=== PATIENT | female | born 1975 | race Caucasian/White ===

== ENCOUNTER 2023-08-18 10:10 | Outpatient (OUT) | payer BC, SELFPAY ==
[2023-08-18 10:38] LABS: Basophils Percent Auto 0.3 % (0.2-2.0); Eosinophils Percent Auto 0.6 % (0.9-7.0); Hematocrit 44.7 % (36.0-48.0); Immature Granulocytes Abs Auto 0.01 10^3/uL (0.00-0.03); Immature Granulocytes Pct Auto 0.1 % (0.0-0.5); Lymphocytes Absolute Auto 1.9 10^3/uL (1.2-3.8); Lymphocytes Percent Auto 26.4 % (20.5-60.0); Mean Corpuscular HGB Conc 33.6 g/dL (29.9-35.2); Mean Corpuscular Hemoglobin 33.1 pg (26.7-34.0); Mean Corpuscular Volume 98.7 fL (81.0-99.0); Mean Platelet Volume 10.7 fL (9.5-13.5); Monocytes Absolute Auto 0.4 10^3/uL (0.3-0.8); Monocytes Percent Auto 5.8 % (1.7-12.0); Neutrophils Absolute Auto 4.8 10^3/uL (1.4-6.5); Neutrophils Percent Auto 66.8 % (43.0-75.0); Platelet Count 216 10^3/uL (150-450); Red Blood Count 4.53 10^6/uL (4.20-5.40); Red Cell Distribution Width 11.6 % (11.0-15.0); White Blood Count 7.2 10^3/uL (4.0-11.0)
[2023-08-18 11:16] LABS: Alanine Aminotransferase 17 U/L (14-59); Albumin Globulin Ratio 0.8; Albumin Level 3.5 g/dL (3.4-5.0); Alkaline Phosphatase 72 U/L (46-116); Anion Gap 9.3; Aspartate Amino Transferase 22 U/L (15-37); BUN Creatinine Ratio 12.9; Bilirubin Total 0.6 mg/dL (0.2-1.0); Calcium 9.1 mg/dL (8.5-10.1); Chloride 101 mmol/L (98-107); Chol HDL Ratio 3.2; Cholesterol 183 mg/dL (<=200); Estimated Average Glucose 100 mg/dL; Estimated GFR (African America >60 (>=60); Estimated GFR (Non-African Ame 51 (>=60); Free T3 2.36 pg/mL (2.18-3.98); Globulin 4.4 g/dL; Glucose 94 mg/dL (74-106); Glycohemoglobin A1C 5.1 % (4.5-6.2); HDL Cholesterol 57 mg/dL (40-60); Potassium 4.3 mmol/L (3.5-5.1); Sodium 136 mmol/L (136-145); Thyroid Stimulating Hormone 1.755 uIU/mL (0.358-3.740); Total Protein 7.9 g/dL (6.4-8.2); Triglycerides 130 mg/dL (<=150)
[2023-08-19 11:09] LABS: Insulin 8.7 uIU/mL (2.6-24.9)
== END 2023-08-18 10:11 | disposition home or self-care (01) ==
LOC: LAB 10:14
PROVIDERS: PCP Nurse Practitioner Family; Visit Provider Nurse Practitioner Family
DX: Z00.00 Encounter for general adult medical examination without abnormal findings (principal)
CPT/HCPCS: 36415; 80053; 80061; 82306; 83036; 83525; 83540; 84436; 84443; 84481; 85025

== ENCOUNTER 2023-08-25 12:42 | Outpatient (OUT) | payer BC, SELFPAY ==
--- OUTSIDE RECORDS SUMMARY | 2023-08-25 12:47 | XMS_ITS | CCD ---
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 Name Role Phone DEN HU Unavailable Unavailable XOCHILT FAGAN Unavailable Unavailable DEN HU Unavailable Unavailable XOCHILT FAGAN Unavailable Unavailable Xochilt Corral Unavailable GLENYS MCGINNIS Admitting Unavailable GLENYS MCGINNIS Attending Unavailable DR SAKSHI MARINELLI Primary Care Unavailable GLENYS MCGINNIS Consulting Unavailable Medications Current Medications Medication Drug Class(es) Dates Sig (Normalized) Sig (Original) Escitalopram (1 source) Serotonin Reuptake Inhibitor Lexapro Active lamoTRIgine (1 source) Mood Stabilizer, Anti-epileptic Agent LaMICtal Active olmesartan (1 source) Angiotensin 2 Receptor Jamshid Benicar Active Omeprazole (1 source) Proton Pump Inhibitor PriLOSEC Active penicillin v potassium 500 mg oral tablet (1 source) Start: 03-23-2022 take 1 tablet by mouth every twelve hours Penicillin V Potassium 500 MG 1 tablet Orally Twice a day for 10 day(s) Mar, Active Pravastatin (1 source) HMG-CoA Reductase Inhibitor Pravastatin Sodium Active Problems Active Problems Problem Classification Problem Date Documented Da te Episodic/Chronic Abdominal pain (1 source) Abdominal pain; Translations: [Flank pain, acute] Episodic Pneumonia (except that caused by tuberculosis or sexually transmitted disease) (1 source) Pneumonia; Translations: [Pneumonia] Episodic Unclassified (1 source) lbpc left numbness x 8 months / lbpc left numbness x 8 months() Onset: 03-04-2017 Past or Other Problems Problem Classification Problem Date Documented Da te Episodic/Chronic Other nervous system disorders (1 source) Anesthesia of skin; Translations: [Anesthesia of skin] Onset: 03-04-2017 Episodic Other upper respiratory infections (2 sources) Acute pharyngitis, unspecified; Translations: [Streptococcal pharyngitis] Onset: 03-23-2022 Resolved: 03-23-2022 Episodic Spondylosis; intervertebral disc disorders; other back problems (1 source) Low back pain; Translations: [Low back pain] Onset: 03-04-2017 Episodic Unclassified (1 source) lbpc left numbness x 8 months; Translations: [lbpc left numbness x 8 months] Onset: 03-04-2017 Results Test Name Value Interpretation Reference Range Facility INSULINon 07-30-2022 Insulin 17.5 uIU/mL Normal 2.6-24.9 [facility] Comment on above: Performed By: #### I NSULIN #### [facility] [address] [place] [address] Dr. Rachel Edgar CBC AUTO DIFFon 07-29-2022 BASO # 0.0 103/ul Normal 0.0-0.1 [facility] Comment on above: Performed By: #### C BC #### [facility] [address] [place] [address] Dr. Rachel Edgar Basophils/100 WBC (Bld) 0.1 % Critically low 0.2-2.0 [facility] Comment on above: Performed By: #### C BC #### [facility] [address] [address] [address] Rachel Edgar EO # 0.1 103/ul Normal 0.0-0.7 [facility] Comment on above: Performed By: #### C BC #### [facility] [address] [address] [address] Rachel Edgar Eosinophils/100 WBC (Bld) 0.7 % Critically low 0.9-7.0 [facility] Comment on above: Performed By: #### C BC #### [facility] [address] [place] [address] Dr. Rachel Edgar Erythrocyte distribution width (RBC) [Ratio] 12.1 % Normal 11.0-15.0 [facility] Comment on above: Performed By: #### C BC #### [facility] [address] [place] [address] Dr. Rachel Edgar Hematocrit (Bld) [Volume fraction] 42.0 % Normal 36.0-48.0 [facility] Comment on above: Performed By: #### C BC #### [facility] [address] [address] [address] Rachel Edgar Hemoglobin (Bld) [Mass/Vol] 14.0 g/dL Normal 12.0-16.0 [facility] Comment on above: Performed By: #### C BC #### [facility] [address] [address] [address] Rachel Edgar IG # 0.03 10e3/ul Normal 0.00-0.03 [facility] Comment on above: Performed By: #### C BC #### [facility] [address] [place] [address] Dr. Rachel Edgar IG % 0.3 % Normal 0.0-0.5 [facility] Comment on above: Performed By: #### C BC #### [facility] [address] [place] [address] Dr. Rachel Edgar LYMPH # 2.1 103/ul Normal 1.2-3.8 [facility] Comment on above: Performed By: #### C BC #### [facility] [address] [place] [address] Dr. Rachel Edgar Lymphocytes/100 WBC (Bld) 23.2 % Normal 20.5-60.0 [facility] Comment on above: Performed By: #### C BC #### [facility] [address] [place] [address] Dr. Rachel Edgar MANUAL DIFF REQ NO Normal [facility] Comment on above: Performed By: #### C BC #### [facility] [address] [place] [address] Dr. Rachel Edgar MCH (RBC) [Entitic mass] 32.9 pg Normal 26.7-34.0 [facility] Comment on above: Performed By: #### C BC #### [facility] [address] [place] [address] Dr. Rachel Edgar MCHC (RBC) [Mass/Vol] 33.3 g/dL Normal 29.9-35.2 [facility] Comment on above: Performed By: #### C BC #### [facility] [address] [address] [address] Rachel Edgar MCV (RBC) [Entitic vol] 98.8 fL Normal 81.0-99.0 [facility] Comment on above: Performed By: #### C BC #### [facility] [address] [address] [address] Rachel Edgar MONO # 0.5 103/ul Normal 0.3-0.8 [facility] Comment on above: Performed By: #### C BC #### [facility] [address] [address] [address] Rachel Edgar Monocytes/100 WBC (Bld) 5.9 % Normal 1.7-12.0 [facility] Comment on above: Performed By: #### C BC #### [facility] [address] [place] [address] Dr. Rachel Edgar NEUT # 6.3 103/ul Normal 1.4-6.5 [facility] Comment on above: Performed By: #### C BC #### [facility] [address] [place] [address] Dr. Rachel Edgar Neutrophils/100 WBC (Bld) 69.8 % Normal 43.0-75.0 [facility] Comment on above: Performed By: #### C BC #### [facility] [address] [place] [address] Dr. Rachel Edgar Platelet mean volume (Bld) [Entitic vol] 10.2 fL Normal 9.5-13.5 [facility] Comment on above: Performed By: #### C BC #### [facility] [address] [place] [address] Dr. Rachel Edgar PLT 335 103/ul Normal 150-450 [facility] Comment on above: Performed By: #### C BC #### [facility] [address] [place] [address] Dr. Rachel Edgar RBC 4.25 106/ul Normal 4.20-5.40 [facility] Comment on above: Performed By: #### C BC #### [facility] [address] [place] [address] Dr. Rachel Edgar WBC 9.0 103/ul Normal 4.0-11.0 [facility] Comment on above: Performed By: #### C BC #### [facility] [address] [place] [address] Dr. Rachel Edgar FREE THYROXINE INDEX T7on FTI 1.88 Normal 1.30-4.50 [facility] Comment on above: Performed By: #### T 7, TSH, CMP, LIPID #### [facility] [address] [place] [address] Dr. Rachel Edgar T3U 33.0 % Normal 30.0-39.0 [facility] Comment on above: Performed By: #### T 7, TSH, CMP, LIPID #### [facility] [address] [place] [address] Dr. Rachel Edgar T4 [Mass/Vol] 5.70 ug/dL Normal 4.80-13.90 [facility] Comment on above: Performed By: #### T 7, TSH, CMP, LIPID #### [facility] [address] [place] [address] Dr. Rachel Edgar GLYCOHEMOGLOBIN A1Con 2021 ADA RECOMMENDATION SEE BELOW Normal [facility] Comment on above: Result Comment: ADA RECOMMENDED LIMIT 4.0 - 6.0 ADA THERAPEUTIC TARGET < 7.0 ACTION SUGGESTED > 7.0 Performed By: #### A 1C #### [facility] [address] [place] [address] Dr. Rachel Edgar HbA1c (Bld) [Mass fraction] 5.4 % Normal 4.5-6.2 [facility] Comment on above: Performed By: #### A 1C #### [facility] [address] [place] [address] Dr. Rachel Edgar IRONon 07-29-2022 Iron [Mass/Vol] 64.0 ug/dL Normal 50.0-170.0 [facility] Comment on above: Performed By: #### I JCARLOS #### [facility] [address] [place] [address] Dr. Rachel Edgar LIPID PROFILEon 07-29-2022 CHOL-HDL RATIO NORM SEE BELOW Normal [facility] Comment on above: Result Comment: 3.3 - 4.4 LOW RISK 4.4 - 7.1 AVERAGE RISK 7.1 - 11.0 MODERATE RISK >11.0 HIGH RISK Performed By: #### T 7, TSH, CMP, LIPID #### [facility] [address] [address] [address] Rachel Edgar Cholesterol [Mass/Vol] 164 mg/dL Normal <=200 [facility] Comment on above: Performed By: #### T 7, TSH, CMP, LIPID #### [facility] [address] [address] [address] Rachel Edgar Cholesterol in HDL [Mass/Vol] 42 mg/dL Normal 40-60 [facility] Comment on above: Performed By: #### T 7, TSH, CMP, LIPID #### [facility] [address] [address] [address] Rachel Edgar Cholesterol in LDL [Mass/Vol] 82.6 mg/dL Normal [facility] Comment on above: Performed By: #### T 7, TSH, CMP, LIPID #### [facility] [address] [address] [address] Rachel Edgar Cholesterol.total/Ch olesterol in HDL [Mass ratio] 3.9 {ratio} Normal [facility] Comment on above: Performed By: #### T 7, TSH, CMP, LIPID #### [facility] [address] [address] [address] Rachel Edgar HDL NORMAL > or = 60 mg/dl - LOW CARDIOVASCULAR RISK <40 mg/dl - HIGH CARDIOVASCULAR RISK Normal [facility] Comment on above: Performed By: #### T 7, TSH, CMP, LIPID #### [facility] [address] [place] [address] Dr. Rachel Edgar LDL CALC NORMAL SEE BELOW Normal [facility] Comment on above: Result Comment: <100 mg/dl OPTIMAL 100 - 129 mg/dl NEAR OR ABOVE OPTIMAL 130 - 159 mg/dl BORDERLINE HIGH 160 - 189 mg/dl HIGH >190 mg/dl VERY HIGH Performed By: #### T 7, TSH, CMP, LIPID #### [facility] [address] [address] [address] Rachel Edgar Triglyceride [Mass/Vol] 197 mg/dL Critically high <=150 [facility] Comment on above: Performed By: #### T 7, TSH, CMP, LIPID #### [facility] [address] [address] [address] Rachel Edgar VLDL CALC 39.4 mg/dL Normal [facility] Comment on above: Performed By: #### T 7, TSH, CMP, LIPID #### [facility] [address] [address] [address] Rachel Edgar PROF 14(COMP METB)on 022 Albumin [Mass/Vol] 3.5 g/dL Normal 3.4-5.0 [facility] Comment on above: Performed By: #### T 7, TSH, CMP, LIPID #### [facility] [address] [address] [address] Rachel Edgar Albumin/Globulin [Mass ratio] 0.9 {ratio} Normal [facility] Comment on above: Performed By: #### T 7, TSH, CMP, LIPID #### [facility] [address] [place] [address] Dr. Rachel Edgar ALP [Catalytic activity/Vol] 83 U/L Normal 46-116 [facility] Comment on above: Performed By: #### T 7, TSH, CMP, LIPID #### [facility] [address] [address] [address] Rachel Edgar ALT [Catalytic activity/Vol] 21 U/L Normal 14-59 [facility] Comment on above: Performed By: #### T 7, TSH, CMP, LIPID #### [facility] [address] [place] [address] Dr. Rachel Edgar Anion gap [Moles/Vol] 10.4 mmol/L Normal [facility] Comment on above: Performed By: #### T 7, TSH, CMP, LIPID #### [facility] [address] [place] [address] Dr. Rachel Edgar AST [Catalytic activity/Vol] 17 U/L Normal 15-37 [facility] Comment on above: Performed By: #### T 7, TSH, CMP, LIPID #### [facility] [address] [address] [address] Rachel Edgar Bilirubin [Mass/Vol] 0.2 mg/dL Normal 0.2-1.0 [facility] Comment on above: Performed By: #### T 7, TSH, CMP, LIPID #### [facility] [address] [address] [address] Rachel Edgar Calcium [Mass/Vol] 9.0 mg/dL Normal 8.5-10.1 [facility] [place] [facility] Comment on above: Performed By: #### T 7, TSH, CMP, LIPID #### [facility] [address] [place] [address] Dr. Rachel Edgar Chloride [Moles/Vol] 103 mmol/L Normal 98-107 [facility] Comment on above: Performed By: #### T 7, TSH, CMP, LIPID #### [facility] [address] [address] [address] Rachel Edgar CO2 [Moles/Vol] 30.8 mmol/L Normal 21.0-32.0 [facility] Comment on above: Performed By: #### T 7, TSH, CMP, LIPID #### [facility] [address] [place] [address] Dr. Rachel Edgar Creatinine [Mass/Vol] 0.96 mg/dL Normal 0.55-1.02 [facility] Comment on above: Performed By: #### T 7, TSH, CMP, LIPID #### [facility] [address] [place] [address] Dr. Rachel Edgar EGFR-AF MONEGASQUE >60 Normal >=60 [facility] Comment on above: Performed By: #### T 7, TSH, CMP, LIPID #### [facility] [address] [place] [address] Dr. Rachel Edgar EGFR-NON AF MONEGASQUE >60 Normal >=60 [facility] Comment on above: Performed By: #### T 7, TSH, CMP, LIPID #### [facility] [address] [address] [address] Rachel Edgar Globulin (S) [Mass/Vol] 4.0 g/dL Normal [facility] Comment on above: Performed By: #### T 7, TSH, CMP, LIPID #### [facility] [address] [address] [address] Rachel Edgar Glucose [Mass/Vol] 108 mg/dL Normal [facility] [place] [facility] Comment on above: Performed By: #### T 7, TSH, CMP, LIPID #### [facility] [address] [address] [address] Rachel Edgar Performed By: #### A 1C #### [facility] [address] [place] [address] Dr. Rachel Edgar Potassium [Moles/Vol] 4.2 mmol/L Normal 3.5-5.1 [facility] Comment on above: Performed By: #### T 7, TSH, CMP, LIPID #### [facility] [address] [place] [address] Dr. Rachel Edgar Protein [Mass/Vol] 7.5 g/dL Normal 6.4-8.2 [facility] [place] [facility] Comment on above: Performed By: #### T 7, TSH, CMP, LIPID #### [facility] [address] [place] [address] Dr. Rachel Edgar Sodium [Moles/Vol] 140 mmol/L Normal 136-145 [facility] [place] [facility] Comment on above: Performed By: #### T 7, TSH, CMP, LIPID #### [facility] [address] [place] [address] Dr. Rachel Edgar Urea nitrogen [Mass/Vol] 15.0 mg/dL Normal 7.0-18.0 [facility] Comment on above: Performed By: #### T 7, TSH, CMP, LIPID #### [facility] [address] [place] [address] Dr. Rachel Edgar Urea nitrogen/Creatinine [Mass ratio] 15.6 mg/mg Normal [facility] Comment on above: Performed By: #### T 7, TSH, CMP, LIPID #### [facility] [address] [place], [place] [address] Dr. Rachel Edgar TSHon 07-29-2022 TSH 1.473 uIU/mL Normal 0.358-3.740 [facility] [place] [facility] Comment on above: Performed By: #### T 7, TSH, CMP, LIPID #### [facility] [address] [place], [place] [address] Dr. Rachel Edgar COVID Quick Testingon 2021 Result Negative [facility] Other Quick Strepon 03-23-2022 S. pyogenes Org specific cx Ql (Throat) Positive [facility] Other Quick Strep [facility] Other XR LUMBAR SPINE LIMITEDon XR LUMBAR SPINE LIMITED REPORT: 2 view lumbar spineINDICATION: Low back pain, unspecified back pain laterality, unspecified chronicity, with sciatica present unspecifiedFINDINGS: Underlying scoliosis. Vertebral body heights are well maintained. No evidence of acute fracture. Grade 1 anterolisthesis of L5 on S1 with moderate disc height loss likely due to bilateral pars defects. Rudimentary disc at S1-S2. Mild diffuse disc height loss. SI joints are mildly degenerated.1. SCOLIOSIS WITH MILD UNDERLYING DEGENERATIVE CHANGES2. PROBABLE BILATERAL L5 PARS DEFECTS WITH GRADE 1 ANTEROLISTHESIS AND MODERATE DISC DEGENERATIONFinal report electronically signed by Kely Blue on 03/04/2017 4:20 PMInterpreted by:BASIL Corraligned by:Kely Blue MD03/04/17Final result Normal [facility] Vital Signs Date Time Vital Sign Value Performing Clinician Facility 03-23-2022 11:20-0400 Body height 154.94 cm Xochilt Corral Other [facility] Other 03-23-2022 11:20-0400 Body mass index (BMI) [Ratio] 42.51 kg/m2 Xochilt Corral Other [facility] Other 08-23-2022 11:20-0400 Body temperature 97.8 [degF] Xochilt Corral Other [facility] Other 03-23-2022 11:20-0400 Body weight 102.06 kg Xochilt Corral Other [facility] Other 03-23-2022 11:20-0400 Respiratory rate 18 /min Xochilt Corral Other [facility] Other 03-23-2022 11:20-0400 SaO2% (BldA) [Mass fraction] 97 % Xochilt Corral Other [facility] Other Encounters Encounter Date Encounter Type Care Provider Facility Start: 07-29-2022 End: 07-30-2022 ambulatory [facility] Facility: Start: 03-23-2022 End: 03-23-2022 ambulatory Xochilt Corral Other [facility] Other Start: 03-23-2022 Office outpatient vi sit 15 minutes Xochilt [facility]reira[facility] Start: 03-04-2017 End: 03-05-2017 Ambulatory [facility] Procedures Date Procedure Procedure Detail Performing Clinician Start: 03-04-2017 Radex spine lumbosac ral 2/3 views DEN HU Payers Date Payer Category Payer Unknown [id number] 1975 Unknown [id number] 1957 [employer] [facility] [id number] Social History Date Type Detail Facility Sex Assigned At [facility] Other Evaluation note 03-23-2022 Note Date & Type Note Facility 03-23-2022 Evaluation note Encounter Date Diagnosis Assessment Notes Mar, Sore throat (ICD-10 - J02.9) Mar, Strep pharyngitis (ICD-10 - J02.0) 46 y.o. female seen today for 2 day onset of sore throat. She denies fever, chills, cough. She reports that her son tested positive x 1 week ago. Due to symptom onset a rapid COVID and rapid Strep was performed in the office today. Rapid strep was positve and COVID was negative. Results were reviewed with patient during this visit. Start Penicillin V Potassium 500mg orally BID for 10days. Advised pt to hydrate well and may incorporate pro-biotics while on antibiotics. Advised that she should start to feel better in the next 3-4 days but to complete the antibiotic treatment. PT acknowledges understanding and agrees to understanding. [facility] Other History general Narrative - Reported 10-31-2011 Note Date & Type Note Facility 10-31-2011 History general N arrative - Reported Type Medical History hypertension Medical History depression Medical History acid reflux Medical History miscarriage 10/2011 Surgical History D&C Hospitalization History childbirth [facility] Other Summary Purpose Family History No Family History Records FoundNo Family History Records Found Advance Directives No Advanced Directives Records FoundNo Advanced Directives Records Found Additional Source Comments INFORMATION SOURCE (unrecogn ized section and content) DATE CREATED AUTHOR 01/25/2018 Iesha marsh DATE CREATED AUTHOR AUTHOR'S ORGANIZ ATION 07/30/2022 The Suni marsh REASON FOR VISIT (unrecogniz ed section and content) VAN, SORE THROAT FOR RECORDS PERTAINING TO PATIENTS WHO ARE OR HAVE BEEN ENROLLED IN A CHEMICAL DEPENDENCY/SUBSTANCEABUSE PROGRAM, SOME INFORMATION MAY BE OMITTED. This clinical summary was aggregated from multiple sources. Caution should be exercised in using it in the provision of clinical care. This summary normalizes information from multiple sources, and as a consequence, information in this document may materially change the coding, format and clinical context of patient data. In addition, data may be omitted in some cases. CLINICAL DECISIONS SHOULD BE BASED ON THE PRIMARY CLINICAL RECORDS. [facility]. provides no warranty or guarantee of the accuracy or completeness of information in this document.
[2023-08-25 13:54] LABS: Alanine Aminotransferase 26 U/L (14-59); Albumin Level 3.9 g/dL (3.4-5.0); Alkaline Phosphatase 78 U/L (46-116); Anion Gap 11.1; Aspartate Amino Transferase 12 U/L (15-37); Bilirubin Total 0.4 mg/dL (0.2-1.0); Calcium 9.1 mg/dL (8.5-10.1); Carbon Dioxide 31.4 mmol/L (21.0-32.0); Chloride 99 mmol/L (98-107); Estimated GFR (African America 59 (>=60); Estimated GFR (Non-African Ame 49 (>=60); Globulin 4.1 g/dL; Glucose 90 mg/dL (74-106); Potassium 3.5 mmol/L (3.5-5.1); Sodium 138 mmol/L (136-145)
== END 2023-08-25 12:43 | disposition home or self-care (01) ==
LOC: LAB 12:44
PROVIDERS: PCP Nurse Practitioner Family; Visit Provider Nurse Practitioner Family
DX: N28.9 Disorder of kidney and ureter, unspecified (principal)
CPT/HCPCS: 36415; 80053

== ENCOUNTER 2024-01-10 14:26 | Outpatient (OUT) | payer BC, SELFPAY ==
[2024-01-10 15:12] LABS: Alanine Aminotransferase 20 U/L (14-59); Albumin Level 3.6 g/dL (3.4-5.0); Alkaline Phosphatase 82 U/L (46-116); Aspartate Amino Transferase 14 U/L (15-37); BUN Creatinine Ratio 7.7; Bilirubin Total 0.6 mg/dL (0.2-1.0); Calcium 8.9 mg/dL (8.5-10.1); Carbon Dioxide 31.3 mmol/L (21.0-32.0); Chloride 104 mmol/L (98-107); Estimated GFR (African America >60 (>=60); Estimated GFR (Non-African Ame 57 (>=60); Globulin 3.6 g/dL; Glucose 95 mg/dL (74-106); Potassium 4.3 mmol/L (3.5-5.1); Sodium 141 mmol/L (136-145); Total Protein 7.2 g/dL (6.4-8.2)
== END 2024-01-10 14:27 | disposition home or self-care (01) ==
LOC: LAB 14:28
PROVIDERS: PCP Nurse Practitioner Family; Visit Provider Nurse Practitioner Family
DX: N18.2 Chronic kidney disease, stage 2 (mild) (principal)
CPT/HCPCS: 36415; 80053

== ENCOUNTER 2024-04-26 13:30 | Outpatient (OUT) | payer BC, MEDICAID, SELFPAY ==
[2024-04-26 14:30] LABS: Alanine Aminotransferase 12 U/L (14-59); Albumin Globulin Ratio 0.9; Albumin Level 3.1 g/dL (3.4-5.0); Alkaline Phosphatase 70 U/L (46-116); Aspartate Amino Transferase 14 U/L (15-37); BUN Creatinine Ratio 15.2; Bilirubin Total 0.3 mg/dL (0.2-1.0); Calcium 8.6 mg/dL (8.5-10.1); Chloride 103 mmol/L (98-107); Estimated GFR (African America >60 (>=60); Estimated GFR (Non-African Ame 56 (>=60); Globulin 3.4 g/dL; Glucose 83 mg/dL (74-106); Potassium 4.1 mmol/L (3.5-5.1); Sodium 139 mmol/L (136-145); Total Protein 6.5 g/dL (6.4-8.2)
[2024-04-26 15:12] LABS: Anion Gap 10.8; Carbon Dioxide 29.3 mmol/L (21.0-32.0)
== END 2024-04-26 13:31 | disposition home or self-care (01) ==
LOC: LAB 13:32
PROVIDERS: PCP Nurse Practitioner Family; Visit Provider Nurse Practitioner Family
DX: N18.2 Chronic kidney disease, stage 2 (mild) (principal)
CPT/HCPCS: 36415; 80053

== ENCOUNTER 2024-08-04 10:52 | Emergency (ER) | payer BC, MEDICAID, SELFPAY ==
[2024-08-04] VITALS (17 sets, daily range): BP systolic 143–182; BP diastolic 81–120; PULSE 65–83; TEMP 36.6; O2SAT 97; BMI 30.4
[2024-08-04] MEDS: LABETALOL HCL 20 MG/4 ML SYRINGE IVP (11:40)
[2024-08-04] MEDS: DIPHENHYDRAMINE HCL 50 MG/ML VIAL 25 MG IV (11:40)
[2024-08-04] MEDS: ONDANSETRON PF 4 MG/2 ML VIAL IV (11:40)
--- NOTE | 2024-08-04 11:49 | ED_ITS ---
HPI HPI - General Adult General Chief complaint: Headache Stated complaint: MIGRAINE Time Seen by Provider: 08/04/24 10:55 Source: patient Mode of arrival: walk-in History of Present Illness HPI narrative: Pt reports development of bifrontal headache about 2 days ago. She occasionally gets headaches but has never been diagnosed with migraines. She has some nausea but no other typical migraine symptoms - no photophobia or phonophobia. No visual aura. No neck pain or back pain. No recent injury to the head or neck. No URI symptoms. No vomiting. no sinus symptoms. No numbness, tingling or weakness. The patient's blood pressure is noted to be elevated in the emergency department at triage. She told me that she used to be on antihypertensive and then lost a lot of weight and her primary care provider discontinued the anti-HTN med. She said that she had been attending regular office visits and the blood pressure continue to be normal. However she said that she gained over 40 pounds since discontinuing the medication and has not had her blood pressure rechecked. She suspects it has been elevated for some time. It is not an explosive headache or the worst of her life. Related Data Home Medications ?Medication ?Instructions ?Recorded ?Confirmed escitalopram oxalate 20 mg tablet mg 08/04/24 norethindrone 1 mg-ethinyl tab 08/04/24 estradiol 20 mcg (21)-iron 75 mg (7) tablet (Yaima Fe 08/20 (28)) omeprazole 20 mg capsule,delayed mg 08/04/24 release trazodone 100 mg tablet mg 08/04/24 Previous Rx's ?Medication ?Instructions ?Recorded lisinopril 10 mg tablet 10 mg PO DAILY #30 tabs 08/04/24 Allergies Allergy/AdvReac Type Severity Reaction Status Date / Time No Known Drug Allergies Allergy Verified 08/04/24 11:02 Opioid HPI Opioid Management Most Recent Opioid Data: Last SEP Pain Assessment 08/04/24 12:27 PFSH PFSH Social History Little interest or pleasure in doing things: not at all Feeling down, depressed, or hopeless: not at all Exam Narrative Exam Narrative: Nurses notes and vital signs reviewed and patient is not hypoxic. afebrile General: Well-appearing and in no apparent distress. Skin: Warm, dry, no pallor noted. No rash. Head: Normocephalic, atraumatic. Neck: Supple, non-tender. No meningismus Eye: Pupils are equal, round and EOMI. No scleral icterus. Ears, Nose, Mouth, and Throat: TM are clear, no posterior oropharynx erythema or nasal mucosal hypertrophy, uvula is mid-line Oral mucosa is moist Cardiovascular: Regular Rate and Rhythm without murmur, gallop or rub. Respiratory: No accessory muscle use or respiratory distress. Lungs are clear to auscultation, no wheezing, rales or rhonchi Musculoskeletal: normal ROM Neurological: A&O x4. No cranial nerve dysfunction observed. No truncal ataxia. Moves all extremities. Sensation intact. Psychiatric: Cooperative and interactive. Normal mood and affect. Constitutional Vital Signs, click to edit/add: Last Vital Signs Temp 98 F 08/04/24 10:57 Pulse 69 08/04/24 13:20 Resp 16 08/04/24 11:50 BP 143/85 H 08/04/24 13:01 Pulse Ox 97 08/04/24 10:57 O2 Del Method Room Air 08/04/24 10:57 Course Vital Signs Vital signs: Vital Signs Temperature 98 F 08/04/24 10:57 Pulse Rate 83 08/04/24 10:57 Respiratory Rate 16 08/04/24 10:57 Blood Pressure 182/100 H 08/04/24 10:57 Pulse Oximetry 97 08/04/24 10:57 Oxygen Delivery Method Room Air 08/04/24 10:57 Temperature 98 F 08/04/24 10:57 Pulse Rate 69 08/04/24 13:20 Respiratory Rate 16 08/04/24 11:50 Blood Pressure 143/85 H 08/04/24 13:01 Pulse Oximetry 97 08/04/24 10:57 Oxygen Delivery Method Room Air 08/04/24 10:57 Medical Decision Making MDM Narrative Medical decision making narrative: Peripheral IV established and patient placed on quality assurance monitor chassis because I ordered her to receive labetalol for blood pressure control. I also ordered her to receive IV Zofran for nausea and added Benadryl in case this is a migraine variant. I suspect that the patient's elevated blood pressure is what is contributing to her headache. It is not an explosive headache or the worst of her life. No meningismus on exam. Manual BP at triage was 182/100 but the machine registered 201/112. After receiving 20mg Labetalol IV, the patient's BP decreased to 175/81. She had decrease in her symptoms of headache and nausea after treatment. @ 1320, her headache had dramatically decreased and her BP was 143/85. She was discharged home. We could not find any recent antiHTN Rxs except for HCTZ. I prescribed Lisinopril 10mg and encouraged the patient to see her PCP for follow up. ED return for any worrisome symptoms. Discharge Plan Discharge Chief Complaint: Headache Clinical Impression: Headache, Hypertension Patient Disposition: Home, Self-Care Time of Disposition Decision: 13:27 Prescriptions / Home Meds: New lisinopril 10 mg tablet 10 mg PO DAILY Qty: 30 0RF No Action norethindrone-e.estradiol-iron [Yaima Gonzalez 08/20 ()] 1 mg-20 mcg (21)/75 mg (7) tablet trazodone 100 mg tablet omeprazole 20 mg capsule,delayed release(DR/EC) escitalopram oxalate 20 mg tablet Print Language: Korean Instructions: Acute Headache (ED), Hypertension (ED) Referrals: GLENYS MCGINNIS [Primary Care Provider] - 1 week
[2024-08-04] MEDS: METHYLPREDNISOLONE SOD SUCC PF 125 MG/2 ML VIAL IVP (12:26)
[2024-08-04] MEDS: KETOROLAC TROMETHAMINE 30 MG/ML VIAL IVP (12:27)
== END 2024-08-04 13:35 | disposition home or self-care (01) ==
PROVIDERS: Emergency Provider Emergency Medicine; PCP Nurse Practitioner Family
DX: R51.9 Headache, unspecified (principal); I10 Essential (primary) hypertension
CPT/HCPCS: 96374; 96375; 99284; J1200; J1885; J1920; J2405; J2919

== ENCOUNTER 2024-08-17 14:29 | Outpatient (OUT) | payer MEDICAID, SELFPAY ==
--- OUTSIDE RECORDS SUMMARY | 2024-08-17 14:41 | XMS_ITS | CCD ---
Author Organization [facility] CliniSymo Care Team Providers Care Photo Specialist Name Role Phone DEN HU Unavailable Unavailable SHAWN FAGAN Unavailable Unavailable DEN HU Unavailable Unavailable SHAWN FAGAN Unavailable Unavailable Shawn Corral Unavailable BRITTANY MCGINNIS Admitting Unavailable BRITTANY MCGINNIS Attending Unavailable DR SAKSHI LEUNG Primary Care Unavailable RAS, BRITTANY Consulting Unavailable MD Sakshi Leung Primary Care Provider [phone] JOSE Stone Attending Provider Brittany Mcginnis MD Unavailable Jackelyn Stone Admitting Unavailable Jackelyn Stone Attending Unavailable Sakshi Leung Primary Care Unavailable VERNON QUINN Attending Unavailable VERNON QUINN Referring Unavailable GISSEL BURRELL Attending Unavailable WOLF ALAN Attending Unavailable WOLF ALAN Referring Unavailable WOLF ALAN Attending Unavailable WOLF ALAN Referring Unavailable WOLF ALAN Attending Unavailable WOLF ALAN Attending Unavailable WOLF ALAN Referring Unavailable Ras DIRK Brittany S Primary Care Provider OLIVIA SCHMIDT Attending Unavailable RAS, BRITTANY S Referring Unavailable RAS, BRITTANY S Primary Care Unavailable BRAYANOLIVIA Attending Unavailable RAS, BRITTANY S Referring Unavailable RAS, BRITTANY S Primary Care Unavailable BRAYANOLIVIA Attending Unavailable RAS, BRITTANY S Referring Unavailable RAS, BRITTANY S Primary Care Unavailable BRAYANOLIVIA Referring Unavailable RAS, BRITTANY S Primary Care Unavailable BRAYANOLIVIA Referring Unavailable RAS, BRITTANY S Primary Care Unavailable BRAYANOLIVIA Referring Unavailable RAS, BRITTANY S Primary Care Unavailable Medications Current Medications Medication Drug Class(es) Dates Sig (Normalized) Sig (Original) Crutches (2 sources) Start: 03-01-2024 Crutches Active 0 .Route 1 March 01, 2024 12:00am As directed escitalopram 20 mg oral tablet (19 sources) Serotonin Reuptake Inhibitor Start: 03-01-2024 take 20 mg by mouth once daily Escitalopram Oxalate Active 20 MG PO Daily March 01, 2024 12:00am take 1.5 tablets by mouth in the morning escitalopram (LEXAPRO) 20 mg tablet Take 1.5 tablets (30 mg total) by mouth in the morning. Active escitalopram (Le xapro) 20 MG tablet Take 30 mg by mouth in the morning. Active Lexapro Active Ethinyl Estradiol / Ferrous fumarate / Norethindrone (2 sources) Estrogen Start: 03-23-2024 take 1 tablet by mouth in the morning, then take 0.05 tablet by mouth once norethindrone-e.estradioL-iron ([facility] ,) 1 mg-20 mcg (21)/75 mg (7) per tablet Indications: Encounter for initial prescription of contraceptive pills Take 1 tablet by mouth in the morning. 84 tablet 3 03/23/2024 Active lamoTRIgine 100 mg oral tablet (19 sources) Mood Stabilizer, Anti-epilep tic Agent Start: 03-01-2024 take 100 mg by mouth once daily Lamotrigine Active 100 MG PO Daily March 01, 2024 12:00am Start: 04-01-2023 take 2 tablets by mo uth in the morning, then take 2 tablets by mouth at bedtime lamoTRIgine (LaMICtal) 100 mg tablet Indications: Seizure disorder (CMS-HCC) Take 2 tablets (200 mg total) by mouth in the morning and 2 tablets (200 mg total) before bedtime. 120 tablet 2 04/01/2023 Active LaMICtal Active methylPREDNISolone (2 sources) Corticosteroid Start: 06-12-2024 methylPREDNISolone (Medrol Dospak) 4 MG tablets Indications: Left foot pain Follow schedule on package instructions 21 tablet 06/12/2024 Active olmesartan (1 source) Angiotensin 2 Receptor Jamshid Benicar Active omeprazole 20 mg delayed release oral capsule (7 sources) Proton Pump Inhibitor Start: 03-17-2024 take 1 capsule by mouth once daily before breakfast omeprazole (PriLOSEC) 20 mg capsule Take 1 capsule (20 mg total) by mouth every morning before breakfast. 03/17/2024 Active Start: 03-01-2024 End: 03-01-2024 take 20 mg by mouth once daily Omeprazole Discontinued 20 MG PO Daily March 01, 2024 12:00am March 01, 2024 5:00pm PriLOSEC Active penicillin v potassium 500 mg oral tablet (1 source) Start: 03-23-2022 take 1 tablet by mouth every twelve hours Penicillin V Potassium 500 MG 1 tablet Orally Twice a day for 10 day(s) Mar, Active Pravastatin (1 source) HMG-CoA Reductase Inhibitor Pravastatin Sodium Active SLYND 4 mg (28) tablet (2 sources) Start: 07-30-2024 take 1 tablet by mouth once daily SLYND 4 mg (28) tablet TAKE 1 TABLET BY MOUTH ONCE DAILY 28 tablet 11 07/30/2024 Active traZODone hydrochloride 50 mg oral tablet (16 sources) Serotonin Reuptake Inhibitor take 3 tablets by mouth once daily traZODone (DESYREL) 50 mg tablet Take 3 tablets (150 mg total) by mouth nightly. Active traZODone (Desyr el) 100 MG tablet 1 (one) time each day at the same time Active Completed/Discontinued Medications Medication Drug Class(es) Dates Sig (Normalized) Sig (Original) drospirenone, contraceptive, 4 mg (28) tablet (1 source) Start: 07-17-2024 End: 07-30-2024 take 1 tablet by mouth in the morning drospirenone, contraceptive, 4 mg (28) tablet Take 4 mg by mouth in the morning. 28 tablet 11 07/17/2024 07/30/2024 Discontinued Problems Active Problems Problem Classification Problem Date Documented Date Episodic/Chronic Abdominal pain (1 source) Abdominal pain; Translations: [Flank pain, acute] Episodic Anxiety disorders (4 sources) Anxiety; Translations: [Anxiety disorder, unspecified] Onset: 07-29-2008 05-18-2023 Chronic Epilepsy; convulsions (4 sources) Seizure disorder; Translations: [Epilepsy, unspecified, not intractable, without status epilepticus] Onset: 05-04-2023 05-04-2023 Chronic Esophageal disorders (2 sources) Gastroesophageal reflux disease; Translations: [Gastro-esophageal reflux disease without esophagitis] 03-01-2024 Chronic Essential hypertension (2 sources) Hypertensive disorder; Translations: [Essential (primary) hypertension] 03-01-2024 Chronic Fracture of lower limb (12 sources) Closed fracture of talus; Translations: [Unspecified fracture of unspecified talus, initial encounter for closed fracture] 03-01-2024 Episodic Menopausal disorders (3 sources) Postmenopausal bleeding; Translations: [Postmenopausal bleeding] Onset: 07-10-2024 07-10-2024 Chronic Miscellaneous mental health disorders (4 sources) Dissociative convulsions; Translations: [Conversion disorder with seizures or convulsions] Onset: 05-18-2023 05-18-2023 Chronic Mood disorders (2 sources) Depressive disorder; Translations: [Depression] 03-01-2024 Chronic Other connective tissue disease (4 sources) Pain in left foot; Translations: [Pain in left foot] 05-22-2024 Episodic Other female genital disorders (2 sources) Abnormal uterine bleeding; Translations: [Other specified abnormal uterine and vaginal bleeding] 06-25-2024 Chronic Other female genital disorders (2 sources) Other specified abnormal uterine and vaginal bleeding; Translations: [Other specified abnormal uterine and vaginal bleeding] Onset: 04-30-2024 Chronic Other injuries and conditions due to external causes (2 sources) Injury of left leg; Translations: [Unspecified injury of left ankle, initial encounter] 03-01-2024 Episodic Other nervous system disorders (4 sources) Mononeuropathy of lower limb; Translations: [Unspecified mononeuropathy of unspecified lower limb] Onset: 06-01-2022 06-01-2022 Chronic Other nutritional; endocrine; and metabolic disorders (4 sources) Obese class II; Translations: [Obesity, Class II, BMI 35-39.9] Onset: 06-01-2022 03-07-2024 Chronic Pneumonia (except that caused by tuberculosis or sexually transmitted disease) (1 source) Pneumonia; Translations: [Pneumonia] Episodic Residual codes; unclassified (1 source) Reduced libido; Translations: [Decreased libido] 07-10-2024 Episodic Residual codes; unclassified (2 sources) Decreased libido; Translations: [Decreased libido] Onset: 07-10-2024 Episodic Spontaneous (2 sources) Miscarriage; Translations: [Complete or unspecified spontaneous without complication] 03-01-2024 Episodic Unclassified (1 source) lbpc left numbness x 8 months / lbpc left numbness x 8 months() Onset: 03-04-2017 Unclassified (1 source) EMB/Endosee Onset: 06-25-2024 Past or Other Problems Problem Classification Problem Date Documented Da te Episodic/Chronic Intracranial injury (4 sources) History of concussion injury of brain; Translations: [Personal history of traumatic brain injury] Onset: 04-01-2023 04-01-2023 Episodic Mood disorders (4 sources) Mood disorders Onset: 03-08-2024 03-08-2024 Other acquired deformities (4 sources) Acquired spondylolisthesis; Translations: [Spondylolisthesis, site unspecified] Onset: 06-01-2022 06-01-2022 Episodic Other injuries and conditions due to external causes (2 sources) Unspecified injury of left ankle, initial encounter; Translations: [Knee, leg, ankle, and foot injury] Onset: 03-01-2024 03-01-2024 Episodic Other injuries and conditions due to external causes (1 source) Unspecified injury of left foot, initial encounter; Translations: [Unspecified injury of left foot, initial encounter] Onset: 03-01-2024 Episodic Other nervous system disorders (1 source) Anesthesia of skin; Translations: [Anesthesia of skin] Onset: 03-04-2017 Episodic Other upper respiratory infections (2 sources) Acute pharyngitis, unspecified; Translations: [Streptococcal pharyngitis] Onset: 03-23-2022 Resolved: 03-23-2022 Episodic Residual codes; unclassified (4 sources) Impulsive character; Translations: [Impulsiveness] Onset: 05-18-2023 05-18-2023 Episodic Spondylosis; intervertebral disc disorders; other back problems (1 source) Low back pain; Translations: [Low back pain] Onset: 03-04-2017 Episodic Unclassified (1 source) lbpc left numbness x 8 months; Translations: [lbpc left numbness x 8 months] Onset: 03-04-2017 Unclassified (4 sources) Onset: 03-07-2024 03-07-2024 Results Test Name Value Interpretation Reference Range Facility E2 [Mass/Vol]on 07-11-2024 ESTRADIOL 290.9 pg/mL Normal [facility] Comment on above: Result Comment: NON- FEMALES Mid follicular: 25-115 pg/mL Ovulatory Peak: 32.1-517 pg/mL Mid Luteal: 36.5-246 pg/mL Post-Menopausal Females: <15.0-25.1 pg/mL (Not on hormone therapy) The Access Sensitive Estradiol assay results are not intended to be used to measure the effectiveness of exogeneous Estradiol supplementation, for example, when the patient is on hormone replacement therapy. The presence of estradiol drug analogues and their metabolites could have an impact on estradiol recovery when using this assay. Performed By: #### 2 839-9, 72927-2, 2243-4 #### [facility] ([id number]) [address] [place] [address], [address] [place] [address] #### [id number] #### [facility] ([id number]) [address] [place] [address] Progesterone [Mass/Vol]on PROGESTERONE 1.0 ng/mL Normal [facility] Comment on above: Result Comment: FEMALES: 1st Tri: 4.7-50.7 ng/ml 2nd Tri: 19.4-45.3 ng/ml MENSTRUATING FEMALES: Follicular: 0.3-1.5 ng/ml Mid Luteal: 5.2-18.6 ng/ml Post Melyssa: <0.1-0.8 ng/ml Performed By: #### 2 839-9, 50424-5, 2243-4 #### [facility] ([id number]) [address] [place] [address], [address] [place] [address] #### [id number] #### [facility] ([id number]) [address] [place] [address] Testosterone free and total panel [Mass/Vol]on 07-11-2024 Testosterone [Mass/Vol] 17 ng/dL Normal 8-60 [facility] Comment on above: Result Comment: NOTE ADDITIONAL INFORMATION Testing performed by Liquid Chromatography-Tandem Mass Spectrometry (LC-MS/MS). This test was developed and its performance characteristics determined by [facility] in a manner consistent with CLIA requirements. This test has not been cleared or approved by the U.S. Food and Drug Administration. Test Performed by: [place] [address] Train Crew Member: Leanne Kaye Ph.D.; CLIA# [id number] Performed By: #### 2 839-9, 00613-7, 2243-4 #### [facility] ([id number]) [address] [place] [address], [address] [place] [address] #### [id number] #### [facility] ([id number]) [address] [place] [address] TESTOSTERONE FREE 0.20 ng/dL Normal <0.13-0.95 [facility] Comment on above: Result Comment: NOTE ADDITIONAL INFORMATION This test was developed and its performance characteristics determined by [facility] in a manner consistent with CLIA requirements. This test has not been cleared or approved by the U.S. Food and Drug Administration. Performed By: #### 2 839-9, 61854-7, 2243-4 #### [facility] ([id number]) [address] [place] [address], [address] [place] [address] #### [id number] #### [facility] ([id number]) [address] [place] [address] Vitamin D+Metabolites [Mass/ Vol]on 07-11-2024 VITAMIN D 25 HYD TOT 65.1 ng/mL Normal 30-100 [facility] Comment on above: Result Comment: Vitamin D status 25 [place] Vitamin D Deficiency <20 ng/mL Insufficiency 20-29 ng/mL Sufficiency 30-100 ng/mL Toxicity >100 ng/mL NOTE: A pediatric reference range has not been established by the bulb planter of this kit. The [place] [employer] recommends a Vitamin D level of = or >20ng/mL in infants and children. Performed By: #### 2 839-9, 59570-2, 2243-4 #### [facility] ([id number]) [address] [place] [address], [facility] [address] [place] [address] #### [id number] #### [facility] ([id number]) [address] [place] [address] POCT , urineon 06-02 Beta HCG ( test) Ql (U) Negative [facility] Interpretation and review of laboratory results Normal [facility] [address] Surgical Pathologyon 024 Surgical Pathology Normal [facility] Comment on above: Result Comment: [facility] [address] [place] [address] Surgical Pathology Consultation Patient Name:SAMARIA GILMORE:1975 (Age: 48)Gender:FTaken:4Reported:4Physician(s):Olivia Schmidt M.D. ([phone])Copy To: Rec. #:[id number]: #[id number] Final Pathologic Diagnosis 1. Endometrium - biopsy: - Fragments of quiescent endometrium (no hyperplasia or neoplasia) 2. Endocervix - ECC: - Benign endocervical lining (no dysplasia or neoplasia) Report Electronically Signed Out [facility]07/03/2024Juan Peterson MD Interpretation [place] [address], License number: [id number]. Clinical History DUB, N93.8. Gross Description 1. Received in formalin labeled DEIRDRE, EMB are pink-dunn feathery soft tissue fragments admixed with hemorrhagic material, 1.5 x 1.5 x 0.1 cm in aggregate. The specimen is filtered and submitted in a single cassette. Fixation Time: Tissue removed from patient: 807 Time specimen placed in formalin: 807 Cold ischemic time: Less than 1 minute Total fixation time: 26.5 hours (1,ns,V29-4155 7-1) 2. Received in formalin labeled DEIRDRE, ECC are dunn feathery soft tissue fragments admixed with mucoid material, 1.5 x 1 x 0.2 cm in aggregate. The specimen is filtered and submitted entirely in a single cassette. (1, ns, S05-2144 7-2, m2) MD. ackerman/06/26/2024NSK Specimen(s) Received 1: EMB 2: ECC Fee Codes(s): 1; 11193 2; 99012 XR Foot - left 3 [facility] Result: 06/12/2024: Multiple views of left foot show no acute bony process including but not limited to fracture and/or dislocation. Overall anatomic alignment appeared to be well preserved. Impression: No acute bony process, left foot. Wolf Alan [employer] [facility] [employer] XR Foot - left 3 ViewsOrdere d By: Gissel Burrell on 06-14-2024 [employer] Work Phone: XR Foot - left 3 [facility] Study observation (narrative) [facility] [employer] XR Foot - left 3 [facility] Result: May 15, 2024 x-rays AP lateral and oblique of the left foot demonstrate anatomic alignment of the tarsometatarsal joints and Lisfranc joint. 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 There is a chronic appearing posterior talus avulsion fracture. Impression: Stable appearing foot. Pedro Pablo Burrell D.O. [facility] (narrative[facility] US PELVIC WITH TRANSVAGINALo n 05-01-2024 US PELVIC WITH TRANSVAGINAL US PELVIC WITH TRANSVAGINAL US PELVIC WITH TRANSVAGINAL HISTORY: Functional uterine bleeding, irregular cycles COMPARISON: None TECHNIQUE: Transabdominal and transvaginal sonographic evaluation of the pelvis. Transabdominal imaging performed to evaluate for extra adnexal pelvic pathology. Transvaginal imaging performed for better delineation of the adnexal and endometrial contents. Color Doppler also used. FINDINGS: Uterus: Uterus measures 7.4 x 5.3 x 3.2 cm The uterus demonstrates appropriate size and echo pattern. Endometrium: Endometrial thickness of 0.4 cm The endometrium is unremarkable. Cervix: Few nabothian cysts noted. Right ovary measures 2.1 x 1.2 x 1.4 cm. Left ovary measures 1.9 x 2.1 x 1.1 cm. Left ovarian follicle noted. The ovaries are unremarkable. Normal color flow bilaterally. No adnexal masses demonstrated. No free fluid within the posterior cul-de-sac, likely physiologic. IMPRESSION: * Unremarkable sonographic evaluation of the pelvis. Approved by Resident Naveen Villagomez MD on 05/01/2024 3:23 PM IElian MD have personally reviewed the image(s) and agree with and/or edited the report Finalized by Elian Camejo MD on 05/01/2024 3:29 PM Normal [facility] XR Foot - left 3 [facility] Result: April 17, 2024 x-rays AP lateral and obliques of the left foot demonstrate normal alignment of the intermetatarsal joints and tarsometatarsal joints. No definitive fracture dislocation. Impression: Stable appearance of left foot. Pedro Pablo Burrell D.O. [facility] Radiology Study observation (narrative) [facility] XR Foot - left 3 ViewsOrdere d By: Gissel Burrell on 04-17-2024 [facility] [employer] Work Phone: MR ANKLE LEFT WO IV CONTRAST on 03-05-2024 MR ANKLE LEFT WO IV CONTRAST EXAM: MR ANKLE LEFT WO IV CONTRAST HISTORY: Talus fracture. Anterior ankle pain. TECHNIQUE: Multisequence multiplanar MRI of the ankle was performed without contrast COMPARISON: None available FINDINGS: Achilles tendon is intact. Low-grade partial stripping of the medial cord plantar fascia at its attachment to the calcaneus with mild adjacent soft tissue edema. The tibialis posterior, flexor hallucis longus, and flexor digitorum longus tendons are intact. No space-occupying lesion within the tarsal tunnel. Peroneus longus and peroneus brevis tendons are intact. Extensor tendons are intact. The anterior and posterior tibiofibular ligaments, anterior and posterior talofibular ligaments, and calcaneofibular ligament are intact. Superficial and deep fibers of the deltoid ligament are intact. Spring ligament is intact. Obliteration of the sinus tarsi fat. Signal abnormality of the Lisfranc ligament. No well defined or measurable cartilage defect of the tibial plafond, talar dome, or subtalar joint. Small nondisplaced fracture involving the lateral neck and head of the talus with mild associated bone marrow edema. Subcutaneous soft tissue edema of the ankle and dorsum of the foot. No evidence of fracture or stress reaction of the visualized bones. IMPRESSION: Nondisplaced fracture of the lateral neck and head of the talus. Signal abnormality of the Lisfranc ligament may represent severe sprain and/or low-grade partial tearing. Partial stripping of the medial cord plantar fascia at its attachment to the calcaneus with mild adjacent soft tissue edema. Obliteration of the sinus tarsi fat suggesting tarsal sinus ligamentous complex injury. ELECTRONICALLY SIGNED BY: Alin Chen, Normal Not Available XR ankle LT min 3V*on 2023 XR ankle LT min 3V* [facility] [address] [place] [address] XRay Report Signed Patient: Samaria Gilmore MR#: [id number] : 1975 Acct:[id number] Age/Sex: 48 / F ADM Date: 03/01/24 Loc: XDUCLY Room: Type: [facility] CLI Attending Dr: Jackelyn Stone APRN Copies to: Jackelyn Stone APRN Ordering Provider: Jackelyn Stone APRN Date of Service: 03/01/24 XR/XR foot LT min 3V*: S99.912A - Unspecified injury of left ankle, initial enco... ([id number]) XR/XR ankle LT min 3V*: S99.912A - Unspecified injury of left ankle, initial enco... XR foot LT min 3V*, XR ankle LT min 3V* 03/01/2024 5:36 PM SIGNS AND SYMPTOMS: Fall from ladder landing on left foot and ankle with pain and swelling along the dorsum of the tarsal and metatarsals PROTOCOL: Frontal, lateral, and oblique radiographs of the left foot and left ankle COMPARISON: None FINDINGS: Left foot: There is no evidence of fracture or dislocation. There is dorsal soft tissue swelling. The joint spaces are preserved. Plantar and Achilles surface calcaneal spurring is noted. Left ankle: No dislocation. There is a lucency traversing the os trigonum along the dorsal talus. This may be a normal variant or secondary to displaced fracture. The ankle mortise is preserved. There is nonspecific diffuse soft tissue swelling. XR/XR foot LT min 3V* IMPRESSION: Left foot: No fracture. Soft tissue swelling is noted along the dorsum of the foot. Left ankle: There is a lucency traversing the os trigonum along the dorsal talus. This may be a normal variant or secondary to displaced fracture. Diffuse soft tissue swelling. Impression dictated by: Nikita Skinner M.D.03/01/2024 5:46 PM Dictation Location: [place] [address] Transcribed By: [facility] 03/01/241745 Dictated By: Nikita Skinner II, MD 03/01/241742 Signed By: 03/01/241745 Normal [facility] INSULINon 07-30-2022 Insulin 17.5 uIU/mL Normal 2.6-24.9 [facility] Comment on above: Performed By: #### I NSULIN #### [facility] [address] [place] [address] Dr. Rachel Edgar CBC AUTO DIFFon 07-29-2022 BASO # 0.0 103/ul Normal 0.0-0.1 [facility] Comment on above: Performed By: #### C BC #### [facility] [address] [place] [address] [address] Rachel Edgar Basophils/100 WBC (Bld) 0.1 % Critically low 0.2-2.0 [facility] Comment on above: Performed By: #### C BC #### [facility] [address] [place] [address] [address] Rachel Edgar EO # 0.1 103/ul Normal 0.0-0.7 [facility] Comment on above: Performed By: #### C BC #### [facility] [address] [place] [address] Dr. Rachel Edgar Eosinophils/100 WBC (Bld) 0.7 % Critically low 0.9-7.0 [facility] Comment on above: Performed By: #### C BC #### [facility] [address] [place] [address] Dr. Rachel Edgar Erythrocyte distribution width (RBC) [Ratio] 12.1 % Normal 11.0-15.0 [facility] Comment on above: Performed By: #### C BC #### [facility] [address] [place] [address] Dr. Rachel Edgar Hematocrit (Bld) [Volume fraction] 42.0 % Normal 36.0-48.0 [facility] Comment on above: Performed By: #### C BC #### [facility] [address] [place] [address] Dr. Rachel Edgar Hemoglobin (Bld) [Mass/Vol] 14.0 g/dL Normal 12.0-16.0 [facility] Comment on above: Performed By: #### C BC #### [facility] [address] [place] [address] Dr. Rachel Edgar IG # 0.03 10e3/ul Normal 0.00-0.03 [facility] Comment on above: Performed By: #### C BC #### [facility] [address] [place] [address] Dr. Rachel Edgar IG % 0.3 % Normal 0.0-0.5 [facility] Comment on above: Performed By: #### C BC #### [facility] [address] [place] [address] Dr. Rachel Edgar LYMPH # 2.1 103/ul Normal 1.2-3.8 [facility] Comment on above: Performed By: #### C BC #### [facility] [address] [place] [address] Dr. Rachel Edgar Lymphocytes/100 WBC (Bld) 23.2 % Normal 20.5-60.0 [facility] Comment on above: Performed By: #### C BC #### [facility] [address] [place] [address] Dr. Rachel Edgar MANUAL DIFF REQ NO Normal [facility] Comment on above: Performed By: #### C BC #### [facility] [address] [place] [address] Dr. Rachel Edgar MCH (RBC) [Entitic mass] 32.9 pg Normal 26.7-34.0 [facility] Comment on above: Performed By: #### C BC #### [facility] [address] [place] [address] Dr. Rachel Edgar MCHC (RBC) [Mass/Vol] 33.3 g/dL Normal 29.9-35.2 [facility] Comment on above: Performed By: #### C BC #### [facility] [address] [place] [address] Dr. Rachel Edgar MCV (RBC) [Entitic vol] 98.8 fL Normal 81.0-99.0 [facility] Comment on above: Performed By: #### C BC #### [facility] [address] [place] [address] Dr. Rachel Edgar MONO # 0.5 103/ul Normal 0.3-0.8 [facility] Comment on above: Performed By: #### C BC #### [facility] [address] [place] [address] Dr. Rachel Edgar Monocytes/100 WBC (Bld) 5.9 % Normal 1.7-12.0 [facility] Comment on above: Performed By: #### C BC #### [facility] [address] [place] [address] Dr. Rachel Edgar NEUT # 6.3 103/ul Normal 1.4-6.5 [facility] Comment on above: Performed By: #### C BC #### [facility] [address] [place] [address] Dr. Rachel Edgar Neutrophils/100 WBC (Bld) 69.8 % Normal 43.0-75.0 [facility] Comment on above: Performed By: #### C BC #### [facility] [address] [place] [address] Dr. Rachel Edgar Platelet mean volume (Bld) [Entitic vol] 10.2 fL Normal 9.5-13.5 [facility] Comment on above: Performed By: #### C BC #### [facility] [address] [place] [address] Dr. Rachel Edgar PLT 335 103/ul Normal 150-450 [facility] Comment on above: Performed By: #### C BC #### [facility] [address] [place] [address] Dr. Rachel Edgar RBC 4.25 106/ul Normal 4.20-5.40 [facility] Comment on above: Performed By: #### C BC #### [facility] [address] [place] [address] Dr. Rachel Edgar WBC 9.0 103/ul Normal 4.0-11.0 [facility] Comment on above: Performed By: #### C BC #### [facility] [address] [place] [address] Dr. Rachel Edgar FREE THYROXINE INDEX T7on FTI 1.88 Normal 1.30-4.50 [facility] Comment on above: Performed By: #### T 7, TSH, CMP, LIPID #### [facility] [address] [place] [address] Dr. Rachel Edgar T3U 33.0 % Normal 30.0-39.0 [facility] Comment on above: Performed By: #### T 7, TSH, CMP, LIPID #### [facility] [address] [place] [address] Dr. Rachel Edgar T4 [Mass/Vol] 5.70 ug/dL Normal 4.80-13.90 [facility] Comment on above: Performed By: #### T 7, TSH, CMP, LIPID #### [facility] [address] [place] [address] Dr. Rachel Edgar GLYCOHEMOGLOBIN A1Con 2021 ADA RECOMMENDATION SEE BELOW Normal [facility] Comment on above: Result Comment: ADA RECOMMENDED LIMIT 4.0 - 6.0 ADA THERAPEUTIC TARGET < 7.0 ACTION SUGGESTED > 7.0 Performed By: #### A 1C #### [facility] [address] [place] [address] Dr. Rachel Edgar HbA1c (Bld) [Mass fraction] 5.4 % Normal 4.5-6.2 [facility] Comment on above: Performed By: #### A 1C #### [facility] [address] [place] [address] Dr. Rachel Edgar IRONon 07-29-2022 Iron [Mass/Vol] 64.0 ug/dL Normal 50.0-170.0 [facility] Comment on above: Performed By: #### I JCARLOS #### [facility] [address] [place] [address] Dr. Rachel Edgar LIPID PROFILEon 07-29-2022 CHOL-HDL RATIO NORM SEE BELOW Normal [facility] Comment on above: Result Comment: 3.3 - 4.4 LOW RISK 4.4 - 7.1 AVERAGE RISK 7.1 - 11.0 MODERATE RISK >11.0 HIGH RISK Performed By: #### T 7, TSH, CMP, LIPID #### [facility] [address] [place] [address] Dr. Rachel Edgar Cholesterol [Mass/Vol] 164 mg/dL Normal <=200 [facility] Comment on above: Performed By: #### T 7, TSH, CMP, LIPID #### [facility] [address] [address] [address] Rachel Edgar Cholesterol in HDL [Mass/Vol] 42 mg/dL Normal 40-60 [facility] Comment on above: Performed By: #### T 7, TSH, CMP, LIPID #### [facility] [address] [address] [address] Rachel Edgar Cholesterol in LDL [Mass/Vol] 82.6 mg/dL Normal [facility] Comment on above: Performed By: #### T 7, TSH, CMP, LIPID #### [facility] [address] [address] [address] Rachel Edgar Cholesterol.total/Ch olesterol in HDL [Mass ratio] 3.9 {ratio} Normal [facility] Comment on above: Performed By: #### T 7, TSH, CMP, LIPID #### [facility] [address] [address] [address] Rachel Edgar HDL NORMAL > or = 60 mg/dl - LOW CARDIOVASCULAR RISK <40 mg/dl - HIGH CARDIOVASCULAR RISK Normal [facility] Comment on above: Performed By: #### T 7, TSH, CMP, LIPID #### [facility] [address] [address] [address] Rachel Edgar LDL CALC NORMAL SEE BELOW Normal [facility] Comment on above: Result Comment: <100 mg/dl OPTIMAL 100 - 129 mg/dl NEAR OR ABOVE OPTIMAL 130 - 159 mg/dl BORDERLINE HIGH 160 - 189 mg/dl HIGH >190 mg/dl VERY HIGH Performed By: #### T 7, TSH, CMP, LIPID #### [facility] [address] [address] [address] Rachel Edgar Triglyceride [Mass/Vol] 197 mg/dL Critically high <=150 [facility] Comment on above: Performed By: #### T 7, TSH, CMP, LIPID #### [facility] [address] [address] [address] Rachel Edgar VLDL CALC 39.4 mg/dL Normal [facility] Comment on above: Performed By: #### T 7, TSH, CMP, LIPID #### [facility] [address] [address] [address] Rachel Edgar PROF 14(COMP METB)on 022 Albumin [Mass/Vol] 3.5 g/dL Normal 3.4-5.0 [facility] Comment on above: Performed By: #### T 7, TSH, CMP, LIPID #### [facility] [address] [address] [address] Rachel Edgar Albumin/Globulin [Mass ratio] 0.9 {ratio} Normal [facility] Comment on above: Performed By: #### T 7, TSH, CMP, LIPID #### [facility] [address] [place] [address] Dr. Rachel Edgar ALP [Catalytic activity/Vol] 83 U/L Normal 46-116 [facility] Comment on above: Performed By: #### T 7, TSH, CMP, LIPID #### [facility] [address] [place] [address] Dr. Rachel Edgar ALT [Catalytic activity/Vol] 21 U/L Normal 14-59 [facility] Comment on above: Performed By: #### T 7, TSH, CMP, LIPID #### [facility] [address] [address] [address] Rachel Edgar Anion gap [Moles/Vol] 10.4 mmol/L Normal [facility] Comment on above: Performed By: #### T 7, TSH, CMP, LIPID #### [facility] [address] [place] [address] Dr. Rachel Edgar AST [Catalytic activity/Vol] 17 U/L Normal 15-37 [facility] Comment on above: Performed By: #### T 7, TSH, CMP, LIPID #### [facility] [address] [address] [address] Rachel Edgar Bilirubin [Mass/Vol] 0.2 mg/dL Normal 0.2-1.0 [facility] Comment on above: Performed By: #### T 7, TSH, CMP, LIPID #### [facility] [address] [address] [address] Rachel Edgar Calcium [Mass/Vol] 9.0 mg/dL Normal 8.5-10.1 [facility] Comment on above: Performed By: #### T 7, TSH, CMP, LIPID #### [facility] [address] [address] [address] Rachel Edgar Chloride [Moles/Vol] 103 mmol/L Normal 98-107 [facility] Comment on above: Performed By: #### T 7, TSH, CMP, LIPID #### [facility] [address] [address] [address] Rachel Edgar CO2 [Moles/Vol] 30.8 mmol/L Normal 21.0-32.0 [facility] Comment on above: Performed By: #### T 7, TSH, CMP, LIPID #### [facility] [address] [place] [address] Dr. Rachel Edgar Creatinine [Mass/Vol] 0.96 mg/dL Normal 0.55-1.02 [facility] Comment on above: Performed By: #### T 7, TSH, CMP, LIPID #### [facility] [address] [place] [address] Dr. Rachel Edgar EGFR-AF GREEK >60 Normal >=60 [facility] Comment on above: Performed By: #### T 7, TSH, CMP, LIPID #### [facility] [address] [place] [address] Dr. Rachel Edgar EGFR-NON AF GREEK >60 Normal >=60 [facility] Comment on above: Performed By: #### T 7, TSH, CMP, LIPID #### [facility] [address] [place] [address] Dr. Rachel Edgar Globulin (S) [Mass/Vol] 4.0 g/dL Normal [facility] Comment on above: Performed By: #### T 7, TSH, CMP, LIPID #### [facility] [address] [place] [address] Dr. Rachel Edgar Glucose [Mass/Vol] 108 mg/dL Normal [facility] Comment on above: Performed By: #### T 7, TSH, CMP, LIPID #### [facility] [address] [place] [address] Dr. Rachel Edgar Performed By: #### A 1C #### [facility] [address] [place] [address] Dr. Rachel Edgar Potassium [Moles/Vol] 4.2 mmol/L Normal 3.5-5.1 [facility] Comment on above: Performed By: #### T 7, TSH, CMP, LIPID #### [facility] [address] [place] [address] Dr. Rachel Edgar Protein [Mass/Vol] 7.5 g/dL Normal 6.4-8.2 [facility] Comment on above: Performed By: #### T 7, TSH, CMP, LIPID #### [facility] [address] [place] [address] Dr. Rachel Edgar Sodium [Moles/Vol] 140 mmol/L Normal 136-145 [facility] Comment on above: Performed By: #### T 7, TSH, CMP, LIPID #### [facility] [address] [place] [address] Dr. Rachel Edgar Urea nitrogen [Mass/Vol] 15.0 mg/dL Normal 7.0-18.0 [facility] Comment on above: Performed By: #### T 7, TSH, CMP, LIPID #### [facility] [address] [place] [address] Dr. Rachel Edgar Urea nitrogen/Creatinine [Mass ratio] 15.6 mg/mg Normal [facility] Comment on above: Performed By: #### T 7, TSH, CMP, LIPID #### [facility] [address] [place] [address] Dr. Rachel Edgar TSHon 07-29-2022 TSH 1.473 uIU/mL Normal 0.358-3.740 [facility] Comment on above: Performed By: #### T 7, TSH, CMP, LIPID #### [facility] [address] [place] [address] Dr. Rachel Edgar COVID Quick Testingon 2021 Result Negative [facility] Quick Strepon 03-23-2022 S. pyogenes Org specific cx Ql (Throat) Positive [facility] Other Quick Strep [facility] Other XR LUMBAR SPINE LIMITEDon XR LUMBAR [...] by:BASIL Corraligned by:Kely Blue MD03/04/17Final result Normal [facility] Vital Signs Date Time Vital Sign Value Performing Clinician Facility 07-10-2024 09:10-0500 Body mass index (BMI) [Ratio] 39.49 kg/m2 Olivia Schmidt MD Work Phone: [facility] 07-10-2024 09:10-0500 Body weight 91.72 kg [facility] 07-10-2024 09:10-0500 Diastolic blood pressure 104 mm[Hg] [facility] Schmidt [facility] 07-10-2024 09:10-0500 Systolic blood pressure 152 mm[Hg] [facility] Schmidt MD [facility] 06-25-2024 10:42-0500 Body height 152.4 cm Olivia Schmidt MD Work Phone: [facility] 06-25-2024 10:42-0500 Body mass index (BMI) [Ratio] 37.69 kg/m2 Olivia Schmidt MD [facility] 06-25-2024 10:42-0500 Body weight 87.54 kg Olivia Schmidt MD Work Phone: [facility] 06-25-2024 10:42-0500 Diastolic blood pressure 80 mm[Hg] Olivia Schmidt MD Work Phone: [facility] 06-25-2024 10:42-0500 Systolic blood pressure 140 mm[Hg] Olivia Schmidt MD Work Phone: [facility] 03-01-2024 16:58-0400 Body height 152.4 cm MD Sakshi Leung Work Phone: [facility] 03-01-2024 16:58-0400 Body mass index (BMI) [Ratio] 33.2 kg/m2 MD Sakshi Leung Work Phone: [facility] 03-01-2024 16:58-0400 Body temperature 98.4 [degF] MD Sakshi Leung Work Phone: [facility] 03-01-2024 16:58-0400 Body weight 77.11 kg MD Sakshi Leung Work Phone: [facility] 03-01-2024 16:58-0400 Diastolic blood pressure 61 mm[Hg] MD Sakshi Leung Work Phone: [facility] 03-01-2024 16:58-0400 Heart rate 66 /min MD Sakshi Leung Work Phone: [facility] 03-01-2024 16:58-0400 Respiratory rate 18 /min MD Sakshi Leung Work Phone: [facility] 03-01-2024 16:58-0400 SaO2% (BldA) [Mass fraction] 97 % MD Sakshi Leung Work Phone: [facility] 03-01-2024 16:58-0400 Systolic blood pressure 117 mm[Hg] MD Sakshi Leung Work Phone: [facility] 03-23-2022 11:20-0400 Body height 154.94 cm Shawn Corral Other [facility] Other 03-23-2022 11:20-0400 Body mass index (BMI) [Ratio] 42.51 kg/m2 Shawn Corral Other [facility] 03-23-2022 11:20-0400 Body temperature 97.8 [degF] Shawn Corral Other [facility] Other 03-23-2022 11:20-0400 Body weight 102.06 kg Shawn Corral Other [facility] 03-23-2022 11:20-0400 Respiratory rate 18 /min Shawn Corral Other [facility] Other 03-23-2022 11:20-0400 SaO2% (BldA) [Mass fraction] 97 % Shawn Corral Other [facility] Other Encounters Encounter Date Encounter Type Care Provider Facility Start: 08-14-2024 End: 08-14-2024 Telephone encounter Debbie Calvert RN [facility] Start: 07-17-2024 End: 07-30-2024 Refill Olivia Schmidt MD Work Phone: [facility] Start: 07-17-2024 End: 07-17-2024 ambulatory [facility] Start: 07-11-2024 End: 07-11-2024 ambulatory [facility] Start: 07-10-2024 End: 07-10-2024 ambulatory [facility] Start: 07-10-2024 End: 07-10-2024 Office outpatient visit 15 minutes Olivia Schmidt MD Work Phone: [facility] Comment on above: PMB (postmenopausal bleeding) (Primary Dx); DUB (dysfunctional uterine bleeding); Decreased libido Start: 06-25-2024 End: 06-25-2024 ambulatory [facility] Start: 06-25-2024 End: 06-25-2024 Patient encounter procedure Olivia Schmidt MD Work Phone: [facility] Comment on above: DUB (dysfunctional u terine bleeding) (Primary Dx) Start: 06-25-2024 End: 06-25-2024 ambulatory [facility] Start: 06-12-2024 End: 06-12-2024 Bamboo flowsheet Wolf Alan NP Work Phone: [facility] Start: 06-12-2024 End: 06-12-2024 Bamboo flowsheet Wolf Alan NP Work Phone: [facility] Start: 06-12-2024 End: 06-12-2024 ambulatory WOLF ALAN Not Available Start: 06-12-2024 End: 06-12-2024 Office outpatient visit 15 minutes Wolf Alan NP Work Phone: [facility] Comment on above: Left foot pain (Prim chantal Dx); Closed nondisplaced fracture of left talus with routine healing, unspecified portion of talus, subsequent encounter Start: 05-22-2024 End: 05-22-2024 Bamboo flowsheet Wolf Alan NP Work Phone: [facility] Start: 05-22-2024 End: 05-22-2024 Bamboo flowsheet Wolf Alan [employer] Work Phone: [facility] Start: 05-22-2024 End: 05-22-2024 Postop follow up visit related to original px Wolf Alan NP Work Phone: [facility] Comment on above: Closed nondisplaced fracture of left talus with routine healing, unspecified portion of talus, subsequent encounter (Primary Dx); Left foot pain Start: 05-22-2024 End: 05-22-2024 ambulatory WOLF ALAN Not Available Start: 05-15-2024 End: 05-15-2024 Bamboo flowsheet Wolf Alan [employer] Work Phone: [facility] Start: 05-15-2024 End: 05-15-2024 Bamboo flowsbrayan Alan [employer] Work Phone: [facility] Start: 05-15-2024 End: 05-15-2024 Postop follow up visit related to original px Wolf Alna [employer] Work Phone: [facility] Comment on above: Closed nondisplaced fracture of left talus with routine healing, unspecified portion of talus, subsequent encounter Start: 05-15-2024 End: 05-15-2024 ambulatory WOLF ALAN Not Available Start: 04-30-2024 End: 04-30-2024 ambulatory [facility] Start: 04-17-2024 End: 04-17-2024 Bamboo flowsbrayan Alan [employer] Work Phone: [facility] Start: 04-17-2024 End: 04-17-2024 Bamboo flowsheet Wolf Alan [employer] Work Phone: [facility] Start: 04-17-2024 End: 04-17-2024 Postop follow up visit related to original px Wolf Alan [employer] Work Phone: [facility] Comment on above: Closed nondisplaced fracture of left talus with routine healing, unspecified portion of talus, subsequent encounter Start: 04-17-2024 End: 04-17-2024 ambulatory WOLF ALAN Not Available Start: 03-06-2024 End: 03-06-2024 ambulatory GISSEL BURRELL Not Available Start: 03-05-2024 End: 03-05-2024 ambulatory V[facility]ON [facility] Not Available Start: 03-05-2024 End: 03-05-2024 ambulatory VERNON [employer] [employer] Not Available Start: 03-01-2024 End: 03-01-2024 ambulatory MD Sakshi Leung Work Phone: [facility] Work Phone: Start: 03-01-2024 End: 03-01-2024 Patient encounter procedure MD Sakshi Leung Work Phone: [facility] Work Phone: Start: 07-29-2022 End: 07-30-2022 ambulatory BRITTANY MCGINNIS Facility: Start: 03-23-2022 End: 03-23-2022 ambulatory Shawn Ellis Other [facility] [employer] Other Start: 03-23-2022 Office outpatient vi sit 15 minutes Shawn Corral [facility] Start: 03-04-2017 End: 03-05-2017 Ambulatory [facility] Procedures Date Procedure Procedure Detail Performing Clinician Start: 07-10-2024 Follow-up visit Follow-up OLIVIA SCHMIDT Start: 06-25-2024 Urine test visual color cmprsn meths Olivia Schmidt MD Work Phone: Start: 06-12-2024 Radex foot complete minimum 3 views Wolf Alan [employer] Work Phone: Start: 05-15-2024 Radex foot complete minimum 3 views Wolf Alan [employer] Work Phone: Start: 04-17-2024 Radex foot complete minimum 3 views Wolf Alan [employer] Work Phone: Start: 03-08-2024 Adult depression scr eening assessment Olivia Schmidt MD Work Phone: Start: 03-01-2024 X-ray of left ankle MD Sakshi Leung Work Phone: Start: 03-01-2024 X-ray of left foot MD Nelly Leung Work Phone: Start: 06-01-2022 Microscopic observat ion [Identifier] in Cervix by Cyto stain Olivia Schmidt MD Work Phone: Start: 03-04-2017 Radex spine lumbosac ral 2/3 views DEN HU Plan of Treatment Date Care Activity Detail Author Start: 07-17-2025 Adult BMI Screening Adult BMI Screen ing [facility] Start: 07-17-2025 Tobacco Screening Tobacco Screening [facility] Start: 06-25-2025 Adult BMI Screening Adult BMI Screen ing [facility] Start: 06-25-2025 Tobacco Screening Tobacco Screening [facility] Start: 06-01-2025 Screening for malign ant neoplasm of cervix Pap Smear [facility] Start: 04-24-2025 Adult BMI Screening Adult BMI Screen ing [facility] Start: 04-24-2025 Tobacco Screening Tobacco Screening [facility] Start: 03-08-2025 Depression Screening Depression Scre ening [facility] Start: 03-07-2025 Adult BMI Follow Up Plan Adult BMI Follow Up Plan [facility] Start: 07-10-2024 End: 07-10-2024 Patient encounter procedure 07/10/2024 9:00 AM EST [facility] [address] 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 [address] [place] [address] [facility] Start: 06-25-2024 End: 06-25-2025 Surgical Pathology Surgical Pathology Pathology and Cytology Routine DUB (dysfunctional uterine bleeding) Expected: 06/25/2024 (Approximate), Expires: 06/25/2025 [facility] Work Phone: Comment on above: Expected: 06/25/2024 (Approximate), Expires: 06/25/2025 Start: 06-12-2024 End: 06-12-2024 Patient encounter procedure 06/12/2024 10:45 AM EST Office Visit [facility] [address] [place] [address] [address] [place] [address] Wolf Alan, [employer]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 [address] [place] [address] Wolf Alan, [employer]AIGHT TR[employer] [address] [place] [address] Arrived [facility] Comment on above: Arrived Start: 05-15-2024 End: 05-15-2024 Patient encounter procedure [facility] Comment on above: Closed nondisplaced fracture of left talus with routine healing, unspecified portion of talus, subsequent encounter Start: 04-17-2024 End: 04-17-2024 Patient encounter procedure 04/17/2024 1:00 PM EDT Office Visit [facility] [address] 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 [address] [place] [address] Closed nondisplaced fracture of left talus with routine healing, unspecified portion of talus, subsequent encounter [facility] Comment on above: Closed nondisplaced fracture of left talus with routine healing, unspecified portion of talus, subsequent encounter Start: 04-01-2024 Influenza vaccination Influenza Vacc ine [facility] Start: 1996 DTaP,Tdap and Td Vaccines (1 - Tdap) DTaP,Tdap and Td Vaccines (1 - Tdap) [facility] End: 07-10-2025 Estradiol Estradiol Lab Routine PMB (postmenopausal bleeding) DUB (dysfunctional uterine bleeding) Decreased libido 1 Occurrences starting 07/10/2024 until 07/10/2025 [facility] Comment on above: 1 Occurrences starti ng 07/10/2024 until 07/10/2025 End: 07-10-2025 Progesterone Progesterone Lab Routine PMB (postmenopausal bleeding) DUB (dysfunctional uterine bleeding) Decreased libido 1 Occurrences starting 07/10/2024 until 07/10/2025 [facility] Comment on above: 1 Occurrences starti ng 07/10/2024 until 07/10/2025 End: 07-10-2025 Testosterone, Total and Free, S Testosterone, Total and Free, S Lab Routine PMB (postmenopausal bleeding) DUB (dysfunctional uterine bleeding) Decreased libido 1 Occurrences starting 07/10/2024 until 07/10/2025 [facility] Comment on above: 1 Occurrences starti ng 07/10/2024 until 07/10/2025 End: 07-10-2025 Vitamin D 25 hydroxy Vitamin D 25 hydroxy Lab Routine PMB (postmenopausal bleeding) DUB (dysfunctional uterine bleeding) Decreased libido 1 Occurrences starting 07/10/2024 until 07/10/2025 [employer] Work Phone: Comment on above: 1 Occurrences starti ng 07/10/2024 until 07/10/2025 Immunizations Immunization Date Immunization Notes Care Provider Fa [facility] 04-28-2019 influenza, injectabl e, quadrivalent, preservative free Olivia Schmidt MD Work Phone: [facility] 04-28-2019 influenza virus vaccine, unspecified formulation Olivia Schmidt MD Work Phone: [facility] 06-04-2018 influenza, injectabl e, quadrivalent, preservative free Olivia Schmidt MD Work Phone: [facility] Payers Date Payer Category Payer Medicaid [id number] 2024 Medicaid [id number] 2024 Self-pay [id number] 2019 Blue Cross Blue Shield BCBS [id number] 2019 [facility] ANTHEM [id number] 2019 Unknown BCBS BCBS [id number] 2019-Present [phone] [id number] [place] [id number] 2014 Unknown [id number] 1977 Unknown [id number] 2..840.1.241654.3.579.2. 593 1977 Unknown [id number] ..840.1.892145.3.579.2. 1258 1977 Unknown [id number] 2.16.840.1.371708.3.579.2. 1258 1977 Unknown [id number] 2.16840.1.780351.3.579.2. 1258 1977 Unknown [id number] 2.840.1.481977.3.579.2. 1258 1977 Unknown [id number] 2.840.1.660182.3.579.2. 1258 1977 Unknown [id number] 2.840.1.574699.3.579.2. 1258 1977 Unknown [id number] 2.840.1.059933.3.579.2. 1258 1977 Unknown [id number] 2.0.1.619933.3.579.2. 1258 1977 Unknown [id number] 2.840.1.838032.3.579.2. 1258 1977 Unknown [id number] .0.1.272091.3.579.2. 1258 1977 Unknown [id number] .0.1.136057.3.579.2. 1285 1977 Unknown [id number] .1.745533.3.579.2. 1285 1977 Unknown [id number] .840.1.694989.3.579.2. 1285 1977 Unknown [id number] .0.1.865401.3.579.2. 1285 1977 Unknown [id number] .0.1.499171.3.579.2. 1285 1977 Unknown [id number] 09.16.830.1.495178.3.579.2. 1285 1959 Blue Cross Blue Shield [id number] Unknown [id number] 2.16.840.1.967911.3.579.2. 531 Social History Date Type Detail Facility Start: 04-17-2024 End: 07-10-2024 Sex Assigned At [facility] yste Start: 03-01-2024 End: 03-07-2024 Tobacco smoking status NHIS Ex-smoker (finding) [facility] Start: 1975 Sex Assigned At Female F [facility] End: 08-01-2015 History of tobacco use Current smoker [facility] End: 08-01-2015 History of tobacco use Cigarette Smoker [facility] Start: 03-05-2024 End: 03-07-2024 Tobacco use and exposure Smokeless tobacco non-user [facility] Start: 04-17-2024 End: 07-17-2024 Alcoholic beverage intake Ex-drinker (finding) [facility] Start: 04-17-2024 End: 07-10-2024 History of Social function [facility] Start: 1975 Sex assigned at Not on file [facility] Adolescent depressio n screening assessment 0 [facility] Start: 03-07-2024 Alcohol Comment rare [facility] Start: 03-06-2015 Sex Female (finding) [facility] Goals Date Patient Goal Desired Activity /State Personal health goal Comment on above: Formatting of this n ote might be different from the original. Evaluation of progress towards goal: Patient stated she plans to return home with self care. Clinical Notes 10-31-2011 to 08-14-2024 Telephone Encounter - Debbie Calvert RN - 08/14/2024 9:14 AM ESTTelephone Encounter - Debbie Calvert RN - 08/14/2024 9:14 AM Hugh Schmidt MD - 07/10/2024 9:00 AM EST Note Date & Type Note Facility 08-14-2024 Miscellaneous Notes Pt called stating that she has not started her new control pill yet, Slynd, but she had a period a month ago and then had another one that has been lasting for 17 days. She confirms period like cramps and only changing her pad every few hours. Advised the patient to do the Ibuprofen challenge, she is to take either 600mg of Ibuprofen every 6 hours or 800mg of Ibuprofen every 8 hours for 3 days and see if that will help with the bleeding. Pt is to call back on Tuesday to update us on how the bleeding is. Pt verbalized understanding. AMBIKA Nolan, RN documented in this encounter [facility] 08-14-2024 Telephone encounter Note Pt called stating that she has not started her new control pill yet, Slynd, but she had a period a month ago and then had another one that has been lasting for 17 days. She confirms period like cramps and only changing her pad every few hours. Advised the patient to do the Ibuprofen challenge, she is to take either 600mg of Ibuprofen every 6 hours or 800mg of Ibuprofen every 8 hours for 3 days and see if that will help with the bleeding. Pt is to call back on Tuesday to update us on how the bleeding is. Pt verbalized understanding. AMBIKA Nolan, RN [facility] 07-10-2024 History of Present illness Narrative Samaria Gilmore is a 48 y.o.female. Patient's last menstrual period was 06/19/2024. She presents today for follow up on results of EMB. Periods are regular. She states she has bleeding a couple times a year but states she has had regular periods over the past 3 months. Pt states she was started on about 5 months ago. Pt is also concerned about low libido as well. Pt notes she is UTD on her annual examination. Labs from 04/26/24 were unremarkable. Results from her EMB on 06/25/24 show: 1. Endometrium - biopsy: - Fragments of quiescent endometrium (no hyperplasia or neoplasia) 2. Endocervix - ECC: - Benign endocervical lining (no dysplasia or neoplasia) Current contraception:oral contraceptives (estrogen/progesterone) OB History 3 Para 2 Term 2 AB 1 Living 2 SAB 1 IAB Ectopic Multiple Live Births 2 MEDICAL HX Past Medical History: Diagnosis Date Depression Epilepsy (CMS-HCC) GERD (gastroesophageal reflux disease) High cholesterol SURGICAL HX Past Surgical History: Procedure Laterality Date DILATION AND CURETTAGE OF UTERUS 2012 FAMILY HX Family History Problem Relation Age of Onset Cancer Mother pancreatic Asthma Mother COPD Mother Asthma Son Breast cancer Neg Hx MEDS Current Outpatient Medications Medication Sig Dispense Refill escitalopram (LEXAPRO) 20 mg tablet Take 1.5 tablets (30 mg total) by mouth in the morning. lamoTRIgine (LaMICtal) 100 mg tablet Take 2 tablets (200 mg total) by mouth in the morning and 2 tablets (200 mg total) before bedtime. 120 tablet 2 norethindrone-e.estradioL-iron (JUNE ,) 1 mg-20 mcg (21)/75 mg (7) per tablet Take 1 tablet by mouth in the morning. 84 tablet 3 omeprazole (PriLOSEC) 20 mg capsule Take 1 capsule (20 mg total) by mouth every morning before breakfast. traZODone (DESYREL) 50 mg tablet Take 3 tablets (150 mg total) by mouth nightly. No current facility-administered medications for this visit. ALLERGIES No Known Allergies Review of Systems Review of Systems Objective Wt 91.7 kg (202 lb 3.2 oz) LMP 06/19/2024 BMI 39.49 kg/m Physical Exam BP (!) 152/104 Wt 91.7 kg (202 lb 3.2 oz) LMP 06/19/2024 BMI 39.49 kg/m Assessment/Plan: Dx: Post menopausal bleeding NEGATIVE EVALUATION REASSURANCE GIVEN Discussed that the pt's FSH and LH show that the pt is in the perimenopausal range. Discussed that the evaluation for her DUB is not concerning at this point. Noted that if the pt is taking oral control she should be having her period the week that she is taking the placebo pills. Discussed that the control that she is on should help with her menopausal symptoms as well. Noted that the pt is still able to get even though she is perimenopausal and encouraged the pt to be consistent with her medication to avoid conception. Discussed contraindications of being on OPC including migraines with aura, HTN, or blood clots and pt denies having any of those symptoms. Discussed sending the pt home with information regarding testosterone replacement and vaginal rejuvenation. Ordered labs to assess the pt's estrogen, estradiol, progesterone, and testosterone levels for the pt. Advised the pt to follow-up in 4-6 weeks to discuss the results of her labs. ]MD Denisse HOOD RN Kelsie Ruble 07/10/2418 Maren Elkins 07/10/24 0937 documented in this encounter [facility] 06-25-2024 History of Present illness Narrative Endometrial Biopsy/ Endosee Procedure Note Indications: DUB Procedure Details The risks (including infection, bleeding, pain, and uterine perforation) and benefits of the procedure were explained to the patient. Verbal and written informed consent was obtained. The cervix prepped with betadine. A allis clamp was applied to the anterior lip of the cervix for stabilization. A pipelle passed without difficulty to sample the endometrium X 3 W SCANT SPECIMEN RETRIEVED The sample was sent for pathologic examination. The patient tolerated the procedure well. ENDOSEE HYSTEROSCOPY IS PERFORMED IN USUAL STANDARD FASHION WITHOUT DIFFICULTY BILATERAL TUBAL OSTIA ARE VISUALIZED AND HYSTEROSCOPY IS ADEQUATE. NO SUSPICIOUS LESIONS ARE VISUALIZED COPIUS ENDOMETRIUM ENDOMETRIUM IS NOTED. PATIENT TOLERATED PROCEDURE WELL SILVER NITRATE IS APPLIED TO THE ANTERIOR LIP OF THE CERVIX FOR HEMOSTASIS ALL INSTRUMENTS AND ROOF OF THE VAGINA Condition: Stable Complications: None Plan: Specimen has taken for further evaluation. There was no suspicious lesions. Patient was told that she might experience some spotting or bleeding after procedure. The patient was advised to call for any fever or for prolonged or severe pain or bleeding. She was advised to use OTC ibuprofen as needed for mild to moderate pain. She was advised to avoid vaginal intercourse for 48 hours or until the bleeding has completely stopped. Follow up: To discuss results of biopsy. OLIVIA SCHMIDT MD I, Badamsuren Erdenebayar (scribe), documented on behalf of Dr. Brayan. Veronica Quiroz 06/25/24 1025 documented in this encounter [facility] [place] 06-12-2024 History of Present illness Narrative Images from the original note were not included. Chief Complaint Patient presents with Left Foot - Follow-up HISTORY OF PRESENT ILLNESS: Samaria Gilmore is an 48 y.o. @ female. LT Foot/ankle: 3 months 2 weeks s/p injury. Pt fell off a ladder several feet high and injured left foot/ankle on 02/28/24. Went to [facility] urgent care on 03/01/24, placed in ocl splint and given crutches. Walking in regular shoes. States she still has constant pain on top of foot. Taking IBU. Constant swelling. [place]: UC/XR/03/01/24 [place], xrays left ankle and foot [facility] 03/01/24, ibu, ice, tyl, ocl splint, crutches, walker, MRI N[facility] 03/05/24, CAM boot, knee scooter, XR NOM[facility] 04/17/24, SLC, XR NOM[facility] 05/15/24, XR NOMS 06/12/24 ALLERGIES: No Known Allergies HOME MEDICATIONS: Current Outpatient Medications Medication Instructions escitalopram (LEXAPRO) 30 mg, Oral, Daily RT lamoTRIgine (LaMICtal) 100 MG tablet Oral, 2 times daily methylPREDNISolone (Medrol Dospak) 4 MG tablets Follow schedule on package instructions traZODone (Desyrel) 100 MG tablet Every 24 hours PHYSICAL EXAM: Left Ankle Exam Swelling: none Other Sensation: normal Pulse: present Comments: Skin intact, NV intact. Mild swelling, trace pain over dorsal aspect of mid foot. Nontender over 1st/2nd MC space Vitals: There is no height or weight on file to calculate BMI. IMAGING: XR foot 3+ views left Imaging Result: 06/12/2024: Multiple views of left foot show no acute bony process including but not limited to fracture and/or dislocation. Overall anatomic alignment appeared to be well preserved. Impression: No acute bony process, left foot. Wolf Alan [employer] ASSESSMENT: ICD-10-CM 1. Left foot pain M79.672 methylPREDNISolone (Medrol Dospak) 4 MG tablets 2. Closed nondisplaced fracture of left talus with routine healing, unspecified portion of talus, subsequent encounter S92.102D XR foot 3+ views left Procedures PLAN: I reviewed exam findings with the patient and discussed treatment options, answered questions. I recommend that patient try MDP to help with pain in midfoot. Follow up in 2 weeks for RCK. If still painful consider MRI vs PT. Questions answered in laymen terms at the bedside. The diagnosis, home exercise plan and any ongoing restrictions/ recommendations reviewed. If unable to be reached in office, I recommend evaluation at nearest Emergency Room if any symptoms worsened or new symptoms develop for requiring urgent evaluation. Wolf Alan [employer] documented in this encounter [facility] 05-22-2024 History of Present illness Narrative Images from the original note were not included. Chief Complaint Patient presents with Left Foot - Follow-up HISTORY OF PRESENT ILLNESS: Samaria Gilmore is an 48 y.o. @ female. LT Foot/ankle: 12 weeks s/p injury. Pt fell off a ladder several feet high and injured left foot/ankle on 02/28/24. Went to [facility] urgent care on 03/01/24, placed in ocl splint and given crutches. Presents WBAT in regular shoes, still favoring foot. Pain anterior foot. Taking IBU prn. Elevating. Admits swelling. Denies N/T. Does not wake at HS. States she was wearing sandals yesterday and was on her feet for a while, had swelling after. [place]: UC/XR/03/01/24 [place], xrays left ankle and foot [facility] 03/01/24, ibu, ice, tyl, ocl splint, crutches, walker, MRI [facility] 03/05/24, CAM boot, knee scooter, XR NOM[facility] 04/17/24, SLC, XR NOM[facility] 05/15/24 ALLERGIES: No Known Allergies HOME MEDICATIONS: Current Outpatient Medications Medication Instructions escitalopram (LEXAPRO) 30 mg, Oral, Daily RT lamoTRIgine (LaMICtal) 100 MG tablet Oral, 2 times daily traZODone (Desyrel) 100 MG tablet Every 24 hours PHYSICAL EXAM: Left Ankle Exam Tenderness The patient is experiencing no tenderness. Swelling: none Other Sensation: normal Pulse: present Comments: Skin intact, NV intact. Mild swelling, trace pain over anterior foot Vitals: There is no height or weight on file to calculate BMI. IMAGING: ASSESSMENT: ICD-10-CM 1. Closed nondisplaced fracture of left talus with routine healing, unspecified portion of talus, subsequent encounter S92.102D 2. Left foot pain M79.672 Procedures PLAN: I reviewed exam findings with the patient and discussed treatment options, answered questions. I recommend that patient wear tennis shoes and continue to increase activity as tolerated. She will call if swelling or pain do not improve. She will follow up in 4 weeks for RCK and xray. Questions answered in laymen terms at the bedside. The diagnosis, home exercise plan and any ongoing restrictions/ recommendations reviewed. If unable to be reached in office, I recommend evaluation at nearest Emergency Room if any symptoms worsened or new symptoms develop for requiring urgent evaluation. Wolf Alan [employer] documented in this encounter [facility] 05-15-2024 History of Present illness Narrative Images from the original note were not included. Chief Complaint Patient presents with Left Foot - Follow-up HISTORY OF PRESENT ILLNESS: Samaria Gilmore is an 48 y.o. @ female. LT Foot/ankle: 11 weeks s/p injury. Pt fell off a ladder several feet high and injured left foot/ankle on 02/28/24. Went to [facility] urgent care on 03/01/24, placed in ocl splint and given crutches. Presents WBAT in SLC Denies much pain, improving. No pain meds. Denies N/T, swelling. [place]: UC/XR/03/01/24 [place], xrays left ankle and foot [facility] 03/01/24, ibu, ice, tyl, ocl splint, crutches, walker, MRI [facility] 03/05/24, CAM boot, knee scooter, XR [facility] 04/17/24, SLC, XR NOM[facility] 05/15/24 ALLERGIES: No Known Allergies HOME MEDICATIONS: Current Outpatient Medications Medication Instructions escitalopram (LEXAPRO) 30 mg, Oral, Daily RT lamoTRIgine (LaMICtal) 100 MG tablet Oral, 2 times daily traZODone (Desyrel) 100 MG tablet Every 24 hours PHYSICAL EXAM: Left Ankle Exam Tenderness The patient is experiencing no tenderness. Swelling: none Other Sensation: normal Pulse: present Comments: No pain over metatarsals/lisfranc sprain. Skin intact, NV intact. Mild swelling Vitals: There is no height or weight on file to calculate BMI. IMAGING: XR foot 3+ views left Imaging Result: May 15, 2024 x-rays AP lateral and oblique of the left foot demonstrate anatomic alignment of the tarsometatarsal joints and Lisfranc joint. 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 There is a chronic appearing posterior talus avulsion fracture. Impression: Stable appearing foot. Pedro Pablo Burrell D.O. ASSESSMENT: ICD-10-CM 1. Closed nondisplaced fracture of left talus with routine healing, unspecified portion of talus, subsequent encounter S92.102D XR foot 3+ views left Procedures PLAN: I reviewed xray findings with the patient and discussed treatment options, answered questions. I recommend that patient come out of cast and start doing activity as tolerated in normal shoes. She will follow up in 4 weeks for RCK and xray. Questions answered in laymen terms at the bedside. The diagnosis, home exercise plan and any ongoing restrictions/ recommendations reviewed. If unable to be reached in office, I recommend evaluation at nearest Emergency Room if any symptoms worsened or new symptoms develop for requiring urgent evaluation. Wolf Alan [employer] documented in this encounter [facility] 04-17-2024 History of Present illness Narrative Images from the original note were not included. Chief Complaint Patient presents with Left Foot - Follow-up HISTORY OF PRESENT ILLNESS: Samaria Gilmore is an 48 y.o. @ female. LT Foot/ankle: here for possible cast 7 weeks s/p injury. Pt fell off a ladder several feet high and injured left foot/ankle on 02/28/24. Went to [facility] urgent care on 03/01/24, placed in ocl splint and given crutches. Presents NWB in CAM boot with knee scooter. Denies much pain, improving. No pain meds. Denies N/T, swelling. [place]: UC/XR/03/01/24 [place], xrays left ankle and foot [facility] 03/01/24, ibu, ice, tyl, ocl splint, crutches, walker, MRI [facility] 03/05/24, CAM boot, knee scooter, XR NOM[facility] 04/17/24 ALLERGIES: No Known Allergies HOME MEDICATIONS: Current Outpatient Medications Medication Instructions escitalopram (LEXAPRO) 30 mg, Oral, Daily RT lamoTRIgine (LaMICtal) 100 MG tablet Oral, 2 times daily traZODone (Desyrel) 100 MG tablet Every 24 hours PHYSICAL EXAM: Left Ankle Exam Tenderness The patient is experiencing no tenderness. Swelling: none Other Sensation: normal Pulse: present Comments: No pain over metatarsals/lisfranc sprain. Skin intact, NV intact. Mild swelling Vitals: There is no height or weight on file to calculate BMI. IMAGING: XR foot 3+ views left Imaging Result: April 17, 2024 x-rays AP lateral and obliques of the left foot demonstrate normal alignment of the intermetatarsal joints and tarsometatarsal joints. No definitive fracture dislocation. Impression: Stable appearance of left foot. Pedro Pablo Burrell D.O. ASSESSMENT: ICD-10-CM 1. Closed nondisplaced fracture of left talus with routine healing, unspecified portion of talus, subsequent encounter S92.102D XR foot 3+ views left Procedures PLAN: I reviewed xray findings with the patient and discussed treatment options, answered questions. I recommend that patient start WBAT but protected in well molded SLC. Patient verbalized understanding. New SLC applied with 3 rolls of cast material. She will follow up in 4 weeks for RCK. I reviewed with the patient cast care and signs and symptoms of complications and what to do if any occur. The patient is advised to seek medical attention or call if any problems or concerns. Questions answered in laymen terms at the bedside. The diagnosis, home exercise plan and any ongoing restrictions/ recommendations reviewed. If unable to be reached in office, I recommend evaluation at nearest Emergency Room if any symptoms worsened or new symptoms develop for requiring urgent evaluation. Wolf Alan [employer] documented in this encounter [facility] 03-23-2022 Evaluation note Encounter Date Diagnosis Assessment [...] PT acknowledges understanding and agrees to understanding. [facility] Other 04-01-2012 History general Narrative - Reported* Type Description Date Medical History hypertension Medical History depression Medical History acid reflux Medical History miscarriage 10/2011 Surgical History D&C Hospitalization History childbirth [facility] Other Evaluation note* Diagnosis Onset Date Resolution Status Fracture, talus closed acute Injury of left ankle and foot [facility] Work Phone: Evaluation note* Diagnosis Onset Date Resolution Status Fracture, talus closed [facility] Work Phone: Evaluation note* Diagnosis Closed nondisplaced fracture of left talus with routine healing, unspecified portion of talus, subsequent encounter documented in this encounter [facility]* Diagnosis Closed nondisplaced fracture of left talus with routine healing, unspecified portion of talus, subsequent encounter- Primary Left foot pain Pain in soft tissues of limb documented in this encounter [facility]* Diagnosis Left foot pain- Primary Pain in soft tissues of limb Closed nondisplaced fracture of left talus with routine healing, unspecified portion of talus, subsequent encounter documented in this encounter [facility] HealthcareEvaluation note* Diagnosis DUB (dysfunctional uterine bleeding)- Primary Other disorder of menstruation and other abnormal bleeding from female genital tract documented in this encounter [facility]* Diagnosis PMB (postmenopausal bleeding)- Primary Postmenopausal bleeding DUB (dysfunctional uterine bleeding) Other disorder of menstruation and other abnormal bleeding from female genital tract Decreased libido [facility] filed[facility] in this [facility] on filedocumented in this encounter [facility] on filedocumented in this encounter [facility] on filedocumented in this encounter [facility] Summary Purpose Family History Relationship Condition Age at Onset Recorded Date/T kaylee father Unknown son Asthma Unknown sister Hypertension Unknown Advance Directives Advance Directive Response Recorded Date/ Time Advance Directives No March 01 4:48pm Date Activated Date Inactivated Comments 05/04/2023 10:04 AM 05/05/2023 1:43 PM Chief Complaint and Reason for Visit Chief Complaint Left ankle pain with injury S99.912A S99.922A Reason for Visit Fracture, talus clos ed Injury of left ankle and foot Chief Complaint Left ankle pain with injury S99.912A S99.922A Reason for Visit Fracture, talus clos ed Additional Source Comments INFORMATION SOURCE (unrecogn ized section and content) DATE CREATED AUTHOR 01/25/2018 [facility] DATE CREATED AUTHOR AUTHOR'S ORGANIZ ATION 07/30/2022 [facility] DATE CREATED AUTHOR AUTHOR'S ORGANIZ ATION 06/10/2024 [facility] DATE CREATED AUTHOR AUTHOR'S ORGANIZ ATION 06/18/2024 [facility] EP[facility] DATE CREATED AUTHOR AUTHOR'S ORGANIZ ATION 07/20/2024 [facility] DATE CREATED AUTHOR AUTHOR'S ORGANIZ ATION 07/21/2024 [facility] REASON FOR VISIT (unrecogniz ed section and content) Reason Comments Follow-up Reason Comments [facility] Reason Comments Med Change Request Care Teams (unrecognized sec tion and content) Team Status: Active Member Role Status Dates Sakshi Leung MD Primary Care Provider Active Team Status: Inactive Member Role Status Dates Sakshi Leung MD Primary Care Provider Active Start: March 01, 2024 End: March 01, 2024 Jackelyn Stone APRN Attending Provider Active Start: March 01, 2024 End: March 01, 2024 Team Status: Active Member Role Status Dates Sakshi Leung MD Primary Care Provider Active Start: March 01, 2024 Jackelyn Stone APRN Attending Provider Active Start: March 01, 2024 Photo Specialist Relationship Specialty Start Date End Date Brittany Mcginnis MD [address] [place] [phone] (Fax) Referring Physician Family Medicine 03/05/24 Photo Specialist Relationship Specialty Start Date End Date Brittany Mcginnis MD [address] [place] [phone] Referring Physician Family Medicine 03/05/24 Photo Specialist Relationship Specialty Start Date End Date Brittany Mcginnis MD [address] [place] [phone] Referring Physician Family Medicine 03/05/24 Photo Specialist Relationship Specialty Start Date End Date Brittany Mcginnis MD [address] [place] [phone] Referring Physician Family Medicine 03/05/24 Photo Specialist Relationship Specialty Start Date End Date Brittany Mcginnis APRN-[facility] [address] [place] [phone] PCP - General Family Medicine 01/11/23 Photo Specialist Relationship Specialty Start Date End Date Brittany Mcginnis MD [address] [place] [phone] Referring Physician Family Medicine 03/05/24 Photo Specialist Relationship Specialty Start Date End Date Brittany Mcginnis APRN-[facility] [address] [place] [phone] PCP - General Family Medicine 01/11/23 Photo Specialist Relationship Specialty Start Date End Date Brittany Mcginnis APRN-CNP [address] [facility] [place] [phone] PCP - General Family Medicine 01/11/23 Photo Specialist Relationship Specialty Start Date End Date Brittany Mcginnis APRN-CNP [address] [facility] [place] [phone] PCP - General Family Medicine 01/11/23 Goals (unrecognized section and content) Goals may be documented in a n alternate section FOR RECORDS PERTAINING TO PATIENTS WHO ARE [...] BE BASED ON THE PRIMARY CLINICAL RECORDS. [facility] [employer] [facility] provides no warranty or guarantee of the accuracy or completeness of information in this document.
[2024-08-17 14:53] LABS: Basophils Percent Auto 0.4 % (0.2-2.0); Eosinophils Percent Auto 0.3 % (0.9-7.0); Hematocrit 41.9 % (36.0-48.0); Immature Granulocytes Abs Auto 0.03 10^3/uL (0.00-0.03); Immature Granulocytes Pct Auto 0.3 % (0.0-0.5); Lymphocytes Absolute Auto 2.4 10^3/uL (1.2-3.8); Lymphocytes Percent Auto 21.5 % (20.5-60.0); Mean Corpuscular HGB Conc 33.4 g/dL (29.9-35.2); Mean Corpuscular Hemoglobin 32.9 pg (26.7-34.0); Mean Corpuscular Volume 98.6 fL (81.0-99.0); Mean Platelet Volume 10.2 fL (9.5-13.5); Monocytes Absolute Auto 0.6 10^3/uL (0.3-0.8); Monocytes Percent Auto 5.2 % (1.7-12.0); Neutrophils Absolute Auto 7.9 10^3/uL (1.4-6.5); Neutrophils Percent Auto 72.3 % (43.0-75.0); Platelet Count 332 10^3/uL (150-450); Red Blood Count 4.25 10^6/uL (4.20-5.40)
[2024-08-17 15:11] LABS: Estimated Average Glucose 97 mg/dL
[2024-08-17 15:54] LABS: Alanine Aminotransferase 16 U/L (14-59); Albumin Globulin Ratio 0.9; Albumin Level 3.4 g/dL (3.4-5.0); Alkaline Phosphatase 79 U/L (46-116); Aspartate Amino Transferase 23 U/L (15-37); BUN Creatinine Ratio 13.3; Bilirubin Total 0.4 mg/dL (0.2-1.0); Calcium 9.1 mg/dL (8.5-10.1); Carbon Dioxide 30.9 mmol/L (21.0-32.0); Chloride 100 mmol/L (98-107); Chol HDL Ratio 4.4; Cholesterol 240 mg/dL (<=200); Estimated GFR (African America 43 (>=60 mL/min/1.73m^2); Estimated GFR (Non-African Ame 35 (>=60 mL/min/1.73m^2); Free T3 2.31 pg/mL (2.18-3.98); Glucose 100 mg/dL (74-106); HDL Cholesterol 54 mg/dL (40-60); Potassium 3.9 mmol/L (3.5-5.1); Sodium 137 mmol/L (136-145); Thyroid Stimulating Hormone 0.528 uIU/mL (0.358-3.740); Total Protein 7.4 g/dL (6.4-8.2); Triglycerides 159 mg/dL (<=150); VLDL CHOLESTEROL 31.8 mg/dL
[2024-08-19 11:13] LABS: Insulin 6.9 uIU/mL (2.6-24.9)
== END 2024-08-17 14:30 | disposition home or self-care (01) ==
LOC: LAB 14:31
PROVIDERS: PCP Nurse Practitioner Family; Visit Provider Nurse Practitioner Family
DX: Z00.00 Encounter for general adult medical examination without abnormal findings (principal)
CPT/HCPCS: 36415; 80053; 80061; 82306; 83036; 83525; 83540; 84436; 84443; 84481; 85025

== ENCOUNTER 2024-09-05 13:54 | Outpatient (OUT) | payer MEDICAID, SELFPAY ==
--- OUTSIDE RECORDS SUMMARY | 2024-09-05 14:17 | XMS_ITS | CCD ---
Author Organization [facility] [employer] Care Team Providers Care Manufacturing Supervisor 2Nd Shift Name Role Phone DEN HU Unavailable Unavailable SHAWN FAGAN Unavailable Unavailable DEN HU Unavailable Unavailable SHAWN FAGAN Unavailable Unavailable Shawn Corral Unavailable BRITTANY MCGINNIS Admitting Unavailable BRITTANY MCGINNIS Attending Unavailable DR SAKSHI LEUNG Primary Care Unavailable RAS, BRITTANY Consulting Unavailable MD Sakshi Leung Primary Care Provider [phone] JOSE Stone Attending Provider Brittany Mcginnis MD [...] take 0.05 tablet by mouth once norethindrone-e.estradioL-iron ([facility] ,) 1 mg-20 mcg (21)/75 mg (7) [...] E2 [Mass/Vol]on 07-11-2024 ESTRADIOL 290.9 pg/mL Normal [facility] Comment on above: Result Comment: NON- FEMALES [...] this assay. Performed By: #### 2 839-9, 18513-6, 2243-4 #### [facility] ([id number]) [address] [place] [address], [address] [place] [address] #### 11495-6 #### [facility] ([id number]) [address] [place] [address] Progesterone [Mass/Vol]on PROGESTERONE 1.0 ng/mL Normal [facility] Comment on above: Result Comment: FEMALES: 1st Tri: 4.7-50.7 ng/ml 2nd Tri: 19.4-45.3 ng/ml MENSTRUATING FEMALES: Follicular: 0.3-1.5 ng/ml Mid Luteal: 5.2-18.6 ng/ml Post Melyssa: <0.1-0.8 ng/ml Performed By: #### 2 839-9, 10065-5, 2243-4 #### [facility] ([id number]) [address] [place] [address], [address] [place] [address] #### 35149-1 #### [facility] ([id number]) [address] [place] [address] Testosterone free and total panel [Mass/Vol]on 07-11-2024 Testosterone [Mass/Vol] 17 ng/dL Normal 8-60 [facility] Comment on above: Result Comment: NOTE ADDITIONAL INFORMATION Testing performed by Liquid Chromatography-Tandem Mass Spectrometry (LC-MS/MS). This test was developed and its performance characteristics determined by [facility] in a manner consistent with CLIA requirements. This test has not been cleared or approved by the U.S. Food and Drug Administration. Test Performed by: [place] [address] [employer] Finisher: Leanne Kaye Ph.D.; CLIA# [id number] Performed By: #### 2 839-9, 15268-6, 2243-4 #### [facility] ([id number]) [address] [place] [address], [address] [place] [address] #### 54546-2 #### [facility] ([id number]) [address] [place] [address] TESTOSTERONE FREE 0.20 ng/dL Normal <0.13-0.95 [facility] Comment on above: Result Comment: NOTE ADDITIONAL INFORMATION This test was developed and its performance characteristics determined by [facility] in a manner consistent with CLIA requirements. This test has not been cleared or approved by the U.S. Food and Drug Administration. Performed By: #### 2 839-9, 32992-9, 2243-4 #### [facility] ([id number]) [address] [place] [address], [address] [place] [address] #### 60194-1 #### [facility] ([id number]) [address] [place] [address] Vitamin D+Metabolites [Mass/ Vol]on 07-11-2024 VITAMIN D 25 HYD TOT 65.1 ng/mL Normal 30-100 [facility] Comment on above: Result Comment: Vitamin D status 25 [place] Vitamin D Deficiency <20 ng/mL Insufficiency 20-29 ng/mL Sufficiency 30-100 ng/mL Toxicity >100 ng/mL NOTE: A pediatric reference range has not been established by the dental chairside assistant of this kit. The [place] [employer] recommends a Vitamin D level of = or >20ng/mL in infants and children. Performed By: #### 2 839-9, 76323-6, 2243-4 #### [facility] ([id number]) [address] [place] [address], [facility] [address] [place] [address] #### 08139-2 #### [facility] ([id number]) [address] [place] [address] POCT , urineon 06-02 Beta HCG ( test) Ql (U) Negative [facility] Interpretation and review of laboratory results Normal [facility] [address] Surgical Pathologyon 024 Surgical Pathology Normal [facility] Comment on above: Result Comment: [facility] [address] [place] [address] Surgical Pathology Consultation Patient Name:SAMARIA GILMORE:1975 (Age: 48)Gender:FTaken:4Reported:4Physician(s):Olivia Schmidt M.D. ([phone])Copy To: Rec. #:[id number]: #[id number] Final Pathologic Diagnosis 1. Endometrium - biopsy: - Fragments of quiescent endometrium (no hyperplasia or neoplasia) 2. Endocervix - ECC: - Benign endocervical lining (no dysplasia or neoplasia) Report Electronically Signed Out [facility]07/03/2024Juan Peterson MD Interpretation [place] [address], License number: [id number]. Clinical History DUB, N93.8. Gross Description 1. [...] 1 minute Total fixation time: 26.5 hours (1,ns,G63-7657 7-1) 2. Received in formalin labeled DEIRDRE, ECC are dunn feathery soft tissue fragments admixed with mucoid material, 1.5 x 1 x 0.2 cm in aggregate. The specimen is filtered and submitted entirely in a single cassette. (1, ns, J92-3649 7-2, m2) MD. ackerman/06/26/2024NSK Specimen(s) Received 1: EMB 2: ECC Fee Codes(s): 1; 99352 2; 50999 XR Foot - left 3 [facility] Result: 06/12/2024: Multiple views of left foot show no acute bony process including but not limited to fracture and/or dislocation. Overall anatomic alignment appeared to be well preserved. Impression: No acute bony process, left foot. 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 There is a chronic appearing posterior talus avulsion fracture. Impression: Stable appearing foot. Pedro Pablo Burrell D.O. [facility] observation (narrative) [facility] US PELVIC WITH TRANSVAGINALo n 05-01-2024 US [...] Camejo MD on 05/01/2024 3:29 PM Normal [facility] XR Foot - left 3 [facility] Result: April 17, 2024 x-rays AP lateral and obliques of the left foot demonstrate normal alignment of the intermetatarsal joints and tarsometatarsal joints. No definitive fracture dislocation. Impression: Stable appearance of left foot. Pedro Pablo Burrell D.O. [facility] Radiology Study observation (narrative) [facility] XR Foot - left 3 ViewsOrdere d By: Gissel Burrell on 04-17-2024 [facility] [employer] Work Phone: MR ANKLE LEFT WO IV [...] 3V*on 2023 XR ankle LT min 3V* [facility] [place] [address] [place] [address] XRay Report Signed Patient: Samaria Gilmore MR#: [id number] : 1975 Acct:[id number] Age/Sex: 48 / F ADM Date: 03/01/24 Loc: XDUCLY Room: Type: [facility] CLI Attending Dr: Jackelyn Stone APRN Copies to: Jackelyn Stone APRN Ordering Provider: Jackelyn Stone APRN Date of Service: 03/01/24 XR/XR foot LT min 3V*: S99.912A - Unspecified injury of left ankle, initial enco... ([id number]) XR/XR ankle LT min 3V*: S99.912A - [...] Nikita Skinner M.D.03/01/2024 5:46 PM Dictation Location: [place] [address] Transcribed By: [facility] 03/01/241745 Dictated By: Nikita Skinner II, MD 03/01/241742 Signed By: 03/01/241745 Normal [facility] INSULINon 07-30-2022 Insulin 17.5 uIU/mL Normal 2.6-24.9 [facility] Comment on above: Performed By: #### I NSULIN #### [facility] [address] [place] [address] Dr. Rachel Edgar CBC AUTO DIFFon 07-29-2022 BASO # 0.0 103/ul Normal 0.0-0.1 [facility] Comment on above: Performed By: #### C BC #### [facility] [address] [address] [address] Rachel Edgar Basophils/100 WBC (Bld) 0.1 % Critically low 0.2-2.0 [facility] Comment on above: Performed By: #### C BC #### [facility] [address] [address] [address] Rachel Edgar EO # 0.1 103/ul Normal 0.0-0.7 [facility] Comment on above: Performed By: #### C BC #### [facility] [address] [place] [address] Dr. Rachel Edgar Eosinophils/100 WBC (Bld) 0.7 % Critically low 0.9-7.0 [facility] Comment on above: Performed By: #### C BC #### [facility] [address] [place] [address] Dr. Rachel Edgar Erythrocyte distribution width (RBC) [Ratio] 12.1 % Normal 11.0-15.0 [facility] Comment on above: Performed By: #### C BC #### [facility] [address] [place] [address] Dr. Rachel Edgar Hematocrit (Bld) [Volume fraction] 42.0 % Normal 36.0-48.0 [facility] Comment on above: Performed By: #### C BC #### [facility] [address] [place] [address] Dr. Rachel Edgar Hemoglobin (Bld) [Mass/Vol] 14.0 g/dL Normal 12.0-16.0 [facility] Comment on above: Performed By: #### C BC #### [facility] [address] [place] [address] Dr. Rachel Edgar IG # 0.03 10e3/ul Normal 0.00-0.03 [facility] Comment on above: Performed By: #### C BC #### [facility] [address] [place] [address] Dr. Rachel Edgar IG % 0.3 % Normal 0.0-0.5 [facility] Comment on above: Performed By: #### C BC #### [facility] [address] [place] [address] Dr. Rachel Edgar LYMPH # 2.1 103/ul Normal 1.2-3.8 [facility] Comment on above: Performed By: #### C BC #### [facility] [address] [place] [address] Dr. Rachel Edgar Lymphocytes/100 WBC (Bld) 23.2 % Normal 20.5-60.0 [facility] Comment on above: Performed By: #### C BC #### [facility] [address] [place] [address] Dr. Rachel Edgar MANUAL DIFF REQ NO Normal [facility] Comment on above: Performed By: #### C BC #### [facility] [address] [place] [address] Dr. Rachel Edgar MCH (RBC) [Entitic mass] 32.9 pg Normal 26.7-34.0 [facility] Comment on above: Performed By: #### C BC #### [facility] [address] [place] [address] Dr. Rachel Edgar MCHC (RBC) [Mass/Vol] 33.3 g/dL Normal 29.9-35.2 [facility] Comment on above: Performed By: #### C BC #### [facility] [address] [place] [address] Dr. Rachel Edgar MCV (RBC) [Entitic vol] 98.8 fL Normal 81.0-99.0 [facility] Comment on above: Performed By: #### C BC #### [facility] [address] [place] [address] Dr. Rachel Edgar MONO # 0.5 103/ul Normal 0.3-0.8 [facility] Comment on above: Performed By: #### C BC #### [facility] [address] [place] [address] Dr. Rachel Edgar Monocytes/100 WBC (Bld) 5.9 % Normal 1.7-12.0 [facility] Comment on above: Performed By: #### C BC #### [facility] [address] [place] [address] Dr. Rachel Edgar NEUT # 6.3 103/ul Normal 1.4-6.5 [facility] Comment on above: Performed By: #### C BC #### [facility] [address] [place] [address] Dr. Rachel Edgar Neutrophils/100 WBC (Bld) 69.8 % Normal 43.0-75.0 [facility] Comment on above: Performed By: #### C BC #### [facility] [address] [place] [address] Dr. Rachel Edgar Platelet mean volume (Bld) [Entitic vol] 10.2 fL Normal 9.5-13.5 [facility] Comment on above: Performed By: #### C BC #### [facility] [address] [place] [address] Dr. Rachel Edgar PLT 335 103/ul Normal 150-450 [facility] Comment on above: Performed By: #### C BC #### [facility] [address] [place] [address] Dr. Rachel Edgar RBC 4.25 106/ul Normal 4.20-5.40 [facility] Comment on above: Performed By: #### C BC #### [facility] [address] [place] [address] Dr. Rachel Edgar WBC 9.0 103/ul Normal 4.0-11.0 [facility] Comment on above: Performed By: #### C BC #### [facility] [address] [place] [address] Dr. Rachel Edgar FREE THYROXINE INDEX T7on FTI 1.88 Normal 1.30-4.50 [facility] Comment on above: Performed By: #### T 7, TSH, CMP, LIPID #### [facility] [address] [place] [address] Dr. Rachel Edgar T3U 33.0 % Normal 30.0-39.0 [facility] Comment on above: Performed By: #### T 7, TSH, CMP, LIPID #### [facility] [address] [place] [address] Dr. Rachel Edgar T4 [Mass/Vol] 5.70 ug/dL Normal 4.80-13.90 [facility] Comment on above: Performed By: #### T 7, TSH, CMP, LIPID #### [facility] [address] [place] [address] Dr. Rachel Edgar GLYCOHEMOGLOBIN A1Con 2021 ADA RECOMMENDATION SEE BELOW Normal [facility] Comment on above: Result Comment: ADA RECOMMENDED LIMIT 4.0 - 6.0 ADA THERAPEUTIC TARGET < 7.0 ACTION SUGGESTED > 7.0 Performed By: #### A 1C #### [facility] [address] [place] [address] Dr. Rachel Edgar HbA1c (Bld) [Mass fraction] 5.4 % Normal 4.5-6.2 [facility] Comment on above: Performed By: #### A 1C #### [facility] [address] [place] [address] Dr. Rachel Edgar IRONon 07-29-2022 Iron [Mass/Vol] 64.0 ug/dL Normal 50.0-170.0 [facility] Comment on above: Performed By: #### I JCARLOS #### [facility] [address] [place] [address] Dr. Rachel Edgar LIPID PROFILEon 07-29-2022 CHOL-HDL RATIO NORM SEE BELOW Normal [facility] Comment on above: Result Comment: 3.3 - 4.4 LOW RISK 4.4 - 7.1 AVERAGE RISK 7.1 - 11.0 MODERATE RISK >11.0 HIGH RISK Performed By: #### T 7, TSH, CMP, LIPID #### [facility] [address] [place] [address] Dr. Rachel Edgar Cholesterol [Mass/Vol] 164 mg/dL Normal <=200 [facility] Comment on above: Performed By: #### T 7, TSH, CMP, LIPID #### [facility] [address] [address] [address] Rachel Edgar Cholesterol in HDL [Mass/Vol] 42 mg/dL Normal 40-60 [facility] Comment on above: Performed By: #### T 7, TSH, CMP, LIPID #### [facility] [address] [place] [address] [address] Rachel Edgar Cholesterol in LDL [Mass/Vol] 82.6 mg/dL Normal [facility] Comment on above: Performed By: #### T 7, TSH, CMP, LIPID #### [facility] [address] [address] [address] Rachel Edgar Cholesterol.total/Ch olesterol in HDL [Mass ratio] 3.9 {ratio} Normal [facility] Comment on above: Performed By: #### T 7, TSH, CMP, LIPID #### [facility] [address] [address] [address] Rachel Edgar HDL NORMAL > or = 60 mg/dl - LOW CARDIOVASCULAR RISK <40 mg/dl - HIGH CARDIOVASCULAR RISK Normal [facility] Comment on above: Performed By: #### T 7, TSH, CMP, LIPID #### [facility] [address] [address] [address] Rachel Edgar LDL CALC NORMAL SEE BELOW Normal [facility] Comment on above: Result Comment: <100 mg/dl OPTIMAL 100 - 129 mg/dl NEAR OR ABOVE OPTIMAL 130 - 159 mg/dl BORDERLINE HIGH 160 - 189 mg/dl HIGH >190 mg/dl VERY HIGH Performed By: #### T 7, TSH, CMP, LIPID #### [facility] [address] [place] [address] [address] Rachel Edgar Triglyceride [Mass/Vol] 197 mg/dL Critically high <=150 [facility] Comment on above: Performed By: #### T 7, TSH, CMP, LIPID #### [facility] [address] [place] [address] [address] Rachel Edgar VLDL CALC 39.4 mg/dL Normal [facility] Comment on above: Performed By: #### T 7, TSH, CMP, LIPID #### [facility] [address] [address] [address] Rachel Edgar PROF 14(COMP METB)on 022 Albumin [Mass/Vol] 3.5 g/dL Normal 3.4-5.0 [facility] Comment on above: Performed By: #### T 7, TSH, CMP, LIPID #### [facility] [address] [address] [address] Rachel Edgar Albumin/Globulin [Mass ratio] 0.9 {ratio} Normal [facility] Comment on above: Performed By: #### T 7, TSH, CMP, LIPID #### [facility] [address] [place] [address] Dr. Rachel Edgar ALP [Catalytic activity/Vol] 83 U/L Normal 46-116 [facility] Comment on above: Performed By: #### T 7, TSH, CMP, LIPID #### [facility] [address] [place] [address] Dr. Rachel Edgar ALT [Catalytic activity/Vol] 21 U/L Normal 14-59 [facility] Comment on above: Performed By: #### T 7, TSH, CMP, LIPID #### [facility] [address] [address] [address] Rachel Edgar Anion gap [Moles/Vol] 10.4 mmol/L Normal [facility] Comment on above: Performed By: #### T 7, TSH, CMP, LIPID #### [facility] [address] [place] [address] Dr. Rachel Edgar AST [Catalytic activity/Vol] 17 U/L Normal 15-37 [facility] Comment on above: Performed By: #### T 7, TSH, CMP, LIPID #### [facility] [address] [address] [address] Rachel Edgar Bilirubin [Mass/Vol] 0.2 mg/dL Normal 0.2-1.0 [facility] Comment on above: Performed By: #### T 7, TSH, CMP, LIPID #### [facility] [address] [address] [address] Rachel Edgar Calcium [Mass/Vol] 9.0 mg/dL Normal 8.5-10.1 [facility] Comment on above: Performed By: #### T 7, TSH, CMP, LIPID #### [facility] [address] [address] [address] Rachel Edgar Chloride [Moles/Vol] 103 mmol/L Normal 98-107 [facility] Comment on above: Performed By: #### T 7, TSH, CMP, LIPID #### [facility] [address] [address] [address] Rachel Edgar CO2 [Moles/Vol] 30.8 mmol/L Normal 21.0-32.0 [facility] Comment on above: Performed By: #### T 7, TSH, CMP, LIPID #### [facility] [address] [place] [address] Dr. Rachel Edgar Creatinine [Mass/Vol] 0.96 mg/dL Normal 0.55-1.02 [facility] Comment on above: Performed By: #### T 7, TSH, CMP, LIPID #### [facility] [address] [place] [address] Dr. Rachel Edgar EGFR-AF DOMINICAN >60 Normal >=60 [facility] Comment on above: Performed By: #### T 7, TSH, CMP, LIPID #### [facility] [address] [place] [address] Dr. Rachel Edgar EGFR-NON AF DOMINICAN >60 Normal >=60 [facility] Comment on above: Performed By: #### T 7, TSH, CMP, LIPID #### [facility] [address] [place] [address] Dr. Rachel Edgar Globulin (S) [Mass/Vol] 4.0 g/dL Normal [facility] Comment on above: Performed By: #### T 7, TSH, CMP, LIPID #### [facility] [address] [place] [address] Dr. Rachel Edgar Glucose [Mass/Vol] 108 mg/dL Normal [facility] Comment on above: Performed By: #### T 7, TSH, CMP, LIPID #### [facility] [address] [place] [address] Dr. Rachel Edgar Performed By: #### A 1C #### [facility] [address] [place] [address] Dr. Rachel Edgar Potassium [Moles/Vol] 4.2 mmol/L Normal 3.5-5.1 [facility] Comment on above: Performed By: #### T 7, TSH, CMP, LIPID #### [facility] [address] [place] [address] Dr. Rachel Edgar Protein [Mass/Vol] 7.5 g/dL Normal 6.4-8.2 [facility] Comment on above: Performed By: #### T 7, TSH, CMP, LIPID #### [facility] [address] [place] [address] Dr. Rachel Edgar Sodium [Moles/Vol] 140 mmol/L Normal 136-145 [facility] Comment on above: Performed By: #### T 7, TSH, CMP, LIPID #### [facility] [address] [place] [address] Dr. Rachel Edgar Urea nitrogen [Mass/Vol] 15.0 mg/dL Normal 7.0-18.0 [facility] Comment on above: Performed By: #### T 7, TSH, CMP, LIPID #### [facility] [address] [place] [address] Dr. Rachel Edgar Urea nitrogen/Creatinine [Mass ratio] 15.6 mg/mg Normal [facility] Comment on above: Performed By: #### T 7, TSH, CMP, LIPID #### [facility] [address] [place] [address] Dr. Rachel Edgar TSHon 07-29-2022 TSH 1.473 uIU/mL Normal 0.358-3.740 [facility] Comment on above: Performed By: #### T 7, TSH, CMP, LIPID #### [facility] [address] [place] [address] Dr. Rachel Edgar COVID Quick Testingon 2021 Result Negative [facility] Other Quick Strepon 03-23-2022 S. pyogenes Org specific cx Ql (Throat) Positive [facility] Other Quick Strep [facility] Other XR LUMBAR SPINE LIMITEDon XR LUMBAR [...] by:BASIL Corraligned by:Kely Blue MD03/04/17Final result Normal [facility] Vital Signs Date Time Vital Sign Value Performing Clinician Facility 07-10-2024 09:10-0500 Body mass index (BMI) [Ratio] 39.49 kg/m2 Olivia Schmidt MD Work Phone: [facility] 07-10-2024 09:10-0500 Body weight 91.72 kg Olivia Schmidt [facility] 07-10-2024 09:10-0500 Diastolic blood pressure 104 mm[Hg] Olivia Schmidt MD [facility] 07-10-2024 09:10-0500 Systolic blood pressure 152 mm[Hg] Olivia Schmidt MD [facility] 06-25-2024 10:42-0500 Body height 152.4 cm Olivia Schmidt MD Work Phone: [facility] 06-25-2024 10:42-0500 Body mass index (BMI) [Ratio] 37.69 kg/m2 Olivia Schmidt MD [facility] 06-25-2024 10:42-0500 Body weight 87.54 kg Olivia Schmidt MD Work Phone: [facility] 06-25-2024 10:42-0500 Diastolic blood pressure 80 mm[Hg] Olivia Schmidt MD Work Phone: [facility] 06-25-2024 10:42-0500 Systolic blood pressure 140 mm[Hg] Olivia Schmidt MD Work Phone: [facility] 03-01-2024 16:58-0400 Body height 152.4 cm MD Sakshi Leung Work Phone: [facility] 03-01-2024 16:58-0400 Body mass index (BMI) [Ratio] 33.2 kg/m2 MD Sakshi Leung Work Phone: [facility] 03-01-2024 16:58-0400 Body temperature 98.4 [degF] MD Sakshi Leung Work Phone: [facility] 03-01-2024 16:58-0400 Body weight 77.11 kg MD Sakshi Leung Work Phone: [facility] 03-01-2024 16:58-0400 Diastolic blood pressure 61 mm[Hg] MD Sakshi Leung Work Phone: [facility] 03-01-2024 16:58-0400 Heart rate 66 /min MD Sakshi Leung Work Phone: [facility] 03-01-2024 16:58-0400 Respiratory rate 18 /min MD Sakshi Leung Work Phone: [facility] 03-01-2024 16:58-0400 SaO2% (BldA) [Mass fraction] 97 % MD Sakshi Leung Work Phone: [facility] 03-01-2024 16:58-0400 Systolic blood pressure 117 mm[Hg] MD Sakshi Leung Work Phone: [facility] 03-23-2022 11:20-0400 Body height 154.94 cm Shawn Corral Other [facility] Other 03-23-2022 11:20-0400 Body mass index (BMI) [Ratio] 42.51 kg/m2 Shawn Corral Other [facility] Other 03-23-2022 11:20-0400 Body temperature 97.8 [degF] Shawn Corral Other [facility] Other 03-23-2022 11:20-0400 Body weight 102.06 kg Shawn Corral Other [facility] Other 03-23-2022 11:20-0400 Respiratory rate 18 /min Shawn Corral Other [facility] Other 03-23-2022 11:20-0400 SaO2% (BldA) [Mass fraction] 97 % Shawn Corral Other [facility] Other Encounters Encounter Date Encounter Type Care Provider Facility Start: 08-14-2024 End: 08-14-2024 Telephone encounter Debbie Calvert RN [facility] Start: 07-17-2024 End: 07-30-2024 Refill Olivia Schmidt MD Work Phone: [facility] Start: 07-17-2024 End: 07-17-2024 ambulatory [facility] Start: 07-11-2024 End: 07-11-2024 ambulatory [facility] Start: 07-10-2024 End: 07-10-2024 ambulatory [facility] Start: 07-10-2024 End: 07-10-2024 Office outpatient visit 15 minutes Olivia Schmidt MD Work Phone: [facility] Comment on above: PMB (postmenopausal bleeding) (Primary Dx); DUB (dysfunctional uterine bleeding); Decreased libido Start: 06-25-2024 End: 06-25-2024 ambulatory [facility] Start: 06-25-2024 End: 06-25-2024 Patient encounter procedure Olivia Schmidt MD Work Phone: [facility] Comment on above: DUB (dysfunctional u terine bleeding) (Primary Dx) Start: 06-25-2024 End: 06-25-2024 ambulatory [facility] Start: 06-12-2024 End: 06-12-2024 Bamboo flowsheet Wolf Alan NP Work Phone: [facility] Start: 06-12-2024 End: 06-12-2024 Bamboo flowsheet Wolf Alan NP Work Phone: [facility] Start: 06-12-2024 End: 06-12-2024 ambulatory WOLF ALAN Not Available Start: 06-12-2024 End: 06-12-2024 Office outpatient visit 15 minutes Wolf Alan NP Work Phone: [facility] Comment on above: Left foot pain (Prim chantal Dx); Closed nondisplaced fracture of left talus with routine healing, unspecified portion of talus, subsequent encounter Start: 05-22-2024 End: 05-22-2024 Bamboo flowsheet Wolf Alan NP Work Phone: [facility] Start: 05-22-2024 End: 05-22-2024 Bamboo flowsheet Wolf Alan POLY AREA SUPERVISOR Work Phone: [facility] Start: 05-22-2024 [...] 05-15-2024 End: 05-15-2024 Bamboo flowsheet Wolf Alan POLY AREA SUPERVISOR Work Phone: [facility] Start: 05-15-2024 End: 05-15-2024 Bamboo flowsbrayan Alan POLY AREA SUPERVISOR Work Phone: [facility] Start: 05-15-2024 End: 05-15-2024 Postop follow up visit related to original px Wolf Alan POLY AREA SUPERVISOR Work Phone: [facility] Comment on above: Closed nondisplaced fracture of left talus with routine healing, unspecified portion of talus, subsequent encounter Start: 05-15-2024 End: 05-15-2024 ambulatory WOLF ALAN Not Available Start: 04-30-2024 End: 04-30-2024 ambulatory [facility] Start: 04-17-2024 End: 04-17-2024 Bamboo flowsbrayan Alan POLY AREA SUPERVISOR Work Phone: [facility] Start: 04-17-2024 End: 04-17-2024 Bamboo flowsheet Wolf Alan POLY AREA SUPERVISOR Work Phone: [facility] Start: 04-17-2024 End: 04-17-2024 Postop follow up visit related to original px Wolf Alan POLY AREA SUPERVISOR Work Phone: [facility] Comment on [...] 03-01-2024 ambulatory MD Sakshi Leung Work Phone: [facility] Work Phone: Start: 03-01-2024 End: 03-01-2024 Patient encounter procedure MD Sakshi Leung Work Phone: [facility] Work Phone: Start: 07-29-2022 End: 07-30-2022 ambulatory BRITTANY MCGINNIS Facility: Start: 03-23-2022 End: 03-23-2022 ambulatory Shawn Ellis Other [facility] [employer] Other Start: 03-23-2022 Office outpatient vi sit 15 minutes Shawn Corral [facility] Start: 03-04-2017 End: 03-05-2017 [facility]ulatory [facility] Procedures Date Procedure Procedure Detail Performing Clinician Start: 07-10-2024 Follow-up visit Follow-up OLIVIA SCHMIDT Start: 06-25-2024 Urine test visual color cmprsn meths Olivia Schmidt MD Work Phone: Start: 06-12-2024 Radex foot complete minimum 3 views Wolf Alan POLY AREA SUPERVISOR Work Phone: Start: 05-15-2024 Radex foot complete minimum 3 views Wolf Alan POLY AREA SUPERVISOR Work Phone: Start: 04-17-2024 Radex foot complete minimum 3 views Wolf Alan POLY AREA SUPERVISOR Work Phone: Start: 03-08-2024 Adult depression scr [...] Adult BMI Screening Adult BMI Screen ing [facility] Start: 07-17-2025 Tobacco Screening Tobacco Screening [facility] Start: 06-25-2025 Adult BMI Screening Adult BMI Screen ing [facility] Start: 06-25-2025 Tobacco Screening Tobacco Screening [facility] Start: 06-01-2025 Screening for malign ant neoplasm of cervix Pap Smear [facility] Start: 04-24-2025 Adult BMI Screening Adult BMI Screen ing [facility] Start: 04-24-2025 Tobacco Screening Tobacco Screening [facility] Start: 03-08-2025 Depression Screening Depression Scre ening [facility] Start: 03-07-2025 Adult BMI Follow Up Plan Adult BMI Follow Up Plan [facility] Start: 07-10-2024 End: 07-10-2024 Patient encounter procedure 07/10/2024 9:00 AM EST [facility] [address] [place] [id number] Olivia Schmidt MD [address] [place] [address] [facility] Start: 06-26-2024 End: 06-26-2024 Patient encounter procedure 06/26/2024 9:15 AM EST Office Visit [facility] [address] [place] [address] Wolf Alan, POLY AREA SUPERVISOR [address] [place] [address] [facility] Start: 06-25-2024 End: 06-25-2025 Surgical Pathology Surgical Pathology Pathology and Cytology Routine DUB (dysfunctional uterine bleeding) Expected: 06/25/2024 (Approximate), Expires: 06/25/2025 [facility] Work Phone: Comment on above: Expected: 06/25/2024 (Approximate), Expires: 06/25/2025 Start: 06-12-2024 End: 06-12-2024 Patient encounter procedure 06/12/2024 10:45 AM EST Office Visit [facility] [address] [place] [address] [address] [place] [address] Wolf Alan, POLY AREA SUPERVISOR [address] [place] [address] [facility] Start: 05-22-2024 End: 05-22-2024 Patient encounter procedure 05/22/2024 11:15 AM EDT Office Visit [facility] [address] [facility] [address] [place] [address] Wolf Alan, POLY AREA SUPERVISOR [address] [place] [address] Arrived [facility] Comment on above: Arrived Start: 05-15-2024 End: 05-15-2024 Patient encounter procedure [facility] Comment on above: Closed nondisplaced fracture of left talus with routine healing, unspecified portion of talus, subsequent encounter Start: 04-17-2024 End: 04-17-2024 Patient encounter procedure 04/17/2024 1:00 PM EDT Office Visit [facility] [address] [facility] [address] [place] [address] Wolf Alan, POLY AREA SUPERVISOR [address] [place] [address] Closed nondisplaced fracture of left talus with routine healing, unspecified portion of talus, subsequent encounter [facility] Comment on above: Closed nondisplaced fracture of left talus with routine healing, unspecified portion of talus, subsequent encounter Start: 04-01-2024 Influenza vaccination Influenza Vacc ine [facility] Start: 1996 DTaP,Tdap and Td Vaccines (1 - Tdap) DTaP,Tdap and Td Vaccines (1 - Tdap) [facility] End: 07-10-2025 Estradiol Estradiol Lab Routine PMB (postmenopausal bleeding) DUB (dysfunctional uterine bleeding) Decreased libido 1 Occurrences starting 07/10/2024 until 07/10/2025 [facility] Comment on above: 1 Occurrences starti ng 07/10/2024 until 07/10/2025 End: 07-10-2025 Progesterone Progesterone Lab Routine PMB (postmenopausal bleeding) DUB (dysfunctional uterine bleeding) Decreased libido 1 Occurrences starting 07/10/2024 until 07/10/2025 [facility] Comment on above: 1 Occurrences starti ng 07/10/2024 until 07/10/2025 End: 07-10-2025 Testosterone, Total and Free, S Testosterone, Total and Free, S Lab Routine PMB (postmenopausal bleeding) DUB (dysfunctional uterine bleeding) Decreased libido 1 Occurrences starting 07/10/2024 until 07/10/2025 [facility] Comment on above: 1 Occurrences starti ng 07/10/2024 until 07/10/2025 End: 07-10-2025 Vitamin D 25 hydroxy Vitamin D 25 hydroxy Lab Routine PMB (postmenopausal bleeding) DUB (dysfunctional uterine bleeding) Decreased libido 1 Occurrences starting 07/10/2024 until 07/10/2025 [facility] Work Phone: Comment on above: 1 Occurrences starti ng 07/10/2024 until 07/10/2025 Immunizations Immunization Date Immunization Notes Care Provider Fa [facility] 04-28-2019 influenza, injectabl e, quadrivalent, preservative free Olivia Schmidt MD Work Phone: [facility] 04-28-2019 influenza virus vaccine, unspecified formulation Olivia Schmidt MD Work Phone: [facility] 06-04-2018 influenza, injectabl e, quadrivalent, preservative free Olivia Schmidt MD Work Phone: [facility] Payers Date Payer Category Payer Medicaid [id number] 2024 Medicaid [id number] 2024 Self-pay [id number] 2019 Blue Cross Blue Shield BCBS [id number] 2019 [facility] - Other ANTHEM [id number] 2019 Unknown BCBS BCBS [id number] 2019-Present [phone] [id number] [place] [id number] 2014 Unknown [id number] 1977 Unknown [id number] 2..840.1.116697.3.579.2. 593 1977 Unknown [id number] ..840.1.564317.3.579.2. 1258 1977 Unknown [id number] 2.16.840.1.457947.3.579.2. 1258 1977 Unknown [id number] 2.16840.1.689386.3.579.2. 1258 1977 Unknown [id number] 2.840.1.721715.3.579.2. 1258 1977 Unknown [id number] 2.840.1.518169.3.579.2. 1258 1977 Unknown [id number] 2.840.1.007938.3.579.2. 1258 1977 Unknown [id number] 2.840.1.409253.3.579.2. 1258 1977 Unknown [id number] 2.0.1.805077.3.579.2. 1258 1977 Unknown [id number] 2.840.1.821829.3.579.2. 1258 1977 Unknown [id number] .0.1.200590.3.579.2. 1258 1977 Unknown [id number] .0.1.695894.3.579.2. 1285 1977 Unknown [id number] .1.970714.3.579.2. 1285 1977 Unknown [id number] .840.1.691946.3.579.2. 1285 1977 Unknown [id number] .0.1.805963.3.579.2. 1285 1977 Unknown [id number] .0.1.365120.3.579.2. 1285 1977 Unknown [id number] 09.16.830.1.136630.3.579.2. 1285 1959 Blue Cross Blue Shield [id number] Unknown [id number] 2.16.840.1.094348.3.579.2. 531 Social History Date Type Detail Facility Start: 04-17-2024 End: 07-10-2024 Sex Assigned At [facility] Start: 03-01-2024 End: 03-07-2024 Tobacco smoking status NHIS Ex-smoker (finding) [facility] Start: 1975 Sex Assigned At Female F [facility] End: 08-01-2015 History of tobacco use Current smoker [facility] End: 08-01-2015 History of tobacco use Cigarette Smoker [facility] Start: 03-05-2024 End: 03-07-2024 Tobacco use and exposure Smokeless tobacco non-user [facility] Start: 04-17-2024 End: 07-17-2024 Alcoholic beverage intake Ex-drinker (finding) [facility] Start: 04-17-2024 End: 07-10-2024 History of Social function [facility] Start: 1975 Sex assigned at Not on file [facility] Adolescent depressio n screening assessment 0 [facility] Start: 03-07-2024 Alcohol Comment rare [facility] Start: 03-06-2015 Sex Female (finding) [facility] Goals Date Patient Goal Desired [...] AMBIKA Nolan, RN documented in this encounter [facility] 08-14-2024 Telephone encounter Note Pt called [...] is. Pt verbalized understanding. AMBIKA Nolan, RN [facility] 07-10-2024 History of Present illness Narrative [...] Elkins 07/10/24 0937 documented in this encounter [facility] 06-25-2024 History of Present illness Narrative [...] Quiroz 06/25/24 1025 documented in this encounter [facility] 06-12-2024 History of Present illness Narrative Images from the original note were not included. Chief Complaint Patient presents with Left Foot - Follow-up HISTORY OF PRESENT ILLNESS: Samaria Gilmore is an 48 y.o. @ female. LT Foot/ankle: 3 months 2 weeks s/p injury. Pt fell off a ladder several feet high and injured left foot/ankle on 02/28/24. Went to [facility] urgent care on 03/01/24, placed in ocl splint and given crutches. Walking in regular shoes. States she still has constant pain on top of foot. Taking IBU. Constant swelling. [place]: UC/XR/03/01/24 [place], xrays left ankle and foot [facility] 03/01/24, ibu, ice, tyl, ocl splint, crutches, [...] acute bony process, left foot. Wolf Alan POLYMER ENGINEER-SLABBING MACHINE OPERATOR ASSESSMENT: ICD-10-CM 1. Left foot pain M79.672 [...] develop for requiring urgent evaluation. Wolf Alan POLYMER ENGINEER-SLABBING MACHINE OPERATOR documented in this encounter [facility] 05-22-2024 History of Present illness Narrative Images from the original note were not included. Chief Complaint Patient presents with Left Foot - Follow-up HISTORY OF PRESENT ILLNESS: Samaria Gilmore is an 48 y.o. @ female. LT Foot/ankle: 12 weeks s/p injury. Pt fell off a ladder several feet high and injured left foot/ankle on 02/28/24. Went to [facility] urgent care on 03/01/24, placed in ocl splint and given crutches. Presents WBAT in regular shoes, still favoring foot. Pain anterior foot. Taking IBU prn. Elevating. Admits swelling. Denies N/T. Does not wake at HS. States she was wearing sandals yesterday and was on her feet for a while, had swelling after. [place]: UC/XR/03/01/24 [place], xrays left ankle and foot [facility] 03/01/24, ibu, ice, tyl, ocl splint, crutches, [...] develop for requiring urgent evaluation. Wolf Alan POLYMER ENGINEER-SLABBING MACHINE OPERATOR documented in this encounter [facility] 05-15-2024 History of Present illness Narrative Images from the original note were not included. Chief Complaint Patient presents with Left Foot - Follow-up HISTORY OF PRESENT ILLNESS: Samaria Gilmore is an 48 y.o. @ female. LT Foot/ankle: 11 weeks s/p injury. Pt fell off a ladder several feet high and injured left foot/ankle on 02/28/24. Went to [facility] urgent care on 03/01/24, placed in ocl splint and given crutches. Presents WBAT in SLC Denies much pain, improving. No pain meds. Denies N/T, swelling. [place]: UC/XR/03/01/24 [place], xrays left ankle and foot [facility] 03/01/24, ibu, ice, tyl, ocl splint, crutches, [...] develop for requiring urgent evaluation. Wolf Alan POLYMER ENGINEER-SLABBING MACHINE OPERATOR documented in this encounter [facility] 04-17-2024 History of Present illness Narrative Images from the original note were not included. Chief Complaint Patient presents with Left Foot - Follow-up HISTORY OF PRESENT ILLNESS: Samaria Gilmore is an 48 y.o. @ female. LT Foot/ankle: here for possible cast 7 weeks s/p injury. Pt fell off a ladder several feet high and injured left foot/ankle on 02/28/24. Went to [facility] urgent care on 03/01/24, placed in ocl splint and given crutches. Presents NWB in CAM boot with knee scooter. Denies much pain, improving. No pain meds. Denies N/T, swelling. [place]: UC/XR/03/01/24 [place], xrays left ankle and foot [facility] 03/01/24, ibu, ice, tyl, ocl splint, crutches, [...] develop for requiring urgent evaluation. Wolf Alan POLYMER ENGINEER-SLABBING MACHINE OPERATOR documented in this encounter [facility] 03-23-2022 Evaluation note Encounter Date Diagnosis Assessment [...] PT acknowledges understanding and agrees to understanding. [facility] Other 04-01-2012 History general Narrative - Reported* Type Description Date Medical History hypertension Medical History depression Medical History acid reflux Medical History miscarriage 10/2011 Surgical History D&C Hospitalization History childbirth [facility] Other Evaluation note* Diagnosis Onset Date Resolution Status Fracture, talus closed acute Injury of left ankle and foot [facility] Work Phone: Evaluation note* Diagnosis Onset Date Resolution Status Fracture, talus closed [facility] Work Phone: Evaluation note* Diagnosis Closed nondisplaced fracture of left talus with routine healing, unspecified portion of talus, subsequent encounter documented in this encounter [facility]* Diagnosis Closed nondisplaced fracture of left talus with routine healing, unspecified portion of talus, subsequent encounter- Primary Left foot pain Pain in soft tissues of limb documented in this encounter [facility]* Diagnosis Left foot pain- Primary Pain in soft tissues of limb Closed nondisplaced fracture of left talus with routine healing, unspecified portion of talus, subsequent encounter documented in this encounter [facility]* Diagnosis DUB (dysfunctional uterine bleeding)- Primary Other disorder of menstruation and other abnormal bleeding from female genital tract documented in this encounter [facility]* Diagnosis PMB (postmenopausal bleeding)- Primary Postmenopausal bleeding DUB (dysfunctional uterine bleeding) Other disorder of menstruation and other abnormal bleeding from female genital tract Decreased libido documented [facility] filedocumented in this encounter [facility] on filedocumented in this encounter [facility]ructionsNot on filedocumented in this encounter [facility] System[facility]ructionsNot on filedocumented in this encounter [facility] Summary Purpose Family History Relationship Condition [...] and content) DATE CREATED AUTHOR 01/25/2018 [facility] DATE CREATED AUTHOR AUTHOR'S ORGANIZ ATION 07/30/2022 [facility] DATE CREATED AUTHOR AUTHOR'S ORGANIZ ATION 06/10/2024 [facility] DATE CREATED AUTHOR AUTHOR'S ORGANIZ ATION 06/18/2024 [facility] EP[facility] DATE CREATED AUTHOR AUTHOR'S ORGANIZ ATION 07/20/2024 [facility] DATE CREATED AUTHOR AUTHOR'S ORGANIZ ATION 07/21/2024 [place] REASON FOR VISIT (unrecogniz ed section and [...] Attending Provider Active Start: March 01, 2024 Manufacturing Supervisor 2Nd Shift Relationship Specialty Start Date End Date Brittany Mcginnis MD [address] [place] [phone] (Fax) Referring Physician Family Medicine 03/05/24 Manufacturing Supervisor 2Nd Shift Relationship Specialty Start Date End Date Brittany Mcginnis MD [address] [place] [address] Referring Physician Family Medicine 03/05/24 Manufacturing Supervisor 2Nd Shift Relationship Specialty Start Date End Date Brittany Mcginnis MD [address] [place] [address] Referring Physician Family Medicine 03/05/24 Manufacturing Supervisor 2Nd Shift Relationship Specialty Start Date End Date Brittany Mcginnis MD [address] [place] [address] Referring Physician Family Medicine 03/05/24 Manufacturing Supervisor 2Nd Shift Relationship Specialty Start Date End Date Brittany Mcginnis APRN-SLABBING MACHINE OPERATOR [address] [place] [phone] PCP - General Family Medicine 01/11/23 Manufacturing Supervisor 2Nd Shift Relationship Specialty Start Date End Date Brittany Mcginnis MD [address] [place] [address] Referring Physician Family Medicine 03/05/24 Manufacturing Supervisor 2Nd Shift Relationship Specialty Start Date End Date Brittany Mcginnis APRN-SLABBING MACHINE OPERATOR [address] [place] [phone] PCP - General Family Medicine 01/11/23 Manufacturing Supervisor 2Nd Shift Relationship Specialty Start Date End Date Brittany Mcginnis APRN-CNP [address] [facility] [place] [address] PCP - General Family Medicine 01/11/23 Manufacturing Supervisor 2Nd Shift Relationship Specialty Start Date End Date Brittany Mcginnis APRN-CNP [address] [facility] [place] [address] PCP - General Family Medicine 01/11/23 Goals [...] BE BASED ON THE PRIMARY CLINICAL RECORDS. [facility]. provides no warranty or guarantee of the accuracy or completeness of information in this document.
[2024-09-05 14:33] LABS: Alanine Aminotransferase 18 U/L (14-59); Albumin Globulin Ratio 1.1; Albumin Level 3.9 g/dL (3.4-5.0); Alkaline Phosphatase 90 U/L (46-116); Anion Gap 17.8; Aspartate Amino Transferase 23 U/L (15-37); BUN Creatinine Ratio 13.3; Bilirubin Total 0.4 mg/dL (0.2-1.0); Calcium 8.9 mg/dL (8.5-10.1); Carbon Dioxide 22.9 mmol/L (21.0-32.0); Chloride 103 mmol/L (98-107); Estimated GFR (African America 54 (>=60 mL/min/1.73m^2); Estimated GFR (Non-African Ame 45 (>=60 mL/min/1.73m^2); Globulin 3.4 g/dL; Glucose 100 mg/dL (74-106); Potassium 3.7 mmol/L (3.5-5.1); Sodium 140 mmol/L (136-145); Total Protein 7.3 g/dL (6.4-8.2)
== END 2024-09-05 13:55 | disposition home or self-care (01) ==
LOC: LAB 13:55
PROVIDERS: PCP Nurse Practitioner Family; Visit Provider Nurse Practitioner Family
DX: I10 Essential (primary) hypertension (principal)
CPT/HCPCS: 36415; 80053

== ENCOUNTER 2024-12-19 12:21 | Emergency (ER) | payer MEDICAID, SELFPAY ==
--- OUTSIDE RECORDS SUMMARY | 2024-10-23 06:18 | XMS_ITS ---
Author Organization [facility] in [place] Address [address] [place] [address] Care Team Providers Care Sleeve Ironer Name Role Phone Brittany Ramirez Primary Care Provider [phone] REASON FOR VISIT refill Medications Medication SIG (Take, Route, Fr equency, Duration) Notes Start Date End Date Status Omeprazole 20 mg TAKE 1 CAPSULE DAILY 30 MINUTES BEFORE MORNING MEAL Active LaMICtal 100 MG 1 tablet Orally Once a day for 90 days Active Encounters Encounter Location Date Provider Diagnosis [facility] [address] [place] [address] 10/23/2024 Brittany Ramirez Plan Of Treatment Medication Medication Name Sig Start Date Stop Date Notes Omeprazole 20 mg TAKE 1 CAPSULE DAILY 30 MINUTES BEFORE MORNING MEAL LaMICtal 100 MG 1 tablet Orally Once a day for 90 days Progress Notes * Samaria GILMORE EDOB:1975 ( 49 yo F)Acc No.[id number]:10/23/2024 Patient: Jc Samaria WALKER :1975 A ge:49 Y S ex:Female Address:[address] [place] [address], [address] * Refills Refill Omeprazole Capsule Delayed Release, 20 mg, 90 Capsule, TAKE 1 CAPSULE DAILY 30 MINUTES BEFORE MORNING MEAL, Refills=3 Refill LaMICtal Tablet, 100 MG, Orally, 90, 1 tablet, Once a day, 90 days, Refills=3 * true * Date: Generated for Crow sarkar/Maggie/Kristal on: 0 12/19/2024 12:27 PM EDT
--- OUTSIDE RECORDS SUMMARY | 2024-11-13 12:52 | XMS_ITS ---
Author Organization [facility] in [place] Address [address] [place] [address] Care Team Providers Care Cloth Drier Name Role Phone James Brittany Primary Care Provider REASON FOR VISIT rf trazadone- see note Medications Medication SIG (Take, Route, Fr equency, Duration) Notes Start Date End Date Status traZODone HCl 100 mg TAKE 1-2 TABLET NATASHA LY AT BEDTIME hs prn for 30 days Activ e Encounters Encounter Location Date Provider Diagnosis [facility] [address] [place] [address] 11/13/2024 Brittany Ramirez Insomnia G47.00 Assessments Encounter Date Diagnosis (ICD Code) Assessment Notes Treatment Notes Treatment Clinical Notes Section Notes 11/13/2024 Insomnia (ICD-10 - G47.00) Plan Of Treatment Medication Medication Name Sig Start Date Stop Date Notes traZODone HCl 100 mg TAKE 1-2 TABLET NATASHA LY AT BEDTIME hs prn for 30 days Progress Notes * Samaria GILMORE EDOB:1975 ( 49 yo F)Acc No.[id number]:11/13/2024 Patient: Jc Samaria WALKER :1975 A ge:49 Y S ex:Female Address:[address] [place] [address], [phone] * Refills Refill traZODone HCl Tablet, 100 [...] * true * Date: Generated for Crow sarkar/Maggie/Philsmitting on: 0 12/19/2024 12:27 PM EDT
--- OUTSIDE RECORDS SUMMARY | 2024-12-11 10:13 | XMS_ITS ---
Author Organization [facility] in [place] Address [address] [place] [address] Care Team Providers Care Director Of Program Management Name Role Phone James Brittany Primary Care Provider REASON FOR VISIT F/U Encounters Encounter Location Date Provider Diagnosis [facility] [address] [place] [address] 12/11/2024 Brittany Ramirez Stage 2 chronic kidney disease N18.2 Assessments Encounter Date Diagnosis (ICD Code) Assessment Notes Treatment Notes Treatment Clinical Notes Section Notes 12/11/2024 Stage 2 chronic kidney disease (ICD-10 - N18.2) Plan Of Treatment Pending Test Test Name Order Date PROF 14(COMP METB) 12/11/2024 Progress Notes * Samaria GILMORE EDOB:1975 ( 49 yo F)Acc No.[id number]:12/11/2024 Patient: Jc Samaria WALKER :1975 A ge:49 Y S ex:Female Address:[address] [place] [address], [address] Subjective: * Chief Complaints: * F /U * Medical History: * Surgical History: * Hospitalization/Major Diagno stic Procedure: * Medications: Objective: * Vitals: * Physical Examination: Assessment: * Assessment: 1. S tage 2 chronic kidney disease - N18.2 (Primary) Plan: * Treatment: * Procedure Codes: * true * Date: Generated for Printi ng/Faxing/eTransmitting on: 0 12/19/2024 10:04 AM EDT
--- OUTSIDE RECORDS SUMMARY | 2024-12-19 10:00 | XMS_ITS | Encounter Summary ---
Author Organization [facility] tem Address [id number] [address] [place] [address] Care Team Providers Care Pin Sticker Name Role Phone Brittany Ramirez APRN-SEWER PIPE SORTER Primary Care Provider Reason for Referral * Consultation (Routine) - Pending Review Specialty Diagnoses / Procedures Referred By Contac t Referred To Contact Psychiatry Diagnoses Psychogenic nonepileptic seizure Depression with anxiety Baron Martel PA-C [address], [facility] [address] [place] [address] Phone: tel: fax: Devendra Us MD [address] [place] [address] Phone: tel: fax: Referral ID Status Reason Start Date Expiration Date Visits Requested Visits Authorized [id number] Pending Review Specialty Services Required 12/19/2024 12/19/2025 1 1 * Medication Prior Authorization - Pending Review Specialty Diagnoses / Procedures Referred By Contac t Referred To Contact Diagnoses Psychogenic nonepileptic seizure Seizure disorder (CMS-HCC) Baron Martel PA-C [address], [facility] [address] [place] [address] Phone: tel: fax: Referral ID Status Reason Start Date Expiration Date V isits Requested Visits Authorized [id number] Pending Review 1 1 Reason for Visit * Reason Comments Follow-up Patient is here toda y for follow up on dx: Memory changes Encounter Details Date Type Department Care Team (Late st Contact Info) Description 12/19/2024 10:00 AM EDT Office Visit [facility] [place] [address] [place] [address] Baron Martel PA-C [address] [facility] [address] [place] [address] Memory changes (Primary Dx); Psychogenic [...] 10:06 AM EDT documented in this encounter Plan of Treatment Upcoming Encounters Date Type Department Care Team (Late st Contact Info) Description 07/02/2025 10:00 AM EST Office Visit [facility] [place] [address] [place] [address] Baron Martel, PAEdgarC [address], [address] [place] [address] Scheduled Referrals Name Type Priority Associated Diagnoses Orde r Schedule Ambulatory referral to Psychiatry (Non-[facility]) Outpatient Referral Routine Psychogenic nonepileptic seizure Depression with anxiety 1 Occurrences starting 12/19/2024 until 12/19/2025 documented as of this encounter Goals Goal Patient Goal Type Associated Problems Recent Progress Patient-Stated? Author Home with self care General Yes Jordyn Rea, [place] Note: Evaluation of progress towards goal: Patient [...] Time PHQ-9 Depression Total Score: 0 03/08/20 24 8:32 AM EDT A Body Mass Index follow-up plan has been documented for the patient 03/07/2024 11:19 AM EDT documented as of this encounter Care Teams Pin Sticker Relationship Specialty Start Date End Date Brittany Ramirez, DAIRY EQUIPMENT MECHANIC-SEWER PIPE SORTER [address] [place] [address] PCP - General Family Medicine 01/11/23 documented as of this encounter
--- OUTSIDE RECORDS SUMMARY | 2024-12-19 12:27 | XMS_ITS | Clinical Summary ---
Author Organization [facility] Address [address] [place] [address] Care Team Providers Care Harness Racing Handicapper Name Role Phone Shawn Guillen DO Primary Care Provider [phone] Allergies No known active allergies Medications venlafaxine (EFFEXOR) 75 MG tablet Take 75 mg by mouth daily Active olmesartan-hydr ochlorothiazide (BENICAR HCT) 20-12.5 MG per tablet Take 1 tablet by mouth daily Active levothyroxine (SYNTHROID) 100 MCG tablet Take 100 mcg by mouth Daily Unknown dose per pt Active omeprazole (PRILOSEC) 20 MG delayed release capsule Take 20 mg by mouth daily Active hydrOXYzine (ATARAX) 25 MG tablet Take 1 tablet by mouth every 4 hours as needed (Take for anxiety and to sleep.) 30 tablet 1 04/10/2016 Active Social History Tobacco Use Types Packs/Day Years Used Date Smoking Tobacco: Former Alcohol Use Standard Drinks/Week Comments Yes 0 (1 standard drink = 0.6 oz pur e alcohol) occasionally Comments Unknown Sex and Gender Information Value Date Recorded Sex Assigned at Not on file Legal Sex Female 5:34 AM EDT Gender Identity Not on file Sexual Orientation Not on file Last Filed Vital Signs Vital Sign Reading Time Taken Comments Blood Pressure 115/80 04/10/2016 5:51 AM EDT Pulse 101 04/10/2016 5:51 AM EDT Temperature 36.6 C (97.9 F) 04/10/2016 5:51 AM EDT Respiratory Rate 16 04/10/2016 5:51 AM EDT Oxygen Saturation 100% 04/10/2016 5:51 AM EDT Inhaled Oxygen Concentration - - Weight 82.6 kg (182 lb) 04/10/2016 5:51 AM EDT Height 154.9 cm (5' 1 ) 04/10/2016 5:51 AM EDT Body Mass Index 34.39 04/10/2016 5:51 AM EDT Plan of Treatment Not on file Insurance [place] Care Teams Harness Racing Handicapper Relationship Specialty Start Date End Date Shawn Guillen DO [address] [place], [place] [id number] PCP - General Family Medicine 03/04/17
--- OUTSIDE RECORDS SUMMARY | 2024-12-19 12:27 | XMS_ITS | Encounter Summary ---
Author Organization [facility] Address [id number] [address] [place] [address] Care Team Providers Care Medical Assistant Cardiology Name Role Phone Brittany Ramirez APRN-AUDIO NARRATOR Primary Care Provider Reason for Visit * Reason Onset Date Comments Disability 06/29/2023 ADHD Medication 06/29/2023 Encounter Details Date Type Department Care Team (Late st Contact Info) Description 06/29/2023 Telephone [facility] Neurology [address] [place] [id number] Rachel Daniels Disability; ADHD Medication Social History Tobacco Use Types Packs/Day Years Used Date Smoking Tobacco: Former Cigarettes Q uit: 2016 Smokeless Tobacco: Never Alcohol Use Standard Drinks/Week Comments Yes 0 (1 standard drink = 0.6 oz pur e alcohol) social PHQ-2 Answer Date Recorded Total Score 0 05/16/2023 Childcare Answer Date Recorded Childcare Unknown 01/10/2019 Employment Answer Date Recorded Employment Unknown 01/10/2019 Hunger Screening Answer Date Recorded Within the past 12 months we worried whether our food would run out before we got money to buy more. Never True 05/16/2023 Within the past 12 months th e food we bought just didn't last and we didn't have money to get more. Never True 05/16/2023 Comments No Sex and Gender Information Value Date Recorded Sex Assigned at Not on file Legal Sex Female 11:47 AM EDT Gender Identity Not on file Sexual Orientation Not on file documented as of this encounter Miscellaneous Notes * Telephone Encounter - Rachel Daniels - 06/29/2023 11:57 AM EST Received call today 06/29/23 11:57 from patient who is requesting a call back. She said she was calling to schedule follow up appt with Baron Martel and I informed her per provider's 05/16/23 office visit note he stated to follow up 1- 2 weeks after her scheduled neuropsychology appt on 12/08/23 -she said this is to test for ADHD. She said that she wants an appt now and due to being scheduled so far out for neuropsychology she wants to know if she can try the ADHD medication now to help with her zoning out and also wanted to discuss Disability. Please call back and advise, callback#: [phone]. * Telephone Encounter - Baron Martel PA-C - 06/29/2023 11:57 AM EST I would rather not start her on ADHD medication at this time. Short-term disability or long-term? - [facility] * Telephone Encounter - Octavia Guillermo RN - 06/29/2023 11:57 AM EST Attempted to reach patient. VM left requesting a call back. documented in this encounter Plan of Treatment Upcoming Encounters Date Type Department Care Team (Late st Contact Info) Description 07/02/2025 10:00 AM EST [facility] [place] [address] Baron Martel PA-C [address] [facility], [facility] [address] [place] [address] documented as of this encounter Goals Goal Patient Goal Type Associated Problems Recent Progress Patient-Stated? Author Home with self care General Yes Jordyn Rea, RN Note: Evaluation of progress towards goal: Patient stated she plans to return home with self care. documented as of this encounter Visit Diagnoses Not on filedocumented in this encounter Additional Health Concerns Assessment Noted Time PHQ-9 Depression Total Score: 0 05/16/20 10:34 AM EDT A Body Mass Index follow-up plan has been documented for the patient 06/01/2022 11:33 AM EDT documented as of this encounter Care Teams Medical Assistant Cardiology Relationship Specialty Start Date End Date Brittany Ramirez, ORTHOPEDIC DENTIST-AUDIO NARRATOR [address] [place] [address] PCP - General Family Medicine 01/11/23 documented as of this encounter
--- OUTSIDE RECORDS SUMMARY | 2024-12-19 12:27 | XMS_ITS | Encounter Summary ---
Author Organization [facility] tem Address [id number] [address] [place] [address] Care Team Providers Care Candlemaking Laborer Name Role Phone Brittany Ramirez APRN-PRIMER CHARGING TOOL SETTER Primary Care Provider Reason for Visit * Reason Onset Date Comments reschd appt 03/21/2023 Encounter Details Date Type Department Care Team (Late st Contact Info) Description 03/21/2023 [facility]phone [facility] [address] [place] [address] Aubrie Salas reschd appt Social History Tobacco Use Types Packs/Day Years Used Date Smoking Tobacco: Former Cigarettes Q uit: 2016 Smokeless Tobacco: Never Alcohol Use Standard Drinks/Week Comments Yes 0 (1 standard drink = 0.6 oz pur e alcohol) social Childcare Answer Date Recorded Childcare Unknown 01/10/2019 Employment Answer Date Recorded Employment Unknown 01/10/2019 Comments No Sex and Gender Information Value Date Recorded Sex Assigned at Not on file Legal Sex Female 11:47 AM EDT Gender Identity Not on file Sexual Orientation Not on file documented as of this encounter Miscellaneous Notes * Telephone Encounter - Aubrie Salas - 03/21/2023 3:58 PM EDT Patient's appointment needs to be rescheduled at this time due to provider out of clinic. Called and unable to leave voicemail, phone just rang and never went to voicemail Date: 03/25 Provider: Dr. Hopkins in [place] Rescheduling Instructions: next available documented in this encounter Plan of Treatment Upcoming Encounters Date Type Department Care Team (Late st Contact Info) Description 07/02/2025 10:00 AM EST [facility] Visit [facility] [place] [address] [place] [phone] Baron Martel PA-C [address] [facility], [facility] [address] [place] [address] documented as of this encounter Visit Diagnoses Not on filedocumented in this encounter Additional Health Concerns Assessment Noted Time A Body Mass Index follow-up plan has been documented for the patient 06/01/2022 11:33 AM EDT documented as of this encounter Care Teams Candlemaking Laborer Relationship Specialty Start Date End Date Brittany Ramirez APRN-TUNG [address] [facility] [place] [phone] PCP - General Family Medicine 01/11/23 documented as of this encounter
--- OUTSIDE RECORDS SUMMARY | 2024-12-19 12:27 | XMS_ITS | Clinical Summary ---
Author Organization [facility] Address [address] [place] [address] Care Team Providers Care Road Supervisor Of Engines Name Role Phone Brittany Ramirez MD Unavailable [phone] Allergies No known active allergies Medications lamoTRIgine (LaMICtal) 100 MG tabletIndicatio ns:Seizure (CMS/HCC) TAKE 2 TABLETS TWICE A DAY 120 tablet 11 4 Active traZODone (Desyrel) 100 MG tablet 1 (one) time each day at the same time Active escitalopram (Lexapro) 20 MG tablet Take 30 mg by mouth in the morning. Active methylPREDNISol one (Medrol Dospak) 4 MG tabletsIndicati ons:Left foot pain Follow schedule on package instructions 21 tablet 4 Active Social History Tobacco Use Types Packs/Day Years Used Date Smoking Tobacco: Former Cigarettes Smokeless Tobacco: Never Tobacco Cessation:Counseling Given: Not Answered Alcohol Use Standard Drinks/Week Comments Not Currently 0 (1 standard drink = 0.6 oz pur e alcohol) Comments Unknown Sex and Gender Information Value Date Recorded Sex Assigned at Not on file Legal Sex Female 7:15 PM EDT Gender Identity Not on file Sexual Orientation Not on file Last Filed Vital Signs Vital Sign Reading Time Taken Comments Blood Pressure 125/75 01/16/2019 12:00 PM EDT Pulse - - Temperature - - Respiratory Rate - - Oxygen Saturation - - Inhaled Oxygen Concentration - - Weight 103 kg (227 lb) 11/17/2021 12:00 PM EDT Height 152.4 cm (5') 11/17/2021 12:00 PM EDT Body Mass Index 44.33 11/17/2021 12:00 PM EDT Plan of Treatment Not on file Insurance [facility] [employer] [place] Care Teams Road Supervisor Of Engines Relationship Specialty Start Date End Date Brittany Ramirez MD [address] [place] [address] Referring Physician Family Medicine 03/05/24
--- OUTSIDE RECORDS SUMMARY | 2024-12-19 12:27 | XMS_ITS | Clinical Summary ---
Author Organization [employer] tem Address [facility] [id number] [address] [place] [address] Care Team Providers Care Centrifugal Separator Name Role Phone Brittany Ramirez APRN-SENIOR TREASURY CONSULTANT Primary Care Provider Allergies No known active allergies Medications escitalopram (LEXAPRO) 20 mg tablet Take 1.5 tablets (30 mg total) by mouth in the morning. Active omeprazole (PriLOSEC) 20 mg capsule Take 1 capsule (20 mg total) by mouth every morning before breakfast. 4 Active SLYND 4 mg (28) tablet TAKE 1 TABLET BY MOUTH ONCE DAILY 28 tablet 11 4 Active traZODone (DESYREL) 50 mg tabletIndications :Other insomnia Take 5 tablets (250 mg total) by mouth nightly. 450 tablet 1 5 Active lamoTRIgine (LaMICtal) 100 mg tabletIndications :Psychogenic nonepileptic seizure,Seizure disorder (CMS-HCC) Take 2 tablets (200 mg total) by mouth in the morning and 2 tablets (200 mg total) before bedtime. 120 tablet 2 5 Active cyanocobalamin (vitamin B-12) 1000 MCG tabletIndications :Vitamin B12 deficiency Take 1 tablet (1,000 mcg total) by mouth in the morning. 90 tablet 1 5 Active traZODone (DESYREL) 50 mg tablet Take 3 tablets (150 mg total) by mouth nightly. 12/20/19 25 Discontinu ed(Reorder ) lamoTRIgine (LaMICtal) 100 mg tabletIndications :Seizure disorder (CMS-HCC) Take 2 tablets (200 mg total) by mouth in the morning and 2 tablets (200 mg total) before bedtime. 120 tablet 2 3 12/20/19 25 Discontinu ed(Reorder ) Active Problems Problem Noted Date Diagnosed Date Psychogenic nonepileptic seizure 05/18/2023 Impulsive 05/18/2023 Seizure disorder 05/04/2023 Hx of concussion 04/01/2023 Mononeuropathy of lower extremity 06/01/2022 Obesity, Class II, BMI 35-39.9 06/01/2022 Spondylolisthesis, acquired 06/01/2022 Anxiety 07/29/2008 Encounters Date Type Department Care Team Description 12/19/2024 10:00 AM EDT Office Visit [facility] [place] [address] [place] [address] Baron Martel, BARI Memory changes (Primary Dx); Psychogenic nonepileptic seizure; Other insomnia; Seizure disorder ([facility]); Depression with anxiety; Vitamin B12 deficiency 12/18/2024 Travel 10/11/2024 7:39 PM EDT - 10/11/2024 11:59 PM EDT Hospital Encounter [facility] [address] [facility] [address] [place] [address] Screening examination for STD (sexually transmitted disease) Discharge Disposition: Home 10/11/2024 8:26 AM EDT - 10/11/2024 7:38 PM EDT Hospital Encounter [facility] - Lab [address] [place] [address] Screening examination for STD (sexually transmitted disease) Discharge Disposition: Home 10/11/2024 8:00 AM EDT [facility] Visit [facility]Gynecolo gy [address] [place] [address] Magalys Anaya, ASBESTOS HAZARD ABATEMENT WORKER-SENIOR TREASURY CONSULTANT Screening examination for STD (sexually transmitted disease) (Primary Dx) 10/10/2024 Travel from Last 3 Months Immunizations Immunization Administration Dates Next Due Influenza, Injectable, quadrivalent (PF) 019,06/04/2018 Family History Medical History Relation Name Comments Asthma Mother COPD Mother Cancer Mother pancreatic Asthma Son Breast cancer Neg Hx Relation Name Status Comments Father Mother Son Alive Social History Tobacco Use Types Packs/Day Years Used Date Smoking Tobacco: Former Cigarettes Q uit: 2016 Smokeless Tobacco: Never Tobacco Cessation:Counseling Given: Not [...] Pulse 72 12/19/2024 10:06 AM EDT Temperature 36.6 C (97.9 F) 05/05/2023 7:42 AM EDT Respiratory Rate 14 05/05/2023 5:10 AM EDT Oxygen Saturation 94% 05/05/2023 7:42 AM EDT Inhaled Oxygen Concentration - - Weight 86.6 kg (191 lb) 12/19/2024 10:06 AM EDT Height 152.4 cm (5') 12/19/2024 10:06 AM EDT Body Mass Index 37.3 12/19/2024 10:06 AM EDT Plan of Treatment Upcoming Encounters Date Type Department Care Team (Late st Contact Info) Description 07/02/2025 10:00 AM EST Office Visit [facility] [place] [address] Baron Martel PA-C [address], [place] [address] [place] [address] Health Maintenance Due Date Last Done Comments DTaP,Tdap and Td Vaccines (1 - Tdap) 1996 Adult BMI Follow Up Plan 03/07/2025 03/07/2024 Depression Screening 03/08/2025 03/08/2024 Influenza Vaccine 04/01/2025 04/28/2019, 06/04/2018 Pap Smear 06/01/2025 06/01/2022, 06/01/2022 Adult BMI Screening 12/19/2025 12/19/2024 Tobacco Screening 12/19/2025 12/19/2024 Goals Goal Patient Goal Type Associated Problems Recent Progress Patient-Stated? Author Home with self care General Yes Jordyn Rea, KAMRON Note: Evaluation of progress towards goal: Patient stated she plans to return home with self care. Medical Devices Not on file Procedures Procedure Name Priority Date/Time Associated Diagnosis Comments SYPHILIS TOTAL(UNKNOWN SYPHILIS STATUS) Routine 10/11/2024 8:26 AM EDT Screening examination for STD (sexually transmitted disease) HEPATITIS PANEL, ACUTE Routine 10/11/2024 8:26 AM EDT Screening examination for STD (sexually transmitted disease) HIV 1&2 AB/AG SCREEN (P24 AG) Routine 10/11/2024 8:26 AM EDT Screening examination for STD (sexually transmitted disease) TRICHOMONAS BY PCR Routine 10/11/2024 8: 17 AM EDT Screening examination for STD (sexually transmitted disease) CHLAMYDIA/GC BY PCR JUNE SWAB Routine 10/11/2024 8:13 AM EDT Screening examination for STD (sexually transmitted disease) HIGH RISK HPV W/INDIA Routine 06/01/2022 7:59 AM EDT from Last 3 Months or Most Recently Relevant to Health Maintenance Results * HIV 1&2 AB/AG Screen (P24 AG) (10/11/2024 8:26 AM EDT) HIV 1&2 AB/AG Non-React teri Non-React teri^Non-R eactive 10/11/2024 4:20 PM EDT [facility] Comment: NEW TEST METHOD NOTE This information has been disclosed to you from confidential records protected from disclosure by state law. You shall make no further disclosure of this information without the specific, written and informed release of the individual to whom it pertains, or as otherwise permitted by state law. A general authorization for the release of medical or other information is not sufficient for the purpose of the release of HIV test results or diagnoses. Serum / Unknown 10/11/2024 8 :26 AM EDT 10/11/2024 8:27 AM EDT Magalys Anaya ASBESTOS HAZARD ABATEMENT WORKER-[facility] BLOOD ORDERABLES Fin al Result Performing Organization Address City/[facility]/ZIP Co de Phone Number [facility] [address] [place] [address], [address] [address] * Syphilis Total(Unknown Syphilis Status) (10/11/2024 8:26 AM EDT) Syphilis Total <0.2 0.0 - 0.8 AI 10/11/2024 4:39 PM EDT [facility] Comment: NON REACTIVE No serologic evidence of infection to Treponema pallidum (syphilis). Repeat testing may be considered in patients with suspected acute or primary syphilis in 2 to 4 weeks. Serum / Unknown 10/11/2024 8 :26 AM EDT 10/11/2024 8:27 AM EDT Magalys Anaya ASBESTOS HAZARD ABATEMENT WORKER-SENIOR TREASURY CONSULTANT LAB BLOOD ORDERABLES Fin al Result [facility] [address] [place] [address], [address] [address] * Hepatitis panel, acute (10/11/2024 8:26 AM EDT) Hepatitis B Surface Ag Non-Reacti ve Non-Reacti ve^Non-Danae ctive 10/11/2024 4:36 PM EDT [facility] Comment:NEW TEST METHOD Hep B Core IgM Ab Non-Reacti ve Non-Reacti ve^Non-[place] ctive 10/11/2024 4:36 PM EDT [facility] Comment:NEW TEST METHOD Hep A IgM Ab Non-Reacti ve Non-Reacti ve^Non-[place] ctive 10/11/2024 4:36 PM EDT [facility] Comment:NEW TEST METHOD Anti HCV w/ PCR reflex Non-Reacti ve Non-Reacti ve^Non-Danae ctive 10/11/2024 4:36 PM EDT [facility] Comment: NEW TEST METHOD NOTE If recent infection suspected, recommend repeat testing (>2 months). Wopcob-yz-otgrtv ratio is <1.00. Blood / Unknown 10/11/2024 8 :26 AM EDT 10/11/2024 8:27 AM EDT us Magalys Anaya ASBESTOS HAZARD ABATEMENT WORKER-SENIOR TREASURY CONSULTANT LAB BLOOD ORDERABLES Fin al Result [facility] [address] [place] [address], [facility] [address] [place] [address] * Trichomonas by PCR (10/11/2024 8:17 AM EDT) Specimen Source CERVIX 7:40 PM EDT [facility] Trichomonas PCR Not Detected Not Detected^No t Detected 10/12/2024 2:53 AM EDT [facility] Comment: Trichomonas vaginalis not detected NOTE Assay methodology is nucleic acid amplification by real-time PCR for detection of Trichomonas vaginalis DNA performed on [employer] GeneXpert Instrument System. MISCELLANEOUS 10/11/2024 8:1 7 AM EDT 10/11/2024 11:55 PM EDT us Magalys Anaya ASBESTOS HAZARD ABATEMENT WORKER-SENIOR TREASURY CONSULTANT MICROBIOLOGY - GENERAL O RDERABLES Final Result [facility] [address] [facility], [address] [place] [address] * Chlamydia/GC by PCR June Swab (10/11/2024 8:13 AM EDT) Specimen source CERVIX 7:40 PM EDT [facility] Chlamydia DNA PCR Negative Negative^N egative 10/12/2024 12:26 PM EDT [facility] Comment: Chlamydia trachomatis not detected by nucleic acid amplification. This does not exclude the possibility of infection because results are dependent on adequate specimen collection. Gonorrhea DNA PCR Negative Negative^N egative 10/12/2024 12:26 PM EDT [facility] Comment: Neisseria gonorrhoeae not detected by nucleic acid amplification. This does not exclude the possibility of infection because results are dependent on adequate specimen collection. GENS 10/11/2024 8:13 AM EDT 10/11/2024 7:40 PM EDT Magalys Anaya ASBESTOS HAZARD ABATEMENT WORKER-SENIOR TREASURY CONSULTANT MICROBIOLOGY - GENERAL O RDERABLES Final Result [facility] [address] [facility] [place] [address] * High risk HPV w/india (06/01/2022 7:59 AM EDT) Hpv specimen type ThinPrep 06/03/2022 7:59 AM EDT [facility] Hpv 16 Negative Negative^N egative 06/04/2022 3:04 PM EDT [facility] Hpv 18 Negative Negative^N egative 06/04/2022 3:04 PM EDT [facility] Other high risk hpv Negative Negative^N egative 06/04/2022 3:04 PM EDT [facility] Comment: HPV types 31,33,35,39,45,52,56,58,59,66 and 68 DNA were undetectable. THINP 06/01/2022 7:59 AM EDT 06/02/2022 7:59 AM EDT Magalys Anaya ASBESTOS HAZARD ABATEMENT WORKER-SENIOR TREASURY CONSULTANT LAB BLOOD ORDERABLES Fin al Result [facility] [address] [place] [address] from Last 3 Months or Most Recently Relevant to Health Maintenance Insurance [facility] MEDICAID Advance Directives * Full Code (Latest Code Status on File) Date Activated Date Inactivated Comments 05/04/2023 10:04 AM 05/05/2023 1:43 PM Care Teams Centrifugal Separator Relationship Specialty Start Date End Date Brittany Ramirez APRN-TUNG [address] [facility] [place] [address] PCP - General Family Medicine 01/11/23
--- OUTSIDE RECORDS SUMMARY | 2024-12-19 12:27 | XMS_ITS | Encounter Summary ---
Author Organization [facility] Address [id number] [address] [place] [address] Care Team Providers Care Checkerer Hand Name Role Phone JamesBrittany Edson REFINING ENGINEER-CATTLE STICKER Primary Care Provider Encounter Details Date Type Department Care Team (Late st Contact Info) Description 09/13/2024 Telephone [facility] [address] [facility] [place] [address] Ruchi Jacobs CMA Social History Tobacco Use Types Packs/Day Years [...] got money to buy more. Never True 07/10/2024 Within the past 12 months th e food we bought just didn't last and we didn't have money to get more. Never True 07/10/2024 Comments No Sex and Gender Information Value Date Recorded Sex Assigned at Not on file Legal Sex Female 11:47 AM EDT Gender Identity Not on file Sexual Orientation Not on file documented as of this encounter Miscellaneous Notes * Telephone Encounter - Ruchi Jacobs CMA - 09/13/2024 9:31 AM EST Pt had an Rx for Flagyl sent in yesterday and was sent to the wrong pharmacy. Can [facility] please res[facility] in [place]? * Telephone Encounter - DIRK Zapien - 09/13/2024 9:31 AM EST RX sent documented in this encounter Plan of Treatment Upcoming Encounters Date Type Department Care Team (Late st Contact Info) Description 07/02/2025 10:00 AM EST Office Visit [facility] [place] [address] [place] [address] Baron Martel, PAEdgarC [address] [facility] [address] [place] [address] documented as of this encounter [...] documented as of this encounter Care Teams Checkerer Hand Relationship Specialty Start Date End Date Brittany Ramirez APRN-CNP [address] [facility], [facility] [place] [address] PCP - General Family Medicine 01/11/23 documented as of this encounter
[2024-12-19 12:28] VITALS: BP 144/96; PULSE 72; TEMP 37.1; O2SAT 98; BMI 35.2
--- OUTSIDE RECORDS SUMMARY | 2024-12-19 12:28 | XMS_ITS | Patient Health Record ---
Author Organization The [facility] in [place] Address [address] [place] [address] Care Team Providers Care Catalogue Illustrator Name Role Phone Brittany Ramirez Primary Care Provider BRITTANY RAMIREZ Unavailable [phone] Harjinder Leung Unavailable [phone] Allergies No Known Allergies Results Component Value Reference Range Notes COVID-19, Flu A+B IH (Not ye t reviewed by provider) Interpretation: Performing Lab: Notes/Report: COVID neg FLU A neg FLU B neg Control present PROF 14(COMP METB) Reviewed date:05/01/2024 04:47:55 PM Interpretation: Performing Lab: Notes/Report: [facility] , Sodium 139 136-145 mmol/L Potassium 4.1 3.5-5.1 mmol/L Chloride 103 98-107 mmol/L Carbon Dioxide 29.3 21.0-32.0 mmol/L Anion Gap 10.8 Glucose 83 74-106 mg/dL Blood Urea Nitrogen 16.0 7.0-18.0 mg/dL Creatinine 1.05 0.55-1.02 mg/dL Estimated GFR ( Luly >60 >=60 Estimated GFR (Non- Annel 56 >=60 BUN Creatinine Ratio 15.2 Calcium 8.6 8.5-10.1 mg/dL Bilirubin Total 0.3 0.2-1.0 mg/dL Aspartate Amino Transferase 14 15-37 U/L Alanine Aminotransferase 12 14-59 U/L Alkaline Phosphatase 70 46-116 U/L Total Protein 6.5 6.4-8.2 g/dL Albumin Level 3.1 3.4-5.0 g/dL Globulin 3.4 Albumin Globulin Ratio 0.9 Performing Lab: see note ML - [facility] LB CBC AUTO DIFF Reviewed date:08/21/2024 04:11:16 PM Interpretation: Performing Lab: Notes/Report: [facility] , White Blood Count 11.0 4.0-11.0 10 3/uL Red Blood Count 4.25 4.20-5.40 10 6/uL Hemoglobin 14.0 12.0-16.0 g/dL Hematocrit 41.9 36.0-48.0 % Mean Corpuscular Volume 98.6 81.0-99.0 fL Mean Corpuscular Hemoglobin 32.9 26.7-34.0 pg Mean Corpuscular HGB Conc 33.4 29.9-35.2 g/dL Red Cell Distribution Width 12.0 11.0-15.0 % Platelet Count 332 150-450 10 3/uL Mean Platelet Volume 10.2 9.5-13.5 fL Neutrophils Percent Auto 72.3 43.0-75.0 % Lymphocytes Percent Auto 21.5 20.5-60.0 % Monocytes Percent Auto 5.2 1.7-12.0 % Eosinophils Percent Auto 0.3 0.9-7.0 % Basophils Percent Auto 0.4 0.2-2.0 % Immature Granulocytes Pct Auto 0.3 0.0-0.5 % Neutrophils Absolute Auto 7.9 1.4-6.5 10 3/uL Lymphocytes Absolute Auto 2.4 1.2-3.8 10 3/uL Monocytes Absolute Auto 0.6 0.3-0.8 10 3/uL Eosinophils Absolute Auto 0.0 0.0-0.7 10 3/uL Basophils Absolute Auto 0.0 0.0-0.1 10 3/uL Immature Granulocytes Abs Auto 0.03 0.00-0.03 10 3/uL Performing Lab: see note ML - [facility] LB INSULIN Reviewed date:08/21/2024 04:11:16 PM Interpretation: Performing Lab: Notes/Report: [facility] , Insulin 6.9 2.6-24.9 uIU/mL Networking Technology Instructor: José Miguel Taylor PhD, Phone: [phone] Performed at: [address] [id number] Performing Lab: see note LC - [facility] LB LIPID PROFILE Reviewed date:08/21/2024 04:11:16 PM Interpretation: Performing Lab: Notes/Report: [facility] , Triglycerides 159 <=150 mg/dL Cholesterol 240 <=200 mg/dL HDL Cholesterol 54 40-60 mg/dL <40 mg/dl - HIGH CARDIOVASCULAR RISK > or =60 mg/dl - LOW CARDIOVASCULAR RISK LDL Cholesterol Calculated 155.0 130-159 mg/dl BORDERLINE HIGH <100 mg/dl OPTIMAL 160-189 mg/dl HIGH >190 mg/dl VERY HIGH 100-129 mg/dl NEAR OR ABOVE OPTIMAL VLDL CHOLESTEROL 31.8 Chol HDL Ratio 4.4 3.3 - 4.4 LOW RISK 7.1 - 11.0 MODERATE RISK >11.0 HIGH RISK 4.4 - 7.1 AVERAGE RISK Performing Lab: see note - [facility] LB PROF 14(COMP METB) Reviewed date:08/21/2024 04:11:16 PM Interpretation: Performing Lab: Notes/Report: [facility] , Sodium 137 136-145 mmol/L Potassium 3.9 3.5-5.1 mmol/L Chloride 100 98-107 mmol/L Carbon Dioxide 30.9 21.0-32.0 mmol/L Anion Gap 10.0 Glucose 100 74-106 mg/dL Blood Urea Nitrogen 21.0 7.0-18.0 mg/dL Creatinine 1.58 0.55-1.02 mg/dL Estimated GFR ( Luly 43 >=60 mL/min/1.73m 2 Estimated GFR (Non- Annel 35 >=60 mL/min/1.73m 2 BUN Creatinine Ratio 13.3 Calcium 9.1 8.5-10.1 mg/dL Bilirubin Total 0.4 0.2-1.0 mg/dL Aspartate Amino Transferase 23 15-37 U/L Alanine Aminotransferase 16 14-59 U/L Alkaline Phosphatase 79 46-116 U/L Total Protein 7.4 6.4-8.2 g/dL Albumin Level 3.4 3.4-5.0 g/dL Globulin 4.0 Albumin Globulin Ratio 0.9 Performing Lab: see note ML - [facility] LB VITAMIN D 25 [place] Reviewed date:08/21/2024 04:11:16 PM Interpretation: Performing Lab: Notes/Report: [facility] , Vitamin D 62.3 30-100 ng/mL Vit D sufficient 20-<30 ng/mL Vit D insufficient >100 ng/mL Potential Toxicity <20 ng/mL Vit D deficient Performing Lab: see note ML - [facility] LB TSH Reviewed date:08/21/2024 04:11:16 PM Interpretation: Performing Lab: Notes/Report: [facility] , Thyroid Stimulating Hormone 0.528 0.358-3.740 u IU/mL Performing Lab: see note ML - [facility] LB T4 Reviewed date:08/21/2024 04:11:16 PM Interpretation: Performing Lab: Notes/Report: [facility] , T4 Thyroxine 9.50 4.80-13.90 ug/dL Performing Lab: see note ML - [facility] IRON Reviewed date:08/21/2024 04:11:16 PM Interpretation: Performing Lab: Notes/Report: [facility] , Iron 115.0 50.0-170.0 ug/dL Performing Lab: see note ML - [facility] GLYCOHEMOGLOBIN A1C Reviewed date:08/21/2024 04:11:16 PM Interpretation: Performing Lab: Notes/Report: [facility] , Glycohemoglobin A1C 5.0 4.5-6.2 % ACTION SUGGESTED ADA THERAPEUTIC TARGET < 7.0 ADA RECOMMENDED LIMIT 4.0 - 6.0 > 7.0 Estimated Average Glucose 97 Performing Lab: see note ML - [facility] FREE T3 Reviewed date:08/21/2024 04:11:16 PM Interpretation: Performing Lab: Notes/Report: [facility] , Free T3 2.31 2.18-3.98 pg/mL Performing Lab: see note ML - [facility] LB PROF 14(COMP METB) Reviewed date:01/12/2024 04:11:53 PM Interpretation: Performing Lab: Notes/Report: [facility] , Sodium 141 136-145 mmol/L Potassium 4.3 3.5-5.1 mmol/L Chloride 104 98-107 mmol/L Carbon Dioxide 31.3 21.0-32.0 mmol/L Anion Gap 10.0 Glucose 95 74-106 mg/dL Blood Urea Nitrogen 8.0 7.0-18.0 mg/dL Creatinine 1.04 0.55-1.02 mg/dL Estimated GFR ( Luly >60 >=60 Estimated GFR (Non- Annel 57 >=60 BUN Creatinine Ratio 7.7 Calcium 8.9 8.5-10.1 mg/dL Bilirubin Total 0.6 0.2-1.0 mg/dL Aspartate Amino Transferase 14 15-37 U/L Alanine Aminotransferase 20 14-59 U/L Alkaline Phosphatase 82 46-116 U/L Total Protein 7.2 6.4-8.2 g/dL Albumin Level 3.6 3.4-5.0 g/dL Globulin 3.6 Albumin Globulin Ratio 1.0 Performing Lab: see note ML - [facility] LB PROF 14(COMP METB) Reviewed date:09/13/2024 12:28:32 PM Interpretation: Performing Lab: Notes/Report: [facility] , Sodium 140 136-145 mmol/L Potassium 3.7 3.5-5.1 mmol/L Chloride 103 98-107 mmol/L Carbon Dioxide 22.9 21.0-32.0 mmol/L Anion Gap 17.8 Glucose 100 74-106 mg/dL Blood Urea Nitrogen 17.0 7.0-18.0 mg/dL Creatinine 1.28 0.55-1.02 mg/dL Estimated GFR ( Luly 54 >=60 mL/min/1.73m 2 Estimated GFR (Non- Annel 45 >=60 mL/min/1.73m 2 BUN Creatinine Ratio 13.3 Calcium 8.9 8.5-10.1 mg/dL Bilirubin Total 0.4 0.2-1.0 mg/dL Aspartate Amino Transferase 23 15-37 U/L Alanine Aminotransferase 18 14-59 U/L Alkaline Phosphatase 90 46-116 U/L Total Protein 7.3 6.4-8.2 g/dL Albumin Level 3.9 3.4-5.0 g/dL Globulin 3.4 Albumin Globulin Ratio 1.1 Performing Lab: see note ML - [facility] LB Reason For Referral No Information Medications Medication SIG (Take, Route, Frequency, Duration) Notes Start Date End Date Status Escitalopram Oxalate 20 mg TAKE ONE AND ONE-HALF TABLETS ONCE DAILY Active Pravastatin Sodium 20 MG 1 tablet Orally Once a day for 30 days 08/24/2024 Active Omeprazole 20 mg TAKE 1 CAPSULE DAILY 30 MINUTES BEFORE MORNING MEAL Active LaMICtal 100 MG 1 tablet Orally Once a day for 90 days Active Benicar 20 MG 1 tablet Orally Once a day for 30 days 08/16/2024 Active traZODone HCl 100 mg TAKE 1-2 TABLET NATASHA LY AT BEDTIME hs prn for 30 days Active Blood Pressure Monitor - daily monitorin g for 30 days 08/24/2024 Active Social History Tobacco Use: Social History Observation Description Date Details (start date - stop date) Former Smoker NA - NA Tobacco Use/Smoking Question Answer Notes Patient is a former smoker How long has it been since you last smoked? 5-10 years Alcohol Screen (Audit-C) Question Answer Notes Did you have a drink contain ing alcohol in the past year? Yes How many drinks did you have on a typical day when you were drinking in the past year? 1 or 2 drinks (0 point) How often did you have a dri nk containing alcohol in the past year? Less than monthly (1 point) Points 1 Interpretation Negative AUDIT-C (Standard) Question Answer Notes Did you have a drink containing alcohol in the p ast year? 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) Active confirmed Problem Snoring (98976115) Snoring (R06.83) Active conf irmed Problem Dysphagia (30369623) Other dysphagia (R13.19) Active confirmed Problem Hyperlipidemia (61395759) Hyperlipidemia (E78.5) Active confirmed Problem Hypertension (61107513) Hypertension (I10) Active confirmed Problem Seizure (92951697) Seizures (R56.9) Active conf irmed Problem Hyperglycemia (30095557) Hyperglycemia (R73.9) Active confirmed Problem Obstructive sleep apnea syndrome (78694486) [place] (obstructive sleep apnea) (G47.33) Active confirmed Problem Insomnia (049216848) Insomnia (G47.00) Active confirmed Problem Weight gain (076272795) Weight gain (R63.5) Active confirmed Problem Constipation (64260130) Constipation (K59.00) Active confirmed Problem Memory impairment (714739198) Memory impairment (R41.3) Active confirmed Problem Spondylolisthesis (920878306) Spondylolisthesis (M43.10) Active confirmed Problem Streptococcal sore throat (disorder) (12226887) Strep pharyngitis (J02.0) Active confirmed Problem Recurrent major depression in full remission (98588050) Depression, major, recurrent, in complete remission (F33.42) Active confirmed Problem Overweight (465486512) Over weight (E66.3) Active confirmed Problem Right flank pain (659778908) Right flank pain (R10.9) Active confirmed Problem Sciatica (88325053) Sciatica, le ft (M54.32) Active confirmed Problem Tonsillar hypertrophy (00150355) Tonsillar hypertrophy (J35.1) Active confirmed Problem Body mass index 40+ - morbidly obese (429668407) BMI 40.0-44.9, adult (Z68.41) Active confirmed Problem Recurrent major depression (05185690) Depression, recurrent (F33.9) Active confirmed Problem Seizure (47729178) Single seizur e (R56.9) Active confirmed Problem Hyperinsulinemia (80071947) Hyperinsulinemia (E16.1) Active confirmed Problem Annual wellness visit (774606774146522) Wellness examination (Z00.00) Active confirmed Problem Cellulitis of finger (28611548) Paronychia, finger (L03.019) Active confirmed Problem Metabolic syndrome X (818258445) Metabolic syndrome X (E88.81) Active confirmed Problem Ex-smoker for more than 1 year (90230864843051) Ex-smoker for more than 1 year (Z87.891) Active confirmed Problem Paresthesia of lower limb (371792746) Paresthesia of lower limb (R20.2) Active confirmed Problem Chronic kidney disease stage 2 (209297376) Stage 2 chronic kidney disease (N18.2) Active confirmed Problem Cough (33289359) Cough (R05.9) Active confirmed Problem Acute low back pain (finding) (257629163) Acute low back pain, unspecified back pain laterality, unspecified whether sciatica present (M54.50) Active confirmed Vital Signs Heart Rate 71 /min 05/14/2024 Temperature 98.6 degrees Fahrenheit 05/14/2024 Blood pressure diastolic 96 mm Hg 09/19/2024 Oximetry 94 % 05/14/2024 Height 60 in 09/19/2024 Blood pressure systolic 132 mm Hg 09/19/2024 Weight 195.6 lbs 09/19/2024 BMI 38.2 kg/m2 09/19/2024 Encounters Encounter Location Date Provider Diagnosis [facility] [address] [place] [address] 08/21/2024 Brittany Ramirez [facility] [address] [place] [address] 09/13/2024 Brittany Ramirez [facility] [address] [place] [address] 10/23/2024 Brittany Ramirez [facility] [address] [place] [address] 11/13/2024 Brittany Ramirez Insomnia G47.00 [facility] [address] [place] [address] 12/11/2024 Brittany Ramirez Stage 2 chronic kidn ey disease N18.2 [facility] [address] [place] [address] 01/12/2024 BRITTANY RAMIREZ [facility] [address] [place] [address] 03/02/2024 Brittany Ramirez [facility] [address] [place] [address] 04/16/2024 Brittany Ramirez Stage 2 chronic kidn ey disease N18.2 [facility] [address] [place] [address] 05/01/2024 Brittany Ramirez [facility] [address] [place] [address] 05/21/2024 Brittany Ramirez [facility] [address] [place] [address] 08/16/2024 Brittany Ramirez Wellness examination Z00.00 [facility] [address] [place] [address] 08/16/2024 Brittany Ramirez Hypertension I10 [facility] [address] [place] [address] 08/24/2024 Brittany Ramirez Hyperlipidemia E78.5 ; Hypertension I10 ; Insomnia G47.00 and Depression, recurrent F33.9 [facility] [address] [place] [address] 09/19/2024 Harjinder Hoy Hypertension I10 ; Hyperlipidemia E78.5 and Seizures R56.9 [facility] [address] [place] [address] 05/14/2024 Brittany James Sinus congestion R09 .81 ; SOB (shortness of breath) R06.02 and Cough R05.9 Assessments Encounter Date Diagnosis (ICD Code) Assessment Notes Treatment Notes Treatment Clinical Notes Section Notes 05/14/2024 Sinus congestion (ICD-10 - R09.81) 05/14/2024 SOB (shortness of breath) (ICD-10 - R06.02) 08/16/2024 Hypertension (ICD-10 - I10) record BP, notify office one week has gained 40-50 lbs 08/24/2024 Hyperlipidemia (ICD-10 - E78.5) 08/24/2024 Hypertension (ICD-10 - I10) monitor daily report 1-2 weeks fu 2m 04/16/2024 Stage 2 chronic kidney disease (ICD-10 - N18.2) 08/16/2024 Wellness examination (ICD-10 - Z00.00) 11/13/2024 Insomnia (ICD-10 - G47.00) 12/11/2024 Stage 2 chronic kidney disease (ICD-10 - N18.2) 09/19/2024 Hypertension (ICD-10 - I10) 09/19/2024 Hyperlipidemia (ICD-10 - E78.5) 09/19/2024 Seizures (ICD-10 - R56.9) 08/24/2024 Insomnia (ICD-10 - G47.00) 05/14/2024 Cough (ICD-10 - R05.9) COVID and flu negative if not improving, worsens notify office rest, push fluids otc meds 08/24/2024 Depression, recurrent (ICD-10 - F33.9) consider counseling Plan Of Treatment Pending Test Test Name Order Date CMP (COMPLETE METABOLIC PANEL) 4 CMP (COMPLETE METABOLIC PANEL) 4 CMP (COMPLETE METABOLIC PANEL) 4 HEMOGLOBIN A1C (GLYCO) 08/16/2024 HEMOGLOBIN A1C (GLYCO) 08/18/2023 IRON, TOTAL 08/16/2024 IRON, TOTAL 08/18/2023 LIPID PANEL (CHOL/TRIG/HDL/LDL) 08/18/19 24 LIPID PANEL (CHOL/TRIG/HDL/LDL) 08/16/19 25 CBC WITH DIFF 08/16/2024 CBC WITH DIFF 08/18/2023 VITAMIN D, 25 LEVEL (TOTAL) 08/18/2023 VITAMIN D, 25 LEVEL (TOTAL) 08/16/2024 Insulin Level 08/18/2023 Insulin Level 08/16/2024 COVID-19, Flu A+B IH 05/14/2024 PROF 14(COMP METB) 12/11/2024 THYROID PANEL (T4/TSH/FREE T3) 4 THYROID PANEL (T4/TSH/FREE T3) 5 CMP (COMP MET HENSON) w/eGFR CKD-EPI 2024 CMP (COMP MET HENSON) w/eGFR CKD-EPI 2024 Insurance Providers Payer Name Payer Address Payer Phone Subscriber Number Group Number Insured Name Patient Relationship to Insured Coverage Start Date Coverage End Date BCBS OUT OF STATE [address] [place] [address] [phone] [id number] Jaden Flores Spouse - patient is the spouse of the insured 0 [employer] [place] [employer] [address] [address] [place] [address] [id number] Samaria Flores Self - patient is the insured Medical (General) History Medical History History ICD Code Over weight E66.3 Cough R05.9 Snoring R06.83 Localization-related (focal) (partial) symptomatic epilepsy and epileptic syndromes with complex partial seizures, not intractable, without status epilepticus G40.209 Paronychia, finger L03.019 BMI 40.0-44.9, adult Z68.41 Memory impairment R41.3 [place] (obstructive sleep apnea) G47.33 Ex-smoker for more than 1 year Z87.891 Hyperlipidemia E78.5 Wellness examination Z00.00 Seizures R56.9 Spondylolisthesis M43.10 Sciatica, left M54.32 Hyperglycemia R73.9 Hyperinsulinemia E16.1 Single seizure R56.9 Other dysphagia R13.19 Tonsillar hypertrophy J35.1 Depression, major, recurrent, in complet e remission F33.42 Paresthesia of lower limb R20.2 Constipation K59.00 Metabolic syndrome X E88.81 Other biomechanical lesions of lumbar re gion M99.83 Acute low back pain, unspeci fied back pain laterality, unspecified whether sciatica present M54.50 Right flank pain R10.9 Strep pharyngitis J02.0 Weight gain R63.5 Insomnia G47.00 Hypertension I10 Depression, recurrent F33.9 fractured, talus closed Surgical History Surgery Date(Month/Year) D & C Hospitalization History Reason Date(Month/Year) Testing for Epilepsy 05/2023
--- OUTSIDE RECORDS SUMMARY | 2024-12-19 12:28 | XMS_ITS | CCD ---
Author Organization [facility] Inform ion Partnership [facility] Care Team Providers Care Finishing Technician Name Role Phone DEN UH Unavailable Unavailable XOCHILT FAGAN Unavailable Unavailable DEN HU Unavailable Unavailable XOCHILT FAGAN Unavailable Unavailable Xochilt Corral Unavailable BRITTANY MCGINNIS Admitting Unavailable RAS, BRITTANY Attending Unavailable DR SAKSHI LEUNG Primary Care Unavailable RAS, BRITTANY Consulting Unavailable MD Sakshi Leung Primary Care Provider JOSE Stone Attending Provider Brittany Mcginnis MD Unavailable Jackelyn Stone Admitting Unavailable Jackelyn Stone Attending Unavailable Sakshi Leung Primary Care Unavailable VERNON QUINN Attending Unavailable VERNON QUINN Referring Unavailable GISSEL BURRELL Attending Unavailable WOLF ALAN Attending Unavailable WOLF ALAN Referring Unavailable WOLF ALAN Attending Unavailable WOLF ALAN Referring Unavailable WOLF ALAN Attending Unavailable WOLF ALAN Attending Unavailable WOLF ALAN Referring Unavailable Ras DIRK, Brittany S Primary Care Provider OLIVIA SCHMIDT Attending Unavailable RAS, BRITTANY S Referring Unavailable RAS, BRITTANY S Primary Care Unavailable OLIVIA SCHMIDT Attending Unavailable RAS, BRITTANY S Referring Unavailable RAS, BRITTANY S Primary Care Unavailable OLIVIA SCHMIDT Attending Unavailable RAS, BRITTANY S Referring Unavailable RAS, BRITTANY S Primary Care Unavailable MAGALYS LEIJA Attending Unavailable RAS, BRITTANY S Referring Unavailable RAS, BRITTANY S Primary Care Unavailable OLIVIA SCHMIDT Referring Unavailable RAS, BRITTANY S Primary Care Unavailable OLIVIA SCHMIDT Referring Unavailable RAS, BRITTANY S Primary Care Unavailable BRAYAN, OLIVIA Referring Unavailable BRITTANY MCGINNIS Primary Care Unavailable MAGALYS LEIJA Referring Unavailable BRITTANY MCGINNIS Primary Care Unavailable MAGALYS LEIJA Referring Unavailable BRITTANY MCGINNIS Primary Care Unavailable Medications Current Medications Medication Drug Class(es) Dates Sig (Normalized) Sig (Original) Crutches (2 sources) Start: 03-01-2024 Crutches Active 0 .Route 1 March 01, 2024 12:00am As directed escitalopram 20 mg oral tablet (20 sources) Serotonin Reuptake Inhibitor Start: 03-01-2024 take [...] Ethinyl Estradiol / Ferrous fumarate / Norethindrone (3 sources) Estrogen Start: 03-23-2024 take 1 tablet by mouth in the morning, then take 0.05 tablet by mouth once norethindrone-e.estradioL-iron (JUNEL FE ,) 1 mg-20 mcg (21)/75 mg (7) per tablet Indications: Encounter for initial prescription of contraceptive pills Take 1 tablet by mouth in the morning. 84 tablet 3 03/23/2024 Active hydroCHLOROthiazide 12.5 mg / olmesartan medoxomil 20 mg oral tablet (4 sources) Thiazide Diuretic, Angiotensin 2 Receptor Jamshid End: 03-08-2024 take 1 tablet by mouth once in the morning olmesartan-hydroCHLOROthiazide (BENICAR HCT) 20-12.5 mg per tablet Take 1 tablet by mouth in the morning. 03/08/2024 Discontinued lamoTRIgine 100 mg oral tablet (20 sources) Mood Stabilizer, Anti-epilepti c Agent Start: 03-01-2024 take 100 mg by [...] on package instructions 21 tablet 06/12/2024 Active metroNIDAZOLE 500 mg oral tablet (3 sources) Nitroimidazole Antimicrobial Start: 09-12-2024 End: 09-20-2024 take 1 tablet by mouth in the morning, then take 1 tablet by mouth at bedtime metroNIDAZOLE (FLAGYL) 500 mg tablet Indications: BV (bacterial vaginosis) Take 1 tablet (500 mg total) by mouth in the morning and 1 tablet (500 mg total) before bedtime. Do all this for 7 days. 14 tablet 09/13/2024 09/20/2024 Active olmesartan (1 source) Angiotensin 2 Receptor Jamshid Benicar Active omeprazole 20 mg delayed release oral capsule (12 sources) Proton Pump Inhibitor Start: 03-17-2024 take 1 capsule by mouth once daily before breakfast omeprazole (PriLOSEC) 20 mg capsule Take 1 capsule (20 mg total) by mouth every morning before breakfast. 03/17/2024 Active Start: 03-01-2024 End: 03-01-2024 take 20 mg by mouth once daily Omeprazole Discontinued 20 MG PO Daily March 01, 2024 12:00am March 01, 2024 5:00pm End: 03-08-2024 take 1 capsule by mouth once daily before breakfast omeprazole (PriLOSEC) 20 mg capsule Take 1 capsule (20 mg total) by mouth every morning before breakfast. 03/08/2024 Discontinued PriLOSEC Active OZEMPIC 1 mg/dose (4 mg/3 mL) pen injector (4 sources) Start: 03-07-2023 End: 03-08-2024 inject 1 mg by subcutaneous injection every week OZEMPIC 1 mg/dose (4 mg/3 mL) pen injector Inject 1 mg under the skin once a week. 03/07/2023 03/08/2024 Discontinued Start: 03-07-2023 inject 1 mg by subcu taneous injection every week OZEMPIC 1 mg/dose (4 mg/3 mL) pen injector Inject 1 mg under the skin once a week. 03/07/2023 Active penicillin v potassium 500 mg oral tablet (1 source) Start: 03-23-2022 take 1 tablet by mouth every twelve hours Penicillin V Potassium 500 MG 1 tablet Orally Twice a day for 10 day(s) Mar, Active pravastatin sodium 40 mg oral tablet (5 sources) HMG-CoA Reductase Inhibitor Start: 02-02-2023 End: 03-08-2024 take 1 tablet by mouth in the morning pravastatin (PRAVACHOL) 40 mg tablet Take 1 tablet (40 mg total) by mouth in the morning. 02/02/2023 03/08/2024 Discontinued Pravastatin Sodi um Active SLYND 4 mg (28) tablet (4 sources) Start: 07-30-2024 take 1 tablet by mouth once daily SLYND 4 mg (28) tablet TAKE 1 TABLET BY MOUTH ONCE DAILY 28 tablet 11 07/30/2024 Active traZODone hydrochloride 50 mg oral tablet (20 sources) Serotonin Reuptake Inhibitor take 3 tablets by mouth once daily traZODone (DESYREL) 50 mg tablet Take 3 tablets (150 mg total) by mouth nightly. Active traZODone (Desyr el) 100 MG tablet 1 (one) time each day at the same time Active take 1 tablet by mouth three tyson es daily traZODone (DESYREL) 50 mg tablet Take 1 tablet (50 mg total) by mouth 3 (three) times a day. Active Problems Active Problems Problem Classification Problem Date Documented Date Episodic/Chronic Abdominal pain (1 source) Abdominal pain; Translations: [Flank pain, acute] Episodic Anxiety disorders (13 sources) Anxiety; Translations: [Anxiety disorder, unspecified] Onset: 07-29-2008 05-18-2023 Chronic Epilepsy; convulsions (13 sources) Seizure disorder; Translations: [Epilepsy, unspecified, not intractable, without status epilepticus] Onset: 05-04-2023 05-04-2023 Chronic Esophageal disorders (2 sources) Gastroesophageal reflux disease; Translations: [Gastro-esophageal reflux disease without esophagitis] 03-01-2024 Chronic Essential hypertension (4 sources) Hypertensive disorder; Translations: [Essential (primary) hypertension] Onset: 07-29-2008 03-01-2024 Chronic Fracture of lower limb (12 sources) Closed fracture of talus; Translations: [Unspecified fracture of unspecified talus, initial encounter for closed fracture] 03-01-2024 Episodic Immunizations and screening for infectious disease (10 sources) Patient encounter status; Translations: [Encounter for screening for infections with a predominantly sexual mode of transmission] Onset: 10-11-2024 03-07-2024 Episodic Inflammatory diseases of female pelvic organs (1 source) Bacterial vaginosis; Translations: [Acute vaginitis] 09-13-2024 Episodic Menopausal disorders (3 sources) Postmenopausal bleeding; Translations: [Postmenopausal bleeding] Onset: 07-10-2024 04-24-2024 Chronic Miscellaneous mental health disorders (14 sources) Dissociative convulsions; Translations: [Conversion disorder with seizures or convulsions] Onset: 05-18-2023 05-18-2023 Chronic Mood disorders (2 sources) Depressive disorder; Translations: [Depression] 03-01-2024 Chronic Other connective tissue disease (4 sources) Pain in left foot; Translations: [Pain in left foot] 05-22-2024 Episodic Other female genital disorders (1 source) Abnormal uterine bleeding; Translations: [Other specified abnormal uterine and vaginal bleeding] 04-24-2024 Chronic Other female genital disorders (2 sources) Other specified abnormal uterine and vaginal bleeding; Translations: [Other specified abnormal uterine and vaginal bleeding] Onset: 04-30-2024 Chronic Other injuries and conditions due to external causes (2 sources) Injury of left leg; Translations: [Unspecified injury of left ankle, initial encounter] 03-01-2024 Episodic Other nervous system disorders (13 sources) Mononeuropathy of lower limb; Translations: [Unspecified mononeuropathy of unspecified lower limb] Onset: 06-01-2022 06-01-2022 Chronic Other nutritional; endocrine; and metabolic disorders (11 sources) Obese class II; Translations: [Obesity, Class II, BMI 35-39.9] Onset: 06-01-2022 03-07-2024 Chronic Other nutritional; endocrine; and metabolic disorders (2 sources) Morbid obesity; Translations: [Morbid (severe) obesity due to excess calories] Onset: 06-01-2022 06-01-2022 Chronic Pneumonia (except that caused by tuberculosis or sexually transmitted disease) (1 source) Pneumonia; Translations: [Pneumonia] Episodic Spontaneous (2 sources) Miscarriage; Translations: [Complete or unspecified spontaneous without complication] 03-01-2024 Episodic Unclassified (1 source) lbpc left numbness x 8 months / lbpc left numbness x 8 months() Onset: 03-04-2017 Unclassified (1 source) Gynecologic Exam Onset: 10-11-2024 Unclassified (1 source) EMB/Endosee Onset: 06-25-2024 Past or Other Problems Problem Classification Problem Date Documented Da te Episodic/Chronic Intracranial injury (13 sources) History of concussion injury of brain; Translations: [Personal history of traumatic brain injury] Onset: 04-01-2023 04-01-2023 Episodic Mood disorders (13 sources) Mood disorders Onset: 03-07-2024 Resolved: 03-08-2024 03-08-2024 Other acquired deformities (13 sources) Acquired spondylolisthesis; Translations: [Spondylolisthesis, site unspecified] [...] 03-23-2022 Resolved: 03-23-2022 Episodic Residual codes; unclassified (13 sources) Impulsive character; Translations: [Impulsiveness] Onset: 05-18-2023 05-18-2023 Episodic Residual codes; unclassified (1 source) Amnesia; Translations: [Other amnesia] 12-28-2023 Episodic Residual codes; unclassified (1 source) Memory impairment; Translations: [Other amnesia] 03-08-2024 Episodic Residual codes; unclassified (1 source) Staring; Translations: [Transient alteration of awareness] 03-08-2024 Episodic Residual codes; unclassified (1 source) Reduced libido; Translations: [Decreased libido] 04-24-2024 Episodic Residual codes; unclassified (2 sources) Decreased libido; Translations: [Decreased libido] Onset: 07-10-2024 Episodic Screening and history of mental health and substance abuse codes (1 source) Standardized adult depression screening tool completed ; Translations: [Encounter for screening for depression] 03-07-2024 Episodic Spondylosis; intervertebral disc disorders; other back problems (1 source) Low back pain; Translations: [Low back pain] Onset: 03-04-2017 Episodic Unclassified (1 source) lbpc left numbness x 8 months; Translations: [lbpc left numbness x 8 months] Onset: 03-04-2017 Unclassified (13 sources) Onset: 06-01-2022 Resolved: 03-07-2024 03-07-2024 Results Test Name Value Interpretation Reference Range Facility ACUTE HEPATITIS PANEL 09-29 ANTI HCV W/PCR REFLX Non-Reactive Normal NRCT Pr [facility] Comment on above: Result Comment: NEW TEST METHOD NOTE If recent infection suspected, recommend repeat testing (>2 months). Hvaemt-sx-uvccqv ratio is <1.00. Performed By: #### 5 6888-1, [facility], 95037-6 #### [facility] ([id number]) [address], [address] [place] [address] HEPATITIS A IGM Non-Reactive Normal NRCT [facility] Comment on above: Result Comment: NEW TEST METHOD Performed By: #### 5 6888-1, [facility], 34852-0 #### [facility] ([id number]) [address], [address] [place] [address] HEPATITIS B CORE IGM Non-Reactive Normal NRCT [facility] Comment on above: Result Comment: NEW TEST METHOD Performed By: #### 5 6888-1, [facility], 59551-7 #### [facility] ([id number]) [address], [address] [place] [address] HEPATITIS B SURF AG Non-Reactive Normal NRCT [facility] Comment on above: Result Comment: NEW TEST METHOD Performed By: #### 5 6888-1, [facility], 09278-7 #### [facility] ([id number]) [address], [address] [place] [address] CHLAMYDIA/GC BY PCRon 2024 CHLAMYDIA/GC BY PCR SPECIMEN SOURCE CERVIX CHLAMYDIA DNA(PCR) Negative (qualifier value) Chlamydia trachomatis not detected by nucleic acid amplification. This does not exclude the possibility of infection because results are dependent on adequate specimen collection. GONORRHOEAE DNA(PCR) Negative (qualifier value) Neisseria gonorrhoeae not detected by nucleic acid amplification. This does not exclude the possibility of infection because results are dependent on adequate specimen collection. Normal [facility] Comment on above: Performed By: #### C GS #### [facility] ([id number]) [address], [address] [place] [address] HIV 1+2 Ab+HIV1 p24 Ag IA Ql on 10-11-2024 HIV 1 and 2 Ab/Ag Screen Non-Reactive Normal [facility] Comment on above: Result Comment: NEW TEST METHOD NOTE This information [...] release of HIV test results or diagnoses. Performed By: #### 5 6888-1, [facility], 68278-0 #### [facility] ([id number]) [address], [address] [place] [address] T. pallidum IgG+IgM IA Ql (S )on 10-11-2024 Syphilis Total <0.2 Normal 0.0-0.8 [facility] Comment on above: Result Comment: NON REACTIVE No serologic evidence of infection to Treponema pallidum (syphilis). Repeat testing may be considered in patients with suspected acute or primary syphilis in 2 to 4 weeks. Performed By: #### 5 6888-1, [facility], 20266-5 #### [facility] ([id number]) [address] [place] [address], [address] [place] [address] TRICHOMONAS PCRon 10-11-2024 TRICHOMONAS PCR SPECIMEN SOURCE CERVIX TRICHOMONAS PCR Not detected (qualifier value) Trichomonas vaginalis not detected NOTE Assay methodology is nucleic acid amplification by real-time PCR for detection of Trichomonas vaginalis DNA performed on [employer] Instrument System. Normal [facility] Comment on above: Performed By: #### T RKPCR #### [facility] ([id number]) [address] [place] [address], [address] [address] E2 [Mass/Vol]on 07-11-2024 ESTRADIOL 290.9 pg/mL [facility] Comment on above: Result Comment: NON- FEMALES [...] this assay. Performed By: #### 2 839-9, 72462-8, 2243-4 #### [facility] ([id number]) [address] [place] [address], [address] [place] [address] #### 15493-1 #### [facility] ([id number]) [address] [place] [address] Progesterone [Mass/Vol]on PROGESTERONE 1.0 ng/mL Normal [facility] Comment on above: Result Comment: FEMALES: 1st Tri: 4.7-50.7 ng/ml 2nd Tri: 19.4-45.3 ng/ml MENSTRUATING FEMALES: Follicular: 0.3-1.5 ng/ml Mid Luteal: 5.2-18.6 ng/ml Post Erath: <0.1-0.8 ng/ml Performed By: #### 2 839-9, 95288-0, 2243-4 #### [facility] ([id number]) [address] [place] [address] #### 05742-5 #### [facility] ([id number]) [address] [place] [address] Testosterone free and total panel [Mass/Vol]on 07-11-2024 Testosterone [Mass/Vol] 17 ng/dL Normal 8-60 [facility] Comment on above: Result Comment: NOTE ADDITIONAL INFORMATION Testing performed by Liquid Chromatography-Tandem Mass Spectrometry (LC-MS/MS). This test was developed and its performance characteristics determined by [facility] in a manner consistent with CLIA requirements. This test has not been cleared or approved by the U.S. Food and Drug Administration. Test Performed by: [facility] [address] [place] [address] Third Helper: Leanne Kaye Ph.D.; CLIA# [id number] Performed By: #### 2 839-9, 47659-0, 2243-4 #### [facility] ([id number]) [address] [place] [address], [address] [place] [address] #### 56508-1 #### [facility] ([id number]) [address] [place] [address] TESTOSTERONE FREE 0.20 ng/dL Normal <0.13-0.95 [facility] Comment on above: Result Comment: NOTE ADDITIONAL INFORMATION This test was developed and its performance characteristics determined by [facility] in a manner consistent with CLIA requirements. This test has not been cleared or approved by the U.S. Food and Drug Administration. Performed By: #### 2 839-9, 64389-3, 2243-4 #### [facility] ([id number]) [address], [address] [place] [address] #### 80691-2 #### [facility] ([id number]) [address] [place] [address] Vitamin D+Metabolites [Mass/ Vol]on 07-11-2024 VITAMIN D 25 HYD TOT 65.1 ng/mL Normal 30-100 [facility] Comment on above: Result Comment: Vitamin D status 25 [place] Vitamin D Deficiency <20 ng/mL Insufficiency 20-29 ng/mL Sufficiency 30-100 ng/mL Toxicity >100 ng/mL NOTE: A pediatric reference range has not been established by the crew lead of this kit. The [place] [employer] recommends a Vitamin D level of = or >20ng/mL in infants and children. Performed By: #### 2 839-9, 99255-9, 2243-4 #### [facility] ([id number]) [address], [address] [place] [address] #### 28572-5 #### [facility] ([id number]) [address] [place] [address], [place] [address] Surgical Pathologyon 024 Surgical Pathology Normal [facility] Comment on above: Result Comment: [facility] [address] [place] [address] Surgical Pathology Consultation Patient Name:SAMARIA GILMORE:1975 (Age: 48)Gender:FTaken:06/25/2024eported:07/03/2024hysician(s):Olivia Schmidt M.D. ([phone])Copy To: Rec. #:[id number]: #[id number] Final Pathologic Diagnosis 1. Endometrium - biopsy: - Fragments of quiescent endometrium (no hyperplasia or neoplasia) 2. Endocervix - ECC: - Benign endocervical lining (no dysplasia or neoplasia) Report Electronically Signed Out vega/07/03/2024Juan Peterson MD Interpretation performed at [facility], [address] [place] [address], License number: [id number]. Clinical History DUB, N93.8. Gross Description 1. [...] 1 minute Total fixation time: 26.5 hours (1,ns,K03-5381 7-1) 2. Received in formalin labeled DEIRDRE, ECC are dunn feathery soft tissue fragments admixed with mucoid material, 1.5 x 1 x 0.2 cm in aggregate. The specimen is filtered and submitted entirely in a single cassette. (1, ns, J29-6109 7-2, m2) med/06/26/2024NSK Specimen(s) Received 1: EMB 2: ECC Fee Codes(s): 1; 16093 2; 16845 XR Foot - left 3 [facility] Result: 06/12/2024: Multiple views of left foot show no acute bony process including but not limited to fracture and/or dislocation. Overall anatomic alignment appeared to be well preserved. Impression: No acute bony process, left foot. 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 There is a chronic appearing posterior talus avulsion fracture. Impression: Stable appearing foot. Pedro Pablo Burrell D.O. [employer] Radiology Study observation (narrative) [facility] US PELVIC WITH TRANSVAGINALo n 05-01-2024 US [...] Naveen Villagomez MD on 05/01/2024 3:23 PM Elian Dominguez MD have personally reviewed the image(s) and agree with and/or edited the report Finalized by Elian Camejo MD on 05/01/2024 3:29 PM Normal [facility] XR Foot - left 3 [facility] Result: April 17, 2024 x-rays AP lateral and obliques of the left foot demonstrate normal alignment of the intermetatarsal joints and tarsometatarsal joints. No definitive fracture dislocation. Impression: Stable appearance of left foot. Pedro Pablo Burrell D.O. [facility] Radiology Study observation (narrative) [facility] [employer] XR Foot - left 3 ViewsOrdere d By: Gissel Burrell on 04-17-2024 [facility] [employer] [facility] Work Phone: POCT , urineon 08-2 Beta HCG ( test) Ql (U) Negative [facility] Clinician Check Completed and Passed Yes [facility] Interpretation and review of laboratory results Normal [facility] POCT , urineon 08-0 Beta HCG ( test) Ql (U) Negative [facility] Internal Program Clinician Check Completed and Passed Yes [employer] [facility] Interpretation and review of laboratory results Normal [facility] Lydia [facility] MR ANKLE LEFT WO IV CONTRAST on [...] ligamentous complex injury. ELECTRONICALLY SIGNED BY: Alin Chen DO Normal Not Available XR ankle LT min 3V*on 2023 XR ankle LT min 3V* [facility] Main [place] [address] [place] [address] XRay Report Signed Patient: Samaria Gilmore MR#: [id number] : 1975 Acct:[id number] Age/Sex: 48 / F ADM Date: 03/01/24 Loc: XDUCLY Room: Type: [facility] Attending Dr: Jackelyn Stone APRN Copies to: Jackelyn Stone APRN Ordering Provider: Jackelyn Stone APRN Date of Service: 03/01/24 XR/XR foot LT min 3V*: S99.912A - Unspecified injury of left ankle, initial enco... ([id number]) XR/XR ankle LT min 3V*: S99.912A - [...] Nikita Skinner M.D.03/01/2024 5:46 PM Dictation Location: [place] [address] Transcribed By: BRODERICK 03/01/241745 Dictated By: Nikita Skinner II, MD 03/01/241742 Signed By: 03/01/241745 Normal [facility] INSULINon 07-30-2022 Insulin 17.5 uIU/mL Normal 2.6-24.9 [facility] Comment on above: Performed By: #### I NSULIN #### [facility] [address] [place] [address] Dr. Rachel Edgar CBC AUTO DIFFon 07-29-2022 BASO # 0.0 103/ul Normal 0.0-0.1 [facility] Comment on above: Performed By: #### C BC #### [facility] [address] [place] [address] Dr. Rachel Edgar Basophils/100 WBC (Bld) 0.1 % Critically low 0.2-2.0 [facility] Comment on above: Performed By: #### C BC #### [facility] [address] [place] [address] Dr. Rachel Edgar EO # 0.1 103/ul Normal 0.0-0.7 [facility] Comment on above: Performed By: #### C BC #### [facility] [address] [place] [address] Dr. Rachel Edgar Eosinophils/100 WBC (Bld) 0.7 % Critically low 0.9-7.0 [facility] Comment on above: Performed By: #### C BC #### [facility] [address] [place] [address] Dr. Rachel Edgar Erythrocyte distribution width (RBC) [Ratio] 12.1 % Normal 11.0-15.0 [facility] Comment on above: Performed By: #### C BC #### [facility] [address] [place] [address] Dr. Rachel Edgar Hematocrit (Bld) [Volume fraction] 42.0 % Normal 36.0-48.0 [facility] Comment on above: Performed By: #### C BC #### [facility] Laboratory [address] [place] [address] Dr. Rachel Edgar Hemoglobin (Bld) [Mass/Vol] 14.0 g/dL Normal 12.0-16.0 [facility] Comment on above: Performed By: #### C BC #### [facility] [address] [place] [address] Dr. Rachel Edgar IG # 0.03 10e3/ul Normal 0.00-0.03 [facility] Comment on above: Performed By: #### C BC #### [facility] [address] [place] [address] Dr. Rachel Edgar IG % 0.3 % Normal 0.0-0.5 [facility] Comment on above: Performed By: #### C BC #### [facility] [address] [place] [address] Dr. Rachel Edgar LYMPH # 2.1 103/ul Normal 1.2-3.8 [facility] Comment on above: Performed By: #### C BC #### [facility] [address] [place] [address] Dr. Rachel Edgar Lymphocytes/100 WBC (Bld) 23.2 % Normal 20.5-60.0 [facility] Comment on above: Performed By: #### C BC #### [facility] [address] [place] [address] Dr. Rachel Edgar MANUAL DIFF REQ NO Normal [facility] Comment on above: Performed By: #### C BC #### [facility] [address] [address] [address] Rachel Edgar MCH (RBC) [Entitic mass] 32.9 pg Normal 26.7-34.0 [facility] Comment on above: Performed By: #### C BC #### [facility] [address] [place] [address] Dr. Rachel Edgar MCHC (RBC) [Mass/Vol] 33.3 g/dL Normal 29.9-35.2 [facility] Comment on above: Performed By: #### C BC #### [facility] [address] [place] [address] Dr. Rachel Edgar MCV (RBC) [Entitic vol] 98.8 fL Normal 81.0-99.0 [facility] Comment on above: Performed By: #### C BC #### [facility] [address] [place] [address] Dr. Rachel Edgar MONO # 0.5 103/ul Normal 0.3-0.8 [facility] Comment on above: Performed By: #### C BC #### [facility] [address] [place] [address] Dr. Rachel Edgar Monocytes/100 WBC (Bld) 5.9 % Normal 1.7-12.0 [facility] Comment on above: Performed By: #### C BC #### [facility] [address] [place] [address] Dr. Rachel Edgar NEUT # 6.3 103/ul Normal 1.4-6.5 [facility] Comment on above: Performed By: #### C BC #### [facility] [address] [place] [address] Dr. Rachel Edgar Neutrophils/100 WBC (Bld) 69.8 % Normal 43.0-75.0 [facility] Comment on above: Performed By: #### C BC #### [facility] [address] [place] [address] Dr. Rachel Edgar Platelet mean volume (Bld) [Entitic vol] 10.2 fL Normal 9.5-13.5 [facility] Comment on above: Performed By: #### C BC #### [facility] [address] [place] [address] Dr. Rachel Edgar PLT 335 103/ul Normal 150-450 [facility] Comment on above: Performed By: #### C BC #### [facility] [address] [address] [address] Rachel Edgar RBC 4.25 106/ul Normal 4.20-5.40 [facility] Comment on above: Performed By: #### C BC #### [facility] [address] [place] [address] Dr. Rachel Edgar WBC 9.0 103/ul Normal 4.0-11.0 [facility] Comment on above: Performed By: #### C BC #### [facility] [address] [place] [address] Dr. Rachel Edgar FREE THYROXINE INDEX T7on FTI 1.88 Normal 1.30-4.50 [facility] Comment on above: Performed By: #### T 7, TSH, CMP, LIPID #### [facility] [address] [place] [address] Dr. Rachel Edgar T3U 33.0 % Normal 30.0-39.0 [facility] Comment on above: Performed By: #### T 7, TSH, CMP, LIPID #### [facility] [address] [place] [address] Dr. Rachel Edgar T4 [Mass/Vol] 5.70 ug/dL Normal 4.80-13.90 [facility] Comment on above: Performed By: #### T 7, TSH, CMP, LIPID #### [facility] [address] [place] [address] Dr. Rachel Edgar GLYCOHEMOGLOBIN A1Con 2021 ADA RECOMMENDATION SEE BELOW Normal [facility] Comment on above: Result Comment: ADA RECOMMENDED LIMIT 4.0 - 6.0 ADA THERAPEUTIC TARGET < 7.0 ACTION SUGGESTED > 7.0 Performed By: #### A 1C #### [facility] [address] [place] [address] Dr. Rachel Edgar HbA1c (Bld) [Mass fraction] 5.4 % Normal 4.5-6.2 [facility] Comment on above: Performed By: #### A 1C #### [facility] [address] [place] [address] Dr. Rachel Edgar IRONon 07-29-2022 Iron [Mass/Vol] 64.0 ug/dL Normal 50.0-170.0 [facility] Comment on above: Performed By: #### I JCARLOS #### [facility] [address] [place] [address] Dr. Rachel Edgar LIPID PROFILEon 07-29-2022 CHOL-HDL RATIO NORM SEE BELOW Normal [facility] Comment on above: Result Comment: 3.3 - 4.4 LOW RISK 4.4 - 7.1 AVERAGE RISK 7.1 - 11.0 MODERATE RISK >11.0 HIGH RISK Performed By: #### T 7, TSH, CMP, LIPID #### [facility] [address] [address] [address] Rachel Edgar Cholesterol [Mass/Vol] 164 mg/dL Normal <=200 [facility] Comment on above: Performed By: #### T 7, TSH, CMP, LIPID #### [facility] [address] [place] [address] Dr. Rachel Edgar Cholesterol in HDL [Mass/Vol] 42 mg/dL Normal 40-60 [facility] Comment on above: Performed By: #### T 7, TSH, CMP, LIPID #### [facility] [address] [place] [address] Dr. Rachel Edgar Cholesterol in LDL [Mass/Vol] 82.6 mg/dL Normal [facility] Comment on above: Performed By: #### T 7, TSH, CMP, LIPID #### [facility] [address] [place] [address] Dr. Rachel Edgar Cholesterol.total/Ch olesterol in HDL [Mass ratio] 3.9 {ratio} Normal [facility] Comment on above: Performed By: #### T 7, TSH, CMP, LIPID #### [facility] [address] [place] [address] Dr. Rachel Edgar HDL NORMAL > or = 60 mg/dl - LOW CARDIOVASCULAR RISK <40 mg/dl - HIGH CARDIOVASCULAR RISK Normal [facility] Comment on above: Performed By: #### T 7, TSH, CMP, LIPID #### [facility] [address] [address] [address] Rachel Edgar LDL CALC NORMAL SEE BELOW Normal [facility] Comment on above: Result Comment: <100 mg/dl OPTIMAL 100 - 129 mg/dl NEAR OR ABOVE OPTIMAL 130 - 159 mg/dl BORDERLINE HIGH 160 - 189 mg/dl HIGH >190 mg/dl VERY HIGH Performed By: #### T 7, TSH, CMP, LIPID #### [facility] [address] [address] [address] Rachel Edgar Triglyceride [Mass/Vol] 197 mg/dL Critically high <=150 [facility] Comment on above: Performed By: #### T 7, TSH, CMP, LIPID #### [facility] [address] [address] [address] Rachel Edgar VLDL CALC 39.4 mg/dL Normal [facility] Comment on above: Performed By: #### T 7, TSH, CMP, LIPID #### [facility] [address] [address] [address] Rachel Edgar PROF 14(COMP METB)on 022 Albumin [Mass/Vol] 3.5 g/dL Normal 3.4-5.0 [facility] Comment on above: Performed By: #### T 7, TSH, CMP, LIPID #### [facility] [address] [address] [address] Rachel Edgar Albumin/Globulin [Mass ratio] 0.9 {ratio} Normal [facility] Comment on above: Performed By: #### T 7, TSH, CMP, LIPID #### [facility] [address] [address] [address] Rachel Edgar ALP [Catalytic activity/Vol] 83 U/L Normal 46-116 [facility] Comment on above: Performed By: #### T 7, TSH, CMP, LIPID #### [facility] [address] [address] [address] Rachel Edgar ALT [Catalytic activity/Vol] 21 U/L Normal 14-59 [facility] Comment on above: Performed By: #### T 7, TSH, CMP, LIPID #### [facility] [address] [address] [address] Rachel Edgar Anion gap [Moles/Vol] 10.4 mmol/L Normal [facility] Comment on above: Performed By: #### T 7, TSH, CMP, LIPID #### [facility] [address] [address] [address] Rachel Edgar AST [Catalytic activity/Vol] 17 U/L Normal 15-37 [facility] Comment on above: Performed By: #### T 7, TSH, CMP, LIPID #### [facility] [address] [place] [address] Dr. Rachel Edgar Bilirubin [Mass/Vol] 0.2 mg/dL Normal 0.2-1.0 [facility] Comment on above: Performed By: #### T 7, TSH, CMP, LIPID #### [facility] [address] [place] [address] Dr. Rachel Edgar Calcium [Mass/Vol] 9.0 mg/dL Normal 8.5-10.1 [facility] Comment on above: Performed By: #### T 7, TSH, CMP, LIPID #### [facility] [address] [place] [address] Dr. Rachel Edgar Chloride [Moles/Vol] 103 mmol/L Normal 98-107 [facility] Comment on above: Performed By: #### T 7, TSH, CMP, LIPID #### [facility] [address] [place] [address] Dr. Rachel Edgar CO2 [Moles/Vol] 30.8 mmol/L Normal 21.0-32.[address] [facility] Comment on above: Performed By: #### T 7, TSH, CMP, LIPID #### [facility] [address] [place] [address] Dr. Rachel Edgar Creatinine [Mass/Vol] 0.96 mg/dL Normal 0.55-1.02 [facility] Comment on above: Performed By: #### T 7, TSH, CMP, LIPID #### [facility] [address] [address] [address] Rachel Edgar EGFR-AF SOUTH AFRICAN >60 Normal >=[address] [facility] Comment on above: Performed By: #### T 7, TSH, CMP, LIPID #### [facility] [address] [address] [address] Rachel Edgar EGFR-NON AF SOUTH AFRICAN >60 Normal >=60 [facility] Comment on above: Performed By: #### T 7, TSH, CMP, LIPID #### [facility] [address] [address] [address] Rachel Edgar Globulin (S) [Mass/Vol] 4.0 g/dL Normal [facility] Comment on above: Performed By: #### T 7, TSH, CMP, LIPID #### [facility] [address] [address] [address] Rachel Edgar Glucose [Mass/Vol] 108 mg/dL Normal [facility] Comment on above: Performed By: #### T 7, TSH, CMP, LIPID #### [facility] [address] [address] [address] Rachel Edgar Performed By: #### A 1C #### [facility] [address] [address] [address] Rachel Edgar Potassium [Moles/Vol] 4.2 mmol/L Normal 3.5-5.1 [facility] Comment on above: Performed By: #### T 7, TSH, CMP, LIPID #### [facility] [address] [address] [address] Rachel Edgar Protein [Mass/Vol] 7.5 g/dL Normal 6.4-8.2 [facility] Comment on above: Performed By: #### T 7, TSH, CMP, LIPID #### [facility] [address] [address] [address] Rachel Edgar Sodium [Moles/Vol] 140 mmol/L Normal 136-145 [facility] Comment on above: Performed By: #### T 7, TSH, CMP, LIPID #### [facility] [address] [place], [place] [address] Dr. Rachel Edgar Urea nitrogen [Mass/Vol] 15.0 mg/dL Normal 7.0-18.0 [facility] Comment on above: Performed By: #### T 7, TSH, CMP, LIPID #### [facility] [address] [place], [place] [address] Dr. Rachel Edgar Urea nitrogen/Creatinine [Mass ratio] 15.6 mg/mg Normal [facility] Comment on above: Performed By: #### T 7, TSH, CMP, LIPID #### [facility] [address] [address] [address] Rachel Edgar TSHon 07-29-2022 TSH 1.473 uIU/mL Normal 0.358-3.740 [facility] Comment on above: Performed By: #### T 7, TSH, CMP, LIPID #### [facility] [address] [address] [address] Rachel Edgar COVID Quick Testingon 2021 Result Negative [facility] Strepon 03-23-2022 S. pyogenes Org specific cx Ql (Throat) Positive [facility] Other Quick Strep [facility] Other XR LUMBAR SPINE LIMITEDon XR LUMBAR [...] Corraligned by:Kely Blue MD03/04/17Final result Normal [facility] Vital Signs Date Time Vital Sign Value Performing Clinician Facility 10-11-2024 08:04-0400 Body height 152.4 cm Magalys Krotzer CABANA ATTENDANT-COMMERCIAL DEVELOPMENT MANAGER Work Phone: [facility] 10-11-2024 08:04-0400 Body mass index (BMI) [Ratio] 37.3 kg/m2 Magalys Krotzer CABANA ATTENDANT-COMMERCIAL DEVELOPMENT MANAGER Work Phone: [facility] 10-11-2024 08:04-0400 Body weight 86.64 kg Magalys Krotzer CABANA ATTENDANT-COMMERCIAL DEVELOPMENT MANAGER Work Phone: [facility] 10-11-2024 08:04-0400 Diastolic blood pressure 82 mm[Hg] Magalys Krotzer CABANA ATTENDANT-COMMERCIAL DEVELOPMENT MANAGER Work Phone: [facility] 10-11-2024 08:04-0400 Systolic blood pressure 122 mm[Hg] Magalys Krotzer CABANA ATTENDANT-COMMERCIAL DEVELOPMENT MANAGER Work Phone: [facility] 04-24-2024 10:43-0400 Body height 152.4 cm Olivia Schmidt MD Work Phone: [facility] 04-24-2024 10:43-0400 Body mass index (BMI) [Ratio] 37.73 kg/m2 Olivia Schmidt MD Work Phone: [facility] 04-24-2024 10:43-0400 Body weight 87.64 kg Olivia Schmidt MD Work Phone: [facility] 04-24-2024 10:43-0400 Diastolic blood pressure 88 mm[Hg] Olivia Schmidt MD Work Phone: [facility] 04-24-2024 10:43-0400 Systolic blood pressure 130 mm[Hg] Olivia Schmidt MD Work Phone: [facility] 03-08-2024 08:30-0400 Body height 152.4 cm Baron Martel PA-C Work Phone: [facility] 03-08-2024 08:30-0400 Body mass index (BMI) [Ratio] 37.79 kg/m2 Baron Martel PA-C Work Phone: [facility] 03-08-2024 08:30-0400 Body weight 87.77 kg Baron Delonte MORGAN-C Work Phone: [facility] 03-08-2024 08:30-0400 Diastolic blood pressure 72 mm[Hg] Baron Delonte MORGAN-C Work Phone: [facility] 03-08-2024 08:30-0400 Heart rate 70 /min Baron Martel CATHY-C Work Phone: [facility] 03-08-2024 08:30-0400 Systolic blood pressure 126 mm[Hg] Baron Martel CATHY-C Work Phone: [facility] 03-07-2024 10:17-0400 Body height 152.4 cm [facility] 03-07-2024 10:17-0400 Body mass index (BMI) [Ratio] 35.54 kg/m2 [facility] 03-07-2024 10:17-0400 Body weight 82.56 kg [facility] 03-07-2024 10:17-0400 Diastolic blood pressure 88 mm[Hg] [facility] 03-07-2024 10:17-0400 Systolic blood pressure 124 mm[Hg] [facility] 03-01-2024 16:58-0400 Body height 152.4 cm MD Sakshi Leung Work Phone: [facility] 03-01-2024 16:58-0400 Body mass index (BMI) [Ratio] 33.2 kg/m2 MD Sakshi Leung Work Phone: [facility] 03-01-2024 16:58-0400 Body temperature 98.4 [degF] MD Sakshi Leung Work Phone: [facility] 03-01-2024 16:58-0400 Body weight 77.11 kg MD Sakshi Leung Work Phone: [facility] 03-01-2024 16:58-0400 Diastolic blood pressure 61 mm[Hg] MD Sakshi Leung Work Phone: [facility] 03-01-2024 16:58-0400 Heart rate 66 /min MD Sakshi Leung Work Phone: [facility] 03-01-2024 16:58-0400 Respiratory rate 18 /min MD Sakshi Leung Work Phone: [facility] 03-01-2024 16:58-0400 SaO2% (BldA) [Mass fraction] 97 % MD Sakshi Leung Work Phone: [facility] 03-01-2024 16:58-0400 Systolic blood pressure 117 mm[Hg] MD Sakshi Leung Work Phone: [facility] 03-23-2022 11:20-0400 Body height 154.94 cm Xochilt Corral Other [facility] Other 03-23-2022 11:20-0400 Body mass index (BMI) [Ratio] 42.51 kg/m2 [facility] Corral Other [facility] Other 03-23-2022 11:20-0400 Body temperature 97.8 [degF] Xochilt Corral Other [facility] Other 03-23-2022 11:20-0400 Body weight 102.06 kg Xochilt Corral Other [facility] Other 03-23-2022 11:20-0400 Respiratory rate 18 /min Xochilt Corral Other [facility] Other 03-23-2022 11:20-0400 SaO2% (BldA) [Mass fraction] 97 % Xochilt Corral Other [facility] Other Encounters Encounter Date Encounter Type Care Provider Facility Start: 10-11-2024 End: 10-11-2024 ambulatory [facility] Start: 10-11-2024 End: 10-11-2024 ambulatory [facility] Start: 10-11-2024 End: 10-11-2024 Office outpatient visit 15 minutes Magalys Hammonds Héctor CABANA ATTENDANT-COMMERCIAL DEVELOPMENT MANAGER Work Phone: [facility] Comment on above: Screening examinatio n for STD (sexually transmitted disease) (Primary Dx) Start: 09-13-2024 End: 09-13-2024 Orders Only Magalys M Héctor CABANA ATTENDANT-COMMERCIAL DEVELOPMENT MANAGER Work Phone: [facility] [place] Comment on above: BV (bacterial vagino sis) Start: 09-12-2024 End: 09-12-2024 [facility]phone encounter [facility] Start: 08-14-2024 End: 08-14-2024 Telephone encounter Debbie Calvert RN [facility] Start: 07-17-2024 End: 07-17-2024 ambulatory [facility] Start: 07-11-2024 End: 07-11-2024 ambulatory [facility] Start: 07-10-2024 End: 07-10-2024 ambulatory [facility] Start: 06-25-2024 End: 06-25-2024 ambulatory [facility] Start: 06-25-2024 End: 06-25-2024 ambulatory [facility] Start: 06-12-2024 End: 06-12-2024 Bamboo flowsheet Wolf Alan NP Work Phone: [facility] Start: 06-12-2024 End: 06-12-2024 Bamboo flowsbrayan Alan SENIOR COUNSEL COMMERCIAL Work Phone: [facility] Start: 06-12-2024 End: 06-12-2024 ambulatory WOLF ALAN Not Available Start: 06-12-2024 End: 06-12-2024 Office outpatient visit 15 minutes Wolf Alan SENIOR COUNSEL COMMERCIAL Work Phone: [facility] Comment on above: Left foot pain (Prim chantal Dx); Closed nondisplaced fracture of left talus with routine healing, unspecified portion of talus, subsequent encounter Start: 05-22-2024 End: 05-22-2024 Bamboo VividWorksbrayan Alan SENIOR COUNSEL COMMERCIAL Work Phone: [facility] Start: 05-22-2024 End: 05-22-2024 Bamboo VividWorksheet Wolf Alan SENIOR COUNSEL COMMERCIAL Work Phone: [facility] Start: 05-22-2024 End: 05-22-2024 Postop follow up visit related to original px Wolf Alan NP Work Phone: [facility] Comment on above: Closed nondisplaced fracture of left talus with routine healing, unspecified portion of talus, subsequent encounter (Primary Dx); Left foot pain Start: 05-22-2024 End: 05-22-2024 ambulatory WOLF ALAN Not Available Start: 05-15-2024 End: 05-15-2024 Bamboo VividWorksbrayan Alan SENIOR COUNSEL COMMERCIAL Work Phone: [facility] Start: 05-15-2024 End: 05-15-2024 Bamboo VividWorksbrayan Alan SENIOR COUNSEL COMMERCIAL Work Phone: [facility] Start: 05-15-2024 End: 05-15-2024 Postop follow up visit related to original px Wolf Alan SENIOR COUNSEL COMMERCIAL Work Phone: [facility] Comment on above: Closed nondisplaced fracture of left talus with routine healing, unspecified portion of talus, subsequent encounter Start: 05-15-2024 End: 05-15-2024 ambulatory WOLF ALAN Not Available Start: 04-30-2024 End: 04-30-2024 ambulatory OLIVIA SCHMIDT [facility] Start: 04-24-2024 End: 04-24-2024 Office outpatient visit 25 minutes Olivia Schmidt MD Work Phone: [facility] Comment on above: Decreased libido (Pr imary Dx); DUB (dysfunctional uterine bleeding); PMB (postmenopausal bleeding) Start: 04-17-2024 End: 04-17-2024 Bamboo flowsheet Wolf Alan SENIOR COUNSEL COMMERCIAL Work Phone: [facility] Start: 04-17-2024 End: 04-17-2024 Bamboo flowsheet Wolf Alan SENIOR COUNSEL COMMERCIAL Work Phone: [facility] Start: 04-17-2024 End: 04-17-2024 Postop follow up visit related to original px Wolf Alan SENIOR COUNSEL COMMERCIAL Work Phone: [facility] Comment on above: Closed nondisplaced fracture of left talus with routine healing, unspecified portion of talus, subsequent encounter Start: 04-17-2024 End: 04-17-2024 ambulatory WOLF ALAN Not Available Start: 03-29-2024 End: 04-05-2024 Telephone encounter Tiki Mir [facility] Comment on above: letter requested Start: 03-23-2024 End: 03-23-2024 Orders Only Magalys Gomez APRN-COMMERCIAL DEVELOPMENT MANAGER Work Phone: [facility] Comment on above: Encounter for initia l prescription of contraceptive pills (Primary Dx) Start: 03-20-2024 End: 03-20-2024 Telephone encounter Ina Milian LPN [facility] Comment on above: Encounter for initia l prescription of contraceptive pills (Primary Dx) Start: 03-08-2024 End: 03-08-2024 Office outpatient visit 25 minutes Baron Martel PA-C Work Phone: [facility] Comment on above: Memory changes (Prim chantal Dx); Staring episodes; Psychogenic nonepileptic seizure Start: 03-07-2024 End: 03-07-2024 Patient encounter procedure [facility] Assistant Statistician [facility] Start: 03-07-2024 End: 03-07-2024 Periodic preventive med est patient 40-64yrs [facility] Assistant Statistician [facility] Comment on above: Well woman exam with routine gynecological exam (Primary Dx); Encounter for screening mammogram for breast cancer; Screening examination for STD (sexually transmitted disease); Standardized adult depression screening tool completed; Encounter for counseling regarding contraception; Colon cancer screening Start: 03-06-2024 End: 03-06-2024 ambulatory GISSEL Bowen JERARDO Not Available Start: 03-05-2024 End: 03-05-2024 ambulatory VERNON Weinberg APLING Not Available Start: 03-05-2024 End: 03-05-2024 ambulatory VERNON Weinberg APLING Not Available Start: 03-01-2024 End: 03-01-2024 ambulatory MD Sakshi Leung Work Phone: [facility] Work Phone: Start: 03-01-2024 End: 03-01-2024 Patient encounter procedure MD Sakshi Leung Work Phone: [facility] Work Phone: Start: 12-28-2023 End: 12-28-2023 Patient encounter procedure Jose Juarez PhD Work Phone: [facility] Comment on above: Memory loss (Primary Dx) Start: 11-17-2023 End: 11-17-2023 [facility]phone [facility] Start: 07-29-2022 End: 07-30-2022 ambulatory BRITTANY MCGINNIS Facility:[facility] Start: 03-23-2022 End: 03-23-2022 ambulatory Xochilt Corral Other [facility] Other Start: 03-23-2022 Office outpatient vi sit 15 minutes Xochilt Corral [facility] Start: 03-04-2017 End: 03-05-2017 [facility]ulatory [facility] Procedures Date Procedure Procedure Detail Performing Clinician Start: 07-10-2024 Follow-up visit Follow-up OLIVIA SCHMIDT Start: 06-12-2024 Radex foot complete minimum 3 views Wolf Alan SENIOR COUNSEL COMMERCIAL Work Phone: Start: 05-15-2024 Radex foot complete minimum 3 views Wolf Alan SENIOR COUNSEL COMMERCIAL Work Phone: Start: 04-17-2024 Radex foot complete minimum 3 views Wolf Alan SENIOR COUNSEL COMMERCIAL Work Phone: Start: 03-20-2024 Urine test visual color cmprsn meths Ana Hammonds Herbertin CABANA ATTENDANT-COMMERCIAL DEVELOPMENT MANAGER Work Phone: Start: 03-08-2024 Adult depression scr eening assessment Baron Martel PA-C Work Phone: Start: 03-07-2024 Urine test visual color cmprsn meths Magalys Hammonds Jason CABANA ATTENDANT-COMMERCIAL DEVELOPMENT MANAGER Work Phone: Start: 03-07-2024 Adult depression scr eening assessment [facility] Assistant Statistician Start: 03-01-2024 X-ray of left ankle MD Sakshi Leung Work Phone: Start: 03-01-2024 X-ray of left foot MD Nelly Leung Work Phone: Start: 05-16-2023 Adult depression scr eening assessment Niya Pimentel RN Start: 06-01-2022 Microscopic observat ion [Identifier] in Cervix by Cyto stain Niya Pimentel RN Start: 03-04-2017 Radex spine lumbosac ral 2/3 views DEN HU Plan of Treatment Date Care Activity Detail Author Start: 07-17-2025 Adult BMI Screening Adult BMI Screen ing [facility] Start: 07-17-2025 Tobacco Screening Tobacco Screening [facility] Start: 06-01-2025 Screening for malign ant neoplasm of cervix Pap Smear [facility] Start: 04-24-2025 Adult BMI Screening Adult BMI Screen ing [facility] Start: 04-24-2025 Tobacco Screening Tobacco Screening [facility] Start: 03-28-2025 Adult BMI Screening Adult BMI Screen ing [facility] Start: 03-20-2025 Tobacco Screening Tobacco Screening [facility] Start: 03-08-2025 Adult BMI Screening Adult BMI Screen ing [facility] Start: 03-08-2025 Depression Screening Depression Scre ening [facility] Start: 03-08-2025 Tobacco Screening Tobacco Screening [facility] Start: 03-07-2025 Adult BMI Follow Up Plan Adult BMI Follow Up Plan [facility] Start: 03-07-2025 Adult BMI Screening Adult BMI Screen ing [facility] Start: 03-07-2025 Depression Screening Depression Scre ening [facility] Start: 03-07-2025 Tobacco Screening Tobacco Screening [facility] Start: 10-11-2024 End: 10-11-2025 Chlamydia/GC by PCR June Swab Chlamydia/GC by PCR June Swab Microbiology Routine Screening examination for STD (sexually transmitted disease) Expected: 10/11/2024 (Approximate), Expires: 10/11/2025 [facility] Work Phone: Comment on above: Expected: 10/11/2024 (Approximate), Expires: 10/11/2025 Start: 10-11-2024 End: 10-11-2025 Trichomonas by PCR Trichomonas by PCR Microbiology Routine Screening examination for STD (sexually transmitted disease) Expected: 10/11/2024 (Approximate), Expires: 10/11/2025 [facility] Comment on above: Expected: 10/11/2024 (Approximate), Expires: 10/11/2025 Start: 06-26-2024 End: 06-26-2024 Patient encounter procedure 06/26/2024 9:15 AM EST Office Visit [facility] [address] [place] [phone] Wolf Alan, SENIOR COUNSEL COMMERCIAL [address] [place], [place] [id number] [facility] Start: 06-13-2024 End: 06-13-2024 Patient encounter procedure 06/13/2024 10:00 AM EST Office Visit [facility] [place] [address] [place] [address] [facility] [place] Start: 06-12-2024 End: 06-12-2024 Patient encounter procedure 06/12/2024 10:45 AM EST Office Visit [facility] [address] [place] [address] Wolf Alan, SENIOR COUNSEL COMMERCIAL [address] [place] [address] [facility] Start: 06-08-2024 End: 06-08-2024 Patient encounter procedure 06/08/2024 11:00 AM EST Office Visit [facility] [address] [place] [phone] Baron Martel, BARI [address] [place] [address] [facility] Start: 05-22-2024 End: 05-22-2024 Patient encounter procedure 05/22/2024 11:15 AM EDT Office Visit [facility] [address] [place] [phone] Wolf Alan, SENIOR COUNSEL COMMERCIAL [address] [place] [address] Arrived [facility] Comment on above: Arrived Start: 05-21-2024 End: 05-21-2024 Patient encounter procedure 05/21/2024 1:00 PM EDT Procedure visit [facility] [address] [place] [phone] Olivia Schmidt MD [address] [place], [place] [phone] [facility] Start: 05-16-2024 Adult BMI Screening Adult BMI Screen ing [facility] Start: 05-16-2024 [facility] Start: 05-16-2024 Tobacco Screening Tobacco Screening [facility] Start: 05-15-2024 End: 05-15-2024 Patient encounter procedure [facility] Comment on above: Closed nondisplaced fracture of left talus with routine healing, unspecified portion of talus, subsequent encounter Start: 04-24-2024 End: 04-24-2025 US Pelvis transabdominal and transvaginal Ultrasound pelvic with transvaginal Imaging Routine DUB (dysfunctional uterine bleeding) Expected: 04/24/2024, Expires: 04/24/2025 [facility] Comment on above: Expected: 04/24/2024 , Expires: 04/24/2025 Start: 04-17-2024 End: 04-17-2024 Patient encounter procedure 04/17/2024 1:00 PM EDT Office Visit [facility] [address] [place] [address] Wolf Alan, SENIOR COUNSEL COMMERCIAL [address] [place] [address] Closed nondisplaced fracture of left talus with routine healing, unspecified portion of talus, subsequent encounter [facility] Comment on above: Closed nondisplaced fracture of left talus with routine healing, unspecified portion of talus, subsequent encounter Start: 04-01-2024 Influenza vaccination Influenza Vacc ine [facility] Start: 03-28-2024 End: 03-28-2024 Patient encounter procedure 03/28/2024 1:15 PM EDT Appointment [facility] - Mammogram DEXA [address] [place] [phone] Magalys Gomez, CABANA ATTENDANT-COMMERCIAL DEVELOPMENT MANAGER [address] [place] [address] [facility] - Mammogram DEXA Start: 03-26-2024 End: 03-26-2024 Patient encounter procedure 03/26/2024 9:15 AM EDT Appointment [facility] - MRI Imaging [address] [place] [phone] [facility] - MRI Imaging Start: 03-20-2024 End: 03-20-2024 Clinical Support 03/20/2024 10:30 AM EDT Clinical Support [facility] [place] [address] [place] [address] [facility] [place] Start: 03-08-2024 End: 03-08-2025 MR Brain WO contrast MR brain without contrast Imaging Routine Memory changes Expected: 03/08/2024, Expires: 03/08/2025 [facility] Comment on above: Expected: 03/08/2024 , Expires: 03/08/2025 Start: 03-08-2024 End: 03-08-2024 Patient encounter procedure 03/08/2024 8:30 AM EDT Office Visit [facility] [address] [place] [address] Baron Martel PA-C [address] [facility] [place] [phone] [facility] Start: 03-07-2024 End: 03-07-2025 Chlamydia/GC by PCR June Swab Chlamydia/GC by PCR Juen Swab Microbiology Routine Screening examination for STD (sexually transmitted disease) Expected: 03/07/2024 (Approximate), Expires: 03/07/2025 [facility] Comment on above: Expected: 03/07/2024 (Approximate), Expires: 03/07/2025 Start: 03-07-2024 End: 03-07-2025 DBT Breast - bilateral screening Mammography screening bilateral with CAD Imaging Routine Encounter for screening mammogram for breast cancer Expected: 03/07/2024, Expires: 03/07/2025 [facility] Work Phone: Comment on above: Expected: 03/07/2024 , Expires: 03/07/2025 Start: 03-07-2024 End: 03-07-2025 Vaginitis Panel PCR Vaginitis Panel PCR Microbiology Routine Screening examination for STD (sexually transmitted disease) Expected: 03/07/2024 (Approximate), Expires: 03/07/2025 [facility] Comment on above: Expected: 03/07/2024 (Approximate), Expires: 03/07/2025 Start: 12-28-2023 End: 12-28-2023 Patient encounter procedure 12/28/2023 9:00 AM EDT Office Visit [facility] [address] [place] [address] [facility] Start: 06-01-2023 Adult BMI Follow Up Plan [facility] Start: 1996 DTaP,Tdap and Td Vaccines (1 - Tdap) DTaP,Tdap and Td Vaccines (1 - Tdap) [facility] End: 04-24-2025 CBC panel - Blood by Automated count CBC without diff Lab Routine DUB (dysfunctional uterine bleeding) 1 Occurrences starting 04/24/2024 until 04/24/2025 [employer] Work Phone: Comment on above: 1 Occurrences starti ng 04/24/2024 until 04/24/2025 [facility] Cologuar d [facility] Lab Routine Colon cancer screening Ordered: 03/07/2024 [facility] Comment on above: Ordered: 03/07/2024 End: 03-08-2025 Cyanocobalamin vitamin b-12 Vitamin B12 Lab Routine Memory changes 1 Occurrences starting 03/08/2024 until 03/08/2025 [facility] Comment on above: 1 Occurrences starti ng 03/08/2024 until 03/08/2025 End: 03-08-2025 Folate [Mass/volume] in Serum or Plasma Folate Serum Lab Routine Memory changes 1 Occurrences starting 03/08/2024 until 03/08/2025 [facility] Comment on above: 1 Occurrences starti ng 03/08/2024 until 03/08/2025 End: 04-24-2025 Follicle stimulating hormone Follicle stimulating hormone Lab Routine DUB (dysfunctional uterine bleeding) 1 Occurrences starting 04/24/2024 until 04/24/2025 [facility] Comment on above: 1 Occurrences starti ng 04/24/2024 until 04/24/2025 End: 04-24-2025 HCG, Quantitative, HCG, Quantitative, Lab Routine DUB (dysfunctional uterine bleeding) 1 Occurrences starting 04/24/2024 until 04/24/2025 [facility] Comment on above: 1 Occurrences starti ng 04/24/2024 until 04/24/2025 End: 03-07-2025 Hepatitis panel, acute Hepatitis panel, acute Lab Routine Screening examination for STD (sexually transmitted disease) 1 Occurrences starting 03/07/2024 until 03/07/2025 [facility] Comment on above: 1 Occurrences starti ng 03/07/2024 until 03/07/2025 Hepatitis panel, acute Hepatitis panel, acute Lab Routine Screening examination for STD (sexually transmitted disease) 03/07/2024 12:05 PM EDT [facility] End: 10-11-2025 Hepatitis panel, acute Hepatitis panel, acute Lab Routine Screening examination for STD (sexually transmitted disease) 1 Occurrences starting 10/11/2024 until 10/11/2025 [facility] Comment on above: 1 Occurrences starti ng 10/11/2024 until 10/11/2025 End: 03-07-2025 HIV 1&2 AB/AG Screen (P24 AG) HIV 1&2 AB/AG Screen (P24 AG) Lab Routine Screening examination for STD (sexually transmitted disease) 1 Occurrences starting 03/07/2024 until 03/07/2025 [facility] Comment on above: 1 Occurrences starti ng 03/07/2024 until 03/07/2025 End: 10-11-2025 HIV 1&2 AB/AG Screen (P24 AG) HIV 1&2 AB/AG Screen (P24 AG) Lab Routine Screening examination for STD (sexually transmitted disease) 1 Occurrences starting 10/11/2024 until 10/11/2025 [facility] Comment on above: 1 Occurrences starti ng 10/11/2024 until 10/11/2025 HIV 1+2 Ab+HIV1 p24 Ag [Presence] in Serum or Plasma by Immunoassay HIV 1&2 AB/AG Screen (P24 AG) Lab Routine Screening examination for STD (sexually transmitted disease) 03/07/2024 12:05 PM EDT [facility] End: 04-24-2025 Luteinizing hormone Luteinizing hormone Lab Routine DUB (dysfunctional uterine bleeding) 1 Occurrences starting 04/24/2024 until 04/24/2025 [facility] Comment on above: 1 Occurrences starti ng 04/24/2024 until 04/24/2025 End: 04-24-2025 Prolactin Prolactin Lab Routine DUB (dysfunctional uterine bleeding) 1 Occurrences starting 04/24/2024 until 04/24/2025 [facility] [employer] Comment on above: 1 Occurrences starti ng 04/24/2024 until 04/24/2025 End: 03-07-2025 Syphilis Total(Unknown Syphilis Status) Syphilis Total(Unknown Syphilis Status) Lab Routine Screening examination for STD (sexually transmitted disease) 1 Occurrences starting 03/07/2024 until 03/07/2025 [facility] Comment on above: 1 Occurrences starti ng 03/07/2024 until 03/07/2025 End: 10-11-2025 Syphilis Total(Unknown Syphilis Status) Syphilis Total(Unknown Syphilis Status) Lab Routine Screening examination for STD (sexually transmitted disease) 1 Occurrences starting 10/11/2024 until 10/11/2025 [facility] Comment on above: 1 Occurrences starti ng 10/11/2024 until 10/11/2025 End: 03-08-2025 Thyroid profile includes TSH FT4 Thyroid profile includes TSH FT4 Lab Routine Memory changes 1 Occurrences starting 03/08/2024 until 03/08/2025 [employer] Phone: Comment on above: 1 Occurrences starti ng 03/08/2024 until 03/08/2025 End: 04-24-2025 Thyrotropin [Units/volume] in Serum or Plasma TSH Lab Routine DUB (dysfunctional uterine bleeding) 1 Occurrences starting 04/24/2024 until 04/24/2025 [facility] Comment on above: 1 Occurrences starti ng 04/24/2024 until 04/24/2025 End: 04-24-2025 Thyroxine (T4) free [Mass/volume] in Serum or Plasma T4, free Lab Routine DUB (dysfunctional uterine bleeding) 1 Occurrences starting 04/24/2024 until 04/24/2025 [facility] Comment on above: 1 Occurrences starti ng 04/24/2024 until 04/24/2025 Treponema pallidum IgG+IgM Ab [Presence] in Serum by Immunoassay Syphilis Total(Unknown Syphilis Status) Lab Routine Screening examination for STD (sexually transmitted disease) 03/07/2024 12:05 PM EDT [facility] Immunizations Immunization Date Immunization Notes Care Provider Della bocanegra 04-28-2019 influenza, injectabl e, quadrivalent, preservative free Niya Pimentel RN [facility] 04-28-2019 influenza virus vaccine, unspecified formulation Niya Pimentel RN [facility] 06-04-2018 influenza, injectabl e, quadrivalent, preservative free Niya Pimentel RN [facility] Payers Date Payer Category Payer Medicaid [id number] 2024 Medicaid [id number] 2024 Self-pay [id number] 2019 [facility] BCBS [id number] 2019 [facility] Managed Care - Other ANTHEM [id number]. [id number] 2019 Unknown [id number]. 1.13.693.2. [id number] 2014 Unknown [id number] 1977 Unknown [id number] 2.16.840.1.216545.3.579.2. 593 1977 Unknown [id number] 2.16.840.1.025179.3.579.2. 1258 1977 Unknown [id number] 2.16.840.1.893289.3.579.2. 1258 1977 Unknown [id number] 2.16.840.1.744368.3.579.2. 1258 1977 Unknown [id number] 2.16.840.1.098383.3.579.2. 1258 1977 Unknown [id number] 2.16.840.1.771221.3.579.2. 1258 1977 Unknown [id number] 2.16.840.1.557423.3.579.2. 1258 1977 Unknown [id number] 2.16.840.1.878209.3.579.2. 1258 1977 Unknown [id number] 2.16.840.1.103578.3.579.2. 1258 1977 Unknown [id number] 2.16.840.1.432577.3.579.2. 1258 1977 Unknown [id number] 2.16.840.1.996760.3.579.2. 1258 1977 Unknown [id number] 2.16.840.1.444377.3.579.2. 1286 1977 Unknown [id number] 2.16.840.1.530697.3.579.2. 1285 1977 Unknown [id number] 2.16.840.1.351977.3.579.2. 1285 1977 Unknown [id number] 2.16.840.1.587702.3.579.2. 1285 1977 Unknown [id number] 2.16.840.1.268676.3.579.2. 1285 1977 Unknown [id number] 2.16.840.1.150089.3.579.2. 1285 1977 Unknown [id number] 2.16.840.1.011737.3.579.2. 1285 1977 Unknown [id number] 2.16.840.1.871645.3.579.2. 1285 1977 Unknown [id number] 2.16.840.1.045903.3.579.2. 1286 1959 [facility] [id number] 2.16.840.1.800651.19 Unknown [id number] 2.16.840.1.895065.3.579.2. 531 Social History Date Type Detail Facility Start: 04-17-2024 End: 10-11-2024 Sex Assigned At [facility] Start: 03-01-2024 End: 03-07-2024 Tobacco smoking status VAIS Ex-smoker (finding) [facility] Start: 1975 Sex Assigned At Female [facility] End: 08-01-2015 History of tobacco use Current smoker [facility] End: 08-01-2015 History of tobacco use Cigarette Smoker [facility] Start: 03-05-2024 End: 03-07-2024 Tobacco use and exposure Smokeless tobacco non-user [facility] Start: 04-17-2024 End: 10-11-2024 Alcoholic beverage intake Ex-drinker (finding) [facility] Start: 04-17-2024 End: 10-11-2024 History of Social function [facility] Start: 1975 Sex assigned at Not on file [facility] Adolescent depressio n screening assessment 0 [facility] Start: 03-07-2024 Alcohol Comment rare [facility] Start: 03-06-2015 Sex Female (finding) [facility] Start: 05-16-2023 Alcoholic beverage intake Current drinker of alcohol (finding) [facility] Start: 06-01-2022 Alcohol Comment social [facility] Goals Date Patient Goal Desired Activity /State Personal health goal Comment on above: Formatting of this n ote might be different from the original. Evaluation of progress towards goal: Patient stated she plans to return home with self care. Clinical Notes 10-31-2011 to 10-11-2024 Magalys Leija APRN-[facility] - 10/11/2024 8:00 AM EDTTelephone Encounter - Debbie Calvert RN - 09/12/2024 1:15 PM ESTTelephone Encounter - Magalys Leija APRN- [facility] - 09/12/2024 1:15 PM EST Note Date & Type Note Facility 10-11-2024 History of Present illness Narrative Samaria Gilmore is a 49 y.o.female. Patient's last menstrual period was 08/23/2024.. She presents STD check. She is having no symptoms, but her partner told her he had what looked like a pimple so she wants to come in to be checked. Patient desires blood work for HIV, syphilis and hepatitis as well. She denies pelvic pain. Current contraception:Micronor OB History 3 Para 2 Term 2 AB 1 Living 2 SAB 1 IAB Ectopic Multiple Live Births 2 MEDICAL HX Past Medical History: Diagnosis Date Depression Epilepsy ([facility]) GERD (gastroesophageal reflux disease) High cholesterol SURGICAL HX Past Surgical History: Procedure Laterality Date DILATION AND CURETTAGE OF UTERUS 2013 FAMILY HX Family History Problem Relation Age [...] mg total) before bedtime. 120 tablet 2 omeprazole (PriLOSEC) 20 mg capsule Take 1 capsule (20 mg total) by mouth every morning before breakfast. SLYND 4 mg (28) tablet TAKE 1 TABLET BY MOUTH ONCE DAILY 28 tablet 11 traZODone (DESYREL) 50 mg tablet Take 3 tablets (150 mg total) by mouth nightly. No current facility-administered medications for this visit. ALLERGIES No Known Allergies Review of Systems Review of Systems Constitutional: Negative. Genitourinary: Negative. Negative for genital sores and pelvic pain. Neurological: Negative. Psychiatric/Behavioral: Negative. Objective BP 122/82 Ht 152.4 cm (5') Wt 86.6 kg (191 lb) LMP 08/23/2024 BMI 37.30 kg/m Physical Exam Vitals and nursing note reviewed. Constitutional: Appearance: Normal appearance. Pulmonary: Effort: Pulmonary effort is normal. Genitourinary: General: Normal vulva. Labia: Right: No rash or lesion. Left: No rash or lesion. Vagina: Normal. Cervix: Normal. Musculoskeletal: General: Normal range of motion. Skin: General: Skin is warm and dry. Neurological: Mental Status: She is alert and oriented to person, place, and time. Psychiatric: Mood and Affect: Mood normal. Behavior: Behavior normal. Thought Content: Thought content normal. Judgment: Judgment normal. Assessment/Plan: Samaria was seen today for gynecologic exam. Diagnoses and all orders for this visit: Screening examination for STD (sexually transmitted disease) - Chlamydia/GC by PCR June Swab; Future - Trichomonas by PCR; Future - HIV 1&2 AB/AG Screen (P24 AG); Future - Syphilis Total(Unknown Syphilis Status); Future - Hepatitis panel, acute; Future Await cultures / lab work and treat / follow up as indicated. Consistent condom use recommended for STD prevention. All questions answered. Educational materials provided through [employer]. RTO for annual (due in March 2025) or sooner as needed. PAXTON Adams, JOSE-TUNG Leija APRN-[facility] 10/11/24 0821 documented in this encounter [facility] 09-12-2024 Miscellaneous Notes Pt states a few months ago she was seen for BV and was not treated for it at that time. Pt believes she may have BV again, she has an odor and discharge. Pt is requesting a prescription to be sent to her pharmacy. Please advise. - Debbie Calvert RN 09/12/24 1:17 PM RX for flagyl sent to pharmacy. Called the patient and left a message for a call back. AMBIKA Nolan, RN documented in this encounter [facility] 09-12-2024 Telephone encounter Note Pt states a few months ago she was seen for BV and was not treated for it at that time. Pt believes she may have BV again, she has an odor and discharge. Pt is requesting a prescription to be sent to her pharmacy. Please advise. - Debbie Calvert RN 09/12/24 1:17 PM [facility] 09-12-2024 Telephone encounter Note RX for flagyl sent to pharmacy. [facility] 09-12-2024 Telephone encounter Note Called the patient and left a message for a call back. AMBIKA Nolan, KAMRON [facility] 08-14-2024 Miscellaneous Notes Pt called stating that [...] AMBIKA Nolan, RN documented in this encounter [facility] 08-14-2024 Telephone encounter Note Pt called stating [...] is. Pt verbalized understanding. AMBIKA Nolan, RN [facility] 06-12-2024 History of Present illness Narrative Images from the original note were not included. Chief Complaint Patient presents with Left Foot - Follow-up HISTORY OF PRESENT ILLNESS: Samaria Gilmore is an 48 y.o. @ female. LT Foot/ankle: 3 months 2 weeks s/p injury. Pt fell off a ladder several feet high and injured left foot/ankle on 02/28/24. Went to [facility] urgent care on 03/01/24, placed in ocl splint and given crutches. Walking in regular shoes. States she still has constant pain on top of foot. Taking IBU. Constant swelling. [place]: UC/XR/03/01/24 [place], xrays left ankle and foot [facility] 03/01/24, ibu, ice, tyl, ocl splint, crutches, [...] acute bony process, left foot. Wolf Alan CABANA ATTENDANT-COMMERCIAL DEVELOPMENT MANAGER ASSESSMENT: ICD-10-CM 1. Left foot pain M79.672 [...] develop for requiring urgent evaluation. Wolf Alan CABANA ATTENDANT-COMMERCIAL DEVELOPMENT MANAGER documented in this encounter [facility] 05-22-2024 History of Present illness Narrative Images from the original note were not included. Chief Complaint Patient presents with Left Foot - Follow-up HISTORY OF PRESENT ILLNESS: Samaria Gilmore is an 48 y.o. @ female. LT Foot/ankle: 12 weeks s/p injury. Pt fell off a ladder several feet high and injured left foot/ankle on 02/28/24. Went to [facility] urgent care on 03/01/24, placed in ocl splint and given crutches. Presents WBAT in regular shoes, still favoring foot. Pain anterior foot. Taking IBU prn. Elevating. Admits swelling. Denies N/T. Does not wake at HS. States she was wearing sandals yesterday and was on her feet for a while, had swelling after. [place]: UC/XR/03/01/24 [place], xrays left ankle and foot [facility] 03/01/24, ibu, ice, tyl, ocl splint, crutches, walker, MRI [facility] 03/05/24, CAM boot, knee scooter, [facility] [facility] 04/17/24, [facility], XR [facility] 05/15/24 ALLERGIES: No Known Allergies HOME MEDICATIONS: [...] develop for requiring urgent evaluation. Wolf Alan CABANA ATTENDANT-COMMERCIAL DEVELOPMENT MANAGER documented in this encounter [facility] 05-15-2024 History of Present illness Narrative Images from the original note were not included. Chief Complaint Patient presents with Left Foot - Follow-up HISTORY OF PRESENT ILLNESS: Samaria Gilmore is an 48 y.o. @ female. LT Foot/ankle: 11 weeks s/p injury. Pt fell off a ladder several feet high and injured left foot/ankle on 02/28/24. Went to [facility] urgent care on 03/01/24, placed in ocl splint and given crutches. Presents WB[facility] in [facility] Denies much pain, improving. No pain meds. Denies N/T, swelling. TX: UC/XR/03/01/24 [place], xrays left ankle and foot [facility] 03/01/24, ibu, ice, tyl, ocl splint, crutches, [...] develop for requiring urgent evaluation. Wolf Alan CABANA ATTENDANT-COMMERCIAL DEVELOPMENT MANAGER documented in this encounter [facility] 04-24-2024 History of Present illness Narrative Samaria Gilmore is a 48 y.o.female. Patient's last menstrual period was 04/24/2024.. She presents decreased libido that she noticed several years ago.She states that her sex drive has decrease significantly. SAW NEUROLOGY FOR FATIGUE SHORT-TERM MEMORY LOSS SEIZURE-LIKE EPISODES AND ALSO TAKES MEDICATION FOR DEPRESSION AND INSOMNIA AFTER FURTHER QUESTIONING MS. BEE REPORTS EPISODE OF PERIMENOPAUSAL BLEEDING THIS PAST MONTH AFTER NO BLEEDING SINCE SEPTEMBER OF 2023 POSITIVE BETA VASOMOTOR SYMPTOMS-- MOST NOTABLY DECREASED LIBIDO AND INSOMNIA Current contraception:oral contraceptives (estrogen/progesterone) OB History 3 [...] total) before bedtime. 120 tablet 2 norethindrone-e.estradioL-iron (JUNEL FE 08/20, ,) 1 mg-20 mcg (21)/75 mg (7) [...] Review of Systems Review of Systems Objective Ht 152.4 cm (5') Wt 87.6 kg (193 lb 3.2 oz) LMP 04/24/2024 BMI 37.73 kg/m Physical Exam BP 130/88 Ht 152.4 cm (5') Wt 87.6 kg (193 lb 3.2 oz) LMP 04/24/2024 BMI 37.73 kg/m Physical Exam GEN AAOX3, NAD HEENT UNREMARKABLE HEART RRR LUNGS CTAB ABD BENIGN, OBESE, NTND PELVIS: DEFERRED RECTAL DEFERRED EXTREM NO CCE, NO CALF TENDERNESS Assessment/Plan: Diagnoses and all orders for this visit: Decreased libido POSTMENOPAUSAL BLEEDING/PERIMENOPAUSAL BLEEDING DUB EVALUATION DUB LABS PELVIC SONOGRAM EMB HYSTEROSCOPY RETURN TO OFFICE FOR ABOVE EVALUATION RETURN TO OFFICE FOR ANNUAL WELL-WOMAN EXAMINATION AND P.R.N. MD Debbie HOOD RN documented in this encounter [facility] 04-17-2024 History of Present illness Narrative Images from the original note were not included. Chief Complaint Patient presents with Left Foot - Follow-up HISTORY OF PRESENT ILLNESS: Samaria Gilmore is an 48 y.o. @ female. LT Foot/ankle: here for possible cast 7 weeks s/p injury. Pt fell off a ladder several feet high and injured left foot/ankle on 02/28/24. Went to [facility] urgent care on 03/01/24, placed in ocl splint and given crutches. Presents NWB in CAM boot with knee scooter. Denies much pain, improving. No pain meds. Denies N/T, swelling. TX: UC/XR/03/01/24 [place], xrays left ankle and foot [facility] 03/01/24, ibu, ice, tyl, ocl splint, crutches, [...] develop for requiring urgent evaluation. Wolf Alan CABANA ATTENDANT-COMMERCIAL DEVELOPMENT MANAGER documented in this encounter [facility] 03-29-2024 Miscellaneous Notes Patient stated that she is currently applying for benefits. However, she will need a letter stating what her diagnosis is. She is asking for this letter to be available in her mychart. Please advise Please advise on what diagnoses to list. Diagnoses would include seizure-like activity, nonepileptic seizures, and short-term memory loss. - [facility] Letter created. Patient contacted and informed that [employer] is not currently active. Link has been sent and once active, letter will be sent. Patient requested results of MRI as well. Brain MRI does not show any intracranial pathology. - [facility] Patient informed and voiced understanding. documented in this encounter [facility] 03-29-2024 Telephone encounter Note Patient stated that she is currently applying for benefits. However, she will need a letter stating what her diagnosis is. She is asking for this letter to be available in her mychart. Please advise [facility] 03-29-2024 Telephone encounter Note Please advise on what diagnoses to list. [facility] 03-29-2024 Telephone encounter Note Diagnoses would include seizure-like activity, nonepileptic seizures, and short-term memory loss. - [facility] 03-29-2024 Telephone encounter Note Letter created. Patient contacted and informed that s[employer]ckett is not currently active. Link has been sent and once active, letter will be sent. Patient requested results of MRI as well. [facility] 03-29-2024 Telephone encounter Note Brain MRI does not show any intracranial pathology. - [facility] 03-29-2024 Telephone encounter Note Patient informed and voiced understanding. [facility] 03-20-2024 Miscellaneous Notes Pt was in today for a NV for UPT to start BC pills. UPT was negative with no intercourse for 2 weeks.When you get a chance can you send in a script for Pt? Thank you! documented in this encounter [facility] 03-20-2024 Telephone encounter Note Pt was in today for a NV for UPT to start BC pills. UPT was negative with no intercourse for 2 weeks.When you get a chance can you send in a script for Pt? Thank you! [facility] 03-20-2024 History of Present illness Narrative Pt is here for NV for UPT to start BC pills. LMP-was in September. Pt has not had intercourse for 2 weeks. Pt aware of negative result for UPT. documented in this encounter [facility] 03-08-2024 History of Present illness Narrative [facility] Neurology Office Note 03/07/2024 4:32 PM Patient info: Samaria Gilmore is a 48 y.o. female Account No.: [id number] Acct: : 1975 PCP: BRITTANY MCGINNIS APRN-COMMERCIAL DEVELOPMENT MANAGER Chief Complaint: Patient, 47 year old right hand dominant female, presents today for initial Neurological evaluation regarding seizures. Last seen in the office on 05/16/23 Samaria is present in the office today with her sister. Previously followed with Dr. Verdin, [facility] Interval Hx: Labs 05/16/23: Lamotrigine level was 8.5 (range: [...] Notably, has never underwent a Brain MRI. Previous Studies: 05/05/23: LTME - Baseline Routine [...] stared-off for an extended amount of time without response to stimulus; amnestic to event until being placed into ambulance by EMS 2nd seizure event: generalized convulsions and jerking of extremities, with associated snores respirations, urinary incontinence, and postictal confusion Samaria has been following with [facility] in the [place], [place] area since the 2nd such seizure event in 2019. Despite taking Lamotrigine and being titrated over time to a dose of 200 mg BID, she complains of continued staring-off/zoning out episodes that occur multiple times daily. Her sister, who is present for today's office visit, has witnessed multiple of these episodes. Per the sister, Zoay is said to suddenly stop speaking or [...] [facility] are unavailable for personal review at this time. 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 PLAN: Labs: Vitamin B12, Folate, Thyroid Profile Will order a Brain MRI without contrast Continue Lamotrigine 200 mg BID Follow up in the office in 3-4 months in the [place] office Electronically Signed by: Baron Martel PA-C 03/08/24 1047 documented in this encounter [facility] 03-07-2024 History of Present illness Narrative Annual Well Woman Visit 03/07/2024 Subjective Samaria Gilmore is a 48 y.o. 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 Periods are irregular, lasting 7 days. Dysmenorrhea: moderate, occurring first 1-2 days of flow. Cyclic symptoms include none. Denies intermenstrual bleeding, spotting, or abnormal discharge. Denies pelvic pain. Patient desires STD testing today. Complaints today: desires std screening, including blood work for HIV, hepatitis and syphilis Relationship status: not in a relationship The patient reports that there is not domestic violence in her life. Sexually active: Yes with multiple partners and no condoms except one person. Sexual concerns: none Former smoker, quit 7 years ago Children YES How many Two vaginal deliveries Current contraception: none History of abnormal Pap smear: no Last pap: 2021 Regular self breast exam: no Last mammogram: none Family history of breast cancer: no Family history of uterine or ovarian cancer: no Family history of pancreatic or prostate cancer: yes - mother Family history of colon cancer: no PHQ9 depression screenin with negative self harm component LMP 10/19/2023 OB History 3 Para 2 Term 2 AB 1 Living 2 SAB 1 IAB Ectopic Multiple Live Births 2 The following portions of the patient's history were reviewed and updated as appropriate: allergies, current medications, past family history, past medical history, past social history, past surgical history and problem list. MEDICAL HX Past Medical History: Diagnosis Date Depression Epilepsy ([facility]) GERD (gastroesophageal reflux disease) High cholesterol SURGICAL HX Past Surgical History: Procedure Laterality Date DILATION AND CURETTAGE OF UTERUS 2012 FAMILY HX Family History Problem Relation Age of Onset Cancer Mother pancreatic Asthma Mother COPD Mother Asthma Son MEDS Current Outpatient Medications Medication Sig Dispense Refill escitalopram (LEXAPRO) 20 mg tablet Take 1.5 tablets (30 mg total) by mouth in the morning. lamoTRIgine (LaMICtal) 100 mg tablet Take 2 tablets (200 mg total) by mouth in the morning and 2 tablets (200 mg total) before bedtime. 120 tablet 2 traZODone (DESYREL) 50 mg tablet Take 1 tablet (50 mg total) by mouth 3 (three) times a day. olmesartan-hydroCHLOROthiazide (BENICAR HCT) 20-12.5 mg per tablet Take 1 tablet by mouth in the morning. (Patient not taking: Reported on 03/07/2024) omeprazole (PriLOSEC) 20 mg capsule Take 1 capsule (20 mg total) by mouth every morning before breakfast. (Patient not taking: Reported on 03/07/2024) OZEMPIC 1 mg/dose (4 mg/3 mL) pen injector Inject 1 mg under the skin once a week. (Patient not taking: Reported on 03/07/2024) pravastatin (PRAVACHOL) 40 mg tablet Take 1 tablet (40 mg total) by mouth in the morning. (Patient not taking: Reported on 03/07/2024) No current facility-administered medications for this visit. ALLERGIES No Known Allergies Review of Systems Constitutional: Negative. Respiratory: Negative. Negative for chest tightness and shortness of breath. Cardiovascular: Negative. Negative for chest pain and palpitations. Gastrointestinal: Negative. Negative for constipation, diarrhea, nausea and vomiting. Endocrine: Negative. Genitourinary: Negative. Negative for dyspareunia, menstrual problem and pelvic pain. Musculoskeletal: Negative. Skin: Negative. Allergic/Immunologic: Negative. Neurological: Positive for headaches. Hematological: Negative. Psychiatric/Behavioral: Negative. Objective BP 124/88 Ht 152.4 cm (5') Wt 82.6 kg (182 lb) LMP 10/19/2023 (Approximate) BMI 35.54 kg/m Physical Exam Vitals and nursing note reviewed. Constitutional: Appearance: Normal appearance. HENT: Head: Normocephalic and atraumatic. Cardiovascular: Rate and Rhythm: Normal rate and regular rhythm. Pulses: Normal pulses. Heart sounds: Normal heart sounds. Pulmonary: Effort: Pulmonary effort is normal. Breath sounds: Normal breath sounds. Chest: Breasts: Breasts are symmetrical. Right: Normal. No mass, skin change or tenderness. Left: Normal. No mass, skin change or tenderness. Abdominal: General: Bowel sounds are normal. Palpations: Abdomen is soft. Genitourinary: General: Normal vulva. Labia: Right: No rash or lesion. Left: No rash or lesion. Vagina: Normal. Cervix: Normal. Uterus: Normal. Not enlarged and not tender. Adnexa: Right adnexa normal and left adnexa normal. Right: No mass, tenderness or fullness. Left: No mass, tenderness or fullness. Musculoskeletal: General: Normal range of motion. Cervical back: Normal range of motion and neck supple. Skin: General: Skin is warm and dry. Neurological: Mental Status: She is alert and oriented to person, place, and time. Psychiatric: Mood and Affect: Mood normal. Speech: Speech normal. Behavior: Behavior normal. Thought Content: Thought content normal. Judgment: Judgment normal. Assessment/Plan: Samaria was seen today for gynecologic exam. Diagnoses and all orders for this visit: Well woman exam with routine gynecological exam Encounter for screening mammogram for breast cancer - Mammography screening bilateral with CAD; Future Screening examination for STD (sexually transmitted disease) - Syphilis Total(Unknown Syphilis Status); Future - HIV 1&2 AB/AG Screen (P24 AG); Future - Hepatitis panel, acute; Future - Chlamydia/GC by PCR June Swab; Future - Vaginitis Panel PCR; Future Standardized adult depression screening tool completed Encounter for counseling regarding contraception Colon cancer screening - Cologuard Non[facility] BMI is above average; Discussed eating tips for weight loss and and exercise steps. Breast self exam technique reviewed and patient encouraged to perform self-exam monthly. Discussed healthy lifestyle modifications. Educational material distributed. 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 Follow up as needed. Next pap due 2026 per ASCCP guidelines. Discussed taking a multivitamin. Discussed Calcium and Vitamin D for prevention of osteoporosis. Discussed contraception options. Patient desires OCPs. She will abstain from intercourse for 2 weeks and begin OCPs with negative UPT in the office. Discussed need for yearly mammogram after 40 yo. Encouraged consistent condom use for STD prevention. All questions answered. PAXTON Adams APRN-CNP Lisa M Franco, APRN-CNP 03/07/24 1119 documented in this encounter [facility] 03-07-2024 Miscellaneous Notes Addended by: INA MILIAN on: 03/07/2024 11:29 AM Modules accepted: Orders documented in this encounter [facility] 03-07-2024 Note Addended by: INA MILIAN on: 03/07/2024 11:29 AM Modules accepted: Orders [facility] 12-28-2023 History of Present [place] [address] Ms. Samaria Gilmore was seen for a neuropsychological evaluation on 12/28/2023. A report describing the results of this evaluation will be posted when completed. documented in this encounter [facility] 11-17-2023 Miscellaneous Notes Call [employer] to see if PA needed for Dr. Meier visit. Per automated system CPT codes 05150 needs PA. Spoke with Margarita and started PA over the phone. She stated that needed to listen to benefits with RN already did. Reference # [id number]. documented in this encounter [facility] 11-17-2023 Telephone encounter Note Call [employer] to see if PA needed for Dr. Meier visit. Per automated system CPT codes 59330 needs PA. Spoke with Margarita and started PA over the phone. She stated that needed to listen to benefits with RN already did. Reference # [id number]. [facility] 03-23-2022 Evaluation note Encounter Date Diagnosis Assessment [...] PT acknowledges understanding and agrees to understanding. [facility] Other 04-01-2012 History general Narrative - Reported* Type Description Date Medical History hypertension Medical History depression Medical History acid reflux Medical History miscarriage 10/2011 Surgical History D&C Hospitalization History childbirth [facility] Other Evaluation note* Diagnosis Onset Date Resolution Status Fracture, talus closed acute Injury of left ankle and foot [facility] Work Phone: Evaluation note* Diagnosis Onset Date Resolution Status Fracture, talus closed [facility] Work Phone: Evaluation note* Diagnosis Closed nondisplaced fracture of left talus with routine healing, unspecified portion of talus, subsequent encounter [facility] Diagnosis Closed nondisplaced fracture of left talus with routine healing, unspecified portion of talus, subsequent encounter- Primary Left foot pain Pain in soft tissues of limb [facility] Diagnosis Left foot pain- Primary Pain in soft tissues of limb Closed nondisplaced fracture of left talus with routine healing, unspecified portion of talus, subsequent encounter [facility]* Diagnosis BV (bacterial vaginosis) Unspecified vaginitis and vulvovaginitis [facility] Diagnosis Memory loss- Primary [facility]* Diagnosis Memory changes- Primary Staring episodes Psychogenic nonepileptic seizure documented in this encounter [facility]* Diagnosis Well woman exam with routine gynecological exam- Primary Routine gynecological examination Encounter for screening mammogram for breast cancer Screening examination for STD (sexually transmitted disease) Standardized adult depression screening tool completed Encounter for counseling regarding contraception Colon cancer screening Special screening for malignant neoplasms, colon [facility]* Diagnosis Encounter for initial prescription of contraceptive pills- Primary documented in this encounter [facility]* Diagnosis Encounter for initial prescription of contraceptive pills- Primary documented in this encounter [facility]* Diagnosis Decreased libido- Primary DUB (dysfunctional uterine bleeding) Other disorder of menstruation and other abnormal bleeding from female genital tract PMB (postmenopausal bleeding) Postmenopausal bleeding documented in this encounter [facility]* Diagnosis Screening examination for STD (sexually transmitted disease)- Primary documented [facility] filed[facility] in [facility] filedocumented in this encounter [facility] filedocumented in this encounter [facility] filedocumented in this encounter [facility] on filedocumented in this encounter [facility]* Attachments The following attachments cannot be sent through Care Everywhere. * Control Options (Luxembourger) * Calcium and vitamin D for bone health (Luxembourger) [facility]* Attachments The following attachments cannot be sent through Care Everywhere. * STD Prevention (Luxembourger) [facility] Summary Purpose Family History No Family History Records Found Relationship Condition Age at Onset Recorded Date/T kaylee father Unknown son Asthma Unknown sister Hypertension Unknown Advance Directives No Advanced Directives Records Found Advance Directive Response Recorded Date/ Time Advance Directives No March 01 4:48pm Date Activated Date Inactivated Comments 05/04/2023 10:04 AM 05/05/2023 1:43 PM Date Activated Date Inactivated Comments 05/04/2023 10:04 AM 05/05/2023 1:43 PM Chief Complaint and Reason for Visit Chief Complaint Left ankle pain with injury S99.912A S99.922A Reason for Visit Fracture, talus clos ed Injury of left ankle and foot Chief Complaint Left ankle pain with injury S99.912A S99.922A Reason for Visit Fracture, talus clos ed Reason for Referral Specialty Diagnoses / Procedures Referred By Isai cho Referred To Contact Radiology Diagnoses Memory changes Procedures MR brain without contrast Baron Martel, BARI [address] [place] [address] Referral ID Status Reason Start Date Expiration Date V isits Requested Visits Authorized [id number] Pending Review 03/08/2024 03/08/2025 1 1 Additional Source Comments INFORMATION SOURCE (unrecogn ized section and content) DATE CREATED AUTHOR 01/25/2018 [facility] DATE CREATED AUTHOR AUTHOR'S ORGANIZ ATION 07/30/2022 [facility] DATE CREATED AUTHOR AUTHOR'S ORGANIZ ATION 06/10/2024 [facility] DATE CREATED AUTHOR AUTHOR'S ORGANIZ ATION 06/18/2024 [facility] EPIC DATE CREATED AUTHOR AUTHOR'S ORGANIZ ATION 10/13/2024 [facility] DATE CREATED AUTHOR AUTHOR'S ORGANIZ ATION 10/13/2024 [facility] DATE CREATED AUTHOR AUTHOR'S ORGANIZ ATION 10/14/2024 [facility] REASON FOR VISIT (unrecogniz ed section and content) Reason Comments Follow-up Reason Comments Memory Loss Specialty Diagnoses / Procedures Referred By Isai cho Referred To Contact Psychology Diagnoses Anxiety Impulsive Staring episodes Baron Martel PA-C [address] [place] [address] Amber Meier, PhD [address] [place] [address] Referral ID Status Reason Start Date Expiration Date Visits Requested Visits Authorized [id number] Pending Review Specialty Services Required 3 05/15/2024 1 1 Reason Comments Gynecologic Exam Pt is here for annua l exam. Reason Comments Contraception Pt is here for NV fo r UPT to start BC pills. Reason Onset Date Comments letter requested 03/29/2024 Reason Comments Gynecologic Exam STD SCREENING Care Teams (unrecognized sec tion and content) Team Status: Active Member Role Status Carey Leung MD Primary Care Provider Active Team Status: Inactive Member Role Status Dates Sakshi Leung MD Primary Care Provider Active Start: March 01, 2024 End: March 01, 2024 Jackelyn Stone APRN Attending Provider Active Start: March 01, 2024 End: March 01, 2024 Team Status: Active Member Role Status Carey Leung MD Primary Care Provider Active Start: March 01, 2024 Jackelyn Stone APRN Attending Provider Active Start: March 01, 2024 Finishing Technician Relationship Specialty Start Date End Date Brittany Mcginnis MD [address] [place] [address] Referring Physician Family Medicine 03/05/24 Finishing Technician Relationship Specialty Start Date End Date Brittany Mcginnis MD [address] [place], [place] [id number] Referring Physician Family Medicine 03/05/24 Finishing Technician Relationship Specialty Start Date End Date Brittany Mcginnis MD [address] [address] [place], [place] [id number] Referring Physician Family Medicine 03/05/24 Finishing Technician Relationship Specialty Start Date End Date Brittany Mcginnis MD [address] [place] [facility] [address] Referring Physician Family Medicine 03/05/24 Finishing Technician Relationship Specialty Start Date End Date Brittany Mcginnis MD [address] [place] [facility] [address] Referring Physician Family Medicine 03/05/24 Finishing Technician Relationship Specialty Start Date End Date Brittany Mcginnis APRN-COMMERCIAL DEVELOPMENT MANAGER [address] [facility], [place] [address] PCP - General Family Medicine 01/11/23 Finishing Technician Relationship Specialty Start Date End Date Brittany Mcginnis APRN-COMMERCIAL DEVELOPMENT MANAGER [address] [facility], [place] [address] PCP - General Family Medicine 01/11/23 Finishing Technician Relationship Specialty Start Date End Date Brittany Mcginnis APRN-COMMERCIAL DEVELOPMENT MANAGER [address] [facility], [place] [address] PCP - General Family Medicine 01/11/23 Finishing Technician Relationship Specialty Start Date End Date Brittany Mcginnis APRN-COMMERCIAL DEVELOPMENT MANAGER [address] [facility], [place] [address] PCP - General Family Medicine 01/11/23 Finishing Technician Relationship Specialty Start Date End Date Brittany Mcginnis APRN-COMMERCIAL DEVELOPMENT MANAGER [address] [facility], [place] [address] PCP - General Family Medicine 01/11/23 Finishing Technician Relationship Specialty Start Date End Date Brittany Mcginnis APRN-CNP [address] [facility], [place] [address] PCP - General Family Medicine 01/11/23 Finishing Technician Relationship Specialty Start Date End Date Brittany Mcginnis APRN-CNP [address] [facility], [place] [address] PCP - General Family Medicine 01/11/23 Finishing Technician Relationship Specialty Start Date End Date Brittany Mcginnis APRN-CNP [address] [facility], [place] [address] PCP - General Family Medicine 01/11/23 Finishing Technician Relationship Specialty Start Date End Date Brittany Mcginnis APRN-CNP [address] [facility], [place] [address] PCP - General Family Medicine 01/11/23 Goals [...] BE BASED ON THE PRIMARY CLINICAL RECORDS. [facility]. provides no warranty or guarantee of the accuracy or completeness of information in this document.
--- NOTE | 2024-12-19 12:49 | CT_ITS ---
The [address] [address] Patient Name: CATHY GILMORE MRN: [id number] date: 1975 Sex: F Assigned Patient Location: ER Current Patient Location: ER Accession/Order Number: [id number] Exam Date: 12/19/2024 13:29 Report Date: 12/19/2024 13:32 At the request of: ISHMAEL WALTERS NP Procedure: CT head/brain wo con CT head/brain wo con 12/19/2024 1:09 PM SIGNS AND SYMPTOMS: ^blunt injury 12 d ago with R side pain TECHNIQUE:Multi-detector CT axial slices of the brain were obtained without IV contrast. CT was performed with one or more of the following dose reduction techniques: Automated exposure control, adjustment of the mA and/or kV according to patient size, or use of iterative reconstruction technique. COMPARISON: 11/14/2019 FINDINGS: There is no shift of the midline structures, acute intracranial bleeding, mass effects, or evidence of acute ischemia. The ventricular system is normal in size. The brainstem and the cerebellum are unremarkable. The visualized intraorbital contents, the visualized paranasal sinuses, and the infratemporal soft tissues show no acute abnormality. The osseous structures in the skull base and the calvarium show no abnormality. CT/CT head/brain wo con IMPRESSION: No acute intracranial pathology. Impression dictated by: Nikita Skinner M.D. 12/19/2024 1:32 PM Dictation Location: [place] [address] Electronically authenticated by: [id number] Y Date: 12/19/2024 13:32
--- NOTE | 2024-12-19 12:49 | CT_ITS ---
The [address] [address] Patient Name: CATHY GILMORE MRN: [id number] date: 1975 Sex: F Assigned Patient Location: ER Current Patient Location: Accession/Order Number: [id number] Exam Date: 12/19/2024 13:32 Report Date: 12/19/2024 13:36 At the request of: ISHMAEL WALTERS NP Procedure: CT facial bones wo con CT facial bones wo con 12/19/2024 1:09 PM SIGNS AND SYMPTOMS: ^punch to L orbit and mandible, pain TECHNIQUE: Multidetector CT axial slices of the facial bones were obtained. Helical, sagittal, coronal, and 3-D reconstructions were performed and viewed on a separate workstation and reviewed to further define anatomy and possible pathology. CT was performed with one or more of the following dose reduction techniques: Automated exposure control, adjustment of the mA and/or kV according to patient size, or use of iterative reconstruction technique. COMPARISON: None. FINDINGS: Fracture: There is a vertically oriented fracture through the left mandibular ramus and angle. This is minimally displaced. The fracture communicates with the internal loss of the left mental foramen superiorly. Paranasal sinuses and mastoids: Well aerated. Soft tissue swelling: There is mild soft tissue swelling in the left perimandibular region. Globes: Intact. Upper aerodigestive tract: Within normal limits. Joints: Intact. Temporal mandibular joints: Intact. Infratemporal fossa: Within normal limits. CT/CT facial bones wo con IMPRESSION: There is a vertically oriented fracture through the left mandibular ramus and angle. This is minimally displaced. The fracture communicates with the internal loss of the left mental foramen superiorly. There is mild soft tissue swelling in the left perimandibular region. The orbits are intact. Impression dictated by: Nikita Skinner M.D. 12/19/2024 1:36 PM Dictation Location: [place] [address] Electronically authenticated by: [id number] Y Date: 12/19/2024 13:36
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
--- NOTE | 2024-12-19 12:58 | PC.NURSE ---
Pain to left side of cheek, fading bruising present, no swelling noted.
== END 2024-12-19 15:49 | disposition left against medical advice (07) ==
PROVIDERS: Emergency Provider Emergency Medicine; PCP Nurse Practitioner Family
DX: S02.642A Fracture of ramus of left mandible, initial encounter for closed fracture (principal); Z53.29 Procedure and treatment not carried out because of patient's decision for other reasons; S02.652A Fracture of angle of left mandible, initial encounter for closed fracture; Y04.0XXA Assault by unarmed brawl or fight, initial encounter
CPT/HCPCS: 70450; 70486; 99284

== ENCOUNTER 2024-12-28 08:59 | Outpatient (OUT) | payer MEDICAID, SELFPAY ==
--- OUTSIDE RECORDS SUMMARY | 2024-11-13 12:52 | XMS_ITS ---
Author Organization [facility] in [place] Address [address] [place] [address] Care Team Providers Care Activities Therapist Name Role Phone James Brittany Primary Care Provider REASON FOR VISIT rf trazadone- see note Medications Medication SIG (Take, Route, Fr equency, Duration) Notes Start Date End Date Status traZODone HCl 100 mg TAKE 1-2 TABLET NATASHA LY AT BEDTIME hs prn for 30 days Activ e Encounters Encounter Location Date Provider Diagnosis [facility] [address] [place] [address] 11/13/2024 Brittany Ramirez Insomnia G47.00 Assessments Encounter Date Diagnosis (ICD Code) Assessment Notes Treatment Notes Treatment Clinical Notes Section Notes 11/13/2024 Insomnia (ICD-10 - G47.00) Plan Of Treatment Medication Medication Name Sig Start Date Stop Date Notes traZODone HCl 100 mg TAKE 1-2 TABLET NATASHA LY AT BEDTIME hs prn for 30 days Progress Notes * Samaria GILMORE EDOB:1975 ( 49 yo F)Acc No.[id number]:11/13/2024 Patient: Jc Samaria WALKER :1975 A ge:49 Y S ex:Female Address:[address] [place] [address], [address] * Refills Refill traZODone HCl Tablet, 100 mg, 60, TAKE 1-2 TABLET DAILY AT BEDTIME, hs prn, 30 days, Refills=11 Subjective: * Chief Complaints: * R f trazadone- see note * Medical History: * Surgical History: * Hospitalization/Major Diagno stic Procedure: * Medications: Objective: * Vitals: * Physical Examination: Assessment: * Assessment: 1. I nsomnia - G47.00 Plan: * Treatment: * Procedure Codes: * true * Date: Generated for Crow sarkar/Maggie/eTdoryssmitting on: 0 12/28/2024 09:09 AM EDT
--- OUTSIDE RECORDS SUMMARY | 2024-12-11 10:13 | XMS_ITS ---
Author Organization [facility] in [place] Address [address] [place] [address] Care Team Providers Care Atlassian Administrator Name Role Phone James Brittany Primary Care Provider [phone] REASON FOR VISIT F/U Encounters Encounter Location Date Provider Diagnosis [facility] [address] [place] [address] 12/11/2024 Brittany Ramirez Stage 2 chronic kidney disease N18.2 Assessments Encounter Date Diagnosis (ICD Code) Assessment Notes Treatment Notes Treatment Clinical Notes Section Notes 12/11/2024 Stage 2 chronic kidney disease (ICD-10 - N18.2) Plan Of Treatment Pending Test Test Name Order Date PROF 14(COMP METB) 12/11/2024 Progress Notes * Samaria GILMORE EDOB:1975 ( 49 yo F)Acc No.[id number]:12/11/2024 Patient: Jc Samaria WALKER :1975 A ge:49 Y S ex:Female Address:[address] [place] [address], [address] Subjective: * Chief Complaints: * F /U * Medical History: * Surgical History: * Hospitalization/Major Diagno stic Procedure: * Medications: Objective: * Vitals: * Physical Examination: Assessment: * Assessment: 1. S tage 2 chronic kidney disease - N18.2 (Primary) Plan: * Treatment: * Procedure Codes: * true * Date: Generated for Printi ng/Faxing/eTransmitting on: 0 12/28/2024 09:10 AM EDT
--- OUTSIDE RECORDS SUMMARY | 2024-12-19 10:00 | XMS_ITS | Encounter Summary ---
Author Organization [employer] tem Address [id number] [address] [place] [address] Care Team Providers Care Human Resources Hr Generalist Name Role Phone Unavailable Primary Care Provider Unavailabl e Reason for Referral * Consultation (Routine) - Pending Review Specialty Diagnoses / Procedures Referred By Isai cho Referred To Contact Psychiatry Diagnoses Psychogenic nonepileptic seizure Depression with anxiety Baron Martel PA-C [address], [address] [place] [address] Phone: tel: fax: Devendra Us MD [address] [place] [address] Phone: tel: fax: Referral ID Status Reason Start Date Expiration Date Visits Requested Visits Authorized [id number] Pending Review Specialty Services Required 12/19/2024 12/19/2025 1 1 * Medication Prior Authorization - Pending Review Specialty Diagnoses / Procedures Referred By Contbrandon t Referred To Contact Diagnoses Psychogenic nonepileptic seizure Seizure disorder (CMS-HCC) Baron Martel PA-C [address], [address] [place] [address] Phone: tel: fax: Referral ID Status Reason Start Date Expiration Date V isits Requested Visits Authorized [id number] Pending Review 1 1 Reason for Visit * Reason Comments Follow-up Patient is here toda y for follow up on dx: Memory changes Encounter Details Date Type Department Care Team (Late st Contact Info) Description 12/19/2024 10:00 AM EDT Office Visit [facility] [place] [address] [place] [address] Baron Martel PA-C [address] [facility] [address] [place] [address] Memory changes (Primary Dx); Psychogenic nonepileptic seizure; Other insomnia; Seizure disorder (CMS-HCC); Depression with anxiety; Vitamin B12 deficiency Social History Tobacco Use Types Packs/Day Years Used Date Smoking Tobacco: Former Cigarettes Q uit: 2016 Smokeless Tobacco: Never Alcohol Use Standard Drinks/Week Comments Not Currently 0 (1 standard drink = 0.6 oz pur e alcohol) rare PHQ-2 Answer Date Recorded Total Score 0 03/08/2024 Childcare Answer Date Recorded Childcare Unknown 01/10/2019 Employment Answer Date Recorded Employment Unknown 01/10/2019 Hunger Screening Answer Date Recorded Within the past 12 months we worried whether our food would run out before we got money to buy more. Never True 12/19/2024 Within the past 12 months th e food we bought just didn't last and we didn't have money to get more. Never True 12/19/2024 Comments No Sex and Gender Information Value Date Recorded Sex Assigned at Not on file Legal Sex Female 11:47 AM EDT Gender Identity Not on file Sexual Orientation Not on file documented as of this encounter Last Filed Vital Signs Vital Sign Reading Time Taken Comments Blood Pressure 136/91 12/19/2024 10:06 AM EDT Pulse 72 12/19/2024 10:06 AM EDT Temperature - - Respiratory Rate - - Oxygen Saturation - - Inhaled Oxygen Concentration - - Weight 86.6 kg (191 lb) 12/19/2024 10:06 AM EDT Height 152.4 cm (5') 12/19/2024 10:06 AM EDT Body Mass Index 37.3 12/19/2024 10:06 AM EDT documented in this encounter Progress Notes * Baron Martel PA-C - 12/19/2024 10:00 AM EDT [facility] Office Note 12/19/2024 10:28 AM Patient info: Samaria Flores is a 49 y.o. 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 Last seen in the office on 03/08/24 Samaria is present in the office today with her sister. Previously followed with Dr. Verdin, [facility] Interval Hx: Labs 03/22/24: Vitamin B12 was 232 (range: 180-914), Folate was normal, Thyroid Profile was normal Brain MRI without contrast was completed on 03/26/24. No evidence of acute intracranial abnormality, by MR. No significant cortical atrophy for age. The hippocampal volumes are within the lower range of normal according to normal (19% normative percentile). Continues Lamotrigine 200 mg BID No seizures/seizure-like activity since last office visit (03/08/24). Samaria has primarily been struggling with depression and anxiety. She takes Lexapro and Trazodone. Lamotrigine should also be helpful for mood as well. She does not currently follow with Psychiatry. Previous Neuropsych report on 12/28/23. Previous Studies: 05/05/23: LTME - Baseline Routine EEG was completed on 05/04/23 and was normal. - Video EEG monitoring was performed from 05/04/23-05/05/23. - There were at least 12 push-button events recorded during the study, with no epileptogenic correlate on EEG. 04/10/16: CT Head without contrast ([facility]) - Unremarkable Prior Hx: 04/01/23 Seizure Hx: I have been zoning out as far back as I can remember . 1st seizure event (requiring EMS) was 5 years ago (2017); witnessed 2nd seizure event (requiring EMS) was 3 years ago (2019); partially witnessed, as the witness did not see it start Semiology: 1st seizure event: stopped what she was doing and stared-off for an extended amount of time withoutresponse to stimulus; amnestic to event until being placed into ambulance by EMS 2nd seizure event: generalized convulsions and jerking of extremities, with associated snores respirations, urinary incontinence, and postictal confusion Samaria has been following with [facility] in the [place], [place] area since the 2nd such seizure event in 2019. Despite taking Lamotrigine and being titrated over time to a dose of 200 mg BID, she complains of continued staring-off/zoning out episodes that occur multiple times daily. Her sister, who is present for today's office visit, has witnessed multiple of these episodes. Per the sister, Zoya is said to suddenly stop speaking or doing whatever it is she is doing and stare-off for a short time, during which time she is not responsive to verbal or physical stimulus, followed by a degree of confusion/disorientation. These episodes typically last 10-15 seconds, with maximum duration of 1 minute. There are no associated automatisms. Notably, because of the ongoing episodes Zoya does not operate a motor vehicle or been able to maintain employment. Lamotrigine is the only AEM she has been on. Records and previous testing from [facility] are unavailable for personal reviewat this time. 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 Also, I ordered 72 hour video EEG monitoring Baseline Routine EEG was completed on 05/04/23 and was normal. Video EEG monitoring was performed from 05/04/23-05/05/23. There were at least 12 push-button events recorded during the study, with no epileptogenic correlate on EEG. The events were subsequently deemed to be non-epileptic. Samaria continues taking Lamotrigine 200 mg BID. She continues with frequent, transient staring episodes, on a daily basis. Samaria states this adversely affects her ADL's significantly, including being unable to operate a motor vehicle or obtain meaningful employment. She takes Escitalopram in treatment of anxiety and depression, prescribed by her PCP. She follows with a Therapist for counseling but not Psychiatry. Samaria does not have a diagnosis of ADHD, though she has been impulsive and somewhat easily distracted at times during office visits. Follow up 03/08/24 Labs 05/16/23: Lamotrigine level was 8.5 (range: 1.0-13.0) Referred for Neuropsychological testing, which was completed from 12/28/23-01/05/24. Daily marijuana use, chronic pain, poor sleep, anxiety/depression contribute to cognitive issues. Samaria has continued taking Lamotrigine 200 mg BID. Denies any seizures since last office visit (05/16/23). Staring spells are now infrequent. Still complains of short-term memory loss; no change/s since last office visit (05/16/23). Discussed Neuropsychology results with her. Notably, has never underwent a Brain MRI. MOCA: ; 09/05 short-term recall Past Medical Hx: See EMR Social Hx: Tobacco: former smoker; quit in 2015 ETOH: yes; occasional consumption Illicit Substances: none Family Hx: Mother: Asthma, COPD, Pancreatic [place] Father: --- Siblings: SLE Surgical Hx: See EMR Allergies: See EMR Review of Systems: Constitutional: Negative for fever, chills, sweats, or unintentional weight loss Eyes: Negative HENT: Negative Cardiovascular: Negative for chest pain and palpitations Respiratory: Negative for cough and shortness of breath Gastrointestinal: Negative for nausea, vomiting, abdominal pain and diarrhea Genitourinary: Negative for dysuria, urgency, frequency, or hematuria Musculoskeletal: Negative for myalgias or joint swelling Skin: Negative Neurological: - as noted in the HPI Psychiatric/Behavioral: - anxiety,depression, impulsive Endocrine: Negative Hem/Onc: Negative Allergy/Immunology: Negative Vitals: BP: 136/91 HR: 72 Weight: 86.6 kg Physical Exam: General: well groomed, appears stated age Neurological Exam: The patient is awake, alert, and attentive Speech and language are normal Normal affect, with normal orientation and cognition EOMI, PERRL, No gross visual field deficits Face is symmetric, Tongue protrudes midline Palate rises symmetrically with uvula midline Shoulder shrug is strong bilaterally UE Drift is (-) Nose to finger testing is without dysmetria Fine motor skills are approximately equal in each hand Tremor: (-) Sensation is intact and symmetric in the extremities bilaterally DTR's are 2+ throughout Strength is 5/5 in all 4 extremities Romberg is (); not tested secondary to left foot fracture Gait is currently hampered by a left foot fracture; in a walking boot using a push scooter for assistance ASSESSMENT: Samaria is a 47 year old right hand dominant female with a hx of obesity, HTN, GERD, anxiety, and depression who most likely has a mix of epileptic and non- epileptic seizures, as well as short-term memory changes. PLAN: Lamotrigine 200 mg BID Vitamin B12 1,000 mcg daily Refer to Psychiatry, Dr. Us Follow up in the office in 6-8 months Electronically Signed by: Baron Martel PA-C 12/20/242007 documented in this encounter Plan of Treatment Upcoming Encounters Date Type Department Care Team (Late st Contact Info) Description 07/02/2025 10:00 AM EST Office Visit [facility] [place] [place] [address] Baron Martel PA-C [address] [facility], [address] [place] [address] Scheduled Referrals Name Type Priority Associated Diagnoses Orde r Schedule Ambulatory referral to Psychiatry (Non-[facility]) Outpatient Referral Routine Psychogenic nonepileptic seizure Depression with anxiety 1 Occurrences starting 12/19/2024 until 12/19/2025 documented as of this encounter Goals Goal Patient Goal Type Associated Problems Recent Progress Patient-Stated? Author Home with self care General Yes Jordyn Rea, RN Note: Evaluation of progress towards goal: Patient stated she plans to return home with self care. documented as of this encounter Visit Diagnoses Diagnosis Memory changes- Primary Psychogenic nonepileptic seizure Other insomnia Seizure disorder (CMS-HCC) Unspecified epilepsy without mention of intractable epilepsy Depression with anxiety Dysthymic disorder Vitamin B12 deficiency Other B-complex deficiencies documented in this encounter Additional Health Concerns Assessment Noted Time PHQ-9 Depression Total Score: 0 03/08/20 8:32 AM EDT A Body Mass Index follow-up plan has been documented for the patient 03/07/2024 11:19 AM EDT documented as of this encounter
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
--- OUTSIDE RECORDS SUMMARY | 2024-12-28 04:30 | XMS_ITS ---
Author Organization [facility] Address [address] [place] [address] Care Team Providers Care Information Technology Audit Manager Name Role Phone Brittany Ramirez Primary Care Provider [phone] Allergies No Known Allergies REASON FOR VISIT on going depression and insomnia, patient also has a fractured jaw, seizure and hit her jaw as she fell Medications Medication SIG (Take, Route, Frequency, Duration) Notes Start Date End Date Status Vitamin B12 1000 MCG 1 tablet Orally Onc e a day Active Omeprazole 20 mg TAKE 1 CAPSULE DAILY 30 MINUTES BEFORE MORNING MEAL Active LaMICtal 100 MG 1 tablet Orally Once a day for 90 days Active Pravastatin Sodium 20 MG 1 tablet Orally Once a day for 30 days 08/24/2024 Active Benicar 20 MG 1 tablet Orally Once a day for 30 days 08/16/2024 Not-Taking Escitalopram Oxalate 20 mg TAKE ONE AND ONE-HALF TABLETS ONCE DAILY Active Blood Pressure Monitor - daily monitorin g for 30 days 08/24/2024 Active Doxepin HCl 25 MG 1 capsule at bedtime Orally Once a day for 30 days 12/28/2024 Active Social History Tobacco Use: Social History Observation Description Date Details (start date - stop date) Former Smoker NA - NA Tobacco Use/Smoking Question Answer Notes Patient is a former smoker How long has it been since you last smoked? 5-10 years AUDIT-C (Standard) Question Answer Notes Did you have a drink containing alcohol in the p ast year? No Points 0 Interpretation Negative Vital Signs Blood pressure systolic 138 mm Hg 12/29/19 25 Blood pressure diastolic 88 mm Hg 025 Height 60 in 12/28/2024 Weight 186.2 lbs 12/28/2024 BMI 36.36 kg/m2 12/28/2024 Encounters Encounter Location Date Provider Diagnosis [facility] [place] [address] [place] [address] 12/28/2024 Brittany Ramirez Insomnia G47.00 and Depression, recurrent F33.9 Assessments Encounter Date Diagnosis (ICD Code) Assessment Notes Treatment Notes Treatment Clinical Notes Section Notes 12/28/2024 Insomnia (ICD-10 - G47.00) 12/28/2024 Depression, recurrent (ICD-10 - F33.9) 12/28/2024 Other stopped taking BP med has lost some wt continue to monitor bp Plan Of Treatment Medication Medication Name Sig Start Date Stop Date Notes traZODone HCl 100 mg TAKE 1-2 TABLET NATASHA LY AT BEDTIME hs prn Doxepin HCl 25 MG 1 capsule at bedtime Orally Once a day for 30 days 12/28/2024 Treatment Notes Assessment Notes Other stopped taking BP med has lost some wt continue to monitor bp Progress Notes * Samaria GILMORE EDOB:1975 ( 49 yo F)Acc No.[id number]:12/28/2024 UNLOCKED PROGRESS NOTE Progress Note Patient: Samaria JOYNER Provider: Angela Ramirez ([facility]), COMMERCIAL LOAN MANAGER :1975 A ge:49 Y S ex:Female Date:12/28/2024 Address:[address] [place], [place] [id number] Check In:08:24 AM ESTCheck O ut:08:51 AM EST Subjective: * Chief Complaints: * 1 . On going depression and insomnia. 2. Patient also has a fractured jaw, seizure and hit her jaw as she fell. * Medical History: O chacorta weight, Cough, Snoring, Localization-related (focal) (partial) symptomatic epilepsy and epileptic syndromes with complex partial seizures, not intractable, without status epilepticus, Paronychia, finger, BMI 40.0-44.9, adult, Memory impairment, [place] (obstructive sleep apnea), Ex-smoker for more than 1 year, Hyperlipidemia, Wellness examination, Seizures, Spondylolisthesis, Sciatica, left, Hyperglycemia, Hyperinsulinemia, Single seizure, Other dysphagia, Tonsillar hypertrophy, Depression, major, recurrent, in complete remission, Paresthesia of lower limb, Constipation, Metabolic syndrome X, Other biomechanical lesions of lumbar region, Acute low back pain, unspecified back pain laterality, unspecified whether sciatica present, Right flank pain, Strep pharyngitis, Weight gain, Insomnia, Hypertension, Depression, recurrent, Fractured, talus closed. * Surgical History: D & C . * Hospitalization/Major Diagno stic Procedure: T esting for Epilepsy 05/2023. * Family History: F ather: unknown. M other: alive, pancreatic cancer, chronic obstructive pulmonary disease, asthma. B rother(s): alive. S ister(s): alive, Lupus. S on(s): alive. D aughter(s): alive. 2 brother(s) , 2 sister(s) . 1 son(s) , 1 daughter(s) . . * Social History: T obacco Use: T obacco Use/Smoking P atient is a f ormer smoker H ow long has it been since you last smoked??5-10 years D rug/Alcohol: A JERRY-C (Standard) D id you have a drink containing alcohol in the past year? N o P oints 0 I nterpretation N egative * Medications: T aking Blood Pressure Monitor - Device daily monitoring , Taking Escitalopram Oxalate 20 mg Tablet TAKE ONE AND ONE-HALF TABLETS ONCE DAILY , Taking LaMICtal(lamoTRIgine) 100 MG Tablet 1 tablet Orally Once a day , Taking Omeprazole 20 mg Capsule Delayed Release TAKE 1 CAPSULE DAILY 30 MINUTES BEFORE MORNING MEAL , Taking Pravastatin Sodium 20 MG Tablet 1 tablet Orally Once a day , Taking Vitamin B12 1000 MCG Tablet 1 tablet Orally Once a day , Not-Taking/PRN Benicar(Olmesartan Medoxomil) 20 MG Tablet 1 tablet Orally Once a day , Not-Taking/PRN traZODone HCl 100 mg Tablet TAKE 1-2 TABLET DAILY AT BEDTIME hs prn , Medication List reviewed and reconciled with the patient * Allergies: N .K.D.A. Objective: * Vitals: W t:186.2lbs, Ht: 60 in, BP:138/88mm Hg, BMI:36.36Index, Ht-cm: 152.4 cm, Wt-k.46 kg. Assessment: * Assessment: 1. I nsomnia - G47.00 (Primary) 2 . D epression, recurrent - F33.9 ? Plan: * Treatment: 2. D epression, recurrent Start Doxepin HCl Capsule, 25 MG, 1 capsule at bedtime, Orally, Once a day, 30 days, 30, Refills 11. 3. O thers Notes: stopped taking BP med has lost some wt continue to monitor bp * Preventive Medicine: Screenings/Counseling: B SD ACTION PLAN Above Normal BMI Follow-up D ietary management education, guidance, and counseling * * Electronic signature of Loraine Washington NP, HERBARIUM CURATOR.COMMERCIAL LOAN MANAGER.[id number] on 12/28/2024 at 09:10 AM EDT Sign off status: Pending Visit Status: Adalberto KERN (Check Out) * Provider: Angela Ramirez (TTC), COMMERCIAL LOAN MANAGER Date: 12/28/2024 Generated for Crow sarkar/Maggei/Philsmitting on: 12/28/2024 09:10 AM EDT
--- OUTSIDE RECORDS SUMMARY | 2024-12-28 09:09 | XMS_ITS | Clinical Summary ---
Author Organization SemiLev tem Address [id number] [address] [place] [address] Care Team Providers Care Compliance Spec Name Role Phone Britatny Ramirez APRN-DIP TUBE ASSEMBLER MACHINE Primary Care Provider Allergies No known active [...] Encounters Date Type Department Care Team Description 12/26/2024 1:14 PM EDT - 12/26/2024 1:55 PM EDT Emergency [facility] - Emergency [address] [place] [id number] Closed fracture of left side of mandible, unspecified mandibular site, initial encounter ([facility]) (Primary Dx) Discharge Disposition: Home 12/26/2024 Travel 12/19/2024 10:00 AM EDT [facility] [place] [address] [place] [address] Baron Martel, PAGina Memory changes (Primary Dx); Psychogenic nonepileptic seizure; Other insomnia; Seizure disorder ([facility]); Depression with anxiety; Vitamin B12 deficiency 12/18/2024 Travel 10/11/2024 7:39 PM EDT - 10/11/2024 11:59 PM EDT Hospital Encounter [facility] [address] [facility] [address] [place] [address] Screening examination for STD (sexually transmitted disease) Discharge Disposition: Home 10/11/2024 8:26 AM EDT - 10/11/2024 7:38 PM EDT Hospital Encounter [facility] - Lab [address] [place] [address] Screening examination for STD (sexually transmitted disease) Discharge Disposition: Home 10/11/2024 8:00 AM EDT [facility] [address] [address] Magalys Anaya, REAL ESTATE CONSULTANT-DIP TUBE ASSEMBLER MACHINE Screening examination for STD (sexually transmitted disease) [...] Mass Index 35.15 12/26/2024 11:33 AM EDT Plan of Treatment Upcoming Encounters Date Type Department Care Team (Late st Contact Info) Description 07/02/2025 10:00 AM EST Office Visit [facility] [place] [address] [place] [address] Baron Martel, PAEdgarC [address] [facility], [facility] [address] [place] [address] Health Maintenance Due Date Last Done Comments DTaP,Tdap and Td Vaccines (1 - Tdap) 1996 Adult BMI Follow Up Plan 03/07/2025 03/07/2024 Depression Screening 03/08/2025 03/08/2024 Influenza Vaccine 04/01/2025 04/28/2019, 06/04/2018 Pap Smear 06/01/2025 06/01/2022, 06/01/2022 Adult BMI Screening 12/26/2025 12/26/2024 Tobacco Screening 12/26/2025 12/26/2024 Goals Goal Patient Goal Type Associated Problems Recent Progress Patient-Stated? Author Home with self care General Yes Jordyn Rea, RN Note: Evaluation of progress towards goal: Patient stated she plans to return home with self care. Medical Devices Not on file Procedures Procedure Name Priority Date/Time Associated Diagnosis Comments CT FACIAL BONES WO CONT STAT 12/26/2024 11:51 AM EDT SYPHILIS TOTAL(UNKNOWN SYPHILIS STATUS) Routine 10/11/2024 8:26 [...] Recently Relevant to Health Maintenance Results * CT facial bones without contrast [...] MD on 12/26/2024 12:06 PM Jeaneth Olmstead REAL ESTATE CONSULTANT-DIP TUBE ASSEMBLER MACHINE IMG CT ORDERABLES Final Re sult * HIV 1&2 AB/AG Screen (P24 AG) (10/11/2024 8:26 AM EDT) HIV 1&2 AB/AG Non-React teri Non-React teri^Non-R eactive 10/11/2024 4:20 PM EDT [facility] Comment: NEW TEST METHOD NOTE This [...] EDT 10/11/2024 8:27 AM EDT Magalys Anaya REAL ESTATE CONSULTANT-[facility] LAB BLOOD ORDERABLES Fin al Result [facility] [address] [facility] [place] [address] * Syphilis Total(Unknown Syphilis Status) (10/11/2024 8:26 AM EDT) Syphilis Total <0.2 0.0 - 0.8 AI 10/11/2024 4:39 PM EDT [facility] Comment: NON REACTIVE No serologic evidence of infection to Treponema pallidum (syphilis). Repeat testing may be considered in patients with suspected acute or primary syphilis in 2 to 4 weeks. Serum / Unknown 10/11/2024 8 :26 AM EDT 10/11/2024 8:27 AM EDT Magalys Anaya REAL ESTATE CONSULTANT-DIP TUBE ASSEMBLER MACHINE LAB BLOOD ORDERABLES Fin al Result Performing Organization Address City/[facility]/ZIP Co de Phone Number [facility] [address] [facility], [facility] [address] [place] [address] * Hepatitis panel, acute (10/11/2024 8:26 AM EDT) Hepatitis B Surface Ag Non-Reacti ve Non-Reacti ve^Non-Danae ctive 10/11/2024 4:36 PM EDT [facility] Comment:NEW TEST METHOD Hep B Core IgM Ab Non-Reacti ve Non-Reacti ve^Non-Goldsmith ctive 10/11/2024 4:36 PM EDT [facility] Comment:NEW TEST METHOD Hep A IgM Ab Non-Reacti ve Non-Reacti ve^Non-Danae ctive 10/11/2024 4:36 PM EDT [facility] Comment:NEW TEST METHOD Anti HCV w/ PCR reflex Non-Reacti ve Non-Reacti ve^Non-Goldsmith ctive 10/11/2024 4:36 PM EDT [facility] Comment: NEW TEST METHOD NOTE If recent infection suspected, recommend repeat testing (>2 months). Hqyzgz-la-bwktyh ratio is <1.00. Blood / Unknown 10/11/2024 8 :26 AM EDT 10/11/2024 8:27 AM EDT Magalys Anaya REAL ESTATE CONSULTANT-[facility] BLOOD ORDERABLES Fin al Result [facility] [address] [facility] [place] [address] * Trichomonas by PCR (10/11/2024 8:17 AM EDT) Pathologist [facility] Specimen Source CERVIX 7:40 PM EDT [facility] Trichomonas PCR Not Detected Not Detected^No t Detected 10/12/2024 2:53 AM EDT [facility] Comment: Trichomonas vaginalis not detected NOTE Assay methodology is nucleic acid amplification by real-time PCR for detection of Trichomonas vaginalis DNA performed on [employer] GeneXpert Instrument System. MISCELLANEOUS 10/11/2024 8:1 7 AM EDT 10/11/2024 11:55 PM EDT Magalys Anaya REAL ESTATE CONSULTANT-[facility] MICROBIOLOGY - GENERAL O RDERABLES Final Result Performing Organization Address City/[facility]/ZIP Co de Phone Number [facility] [address] [address] * Chlamydia/GC by PCR June Swab (10/11/2024 8:13 AM EDT) Specimen source CERVIX 7:40 PM EDT [facility] Chlamydia DNA PCR Negative Negative^N egative 10/12/2024 12:26 PM EDT [facility] Comment: Chlamydia trachomatis not detected by nucleic acid amplification. This does not exclude the possibility of infection because results are dependent on adequate specimen collection. Gonorrhea DNA PCR Negative Negative^N egative 10/12/2024 12:26 PM EDT [facility] Comment: Neisseria gonorrhoeae not detected by nucleic acid amplification. This does not exclude the possibility of infection because results are dependent on adequate specimen collection. GENS 10/11/2024 8:13 AM EDT 10/11/2024 7:40 PM EDT us Magalys Anaya REAL ESTATE CONSULTANT-[facility] MICROBIOLOGY - GENERAL O RDERABLES Final Result Performing Organization Address [facility] Co de Phone Number [facility] [address] [facility], [facility] [address] [place] [address] * High risk HPV w/india (06/01/2022 7:59 AM EDT) Hpv specimen type ThinPrep 06/03/2022 7:59 AM EDT [facility] Hpv 16 Negative Negative^N egative 06/04/2022 3:04 PM EDT [facility] Hpv 18 Negative Negative^N egative 06/04/2022 3:04 PM EDT [facility] Other high risk hpv Negative Negative^N egative 06/04/2022 3:04 PM EDT [facility] Comment: HPV types 31,33,35,39,45,52,56,58,59,66 and 68 DNA were undetectable. THINP 06/01/2022 7:59 AM EDT 06/02/2022 7:59 AM EDT us Magalys Anaya REAL ESTATE CONSULTANT-DIP TUBE ASSEMBLER MACHINE LAB BLOOD ORDERABLES Fin al Result [facility] [address] [facility] [place] [address] from Last 3 Months or Most Recently Relevant to Health Maintenance Insurance [facility] MEDICAID Advance Directives * Full Code (Latest Code Status on File) Date Activated Date Inactivated Comments 05/04/2023 10:04 AM 05/05/2023 1:43 PM Care Teams Compliance Spec Relationship Specialty Start Date End Date Brittany Ramirez APRN-DIP TUBE ASSEMBLER MACHINE [address] [place] [address] PCP - General Family Medicine 12/26/24
--- OUTSIDE RECORDS SUMMARY | 2024-12-28 09:09 | XMS_ITS | Encounter Summary ---
Author Organization [facility] Address [id number] [address] [place] [address] Care Team Providers Care Coke Handling Supervisor Name Role Phone Unavailable Primary Care Provider Unavailabl e Encounter Details Date Type Department Care Team (Latest Contact Info) Description 12/18/2024 Travel Social History Tobacco Use Types Packs/Day Years [...] on file documented as of this encounter Plan of Treatment Upcoming Encounters Date Type Department Care Team (Late st Contact Info) Description 07/02/2025 10:00 AM EST Office Visit [facility] [place] [address] [place] [address] Baron Martel PA-C [address] [place] [address] documented as of this encounter [...]
--- OUTSIDE RECORDS SUMMARY | 2024-12-28 09:10 | XMS_ITS | Encounter Summary ---
Author Organization [employer] Address [id number] [address] [place] [address] Care Team Providers Care Outsole Tacker Name Role Phone Brittany Ramirez Edson CIGAR PACKING EXAMINER-SORTING MACHINE ATTENDANT Primary Care Provider Encounter Details Date Type Department Care Team (Late st Contact Info) Description 09/13/2024 Telephone [facility] Ob[facility]Gynecology [address] [place] [address] Ruchi Jacobs CMA Social History Tobacco [...] pharmacy. Can you please resend[facility] to [facility] [place]? * Telephone Encounter - DIRK Zapien - 09/13/2024 9:31 AM EST RX sent documented in this encounter Plan of Treatment Upcoming Encounters Date Type Department Care Team ([facility] st Contact Info) Description 07/02/2025 10:00 AM EST Office Visit [facility] [place] [address] [place] [address] Baron Martel, YOC [address] [place] [address] documented as of this encounter [...] documented as of this encounter Care Teams Outsole Tacker Relationship Specialty Start Date End Date Brittany Ramirez APRN-CNP [address] [facility] [facility] [place] [address] PCP - General Family Medicine 12/26/24 documented as of this encounter
--- OUTSIDE RECORDS SUMMARY | 2024-12-28 09:10 | XMS_ITS | Encounter Summary ---
Author Organization [facility] [employer] [place] s tem Address [facility][id number] [address] [place] [address] Care Team Providers Care Honey Extractor Name Role Phone Brittany Ramirez Edson SUBWAY TRAIN OPERATOR-VAN HELPER Primary Care Provider Reason for Visit * Reason Onset Date Comments Disability 06/29/2023 ADHD Medication 06/29/2023 Encounter Details Date Type Department Care Team (Late st Contact Info) Description 06/29/2023 Telephone [facility]icians Neurology [address] [place] [address] Rachel Daniels Disability; ADHD Medication Social History [...] Disability. Please call back and advise, callback#: [phone]. * Telephone Encounter - Baron Martel PA-C [...] AM EST Office Visit [facility] [place] [address] [place] [address] Baron Martel PA-C [address] [facility] [facility] [address] [place] [address] documented as of this encounter [...] Time PHQ-9 Depression Total Score: 0 05/16/20 23 10:34 AM EDT A Body Mass Index follow-up plan has been documented for the patient 06/01/2022 11:33 AM EDT documented as of this encounter Care Teams Honey Extractor Relationship Specialty Start Date End Date Brittany Ramirez, SUBWAY TRAIN OPERATOR-VAN HELPER [address] [place] [address] PCP - General Family Medicine 12/26/24 documented as of this encounter
--- OUTSIDE RECORDS SUMMARY | 2024-12-28 09:10 | XMS_ITS | Encounter Summary ---
Author Organization [facility] DermApproved s tem Address [id number] [address] [place] [address] Care Team Providers Care Qa Intern Name Role Phone Brittany Ramirez RESEARCH SOIL SCIENTIST-CORRECTIONAL SUPERVISOR Primary Care Provider Encounter Details Date Type Department Care Team (Latest Contact Info) Description 12/26/2024 Travel Social History Tobacco Use Types Packs/Day [...] AM EST Office Visit [facility] [place] [address] [place] [address] Baron Martel, YOC [address] [facility] [place] [address] documented as of this encounter [...] documented as of this encounter Care Teams Qa Intern Relationship Specialty Start Date End Date Brittany Ramirez, JOSE-CORRECTIONAL SUPERVISOR [address] [place] [address] PCP - General Family Medicine 12/26/24 documented as of this encounter
--- OUTSIDE RECORDS SUMMARY | 2024-12-28 09:10 | XMS_ITS | Clinical Summary ---
Author Organization [facility] Address [address] [place] [address] Care Team Providers Care Public Information Officer Name Role Phone Brittany Ramirez MD Unavailable [phone] Allergies No known active allergies Medications [...] Plan of Treatment Not on file Insurance [facility] [employer] MEDICAID [place] Care Teams Public Information Officer Relationship Specialty Start Date End Date Brittany Ramirez MD [address] [place] [address] Referring Physician Family Medicine 03/05/24
--- OUTSIDE RECORDS SUMMARY | 2024-12-28 09:10 | XMS_ITS | Encounter Summary ---
Author Organization [facility] tem Address [id number] [address] [place] [address] Care Team Providers Care Matte Cutter Name Role Phone JamesBrittany Edson SALESPERSON WOMEN'S HATS-LENDING ACTIVITIES SUPERVISOR Primary Care Provider Reason for Visit * Reason Onset Date Comments reschd appt 03/21/2023 Encounter Details Date Type Department Care Team (Late st Contact Info) Description 03/21/2023 [facility] [address] [place] [address] Aubrie Salas reschd appt Social [...] voicemail Date: 03/25 Provider: Dr. Hopkins in [place] Rescheduling Instructions: next available documented in this encounter Plan of Treatment Upcoming Encounters Date Type Department Care Team ([facility] Contact Info) Description 07/02/2025 10:00 AM EST Office Visit [facility] [place] [address] [place] [address] Baron Martel, YOC [address] [facility] [address] [place] [address] documented as of this encounter Visit Diagnoses Not on filedocumented in this encounter Additional Health Concerns Assessment Noted Time A Body Mass Index follow-up plan has been documented for the patient 06/01/2022 11:33 AM EDT documented as of this encounter Care Teams Matte Cutter Relationship Specialty Start Date End Date Brittany Ramirez APRN-TUNG [address] [place] [address] PCP - General Family Medicine 12/26/24 documented as of this encounter
--- OUTSIDE RECORDS SUMMARY | 2024-12-28 09:10 | XMS_ITS | Clinical Summary ---
Author Organization [facility] Address [address] [place] [address] Care Team Providers Care Special Service Representative Name Role Phone Shawn Guillen DO Primary Care Provider [phone] Allergies No known active allergies Medications venlafaxine [...] Plan of Treatment Not on file Insurance [place] Care Teams Special Service Representative Relationship Specialty Start Date End Date Shawn Guillen DO [address] [place], [place] [id number] PCP - General Family Medicine 03/04/17
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
[2024-12-28 09:56] LABS: Alanine Aminotransferase 15 U/L (14-59); Albumin Globulin Ratio 1.1; Albumin Level 3.9 g/dL (3.4-5.0); Alkaline Phosphatase 79 U/L (46-116); Anion Gap 16.2; Aspartate Amino Transferase 12 U/L (15-37); BUN Creatinine Ratio 16.4; Bilirubin Total 0.2 mg/dL (0.2-1.0); Calcium 9.5 mg/dL (8.5-10.1); Carbon Dioxide 27.1 mmol/L (21.0-32.0); Chloride 103 mmol/L (98-107); Estimated GFR (African America 54 (>=60 mL/min/1.73m^2); Estimated GFR (Non-African Ame 45 (>=60 mL/min/1.73m^2); Globulin 3.5 g/dL; Glucose 119 mg/dL (74-106); Potassium 4.3 mmol/L (3.5-5.1); Sodium 142 mmol/L (136-145); Total Protein 7.4 g/dL (6.4-8.2)
== END 2024-12-28 09:00 | disposition home or self-care (01) ==
LOC: LAB 09:05
PROVIDERS: PCP Nurse Practitioner Family; Visit Provider Nurse Practitioner Family
DX: N18.2 Chronic kidney disease, stage 2 (mild) (principal)
CPT/HCPCS: 36415; 80053

== ENCOUNTER 2025-03-10 16:57 | Emergency (ER) | payer MEDICAID, SELFPAY ==
[2025-03-10] VITALS (11 sets, daily range): BP systolic 110–131; BP diastolic 73–83; PULSE 82–100; TEMP 36.7; O2SAT 96–100; BMI 36.1
--- OUTSIDE RECORDS SUMMARY | 2025-03-10 17:07 | XMS_ITS | CCD ---
Author Organization [facility] Care Team Providers Care Anode Builder Name Role Phone DEN HU Unavailable Unavailable XOCHILT FAGAN Unavailable Unavailable DEN HU Unavailable Unavailable XOCHILT FAGAN Unavailable Unavailable Xochilt Corral Unavailable BRITTANY MCGINNIS Admitting Unavailable RAS, BRITTANY Attending Unavailable DR SAKSHI MARINELLI Primary Care Unavailable RAS, BRITTANY Consulting Unavailable MD Sakshi Marinelli Primary Care Provider [phone] JOSE Stone Attending Provider [phone] Brittany Mcginnis MD Unavailable VERNON QUINN Attending Unavailable VERNON QUINN Referring Unavailable GISSEL BURRELL Attending Unavailable WOLF ALAN Attending Unavailable WOLF ALAN Referring Unavailable WOLF ALAN Attending Unavailable WOLF ALAN Referring Unavailable WOLF ALAN Attending Unavailable WOLF ALAN Attending Unavailable WOLF ALAN Referring Unavailable Ras CAVAZOS Brittany S Primary Care Provider MAGALYS ANAYA Referring Unavailable RAS, BRITTANY S Primary Care Unavailable RAS, BRITTANY S Referring Unavailable RAS, BRITTANY S Primary Care Unavailable BARON MARTEL Attending Unavailable RAS, BRITTANY S Referring Unavailable RAS, BRITTANY S Primary Care Unavailable MAGALYS ANAYA Attending Unavailable OLIVIA SCHMIDT Attending Unavailable RAS, BRITTANY S Referring Unavailable RAS, BRITTANY S Primary Care Unavailable OLIVIA SCHMIDT Attending Unavailable RAS, BRITTANY S Referring Unavailable RAS, BRITTANY S Primary Care Unavailable BRAYANOLIVIA Attending Unavailable RAS, BRITTANY S Referring Unavailable RAS, BRITTANY S Primary Care Unavailable OLIVIA SCHMIDT Referring Unavailable RAS, BRITTANY S Primary Care Unavailable BRAYANOLIVIA COLUNGA Referring Unavailable RAS, BRITTANY S Primary Care Unavailable BRAYAN, OLIVIA Referring Unavailable RAS, BRITTANY S Primary Care Unavailable MAGALYS ANAYA Referring Unavailable RAS, BRITTANY S Primary Care Unavailable RAS, BRITTANY S Primary Care Unavailable RAS, BRITTANY S Primary Care Unavailable ROSAS MI Attending Unavailable 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, Brittany Son Primary Care Provider Agapito Sheldon MD Admit Provider Agapito Sheldon MD Attending Provider Agapito Sheldon Admitting Unavailable Agapito Sheldon Attending Unavailable Brittany Mcginnis Primary Care Unavailable Medications Current Medications Medication Drug Class(es) Dates Sig (Normalized) Sig (Original) Crutches (2 sources) Start: 03-01-2024 Crutches Active 0 .Route 1 March 01, 2024 12:00am As directed Crutches unit (1 source) Start: 03-01-2024 Crutches unit Active 0 .Route 1 March 01, 2024 12:00am As directed doxepin hydrochloride 50 mg oral capsule (2 sources) Tricyclic Antidepressant Start: 01-09-2025 take 1 capsule by mouth at bedtime Doxepin 50 mg Capsule Active 50 MG PO Bedtime 30 30 January 09, 2025 12:00am Start: 01-07-2025 End: 01-09-2025 take 1 capsule by mouth at bedtime Doxepin 25 mg capsule Discontinued 25 MG PO Bedtime January 07, 2025 12:00am January 09, 2025 12:14pm drospirenone 4 mg oral tablet (1 source) Progestin Start: 01-07-2025 take 1 tablet by mouth once daily Drospirenone (Contraceptive) (Slynd) 4 mg (28) tablet Active 4 MG PO Daily January 07, 2025 12:00am escitalopram 20 mg oral tablet (20 sources) Serotonin Reuptake Inhibitor Start: 03-01-2024 take 1 tablet by mouth once daily Escitalopram Oxalate 20 mg tablet Active 20 MG PO Daily March 01, [...] take 0.05 tablet by mouth once norethindrone-e.estradioL-iron (JUNE FE 08/20, ,) 1 mg-20 mcg (21)/75 [...] Start: 04-01-2023 take 2 tablets by mo ut twice daily Lamotrigine 100 mg tablet Active 200 MG PO Twice daily March 01, 2024 12:00am LaMICtal Active methylPREDNISolone (2 sources) Corticosteroid Start: [...] Active olmesartan (1 source) Angiotensin 2 Receptor Jamshdi Benicar Active omeprazole 20 mg delayed release [...] mouth 3 (three) times a day. Active Completed/Discontinued Medications Medication Drug Class(es) Dates Sig (Normalized) Sig (Original) Omeprazole 20 mg capsule,delayed release(DR/EC) (1 source) Start: 03-01-2024 End: 03-01-2024 take 1 capsule by mouth once daily Omeprazole 20 mg capsule,delayed release(DR/EC) Discontinued 20 MG PO Daily March 01, 2024 12:00am March 01, 2024 5:00pm Problems Active Problems Problem Classification Problem Date Documented Date Episodic/Chronic Abdominal pain (1 source) Abdominal pain; Translations: [Flank pain, acute] Episodic Anxiety disorders (14 sources) Anxiety; Translations: [Anxiety disorder, unspecified] Onset: 07-29-2008 05-18-2023 Chronic Disorders of teeth and jaw (1 source) Jaw pain Onset: 12-26-2024 Episodic Epilepsy; convulsions (14 sources) Seizure disorder; Translations: [Epilepsy, unspecified, not intractable, without status epilepticus] Onset: 05-04-2023 05-04-2023 Chronic Esophageal disorders (3 sources) Gastroesophageal reflux disease; Translations: [Gastro-esophageal reflux disease without esophagitis] 03-01-2024 Chronic Essential hypertension (5 sources) Hypertensive disorder; Translations: [Essential (primary) hypertension] Onset: 07-29-2008 03-01-2024 Chronic Fracture of lower limb (13 sources) Closed fracture of talus; Translations: [Unspecified [...] 07-10-2024 04-24-2024 Chronic Miscellaneous mental health disorders (15 sources) Dissociative convulsions; Translations: [Conversion disorder with seizures or convulsions] Onset: 05-18-2023 05-18-2023 Chronic Mood disorders (8 sources) Depressive disorder; Translations: [Depression] Onset: 01-06-2025 03-01-2024 Chronic Mood disorders (14 sources) Mood disorders; Translations: [Depression, unspecified] Onset: 03-07-2024 Resolved: 03-08-2024 03-08-2024 Nutritional deficiencies (1 source) Deficiency of other specified B group vitamins; Translations: [Deficiency of other specified B group vitamins] Onset: 12-19-2024 Episodic Other connective tissue disease (4 sources) Pain [...] injuries and conditions due to external causes (3 sources) Injury of left leg; Translations: [Unspecified injury of left ankle, initial encounter] 03-01-2024 Episodic Other injuries and conditions due to external causes (1 source) Unspecified injury of left ankle, initial encounter; Translations: [Knee, leg, ankle, and foot injury] 03-01-2024 Episodic Other nervous system disorders (13 [...] to excess calories] Onset: 06-01-2022 06-01-2022 Chronic Personality disorders (3 sources) Cluster B personality disorder ; Translations: [Personality disorder, unspecified] Onset: 01-06-2025 01-07-2025 Chronic Pneumonia (except that caused by tuberculosis or sexually transmitted disease) (1 source) Pneumonia; Translations: [Pneumonia] Episodic Residual codes; unclassified (1 source) Other insomnia; Translations: [Other insomnia] Onset: 12-19-2024 Chronic Residual codes; unclassified (1 source) Other amnesia; Translations: [Other amnesia] Onset: 12-19-2024 Episodic Skull and face fractures (1 source) Fracture of mandible, unspecified, initial encounter for closed fracture; Translations: [Fracture of mandible, unspecified, initial encounter for closed fracture] Onset: 12-26-2024 Episodic Spontaneous (3 sources) Miscarriage; Translations: [Complete or unspecified spontaneous without complication] 03-01-2024 Episodic Suicide and intentional self-inflicted injury (3 sources) Suicide attempt ; Translations: [Suicide attempt, initial encounter] Onset: 01-06-2025 01-07-2025 Episodic Unclassified (1 source) lbpc left numbness x 8 months / lbpc left numbness x 8 months() Onset: 03-04-2017 Unclassified (1 source) Gynecologic Exam Onset: 10-11-2024 Unclassified (1 source) EMB/Endosee Onset: 06-25-2024 Unclassified (1 source) Suicidal Onset: 01-06-2025 Unclassified (1 source) Jaw Pain, Injury Onset: 12-26-2024 Past or Other Problems Problem Classification Problem Date Documented Da te Episodic/Chronic Intracranial injury (13 sources) History of concussion injury of brain; Translations: [Personal history of traumatic brain injury] Onset: 04-01-2023 04-01-2023 Episodic Other acquired deformities (13 sources) Acquired spondylolisthesis; Translations: [Spondylolisthesis, site unspecified] Onset: 06-01-2022 06-01-2022 Episodic Other nervous system disorders (1 source) [...] Test Name Value Interpretation Reference Range Facility Cholesterol [Mass/volume] in Serum or PlasmaOrdered By: Agapito Sheldon on 01-07-2025 Cholesterol [Mass/Vol] Cholesterol [Mass/volume] in Serum or Plasma Low 140-200 [facility] Comment on above: Chol less than 200 m g/dl low riskChol 201-239 mg/dl borderline riskChol 240 mg/dl and greater high risk Cholesterol in HDL [Mass/vol ume] in Serum or PlasmaOrdered By: Agapito Sheldon on 01-07-2025 Cholesterol in HDL [Mass/Vol] Serum or plasma high density lipoprotein (HDL) cholesterol measurement 23-92 [facility] Comment on above: HDL CHOL ATP-III CLA SSIFICATION Cardiovascular RiskHDL > or equal to 60 mg/dL LOWHDL < 40 mg/dL HIGH Cholesterol in LDL Calc [Mas s/Vol]Ordered By: Agapito Sheldon on 01-07-2025 Cholesterol in LDL [Mass/Vol] Cholesterol in LDL [Mass/volume] in Serum or Plasma by calculation 0-100 [facility] Comment on above: LDL ATP III CLASSIFI CATIONLDL less than 100 mg/dL OptimalLDL 100-129 mg/dL Near or above optimalLDL 130-159 mg/dL Borderline highLDL 160-189 mg/dL HighLDL greater than 189 mg/dL Very high Cholesterol in VLDL Calc [Ma ss/Vol]Ordered By: Agapito Sheldon on 01-07-2025 Cholesterol in VLDL [Mass/Vol] Cholesterol in VLDL [Mass/volume] in Serum or Plasma by calculation [facility] ECG 12 lead ECGon 01-07-2025 ECG 12 lead ECG [facility] [place] [address] Electrocardiograph Report Signed Patient: Samaria Gilmore MR#: [id number] : 1975 Acct:[id number] Age/Sex: 49 / F ADM Date: 01/06/25 Loc: Room: [address] [place] [address] Type: ADM IN Attending Dr: Agapito Sheldon MD Ordering Provider: Agapito Sheldon MD Date of Service: 01/07/2504/25/500 ECG/ECG 12 lead ECG: anti psychotic medication use Copies to: Test Reason : Blood Pressure : */* mmHG Vent. Rate : 72 BPM Atrial Rate : 72 BPM P-R Int : 132 ms QRS Dur : 82 ms QT Int : 408 ms P-R-T Axes : 61 68 65 degrees QTcB Int : 446 ms Normal sinus rhythm Normal ECG No previous ECGs available Confirmed by BREN BHAGAT [facility], BRUCE ([id number]) on 01/07/2025 9:00:02 AM Referred By: Electronically Signed By: BRUCE CORREIA MD FAC Transcribed By: MUS Signed By Bruce Correia MD, FACC 01/07/25 0900 Normal [facility] Lipid Panelon 01-07-2025 Cholesterol [Mass/Vol] 136 mg/dL Low 140-200 [facility] Comment on above: Order Comment: FASTI NG Y Result Comment: Chol less than 200 mg/dl low risk Chol 201-239 mg/dl borderline risk Chol 240 mg/dl and greater high risk Performed By: #### L IPID, TSH3 wRFLX, [id number] #### [facility] [address] [id number] [place] Cholesterol in HDL [Mass/Vol] 44 mg/dL Normal 23-92 [facility] Comment on above: Order Comment: FASTI NG Y Result Comment: HDL CHOL ATP-III CLASSIFICATION Cardiovascular Risk HDL > or equal to 60 mg/dL LOW HDL < 40 mg/dL HIGH Performed By: #### L IPID, TSH3 wRFLX, [id number] #### [facility] [address] [place] [address] [place] Cholesterol.total/C holesterol in HDL [Mass ratio] 3.1 {ratio} Normal <5.0 [facility] Comment on above: Order Comment: FASTI NG Y Performed By: #### L IPID, TSH3 wRFLX, [id number] #### [facility] [address] [id number] [facility] LDL Cholesterol,Calcula aurelia 71 mg/dL Normal 0-100 [facility] Comment on above: Order Comment: FASTI NG Y Result Comment: LDL ATP III CLASSIFICATION LDL less than 100 mg/dL Optimal LDL 100-129 mg/dL Near or above optimal LDL 130-159 mg/dL Borderline high LDL 160-189 mg/dL High LDL greater than 189 mg/dL Very high Performed By: #### L IPID, TSH3 wRFLX, [id number] #### [facility] [address] [id number] [place] Triglyceride w/Reflex 103 mg/dL Normal 0-149 [facility] Comment on above: Order Comment: FASTI NG Y Result Comment: TRIG ATP III CLASSIFICATION TRIG less than 150 mg/dL Normal TRIG 150-199 mg/dL Borderline high TRIG 200-500 mg/dL High TRIG greater than 500 mg/dL Very high Standard traceable to the Center for Disease Conrtrol and Prevention (CDC) test method. Performed By: #### L IPID, TSH3 wRFLX, [id number] #### [facility] [address] [id number] [facility] VLDL CHOLESTEROL 20 mg/dL Normal [facility] Comment on above: Order Comment: FASTI NG Y Performed By: #### L IPID, TSH3 wRFLX, [id number] #### [facility] [address] Serum or plasma total choles terol/high density lipoprotein (HDL) cholesterol mass ratOrdered By: Agapito Sheldon on 01-07-2025 Cholesterol.total/C holesterol in HDL [Mass ratio] Serum or plasma total cholesterol/high density lipoprotein (HDL) cholesterol mass rat <5.0 [facility] Thyroid Stim Hormone w/Rflxo n 01-07-2025 Thyroid Stim Hormone w/Rflx 1.20 u[iU]/mL Normal 0.45-5.33 [facility] Comment on above: Order Comment: FASTI NG Y Performed By: #### L IPID, TSH3 wRFLX, [id number] #### [facility] [address] Thyrotropin [Units/volume] i n Serum or PlasmaOrdered By: Agapito Sheldon on 01-07-2025 TSH Qn Thyrotropin [Units/volume] in Serum or Plasma 0.45-5.33 [facility] Triglyceride [Mass/volume] i n Serum or PlasmaOrdered By: Agapito Sheldon on 01-07-2025 Triglyceride [Mass/Vol] Triglyceride [Mass/volume] in Serum or Plasma 0-149 [facility] Comment on above: TRIG ATP III CLASSIF ICATIONTRIG less than 150 mg/dL NormalTRIG 150-199 mg/dL Borderline highTRIG 200-500 mg/dL High TRIG greater than 500 mg/dL Very highStandard traceable to the Center for Disease Conrtrol and Prevention (CDC) test method. Vitamin D 25 Hydroxy Totalon 01-07-2025 Vitamin D 25 Hydroxy Total 48.2 ng/mL Normal 30-100 [facility] Comment on above: Order Comment: FASTI NG Y Result Comment: ILANA MIN D STATUS 25(OH)VITAMIN D RANGE (ng/mL) Deficient <20 Insufficient 20 to <30 Sufficient 30 to 100 Reference: Nate MF,Brit NC, Alex BALDWIN, et al. Evaluation,treatment, and prevention of vitamin D deficiency; an Endocrine Society clinical practice guideline. JCEM. 2010; 96(7):1911-. PERFORMED BY: [facility] [address] [place] [address] PATHOLOGIST MOSAIC LAYER SANJAY ZENG M.D. Performed By: #### L IPID, TSH3 wRFLX, [id number] #### [facility] [address] Vitamin D+Metabolites [Mass/ volume] in Serum or PlasmaOrdered By: Agapito Sheldon on 01-07-2025 Vitamin D+Metabolites [Mass/Vol] Vitamin D+Metabolites [Mass/volume] in Serum or Plasma 30-100 [facility] Comment on above: VITAMIN D STATUS 25( [place])VITAMIN D RANGE (ng/mL) Deficient <20 Insufficient 20 to <30Sufficient 30 to 100Reference: Ntae MF,Brit NC, Alex BALDWIN, et al. Evaluation,treatment, and prevention of vitamin D deficiency; an Endocrine Society clinical practice guideline. JCEM. 2010; 96(7):1911-30. ACETAMINOPHEN LEVELon 2024 Acetaminophen [Mass/Vol] 6.2 ug/mL Low 10.0-30.0 [facility] Comment on above: Order Comment: Refer ence ranges are for therapeutic limits. Performed By: #### A CETA ####[facility] ([address] [address] VIR CBC WITH AUTO DIFFERENTIALon 01-06-2025 BASOPHILS ABSOLUTE COUNT (10*3/UL) BY AUTOMATED COUNT 0.0 10*3/uL Normal 0.0-0.2 [facility] Comment on above: Performed By: #### C BCA ####[facility] ([address] [address] VIR BASOPHILS RELATIVE PERCENT BY AUTOMATED COUNT 0.4 % Normal [facility] Comment on above: Performed By: #### C BCA ####[facility] ([address] [address] VIR CELLAVISION DIFFERENTIAL TYPE AUTOMATED DIFFERENTIAL [facility] Comment on above: Performed By: #### C BCA ####[facility] ([address] [address] VIR Eosinophils (Bld) [#/Vol] 0.0 10*3/uL Normal 0.0-0.4 [facility] Comment on above: Performed By: #### C BCA ####[facility] ([address] [address] VIR EOSINOPHILS RELATIVE PERCENT BY AUTOMATED COUNT 0.2 % Normal [facility] Comment on above: Performed By: #### C BCA ####[facility] ([address] [address] VIR Erythrocyte distribution width (RBC) [Ratio] 13.2 % Normal 11.5-15 [facility] Comment on above: Performed By: #### C BCA ####[facility] ([address] [address] VIR Hematocrit (Bld) [Volume fraction] 41.4 % Normal 35-47 [facility] Comment on above: Performed By: #### C BCA ####[facility] ([address] [address] VIR Hemoglobin (Bld) [Mass/Vol] 14.2 g/dL Normal 11.7-15.5 [facility] Comment on above: Performed By: #### C BCA ####[facility] ([address] [address] VIR LYMPHOCYTES ABSOLUTE COUNT (10*3/UL) BY AUTOMATED COUNT 2.9 10*3/uL Normal 1.0-3.5 [facility] Comment on above: Performed By: #### C BCA ####[facility] ([address] [address] VIR LYMPHOCYTES RELATIVE PERCENT BY AUTOMATED COUNT 29.5 % Normal [facility] Comment on above: Performed By: #### C BCA ####[facility] ([address] [address] VIR MCH (RBC) [Entitic mass] 33.4 pg Normal 27-34 [facility] Comment on above: Performed By: #### C BCA ####[facility] ([address] [address] VIR MCHC (RBC) [Mass/Vol] 34.2 g/dL Normal 32-36 [facility] Comment on above: Performed By: #### C BCA ####[facility] ([address] [address] VIR MCV (RBC) [Entitic vol] 98 fL Normal 80-100 [facility] Comment on above: Performed By: #### C BCA ####[facility] ([address] [address] VIR MONOCYTES ABSOLUTE COUNT (10*3/UL) BY AUTOMATED COUNT 0.5 10*3/uL Normal 0.0-0.9 [facility] Comment on above: Performed By: #### C BCA ####[facility] ([address] [address] VIR MONOCYTES RELATIVE PERCENT BY AUTOMATED COUNT 5.2 % Normal [facility] Comment on above: Performed By: #### C BCA ####[facility] ([address] [address] VIR NEUTROPHILS ABSOLUTE COUNT BY AUTOMATED COUNT 6.3 10*3/uL Normal 1.5-6.6 [facility] Comment on above: Performed By: #### C BCA ####[facility] ([address] [address] VIR NEUTROPHILS RELATIVE PERCENT BY AUTOMATED COUNT 64.7 % Normal [facility] Comment on above: Performed By: #### C BCA ####[facility] ([facility])[address] [place], [place] [address] [place] [address] VIR Platelet mean volume (Bld) [Entitic vol] 9.0 fL Normal 7-12 [facility] Comment on above: Performed By: #### C BCA ####[facility] ([address] [place] [address] VIR Platelets (Bld) [#/Vol] 311 10*3/uL Normal 150-450 [facility] Comment on above: Performed By: #### C BCA ####[facility] ([address] [place] [address] VIR RBC COUNT 4.24 X10E12/L Normal 3.8-5.2 [facility] Comment on above: Performed By: #### C BCA ####[facility] ([address] [place] [address] VIR WBC (Bld) [#/Vol] 9.7 10*3/uL Normal 4-11 [facility] Comment on above: Performed By: #### C BCA ####[facility] ([address] [place] [address] VIR COMPREHENSIVE METABOLIC PANE Thang 01-06-2025 Albumin [Mass/Vol] 4.4 g/dL Normal 3.2-5.3 [facility] Comment on above: Performed By: #### C MP ####[facility] ([address] [place] [address] VIR ALP [Catalytic activity/Vol] 88 U/L Normal 39-130 [facility] Comment on above: Performed By: #### C MP ####[facility] ([address] [place] [address] VIR ALT [Catalytic activity/Vol] 18 U/L Normal <=31 [facility] Comment on above: Performed By: #### C MP ####[facility] ([address] [place] [address] VIR Anion gap [Moles/Vol] 7 mmol/L Normal 5-15 [facility] Comment on above: Performed By: #### C MP ####[facility] ([address] [place] [address] VIR AST [Catalytic activity/Vol] 26 U/L Normal <=41 [facility] Comment on above: Performed By: #### C MP ####[facility] ([address] [place] [address] VIR Bilirubin [Mass/Vol] 0.6 mg/dL Normal 0.3-1.2 [facility] Comment on above: Performed By: #### C MP ####[facility] ([address] [place] [address] VIR Calcium [Mass/Vol] 9.2 mg/dL Normal 8.5-10.5 [facility] Comment on above: Performed By: #### C MP ####[address] [place] [address] VIR Chloride [Moles/Vol] 105 mmol/L Normal 98-109 [facility] Comment on above: Performed By: #### C MP ####[facility] ([address] [place] [address] VIR CO2 [Moles/Vol] 22 mmol/L Normal 22-32 [facility] Comment on above: Performed By: #### C MP ####[facility] ([address] [place] [address] VIR Creatinine [Mass/Vol] 1.12 mg/dL High 0.40-1.00 [facility] Comment on above: Result Comment: METH OD TRACEABLE TO IDMS STANDARD Performed By: #### C MP ####[facility] ([address] [place] [address] VIR GFR/1.73 sq M.predicted among non-blacks MDRD (S/P/Bld) [Vol rate/Area] 61 mL/min/{1.73_m2} Normal >=60 [facility] Comment on above: Result Comment: eGFR not reported due to non-numeric value for Creatinine. Reported eGFR is based on the CKD-EPI 2020 equation that does not use a race coefficient. Performed By: #### C MP ####[facility] ([address] [place] [address] VIR Glucose [Mass/Vol] 97 mg/dL Normal 65-99 [facility] Comment on above: Performed By: #### C MP ####[facility] ([address] [place] [address] VIR Potassium [Moles/Vol] 3.8 mmol/L Normal 3.5-5.0 [facility] Comment on above: Performed By: #### C MP ####[facility] ([address] [place] [address] VIR Protein [Mass/Vol] 7.9 g/dL Normal 6.0-8.0 [facility] Comment on above: Performed By: #### C MP ####[facility] ([address] [place] [address] VIR Sodium [Moles/Vol] 134 mmol/L Normal 134-146 [facility] Comment on above: Performed By: #### C MP ####[facility] ([address] [place] [address] VIR Urea nitrogen [Mass/Vol] 12 mg/dL Normal 5-23 [facility] Comment on above: Performed By: #### C MP ####[facility] ([address] [place] [address] VIR DRUG SCREEN, URINEon 025 AMPHETAMINE/METHAMP Negative Normal Negative [facility] Comment on above: Result Comment: AMPH /METH screening cut off = 1000 ng/mL Performed By: #### D LOCK ####[facility] ([address] [place] [address] VIR BARBITURATES Negative Normal Negative [facility] Comment on above: Result Comment: Dagmar iturates screening cut off value = 200 ng/mL Performed By: #### D LOCK ####[facility] ([address] [address] VIR BENZODIAZEPINES Negative Normal Negative [facility] Comment on above: Result Comment: Rico odiazepines screening cut off value = 200 ng/mL Performed By: #### D LOCK ####[facility] ([address] [address] VIR CANNABINOIDS Negative Normal Negative [facility] Comment on above: Result Comment: Juana abinoids/THC screening cut off value = 50 ng/mL Performed By: #### D LOCK ####[facility] ([address] [address] VIR COCAINE METABOLITE Negative Normal Negative [facility] Comment on above: Result Comment: Coca ine screening cut off value = 300 ng/mL Performed By: #### D LOCK ####[facility] ([address] [address] VIR ECSTASY Negative Normal Negative [facility] Comment on above: Result Comment: Ecst asy screening cut off value = 500 ng/mL Performed By: #### D LOCK ####[facility] ([address] [address] VIR METHADONE Negative Normal Negative [facility] Comment on above: Result Comment: Meth adone screening cut off value = 300 ng/mL. Performed By: #### D LOCK ####[facility] ([address] [place] [address] VIR OPIATES Negative Normal Negative [facility] Comment on above: Result Comment: Opia dione screening cut off value = 300 ng/mL This test is used for the detection of codeine, hydrocodone (>1000 ng/mL), morphine and hydromorphone (>900 ng/mL) in urine. Performed By: #### D LOCK ####[address] [address] VIR OXYCODONE Negative Normal Negative [facility] Comment on above: Result Comment: Oxyc odone screening cut off value = 300 ng/mL This test is used for the detection of oxycodone and oxymorphone in urine. Performed By: #### D LOCK ####[address] [address] VIR PHENCYCLIDINE Negative Normal Negative [facility] Comment on above: Result Comment: Phen cyclidine screening cut off value = 25 ng/mL Performed By: #### D LOCK ####[facility] ([address] [address] VIR ETHANOLon 01-06-2025 Ethanol [Mass/Vol] mg/dL Normal <=0.080 [facility] Comment on above: Result Comment: This report is intended for use in clinical monitoring or management of patients. Performed By: #### A LCO ####[address] [address] VIR POCT NURSING URINE MACROSCOP IC UAon 01-06-2025 BILIRUBIN IRMA Negative Normal Negative [facility] Comment on above: Performed By: #### N UM ####[address] [address] VIR BLOOD/HGB IRMA Negative Normal Negative [facility] Comment on above: Performed By: #### N UM ####[address] [address] VIR GLUCOSE IRMA Negative Normal Negative [facility] Comment on above: Performed By: #### N UM ####[facility] ([address] [place] [address] VIR KETONES IRMA Negative Normal Negative [facility] Comment on above: Performed By: #### N UM ####[facility] ([address] [place] [address] VIR LEUKOCYTE ESTERASE IRMA Negative Normal Negative [facility] Comment on above: Performed By: #### N UM ####[facility] ([address] [place] [address] VIR NITRITE IRMA Negative Normal Negative [facility] Comment on above: Performed By: #### N UM ####[address] [place] [address] VIR PH IRMA 5.5 Normal 5.0, 6.0, 6.5, 7.0, 7.5, 8.0, 8.5, 5.5 [facility] Comment on above: Performed By: #### N UM ####[facility] ([address] [place] [address] VIR PROTEIN IRMA Negative Normal Negative [facility] Comment on above: Performed By: #### N UM ####[address] [place] [address] VIR SPECIFIC GRAVITY IRMA 1.010 Normal 1.010, 1.015, 1.020, 1.025 [facility] Comment on above: Performed By: #### N UM ####[facility] ([address] [place] [address] VIR UROBILINOGEN IRMA 0.2 E.U./dL Normal [facility] Comment on above: Performed By: #### N UM ####[facility] ([place])[address] [place] [address] [place] [address] VIR POCT , URINE (NUCG) on 01-06-2025 Beta HCG ( test) Ql (U) Negative Normal Negative [facility] Comment on above: Performed By: #### N UCG ####[facility] ([facility])[address] [place] [address] [place] [address] VIR SALICYLATE LEVELon SALICYLATE <^4.0 Normal 2.0-25.0 [facility] Comment on above: Order Comment: Refer ence ranges are for therapeutic limits. Performed By: #### S ALI ####[facility] ([facility])[address] [place] [address] [place] [address] FACIAL BONES WO CONTon CT FACIAL BONES WO CONT CT FACIAL BONES WO CONT CT of the facial bones dated 12/26/2024 [...] Nohemi Phillips MD on 12/26/2024 12:06 PM Normal [facility] ACUTE HEPATITIS PANELon 09-29 ANTI HCV W/PCR REFLX Non-Reactive Normal NRCT [facility] Comment on above: Result Comment: NEW TEST METHOD NOTE If recent infection suspected, recommend repeat testing (>2 months). Unvgsz-ka-tsebmc ratio is <1.00. Performed By: #### 5 6888-1, [facility], 50984-3 #### [facility] ([id number]) [address], [address] [place] [address] HEPATITIS A IGM Non-Reactive Normal NRCT [facility] Comment on above: Result Comment: NEW TEST METHOD Performed By: #### 5 6888-1, [facility], 22238-5 #### [facility] ([id number]) [address], [address] [place] [address] HEPATITIS B CORE IGM Non-Reactive [facility] Comment on [facility]: Result Comment: NEW TEST METHOD Performed By: #### 5 6888-1, P, 06490-9 #### [facility] ([id number]) [address], [address] [place] [address] HEPATITIS B SURF AG Non-Reactive Normal [facility] Comment on above: Result Comment: NEW TEST METHOD Performed By: #### 5 6888-1, [facility], 92947-1 #### [facility] ([id number]) [address], [address] [place] [address] CHLAMYDIA/GC BY PCRon 2024 CHLAMYDIA/GC BY PCR [...] are dependent on adequate specimen collection. Normal [facility] Comment on above: Performed By: #### C GS #### [facility] ([id number]) [address], [address] [place] [address] HIV 1+2 Ab+HIV1 p24 Ag IA Ql on 10-11-2024 HIV 1 and 2 Ab/Ag Screen Non-Reactive Normal [facility] Comment on above: Result Comment: NEW [...] or diagnoses. Performed By: #### 5 6888-1, [facility], 27679-2 #### [facility] ([id number]) [address] [place] [address], [address] [address] T. pallidum IgG+IgM IA Ql (S )on 10-11-2024 Syphilis Total <0.2 Normal 0.0-0.8 [facility] Comment on above: Result Comment: NON REACTIVE No serologic evidence of infection to Treponema pallidum (syphilis). Repeat testing may be considered in patients with suspected acute or primary syphilis in 2 to 4 weeks. Performed By: #### 5 6888-1, [facility], 40856-2 #### [facility] ([id number]) [address] [place] [address], [address] [address] TRICHOMONAS PCRon 10-11-2024 TRICHOMONAS PCR SPECIMEN SOURCE CERVIX TRICHOMONAS PCR Not detected (qualifier value) Trichomonas vaginalis not detected NOTE Assay methodology is nucleic acid amplification by real-time PCR for detection of Trichomonas vaginalis DNA performed on [employer] System. Normal [facility] Comment on above: Performed By: #### T RKPCR #### [facility] ([id number]) [address] [place] [address], [address] [address] E2 [Mass/Vol]on 07-11-2024 ESTRADIOL 290.9 pg/mL Normal [facility] Comment on above: Result Comment: NON- [...] this assay. Performed By: #### 2 839-9, 01541-2, 2243-4 #### [facility] ([id number]) [address] [place] [address], [facility] [address] [place] [address] #### 20109-4 #### [facility] ([id number]) [address] [place] [address] Progesterone [Mass/Vol]on PROGESTERONE 1.0 ng/mL Normal [facility] Comment on above: Result Comment: FEMALES: 1st Tri: 4.7-50.7 ng/ml 2nd Tri: 19.4-45.3 ng/ml MENSTRUATING FEMALES: Follicular: 0.3-1.5 ng/ml Mid Luteal: 5.2-18.6 ng/ml Post Melyssa: <0.1-0.8 ng/ml Performed By: #### 2 839-9, 31221-5, 2243-4 #### [facility] ([id number]) [address] [place] [address], [address] [place] [address] #### 20795-5 #### [facility] ([id number]) [address] [place] [address] Testosterone free and total panel [Mass/Vol]on 07-11-2024 Testosterone [Mass/Vol] 17 ng/dL Normal 8-60 [facility] Comment on above: Result Comment: NOTE ADDITIONAL INFORMATION Testing performed by Liquid Chromatography-Tandem Mass Spectrometry (LC-MS/MS). This test was developed and its performance characteristics determined by [facility] in a manner consistent with CLIA requirements. This test has not been cleared or approved by the U.S. Food and Drug Administration. Test Performed by: [facility] [address] [place] [address] Highway Safety Engineer: Leanne Kaye Ph.D.; CLIA# [id number] Performed By: #### 2 839-9, 17348-8, 2243-4 #### [facility] ([id number]) [address] [place] [address], [facility] [address] [place] [address] #### 84929-3 #### [facility] ([id number]) [address] [place] [address] TESTOSTERONE FREE 0.20 ng/dL Normal <0.13-0.95 [facility] Comment on above: Result Comment: NOTE ADDITIONAL INFORMATION This test was developed and its performance characteristics determined by [facility] in a manner consistent with CLIA requirements. This test has not been cleared or approved by the U.S. Food and Drug Administration. Performed By: #### 2 839-9, 14168-4, 2243-4 #### [facility] ([id number]) [address] [place] [address], [address] [place] [address] #### 64748-5 #### [facility] ([id number]) [address] [place] [address] Vitamin D+Metabolites [Mass/ Vol]on 07-11-2024 VITAMIN D 25 HYD TOT 65.1 ng/mL Normal 30-100 [facility] Comment on above: Result Comment: Vitamin D status 25 [place] Vitamin D Deficiency <20 ng/mL Insufficiency 20-29 ng/mL Sufficiency 30-100 ng/mL Toxicity >100 ng/mL NOTE: A pediatric reference range has not been established by the roller hand of this kit. The [place] [employer] recommends a Vitamin D level of = or >20ng/mL in infants and children. Performed By: #### 2 839-9, 47691-9, 2243-4 #### [facility] ([id number]) [address] [place] [address] [address] [place] [address] #### 62775-1 #### [facility] ([id number]) [address] [place] [address], [place] [address] Surgical Pathologyon 024 Surgical Pathology Normal [facility] Comment on above: Result Comment: [facility] [address] [place] [address] Surgical Pathology Consultation Patient Name:SAMARIA GILMORE:1975 (Age: 48)Gender:FTaken:4Reported:4Physician(s):Olivia Schmidt M.D. ([phone])Copy To: Rec. #:[id number]: #[id number] Final Pathologic Diagnosis 1. Endometrium - biopsy: - Fragments of quiescent endometrium (no hyperplasia or neoplasia) 2. Endocervix - ECC: - Benign endocervical lining (no dysplasia or neoplasia) Report Electronically Signed Out vega/07/03/2024Juan Peterson MD Interpretation performed at [facility], [address] [place] [address], License number: [id number]. Clinical History DUB, N93.8. Gross Description 1. [...] 1 minute Total fixation time: 26.5 hours (1,ns,[id number] 7-1) 2. Received in formalin labeled DEIRDRE, ECC are dunn feathery soft tissue fragments admixed with mucoid material, 1.5 x 1 x 0.2 cm in aggregate. The specimen is filtered and submitted entirely in a single cassette. (1, ns, [id number] 7-2, m2) MD. ackerman/06/26/2024NSK Specimen(s) Received 1: EMB 2: ECC Fee Codes(s): 1; 18105 2; 37004 XR Foot - left 3 [facility] Result: 06/12/2024: Multiple views of left foot show no acute bony process including but not limited to fracture and/or dislocation. Overall anatomic alignment appeared to be well preserved. Impression: No acute bony process, left foot. Wolf Alan SHIP BOAT OR BARGE MATE-STAFFING AND SCHEDULING COORDINATOR [facility] Service Route XR Foot - left 3 ViewsOrdere d By: Gissel Burrell on 06-14-2024 [employer] e Work Phone: XR Foot - left 3 [facility] Study observation (narrative) [facility] - [facility] 3 [facility] Result: May 15, 2024 x-rays AP lateral and oblique of the left foot demonstrate anatomic alignment of the tarsometatarsal joints and Lisfranc joint. 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 There is a chronic appearing posterior talus avulsion fracture. Impression: Stable appearing foot. Pedro Pablo Burrell D.O. [facility] Study observation (narrative) [facility] US PELVIC WITH TRANSVAGINALo n 05-01-2024 US [...] Camejo MD on 05/01/2024 3:29 PM Normal [facility] XR Foot - left 3 [facility] Result: April 17, 2024 x-rays AP lateral and obliques of the left foot demonstrate normal alignment of the intermetatarsal joints and tarsometatarsal joints. No definitive fracture dislocation. Impression: Stable appearance of left foot. Pedro Pablo Burrell D.O. [facility] Radiology Study observation (narrative) [facility] XR Foot - left 3 ViewsOrdere d By: Gissel Burrell on 04-17-2024 [facility] [employer]ar[employer] e Work Phone: POCT , urineon 08-2 Beta HCG ( test) Ql (U) Negative [facility] Internal Pot Maker Check Completed and Passed Yes [facility] Interpretation and review of laboratory results Normal [facility] POCT , urineon 08-0 Beta HCG ( test) Ql (U) Negative [facility] Internal Pot Maker Check Completed and Passed Yes [facility] Interpretation and review of laboratory results Normal [facility] MR ANKLE LEFT WO IV CONTRAST on [...] complex injury. ELECTRONICALLY SIGNED BY: Alin Chen, DO Normal Not Available INSULINon 07-30-2022 Insulin 17.5 uIU/mL Normal 2.6-24.9 [facility] Comment on above: Performed By: #### I NSULIN #### [facility] [address] [place] [address] Dr. Rachel Edgar CBC AUTO DIFFon 07-29-2022 BASO # 0.0 103/ul Normal 0.0-0.1 [facility] Comment on above: Performed By: #### C BC #### [facility] [address] [place] [address] Dr. Rachel Edgar Basophils/100 WBC (Bld) 0.1 % Critically low 0.2-2.0 [facility] Comment on above: Performed By: #### C BC #### [facility] [address] [place] [address] Dr. Rachel Edgar EO # 0.1 103/ul Normal 0.0-0.7 [facility] Comment on above: Performed By: #### C BC #### [facility] [address] [place] [address] Dr. Rachel Edgar Eosinophils/100 WBC (Bld) 0.7 % Critically low 0.9-7.0 [facility] Comment on above: Performed By: #### C BC #### [facility] [address] [place] [address] Dr. Rachel Edgar Erythrocyte distribution width (RBC) [Ratio] 12.1 % Normal 11.0-15.0 [facility] Comment on above: Performed By: #### C BC #### [facility] [address] [place] [address] Dr. Rachel Edgar Hematocrit (Bld) [Volume fraction] 42.0 % Normal 36.0-48.0 [facility] Comment on above: Performed By: #### C BC #### [facility] [address] [place] [address] Dr. Rachel Edgar Hemoglobin (Bld) [Mass/Vol] 14.0 g/dL Normal 12.0-16.0 [facility] Comment on above: Performed By: #### C BC #### [facility] [address] [place] [address] Dr. Rachel Edgar IG # 0.03 10e3/ul Normal 0.00-0.03 [facility] Comment on above: Performed By: #### C BC #### [facility] [address] [place] [address] Dr. Rachel Edgar IG % 0.3 % Normal 0.0-0.5 [facility] Comment on above: Performed By: #### C BC #### [facility] [address] [place] [address] Dr. Rachel Edgar LYMPH # 2.1 103/ul Normal 1.2-3.8 [facility] Comment on above: Performed By: #### C BC #### [facility] [address] [place] [address] Dr. Rachel Edgar Lymphocytes/100 WBC (Bld) 23.2 % Normal 20.5-60.0 [facility] Comment on above: Performed By: #### C BC #### [facility] [address] [place] [address] Dr. Rachel Edgar MANUAL DIFF REQ NO Normal [facility] Comment on above: Performed By: #### C BC #### [facility] [address] [place] [address] Dr. Rachel Edgar MCH (RBC) [Entitic mass] 32.9 pg Normal 26.7-34.0 [facility] Comment on above: Performed By: #### C BC #### [facility] [address] [place] [address] Dr. Rachel Edgar MCHC (RBC) [Mass/Vol] 33.3 g/dL Normal 29.9-35.2 [facility] Comment on above: Performed By: #### C BC #### [facility] [address] [place] [address] Dr. Rachel Edgar MCV (RBC) [Entitic vol] 98.8 fL Normal 81.0-99.0 [facility] Comment on above: Performed By: #### C BC #### [facility] [address] [place] [address] Dr. Rachel Edgar MONO # 0.5 103/ul Normal 0.3-0.8 [facility] Comment on above: Performed By: #### C BC #### [facility] [address] [place] [address] Dr. Rachel Edgar Monocytes/100 WBC (Bld) 5.9 % Normal 1.7-12.0 [facility] Comment on above: Performed By: #### C BC #### [facility] [address] [place] [address] Dr. Rachel Edgar NEUT # 6.3 103/ul Normal 1.4-6.5 [facility] Comment on above: Performed By: #### C BC #### [facility] [address] [place] [address] Dr. Rachel Edgar Neutrophils/100 WBC (Bld) 69.8 % Normal 43.0-75.0 [facility] Comment on above: Performed By: #### C BC #### [facility] [address] [place] [address] Dr. Rachel Edgar Platelet mean volume (Bld) [Entitic vol] 10.2 fL Normal 9.5-13.5 [facility] Comment on above: Performed By: #### C BC #### [facility] [address] [place] [address] Dr. Rachel Edgar PLT 335 103/ul Normal 150-450 [facility] Comment on above: Performed By: #### C BC #### [facility] [address] [place] [address] Dr. Rachel Edgar RBC 4.25 106/ul Normal 4.20-5.40 [facility] Comment on above: Performed By: #### C BC #### [facility] [address] [place] [address] Dr. Rachel Edgar WBC 9.0 103/ul Normal 4.0-11.0 [facility] Comment on above: Performed By: #### C BC #### [facility] [address] [place] [address] Dr. Rachel Edgar FREE THYROXINE INDEX T7on FTI 1.88 Normal 1.30-4.50 [facility] Comment on above: Performed By: #### T 7, TSH, CMP, LIPID #### [facility] [address] [place] [address] Dr. Rachel Edgar T3U 33.0 % Normal 30.0-39.0 [facility] Comment on above: Performed By: #### T 7, TSH, CMP, LIPID #### [facility] [address] [place] [address] Dr. Rachel Edgar T4 [Mass/Vol] 5.70 ug/dL Normal 4.80-13.90 [facility] Comment on above: Performed By: #### T 7, TSH, CMP, LIPID #### [facility] [address] [address] [address] Rachel Edgar GLYCOHEMOGLOBIN A1Con 2021 ADA RECOMMENDATION SEE BELOW Normal [facility] Comment on above: Result Comment: ADA RECOMMENDED LIMIT 4.0 - 6.0 ADA THERAPEUTIC TARGET < 7.0 ACTION SUGGESTED > 7.0 Performed By: #### A 1C #### [facility] [address] [place] [address] Dr. Rachel Edgar HbA1c (Bld) [Mass fraction] 5.4 % Normal 4.5-6.2 [facility] Comment on above: Performed By: #### A 1C #### [facility] [address] [place] [address] Dr. Rachel Edgar IRONon 07-29-2022 Iron [Mass/Vol] 64.0 ug/dL Normal 50.0-170.0 [facility] Comment on above: Performed By: #### I JCARLOS #### [facility] [address] [place] [address] Dr. Rachel Edgar LIPID PROFILEon 07-29-2022 CHOL-HDL RATIO NORM SEE BELOW Normal [facility] Comment on above: Result Comment: 3.3 - 4.4 LOW RISK 4.4 - 7.1 AVERAGE RISK 7.1 - 11.0 MODERATE RISK >11.0 HIGH RISK Performed By: #### T 7, TSH, CMP, LIPID #### [facility] [address] [place] [address] Dr. Rachel Edgar Cholesterol [Mass/Vol] 164 mg/dL Normal <=200 [facility] Comment on above: Performed By: #### T 7, TSH, CMP, LIPID #### [facility] [address] [place] [address] Dr. Rachel Edgar Cholesterol in HDL [Mass/Vol] 42 mg/dL Normal 40-60 [facility] Comment on above: Performed By: #### T 7, TSH, CMP, LIPID #### [facility] [address] [address] [address] Rachel Edgar Cholesterol in LDL [Mass/Vol] 82.6 mg/dL Normal [facility] Comment on above: Performed By: #### T 7, TSH, CMP, LIPID #### [facility] [address] [place] [address] Dr. Rachel Edgar Cholesterol.total/C holesterol in HDL [Mass ratio] 3.9 {ratio} Normal [facility] Comment on above: Performed By: #### T 7, TSH, CMP, LIPID #### [facility] [address] [address] [address] Rachel Edgar HDL NORMAL > or = 60 mg/dl - LO W CARDIOVASCULAR RISK <40 mg/dl - HIGH CARDIOVASCULAR RISK Normal [facility] Comment on above: Performed By: #### T 7, TSH, CMP, LIPID #### [facility] [address] [place] [address] Dr. Rachel Edgar LDL CALC NORMAL SEE BELOW Normal [facility] Comment on above: Result Comment: <100 mg/dl OPTIMAL 100 - 129 mg/dl NEAR OR ABOVE OPTIMAL 130 - 159 mg/dl BORDERLINE HIGH 160 - 189 mg/dl HIGH >190 mg/dl VERY HIGH Performed By: #### T 7, TSH, CMP, LIPID #### [facility] [address] [place] [address] Dr. Rachel Edgar Triglyceride [Mass/Vol] 197 mg/dL Critically high <=150 [facility] Comment on above: Performed By: #### T 7, TSH, CMP, LIPID #### [facility] [address] [place] [address] Dr. Rachel Edgar VLDL CALC 39.4 mg/dL Normal [facility] Comment on above: Performed By: #### T 7, TSH, CMP, LIPID #### [facility] [address] [place] [address] Dr. Rachel Edgar PROF 14(COMP METB)on 022 Albumin [Mass/Vol] 3.5 g/dL Normal 3.4-5.0 [facility] Comment on above: Performed By: #### T 7, TSH, CMP, LIPID #### [facility] [address] [place] [address] Dr. Rachel Edgar Albumin/Globulin [Mass ratio] 0.9 {ratio} Normal [facility] Comment on above: Performed By: #### T 7, TSH, CMP, LIPID #### [facility] [address] [place] [address] Dr. Rachel Edgar ALP [Catalytic activity/Vol] 83 U/L Normal 46-116 [facility] Comment on above: Performed By: #### T 7, TSH, CMP, LIPID #### [facility] [address] [place] [address] Dr. Rachel Edgar ALT [Catalytic activity/Vol] 21 U/L Normal 14-59 [facility] Comment on above: Performed By: #### T 7, TSH, CMP, LIPID #### [facility] [address] [place] [address] Dr. Rachel Edgar Anion gap [Moles/Vol] 10.4 mmol/L Normal [facility] Comment on above: Performed By: #### T 7, TSH, CMP, LIPID #### [facility] [address] [place] [address] Dr. Rachel Edgar AST [Catalytic activity/Vol] 17 U/L Normal 15-37 [facility] Comment on above: Performed By: #### T 7, TSH, CMP, LIPID #### [facility] [address] [place] [address] Dr. Rachel Edgar Bilirubin [Mass/Vol] 0.2 mg/dL Normal 0.2-1.0 [facility] Comment on above: Performed By: #### T 7, TSH, CMP, LIPID #### [facility] [address] [place] [address] Dr. Rachel Edgar Calcium [Mass/Vol] 9.0 mg/dL Normal 8.5-10.1 [facility] Comment on above: Performed By: #### T 7, TSH, CMP, LIPID #### [facility] [address] [place] [address] Dr. Rachel Edgar Chloride [Moles/Vol] 103 mmol/L Normal 98-107 [facility] Comment on above: Performed By: #### T 7, TSH, CMP, LIPID #### [facility] [address] [address] [address] Rachel Edgar CO2 [Moles/Vol] 30.8 mmol/L Normal 21.0-32.0 [facility] Comment on above: Performed By: #### T 7, TSH, CMP, LIPID #### [facility] [address] [place] [address] Dr. Rachel Edgar Creatinine [Mass/Vol] 0.96 mg/dL Normal 0.55-1.02 [facility] Comment on above: Performed By: #### T 7, TSH, CMP, LIPID #### [facility] [address] [place] [address] Dr. Rachel Edgar EGFR-AF ITALIAN >60 Normal >=60 [facility] Comment on above: Performed By: #### T 7, TSH, CMP, LIPID #### [facility] [address] [place] [address] Dr. Rachel Edgar EGFR-NON AF ITALIAN >60 Normal >=60 [facility] Comment on above: Performed By: #### T 7, TSH, CMP, LIPID #### [facility] [address] [place] [address] Dr. Rachel Edgar Globulin (S) [Mass/Vol] 4.0 g/dL Normal [facility] Comment on above: Performed By: #### T 7, TSH, CMP, LIPID #### [facility] [address] [place] [address] Dr. Rachel Edgar Glucose [Mass/Vol] 108 mg/dL Normal [facility] Comment on above: Performed By: #### T 7, TSH, CMP, LIPID #### [facility] [address] [place] [address] Dr. Rachel Edgar Performed By: #### A 1C #### [facility] [address] [place] [address] Dr. Rachel Edgar Potassium [Moles/Vol] 4.2 mmol/L Normal 3.5-5.1 [facility] Comment on above: Performed By: #### T 7, TSH, CMP, LIPID #### [facility] [address] [address] [address] Rachel Edgar Protein [Mass/Vol] 7.5 g/dL Normal 6.4-8.2 [facility] Comment on above: Performed By: #### T 7, TSH, CMP, LIPID #### [facility] [address] [address] [address] Rachel Edgar Sodium [Moles/Vol] 140 mmol/L Normal 136-145 [facility] Comment on above: Performed By: #### T 7, TSH, CMP, LIPID #### [facility] [address] [address] [address] Rachel Edgar Urea nitrogen [Mass/Vol] 15.0 mg/dL Normal 7.0-18.0 [facility] Comment on above: Performed By: #### T 7, TSH, CMP, LIPID #### [facility] [address] [address] [address] Rachel Edgar Urea nitrogen/Creatinine [Mass ratio] 15.6 mg/mg Normal [facility] Comment on above: Performed By: #### T 7, TSH, CMP, LIPID #### [facility] [address] [place] [address] Dr. Rachel Edgar TSHon 07-29-2022 TSH 1.473 uIU/mL Normal 0.358-3.740 [facility] Comment on above: Performed By: #### T 7, TSH, CMP, LIPID #### [facility] [address] [place] [address] Dr. Rachel Edgar COVID Quick Testingon 2021 Result Negative [employer] Other Quick Strepon 03-23-2022 S. pyogenes Org specific cx Ql (Throat) Positive [employer] Other Quick Strep [employer] Other XR LUMBAR SPINE LIMITEDon XR LUMBAR [...] by:BASIL Corraligned by:Kely Blue MD03/04/17Final result Normal [facility] Vital Signs Date Time Vital Sign Value Performing Clinician Facility 01-09-2025 07:30-0400 Body temperature 98.1 [degF] Brittany Mcginnis HYDROELECTRIC MACHINERY MECHANIC HELPER-C Work Phone: [facility] 01-09-2025 07:30-0400 Diastolic blood pressure 72 mm[Hg] Brittany Mcginnis HYDROELECTRIC MACHINERY MECHANIC HELPER-C Work Phone: [facility] 01-09-2025 07:30-0400 Heart rate 72 /min Brittany Mcginnis HYDROELECTRIC MACHINERY MECHANIC HELPER-C Work Phone: [facility] 01-09-2025 07:30-0400 Respiratory rate 16 /min Brittany Mcginnis HYDROELECTRIC MACHINERY MECHANIC HELPER-C Work Phone: [facility] 01-09-2025 07:30-0400 SaO2% (BldA) [Mass fraction] 98 % Brittany Mcginnis HYDROELECTRIC MACHINERY MECHANIC HELPER-C Work Phone: [facility] 01-09-2025 07:30-0400 Systolic blood pressure 148 mm[Hg] Brittany Mcginnis HYDROELECTRIC MACHINERY MECHANIC HELPER-C Work Phone: [facility] 01-07-2025 15:04-0400 Body height 152.4 cm Brittany Mcginnis HYDROELECTRIC MACHINERY MECHANIC HELPER-C Work Phone: [facility] 01-07-2025 09:00-0400 Body weight 82.78 kg Brittany Mcginnis HYDROELECTRIC MACHINERY MECHANIC HELPER-C Work Phone: [facility] 10-11-2024 08:04-0400 Body height 152.4 cm Magalys Krotzer SHIP BOAT OR BARGE MATE-STAFFING AND SCHEDULING COORDINATOR Work Phone: [facility] 10-11-2024 08:04-0400 Body mass index (BMI) [Ratio] 37.3 kg/m2 Magalys Krotzer SHIP BOAT OR BARGE MATE-STAFFING AND SCHEDULING COORDINATOR Work Phone: [facility] 10-11-2024 08:04-0400 Body weight 86.64 kg Magalys Krotzer SHIP BOAT OR BARGE MATE-STAFFING AND SCHEDULING COORDINATOR Work Phone: [facility] 10-11-2024 08:04-0400 Diastolic blood pressure 82 mm[Hg] Magalys Krotzer SHIP BOAT OR BARGE MATE-STAFFING AND SCHEDULING COORDINATOR Work Phone: [facility] 10-11-2024 08:04-0400 Systolic blood pressure 122 mm[Hg] Magalys Krotzer SHIP BOAT OR BARGE MATE-STAFFING AND SCHEDULING COORDINATOR Work Phone: [facility] 04-24-2024 10:43-0400 Body height 152.4 cm Olivia Schmidt MD Work Phone: [facility] 04-24-2024 10:43-0400 Body mass index (BMI) [Ratio] 37.73 kg/m2 Olivia Schmidt MD Work Phone: [facility] 04-24-2024 10:43-0400 Body weight 87.64 kg Olivia Schmidt MD Work Phone: [facility] 04-24-2024 10:43-0400 Diastolic blood pressure 88 mm[Hg] Olivia Schmidt MD Work Phone: [facility] 04-24-2024 10:43-0400 Systolic blood pressure 130 mm[Hg] Olivia Schmidt MD Work Phone: [facility] 03-08-2024 08:30-0400 Body height 152.4 cm Baron Martel PA-C Work Phone: [facility] 03-08-2024 08:30-0400 Body mass index (BMI) [Ratio] 37.79 kg/m2 Baron Martel PA-C Work Phone: [facility] 03-08-2024 08:30-0400 Body weight 87.77 kg Baron Martel BARI Work Phone: [facility] 03-08-2024 08:30-0400 Diastolic blood pressure 72 mm[Hg] Baron Martel BARI Work Phone: [facility] 03-08-2024 08:30-0400 Heart rate 70 /min Baron Martel BARI Work Phone: [facility] 03-08-2024 08:30-0400 Systolic blood pressure 126 mm[Hg] Baron Martel CATHYGina Work Phone: [facility] 03-07-2024 10:17-0400 Body height 152.4 cm [facility] 03-07-2024 10:17-0400 Body mass index (BMI) [Ratio] 35.54 kg/m2 [facility] 03-07-2024 10:17-0400 Body weight 82.56 kg [facility] 03-07-2024 10:17-0400 Diastolic blood pressure 88 mm[Hg] [facility] 03-07-2024 10:17-0400 Systolic blood pressure 124 mm[Hg] [facility] 03-01-2024 16:58-0400 Body height 152.4 cm MD Sakshi Marinelli Work Phone: [facility] 03-01-2024 16:58-0400 Body mass index (BMI) [Ratio] 33.2 kg/m2 MD Sakshi Marinelli Work Phone: [facility] 03-01-2024 16:58-0400 Body temperature 98.4 [degF] MD Sakshi Marinelli Work Phone: [facility] 03-01-2024 16:58-0400 Body weight 77.11 kg MD Sakshi Marinelli Work Phone: [facility] 03-01-2024 16:58-0400 Diastolic blood pressure 61 mm[Hg] MD Sakshi Marinelli Work Phone: [facility] 03-01-2024 16:58-0400 Heart rate 66 /min MD Sakshi Marinelli Work Phone: [facility] 03-01-2024 16:58-0400 Respiratory rate 18 /min MD Sakshi Marinelli Work Phone: [facility] 03-01-2024 16:58-0400 SaO2% (BldA) [Mass fraction] 97 % MD Sakshi Marinelli Work Phone: [facility] 03-01-2024 16:58-0400 Systolic blood pressure 117 mm[Hg] MD Sakshi Marinelli Work Phone: [facility] 03-23-2022 11:20-0400 Body height 154.94 cm Xochilt Corral Other [employer] Other 03-23-2022 11:20-0400 Body mass index (BMI) [Ratio] 42.51 kg/m2 Xochilt Corral Other [employer] Other 03-23-2022 11:20-0400 Body temperature 97.8 [degF] Xochilt Corral Other [employer] Other 03-23-2022 11:20-0400 Body weight 102.06 kg Xochilt Corral Other [employer] Other 03-23-2022 11:20-0400 Respiratory rate 18 /min Xochilt Corral Other [employer] Other 03-23-2022 11:20-0400 SaO2% (BldA) [Mass fraction] 97 % Xochilt Corral Other [employer] Other Encounters Encounter Date Encounter Type Care Provider Facility Start: 01-07-2025 Non-patient / Non-visit Brittany Mcginnis HYDROELECTRIC MACHINERY MECHANIC HELPER-C Work Phone: [facility] Work Phone: Start: 01-06-2025 End: 01-09-2025 Evaluation and management of inpatient Brittany Mcginnis HYDROELECTRIC MACHINERY MECHANIC HELPER-C Work Phone: [facility] Work Phone: Start: 01-06-2025 End: 01-06-2025 Emergency department patient visit [facility] Start: 12-26-2024 End: 12-26-2024 Emergency department patient visit [facility] Start: 12-19-2024 End: 12-19-2024 ambulatory [facility] Start: 10-11-2024 End: 10-11-2024 ambulatory MAGALYS MILLERJOSELIN [facility] Start: 10-11-2024 End: 10-11-2024 ambulatory [facility] Start: 10-11-2024 End: 10-11-2024 Office outpatient visit 15 minutes Magalys Anaya SHIP BOAT OR BARGE MATE-STAFFING AND SCHEDULING COORDINATOR Work Phone: [facility] Comment on above: Screening examinatio n for STD (sexually transmitted disease) (Primary Dx) Start: 09-13-2024 End: 09-13-2024 Orders Only Magalys Anaya SHIP BOAT OR BARGE MATE-STAFFING AND SCHEDULING COORDINATOR Work Phone: [facility] Comment on above: BV (bacterial vagino sis) Start: 09-12-2024 End: 09-12-2024 [facility] Start: 08-14-2024 End: 08-14-2024 Telephone encounter Debbie Calvert RN [facility] Start: 07-17-2024 End: 07-17-2024 ambulatory [facility] Start: 07-11-2024 End: 07-11-2024 ambulatory [facility] Start: 07-10-2024 End: 07-10-2024 ambulatory [facility] Start: 06-25-2024 End: 06-25-2024 ambulatory [facility] Start: 06-25-2024 End: 06-25-2024 ambulatory [facility] Start: 06-12-2024 End: 06-12-2024 Bamboo flowsheet Wolf Alan NP Work Phone: [facility] Start: 06-12-2024 End: 06-12-2024 Bamboo flowsheet Wolf Alan HYDROELECTRIC MACHINERY MECHANIC HELPER Work Phone: [facility] Start: 06-12-2024 End: 06-12-2024 ambulatory WOLF ALAN Not Available Start: 06-12-2024 End: 06-12-2024 Office outpatient visit 15 minutes Wolf Alan NP Work Phone: [facility] Comment on above: Left foot pain (Prim chantal Dx); Closed nondisplaced fracture of left talus with routine healing, unspecified portion of talus, subsequent encounter Start: 05-22-2024 End: 05-22-2024 Bamboo flowsbrayan Alan NP Work Phone: [facility] Start: 05-22-2024 End: 05-22-2024 Bamboo flowsheet Wolf Alan HYDROELECTRIC MACHINERY MECHANIC HELPER Work Phone: [facility] Start: 05-22-2024 End: 05-22-2024 Postop follow up visit related to original px Wolf Alan NP Work Phone: [facility] Comment on above: Closed nondisplaced fracture of left talus with routine healing, unspecified portion of talus, subsequent encounter (Primary Dx); Left foot pain Start: 05-22-2024 End: 05-22-2024 ambulatory WOLF ALAN Not Available Start: 05-15-2024 End: 05-15-2024 Bamboo flowsbrayan Alan HYDROELECTRIC MACHINERY MECHANIC HELPER Work Phone: [facility] Start: 05-15-2024 End: 05-15-2024 Bamboo flowsheet Wolf Alan HYDROELECTRIC MACHINERY MECHANIC HELPER Work Phone: [facility] Start: 05-15-2024 End: 05-15-2024 Postop follow up visit related to original px Wolf Alan NP Work Phone: [facility] Comment on above: Closed nondisplaced fracture of left talus with routine healing, unspecified portion of talus, subsequent encounter Start: 05-15-2024 End: 05-15-2024 ambulatory WOLF ALAN Not Available Start: 04-30-2024 End: 04-30-2024 ambulatory [facility] Start: 04-24-2024 End: 04-24-2024 Office outpatient visit 25 minutes Olivia Schmidt MD Work Phone: [facility] Comment on above: Decreased libido (Pr imary Dx); DUB (dysfunctional uterine bleeding); PMB (postmenopausal bleeding) Start: 04-17-2024 End: 04-17-2024 Bamboo flowsbrayan Alan HYDROELECTRIC MACHINERY MECHANIC HELPER Work Phone: [facility] Start: 04-17-2024 End: 04-17-2024 Bamboo flowsbrayan Alan HYDROELECTRIC MACHINERY MECHANIC HELPER Work Phone: [facility] Start: 04-17-2024 End: 04-17-2024 Postop follow up visit related to original px Wolf Alan HYDROELECTRIC MACHINERY MECHANIC HELPER Work Phone: [facility] Comment on above: Closed nondisplaced fracture of left talus with routine healing, unspecified portion of talus, subsequent encounter Start: 04-17-2024 End: 04-17-2024 ambulatory WOLF ALAN Not Available Start: 03-29-2024 End: 04-05-2024 Telephone encounter Tiki Mir [facility] Comment on above: letter requested Start: 03-23-2024 End: 03-23-2024 Orders Only Magalys Gomez SHIP BOAT OR BARGE MATE-STAFFING AND SCHEDULING COORDINATOR Work Phone: [facility] Comment on above: Encounter for initia l prescription of contraceptive pills (Primary Dx) Start: 03-20-2024 End: 03-20-2024 Telephone encounter Ina Chavez OPTO MECHANICAL ENGINEER [facility] Comment on above: Encounter for initia l prescription of contraceptive pills (Primary Dx) Start: 03-08-2024 End: 03-08-2024 Office outpatient visit 25 minutes Baron Martel PA-C Work Phone: [facility] Comment on above: Memory changes (Prim chantal Dx); Staring episodes; Psychogenic nonepileptic seizure Start: 03-07-2024 End: 03-07-2024 Patient encounter procedure [facility] Upset Welding Machine Operator [facility] Start: 03-07-2024 End: 03-07-2024 Periodic preventive med est patient 40-64yrs [facility] Upset Welding Machine Operator [facility] Comment on above: Well woman exam with routine gynecological exam (Primary Dx); Encounter for screening mammogram for breast cancer; Screening examination for STD (sexually transmitted disease); Standardized adult depression screening tool completed; Encounter for counseling regarding contraception; Colon cancer screening Start: 03-06-2024 End: 03-06-2024 ambulatory GISSEL BURRELL Not Available Start: 03-05-2024 End: 03-05-2024 ambulatory VERNON Weinberg APLING Not Available Start: 03-05-2024 End: 03-05-2024 ambulatory VERNON Weinberg APLING Not Available Start: 03-01-2024 End: 03-01-2024 ambulatory MD Sakshi Marinelli Work Phone: [facility] Work Phone: Start: 03-01-2024 End: 03-01-2024 Patient encounter procedure MD Sakshi Marinelli Work Phone: [facility] [place] Work Phone: Start: 12-28-2023 End: 12-28-2023 Patient encounter procedure Jose Juarez PhD Work Phone: [facility] Comment on above: Memory loss (Primary Dx) Start: 11-17-2023 End: 11-17-2023 Telephone encounter Niya Pimentel RN [facility] Start: 07-29-2022 End: 07-30-2022 ambulatory BRITTANY MCGINNIS Facility: Start: 03-23-2022 End: 03-23-2022 ambulatory Xochilt Corral Other [place] Other Start: 03-23-2022 Office outpatient vi sit 15 minutes Xochilt Corral [facility] Start: 03-04-2017 End: 03-05-2017 Ambulatory [facility] Procedures Date Procedure Procedure Detail Performing Clinician Start: 12-19-2024 Follow-up visit Follow-up BRAON MARTEL Start: 06-12-2024 Radex foot complete minimum 3 views Wolf Alan HYDROELECTRIC MACHINERY MECHANIC HELPER Work Phone: Start: 05-15-2024 Radex foot complete minimum 3 views Wolf Alan HYDROELECTRIC MACHINERY MECHANIC HELPER Work Phone: Start: 04-17-2024 Radex foot complete minimum 3 views Wolf Alan HYDROELECTRIC MACHINERY MECHANIC HELPER Work Phone: Start: 03-20-2024 Urine test visual color cmprsn meths Ana Henning SHIP BOAT OR BARGE MATE-STAFFING AND SCHEDULING COORDINATOR Work Phone: Start: 03-08-2024 Adult depression scr eening assessment Baron Martel PA-C Work Phone: Start: 03-07-2024 Urine test visual color cmprsn meths Magalys Gomez SHIP BOAT OR BARGE MATE-STAFFING AND SCHEDULING COORDINATOR Work Phone: Start: 03-07-2024 Adult depression scr eening assessment [facility] Upset Welding Machine Operator Start: 03-01-2024 X-ray of left ankle MD Sakshi Marinelli Work Phone: Start: 03-01-2024 X-ray of left foot MD Nelly Marinelli Work Phone: Start: 05-16-2023 Adult depression scr eening assessment Niya Pimentel RN Start: 06-01-2022 Microscopic observat ion [Identifier] in Cervix by Cyto stain Niya Pimentel RN Start: 03-04-2017 Radex spine lumbosac ral 2/3 views DEN HU Plan of Treatment Date Care Activity Detail Author Start: 07-17-2025 Adult BMI Screening Adult BMI Screen ing [facility] Start: 07-17-2025 Tobacco Screening Tobacco Screening [facility] Start: 06-01-2025 Screening for malign ant neoplasm of cervix Pap Smear [facility] Start: 04-24-2025 Adult BMI Screening Adult BMI Screen ing [facility] Start: 04-24-2025 Tobacco Screening Tobacco Screening [facility] Start: 03-28-2025 Adult BMI Screening Adult BMI Screen ing [facility] Start: 03-20-2025 Tobacco Screening Tobacco Screening [facility] Start: 03-08-2025 Adult BMI Screening Adult BMI Screen ing [facility] Start: 03-08-2025 Depression Screening Depression Scre ening [facility] Start: 03-08-2025 Tobacco Screening Tobacco Screening [facility] Start: 03-07-2025 Adult BMI Follow Up Plan Adult BMI Follow Up Plan [facility] Start: 03-07-2025 Adult BMI Screening Adult BMI Screen ing [facility] Start: 03-07-2025 Depression Screening Depression Scre ing [facility] Start: 03-07-2025 Tobacco Screening Tobacco Screening [facility] Start: 01-09-2025 [facility] Start: 01-06-2025 Hospital admission [facility] Start: 10-11-2024 End: 10-11-2025 Chlamydia/GC by PCR June Swab Chlamydia/GC by PCR June Swab Microbiology Routine Screening examination for STD (sexually transmitted disease) Expected: 10/11/2024 (Approximate), Expires: 10/11/2025 [employer] Work Phone: Comment on above: Expected: 10/11/2024 (Approximate), Expires: 10/11/2025 Start: 10-11-2024 End: 10-11-2025 Trichomonas by PCR Trichomonas by PCR Microbiology Routine Screening examination for STD (sexually transmitted disease) Expected: 10/11/2024 (Approximate), Expires: 10/11/2025 [facility] Comment on above: Expected: 10/11/2024 (Approximate), Expires: 10/11/2025 Start: 06-26-2024 End: 06-26-2024 Patient encounter procedure 06/26/2024 9:15 AM EST Office Visit [facility] [address] [facility] [address] [place] [address] Wolf Alan, HYDROELECTRIC MACHINERY MECHANIC HELPER [address] [place] [address] [facility] Start: 06-13-2024 End: 06-13-2024 Patient encounter procedure 06/13/2024 10:00 AM EST Office Visit [facility] [place] [address] [place] [address] [facility] [place] Start: 06-12-2024 End: 06-12-2024 Patient encounter procedure 06/12/2024 10:45 AM EST Office Visit [facility] [address] [facility] [address] [place] [address] Wolf Alan, THIERRY [address] [place] [address] [facility] Start: 06-08-2024 End: 06-08-2024 Patient encounter procedure 06/08/2024 11:00 AM EST Office Visit [facility] [address] [facility] [place] [phone] Baron Martel, BARI [address] [place] [phone] [facility] Start: 05-22-2024 End: 05-22-2024 Patient encounter procedure 05/22/2024 11:15 AM EDT Office Visit [facility] [address] [facility] [address] [place] [phone] Wolf Alan, HYDROELECTRIC MACHINERY MECHANIC HELPER [address] [place] [address] Arrived [facility] Comment on above: Arrived Start: 05-21-2024 End: 05-21-2024 Patient encounter procedure 05/21/2024 1:00 PM EDT Procedure visit [facility] [address] [place] [id number] Olivia Schmidt MD [address] [place] [address] [facility] Start: 05-16-2024 Adult BMI Screening Adult BMI Screen ing [facility] Start: 05-16-2024 Depression Screening Depression Scre ening [facility] Start: 05-16-2024 Tobacco Screening Tobacco Screening [facility] Start: 05-15-2024 End: 05-15-2024 Patient encounter procedure [facility] Comment on above: Closed nondisplaced fracture of left talus with routine healing, unspecified portion of talus, subsequent encounter Start: 04-24-2024 End: 04-24-2025 US Pelvis transabdominal and transvaginal Ultrasound pelvic with transvaginal Imaging Routine DUB (dysfunctional uterine bleeding) Expected: 04/24/2024, Expires: 04/24/2025 [facility] Comment on above: Expected: 04/24/2024 , Expires: 04/24/2025 Start: 04-17-2024 End: 04-17-2024 Patient encounter procedure 04/17/2024 1:00 PM EDT Office Visit [facility] [address] [place] [address] Wolf Alan, THIERRY [address] [place], [place] [phone] Closed nondisplaced fracture of left talus with routine healing, unspecified portion of talus, subsequent encounter [facility] Comment on above: Closed nondisplaced fracture of left talus with routine healing, unspecified portion of talus, subsequent encounter Start: 04-01-2024 Influenza vaccination Influenza Vacc ine [facility] Start: 03-28-2024 End: 03-28-2024 Patient encounter procedure 03/28/2024 1:15 PM EDT Appointment [facility] - Mammogram DEXA [address] [place] [address] Magalys Gomez, SHIP BOAT OR BARGE MATE-STAFFING AND SCHEDULING COORDINATOR [address] [place] [address] [facility] - Mammogram DEXA Start: 03-26-2024 End: 03-26-2024 Patient encounter procedure 03/26/2024 9:15 AM EDT Appointment [facility] - MRI Imaging [address] [place] [address] [facility] - MRI Imaging Start: 03-20-2024 End: 03-20-2024 Clinical Support 03/20/2024 10:30 AM EDT Clinical Support [facility] [place] [facility] [place] [address] [place] [address] [facility] Start: 03-08-2024 End: 03-08-2025 MR Brain WO contrast MR brain without contrast Imaging Routine Memory changes Expected: 03/08/2024, Expires: 03/08/2025 [facility] Comment on above: Expected: 03/08/2024 , Expires: 03/08/2025 Start: 03-08-2024 End: 03-08-2024 Patient encounter procedure 03/08/2024 8:30 AM EDT Office Visit [facility] [address] [place] [address] Baron Martel, PAEdgarC [address] [address] [place] [phone] [facility] Start: 03-07-2024 End: 03-07-2025 Chlamydia/GC by PCR June Swab Chlamydia/GC by PCR June [facility] Microbiology Routine Screening examination for STD (sexually transmitted disease) Expected: 03/07/2024 (Approximate), Expires: 03/07/2025 [facility] [employer] Comment on above: Expected: 03/07/2024 (Approximate), Expires: 03/07/2025 Start: 03-07-2024 End: 03-07-2025 DBT Breast - bilateral screening Mammography screening bilateral with CAD Imaging Routine Encounter for screening mammogram for breast cancer Expected: 03/07/2024, Expires: 03/07/2025 [employer] Work Phone: Comment on above: Expected: 03/07/2024 , Expires: 03/07/2025 Start: 03-07-2024 End: 03-07-2025 Vaginitis Panel PCR Vaginitis Panel PCR Microbiology Routine Screening examination for STD (sexually transmitted disease) Expected: 03/07/2024 (Approximate), Expires: 03/07/2025 [facility] [employer] Comment on above: Expected: 03/07/2024 (Approximate), Expires: 03/07/2025 Start: 12-28-2023 End: 12-28-2023 Patient encounter procedure 12/28/2023 9:00 AM EDT Office Visit [facility] [place] [address] [place] [address] [facility] Start: 06-01-2023 Adult BMI Follow Up Plan Adult BMI Follow Up Plan [facility] Start: 1996 DTaP,Tdap and Td Vaccines (1 - Tdap) DTaP,Tdap and Td Vaccines (1 - Tdap) [facility] End: 04-24-2025 CBC panel - Blood by Automated count CBC without diff Lab Routine DUB (dysfunctional uterine bleeding) 1 Occurrences starting 04/24/2024 until 04/24/2025 [employer] Work Phone: Comment on above: 1 Occurrences starti ng 04/24/2024 until 04/24/2025 [facility] Cologuar d [facility] Lab Routine Colon cancer screening [facility]: [facility] Comment on above: Ordered: 03/07/2024 End: 03-08-2025 Cyanocobalamin vitamin b-12 Vitamin B12 Lab Routine Memory changes 1 Occurrences starting 03/08/2024 until 03/08/2025 [facility] Comment on above: 1 Occurrences starti ng 03/08/2024 until 03/08/2025 End: 03-08-2025 Folate [Mass/volume] in Serum or Plasma Folate Serum Lab Routine Memory changes 1 Occurrences starting 03/08/2024 until 03/08/2025 [facility] Comment on above: 1 Occurrences starti ng 03/08/2024 until 03/08/2025 End: 04-24-2025 Follicle stimulating hormone Follicle stimulating hormone Lab Routine DUB (dysfunctional uterine bleeding) 1 Occurrences starting 04/24/2024 until 04/24/2025 [facility] Comment on above: 1 Occurrences starti ng 04/24/2024 until 04/24/2025 End: 04-24-2025 HCG, Quantitative, HCG, Quantitative, Lab Routine DUB (dysfunctional uterine bleeding) 1 Occurrences starting 04/24/2024 until 04/24/2025 [facility] Comment on above: 1 Occurrences starti ng 04/24/2024 until 04/24/2025 End: 03-07-2025 Hepatitis panel, acute Hepatitis panel, acute Lab Routine Screening examination for STD (sexually transmitted disease) 1 Occurrences starting 03/07/2024 until 03/07/2025 [facility] Comment on above: 1 Occurrences starti ng 03/07/2024 until 03/07/2025 Hepatitis panel, acute Hepatitis panel, acute Lab Routine Screening examination for STD (sexually transmitted disease) 03/07/2024 12:05 PM EDT [facility] End: 10-11-2025 Hepatitis panel, acute Hepatitis panel, acute Lab Routine Screening examination for STD (sexually transmitted disease) 1 Occurrences starting 10/11/2024 until 10/11/2025 [facility] Comment on above: 1 Occurrences starti ng 10/11/2024 until 10/11/2025 End: 03-07-2025 HIV 1&2 AB/AG Screen (P24 AG) HIV 1&2 AB/AG Screen (P24 AG) Lab Routine Screening examination for STD (sexually transmitted disease) 1 Occurrences starting 03/07/2024 until 03/07/2025 [facility] Comment on above: 1 Occurrences starti ng 03/07/2024 until 03/07/2025 End: 10-11-2025 HIV 1&2 AB/AG Screen (P24 AG) HIV 1&2 AB/AG Screen (P24 AG) Lab Routine Screening examination for STD (sexually transmitted disease) 1 Occurrences starting 10/11/2024 until 10/11/2025 [facility] Comment on above: 1 Occurrences starti ng 10/11/2024 until 10/11/2025 HIV 1+2 Ab+HIV1 p24 Ag [Presence] in Serum or Plasma by Immunoassay HIV 1&2 AB/AG Screen (P24 AG) Lab Routine Screening examination for STD (sexually transmitted disease) 03/07/2024 12:05 PM EDT [facility] End: 04-24-2025 Luteinizing hormone Luteinizing hormone Lab Routine DUB (dysfunctional uterine bleeding) 1 Occurrences starting 04/24/2024 until 04/24/2025 [facility] Comment on above: 1 Occurrences starti ng 04/24/2024 until 04/24/2025 Patient Education Depression in adults - Discharge instructions [facility] DC Instructions Know your Meds [facility] Work Phone: Patient referral [facility] Work Phone: End: 04-24-2025 Prolactin Prolactin Lab Routine DUB (dysfunctional uterine bleeding) 1 Occurrences starting 04/24/2024 until 04/24/2025 [facility] Comment on above: 1 Occurrences starti ng 04/24/2024 until 04/24/2025 End: 03-07-2025 Syphilis Total(Unknown Syphilis Status) Syphilis Total(Unknown Syphilis Status) Lab Routine Screening examination for STD (sexually transmitted disease) 1 Occurrences starting 03/07/2024 until 03/07/2025 [facility] Comment on above: 1 Occurrences starti ng 03/07/2024 until 03/07/2025 End: 10-11-2025 Syphilis Total(Unknown Syphilis Status) Syphilis Total(Unknown Syphilis Status) Lab Routine Screening examination for STD (sexually transmitted disease) 1 Occurrences starting 10/11/2024 until 10/11/2025 [facility] Comment on above: 1 Occurrences starti ng 10/11/2024 until 10/11/2025 End: 03-08-2025 Thyroid profile includes TSH FT4 Thyroid profile includes TSH FT4 Lab Routine Memory changes 1 Occurrences starting 03/08/2024 until 03/08/2025 [employer] Phone: Comment on above: 1 Occurrences starti ng 03/08/2024 until 03/08/2025 End: 04-24-2025 Thyrotropin [Units/volume] in Serum or Plasma TSH Lab Routine DUB (dysfunctional uterine bleeding) 1 Occurrences starting 04/24/2024 until 04/24/2025 [facility] Comment on above: 1 Occurrences starti ng 04/24/2024 until 04/24/2025 End: 04-24-2025 Thyroxine (T4) free [Mass/volume] in Serum or Plasma T4, free Lab Routine DUB (dysfunctional uterine bleeding) 1 Occurrences starting 04/24/2024 until 04/24/2025 [facility] Comment on above: 1 Occurrences starti ng 04/24/2024 until 04/24/2025 Treponema pallidum IgG+IgM Ab [Presence] in Serum by Immunoassay Syphilis Total(Unknown Syphilis Status) Lab Routine Screening examination for STD (sexually transmitted disease) 03/07/2024 12:05 PM EDT [facility] Immunizations Immunization Date Immunization Notes Care Provider Della bocanegra 04-28-2019 influenza, injectabl e, quadrivalent, preservative free Niya Pimentel RN [facility] 04-28-2019 influenza virus vaccine, unspecified formulation Niya Pimentel RN [facility] 06-04-2018 influenza, injectabl e, quadrivalent, preservative free Niya Pimentel RN [facility] Payers Date Payer Category Payer Self-pay [id number] 2024 Medicaid [id number] 2024 Medicaid [id number] 2019 [facility] BCBS [id number] 2019 [employer] Blue Shie ld Managed Care - Other ANTHEM [id number]. [id number] 2019 Unknown [id number]. 1.13.693.2. 7.3.320678.315 2014 Unknown [id number] 1977 Unknown [id number] 2.16.840.1.717605.3.579.2. 593 1977 Unknown [id number] 2.16.840.1.886453.3.579.2. 1259 1977 Unknown [id number] 2.16.840.1.970582.3.579.2. 1259 1977 Unknown [id number] 2.16.840.1.467771.3.579.2. 9 1977 Unknown [id number] 2.16.840.1.741995.3.579.2. 1258 1977 Unknown [id number] 2.16.840.1.864839.3.579.2. 1258 1977 Unknown [id number] 2.16840.1.090263.3.579.2. 1258 1977 Unknown [id number] 2.16840.1.523977.3.579.2. 1258 1977 Unknown [id number] 2.840.1.845721.3.579.2. 1258 1977 Unknown [id number] 2.840.1.535239.3.579.2. 1258 1977 Unknown [id number] 2.0.1.570197.3.579.2. 1258 1977 Unknown [id number] 2.0.1.172020.3.579.2. 1285 1977 Unknown [id number] 2.0.1.629475.3.579.2. 1285 1977 Unknown [id number] 2.840.1.763263.3.579.2. 1285 1977 Unknown [id number] 2.0.1.551817.3.579.2. 1285 1977 Unknown [id number] 2.840.1.844078.3.579.2. 1285 1977 Unknown [id number] 2.840.1.034477.3.579.2. 1285 1977 Unknown [id number] 2.16840.1.037027.3.579.2. 1285 1977 Unknown [id number] 2.840.1.833327.3.579.2. 1285 1977 Unknown [id number] 2.16.840.1.417075.3.579.2. 1286 1977 Unknown [id number] 2.16.840.1.560736.3.579.2. 1286 1977 Unknown [id number] 2.16.840.1.571211.3.579.2. 1286 1977 Unknown [id number] 2.16.840.1.173160.3.579.2. 1286 1959 [facility] [id number] 2.16.840.1.012100.19 Unknown [id number] 2.16.840.1.553370.3.579.2. 531 Social History Date Type Detail Facility Start: 04-17-2024 End: 10-11-2024 Sex Assigned At [facility] Start: 03-01-2024 End: 01-07-2025 Tobacco smoking status FLIS Ex-smoker (finding) [facility] Start: 1975 Sex Assigned At Female F [facility] End: 08-01-2015 History of tobacco use Current smoker [facility] End: 08-01-2015 History of tobacco use Cigarette Smoker [facility] Start: 03-05-2024 End: 03-07-2024 Tobacco use and exposure Smokeless tobacco non-user [facility] Start: 04-17-2024 End: 10-11-2024 Alcoholic beverage intake Ex-drinker (finding) [facility] Start: 04-17-2024 End: 10-11-2024 History of Social function [facility] Start: 1975 Sex assigned at Not on file P [facility] Adolescent depressio n screening assessment 0 [facility] Start: 03-07-2024 Alcohol Comment rare [facility] Start: 03-06-2015 End: 01-09-2025 Sex Female (finding) [facility] Start: 05-16-2023 Alcoholic beverage intake Current drinker of alcohol (finding) [facility] Start: 06-01-2022 Alcohol Comment social [facility] Goals Date Patient Goal Desired Activity /State Personal health goal Comment on above: Formatting of this n ote might be different from the original. Evaluation of progress towards goal: Patient stated she plans to return home with self care. Functional Status Date Assessment Result Facility 01-09-2025 Functional status Patient at [facility] Work Phone: Mental Status Date Assessment Result Facility 01-09-2025 Cognitive function Cognitive Sta tus Patient at [facility] Work Phone: Clinical Notes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 inspection, hearing grossly normal bilaterally, external nose normal, face symmetric Eyes: appearance normal, both eyes and all related structures, sclerae normal Neck: normal visual inspection and full ROM Resp: normal respiratory effort, able to speak in complete sentences and symmetric chest movement Cardio: regular rate GI: normal to inspection and non-distended : deferred Skin: no rashes or lesions noted Neuro: CNI: Normal olfaction, CNII: Visual forbes intact, CNIII,IV,: EOM intact, no nystagmus. Pupils equal, round, reactive to light and accommodation, CNV: Sensation intact to light touch, CNVII:Raises eyebrows, smile/frown, puff out cheeks symmetrically, CNVIII: Hearing intact bilaterally, CNIX,X: Voice normal, soft palate elevation normal, symmetrical, CNXI: Shoulder shrug strong, equal bilaterally, CNXII: Tongue protrusion midline, movement symmetrical. Extrem: normal to inspection and full ROM Assessment/Plan (1) Suicide attempt: (2) Cluster B personality disorder in adult: (3) Depression: Plan Mr. Gilmore is a 49-year-old female with past psychiatric history of depression whopresents to us for treatment due to suicide attempt by sitting in her car with the car on in an enclosed garage. Longstanding medications include Lexapro, Lamictal, trazodone that was switched to doxepin recently. Patient is downplaying occurrences. Circumstances are indicative of regression and potential cluster B tendencies. Continue Lexapro 20 mg once a day, Lamictal 200 mg twice daily, and increase doxepin 50 mg once a day for her sleep. Patient would greatly benefit from dialectical behavioral therapy in outpatient setting. Risks, benefits, and indications are discussed Monitor mental status Encourage psychotherapy Documented By: Agapito Sheldon MD 01/07/25 1058 Signed By: 01/07/25 1543 01/07/25 1110 [facility]06-09-2025 Evaluation note* Diagnosis Onset Date Resolution Status Admit Date Cluster B personality disord er in adult acute January 06, 2025 1 1:09pm Depression acute January 06, 2025 11:09pm MDD (major depressive disorder) acut e January 06, 2025 11:09pm Suicide attempt acute January 06, 2025 11:09pm [facility] Work Phone: 1(843) 436-539803-13-2025 History of Present illness Narrative* Magalys Anaya, SHIP BOAT OR BARGE MATE-STAFFING AND SCHEDULING COORDINATOR - 10/11/2024 8:00 AM EDT Samaria Gilmore is a 49 y.o.female. Patient's [...] Past Medical History: Diagnosis Date Depression Epilepsy ([facility]) GERD (gastroesophageal reflux disease) High cholesterol SURGICAL [...] All questions answered. Educational materials provided through [employer]. RTO for annual (due in March 2025) or sooner as needed. PAXTON Adams APRN-DIRK Anderson 10/11/24 0821 documented in this encounterCommunity [facility] Miscellaneous Notes* Telephone Encounter - Debbie Calvert RN - 09/12/2024 1:15 PM EST Pt states a few months ago she was seen for BV and was not treated for it at that time. Pt believesshe may have BV again, she has an odor and discharge. Pt is requesting a prescription to be sent toher pharmacy. Please advise. - Debbie Calvert RN 09/12/24 1:17 PM * Telephone Encounter - DIRK Zapien - 09/12/2024 1:15 PM EST RX for flagyl sent to pharmacy. * Telephone Encounter - Debbie Calvert RN - 09/12/2024 1:15 PM EST Called the patient and left a message for a call back. AMBIKA Nolan, RN documented in this encounterCommunity [facility] Center02-12-2025 Telephone encounter Note* Telephone Encounter - Debbie Calvert RN - 09/12/2024 1:15 PM EST Pt states a few months ago she was seen for BV and was not treated for it at that time. Pt believesshe may have BV again, she has an odor and discharge. Pt is requesting a prescription to be sent toher pharmacy. Please advise. - Debbie Calvert RN 09/12/24 1:17 PM [facility] Telephone encounter Note* Telephone Encounter - DIRK Zapien - 09/12/2024 1:15 PM EST RX for flagyl sent to pharmacy. [facility] Telephone encounter Note* Telephone Encounter - Debbie Calvert RN - 09/12/2024 1:15 PM EST Called the patient and left a message for a call back. AMBIKA Nolan RN [facility]01-14-2025 Miscellaneous Notes* Telephone Encounter - Debbie Calvert RN - 08/14/2024 9:14 AM EST Pt called stating that she has not started her new control pill yet, Slynd, but she had a period a month ago and then had another one that has been lasting for 17 days. She confirms period likecramps and only changing her pad every few [...] understanding. AMBIKA Nolan, RN documented in this encounterCommunity [facility] Center01-14-2025 Telephone encounter Note* Telephone Encounter - Debbie Calvert RN - 08/14/2024 9:14 AM EST Pt called stating that she has not started her new control pill yet, Slynd, but she had a period a month ago and then had another one that has been lasting for 17 days. She confirms period likecramps and only changing her pad every few [...] is. Pt verbalized understanding. AMBIKA Nolan, RN [facility] [id number] History of Present illness Narrative* Wolf Alan NP - 06/12/2024 10:45 AM EST Images from the original note were not included. Chief Complaint Patient presents with Left Foot - Follow-up HISTORY OF PRESENT ILLNESS: Samaria Gilmore is an 48 y.o. @ female. LT Foot/ankle: 3 months 2 weeks s/p injury. Pt fell off a ladder several feet high and injured left foot/ankle on 02/28/24. Went to [facility] urgent care on 03/01/24, placed in ocl splint and given crutches. Walking in regular shoes. States she still has constant pain on top of foot. Taking IBU. Constant swelling. [place]: UC/XR/03/01/24 [place], xrays left ankle and foot [facility] 03/01/24, ibu, ice, tyl, ocl splint, crutches, [...] acute bony process, left foot. Wolf Alan APRN-STAFFING AND SCHEDULING COORDINATOR ASSESSMENT: ICD-10-CM 1. Left foot pain M79.672 [...] develop for requiring urgent evaluation. Wolf Alan APRN-STAFFING AND SCHEDULING COORDINATOR documented in this encounterChildren's Mercy [id number] History of Present illness Narrative* Wolf Alan NP - 05/22/2024 11:15 AM EDT Images from the original note were not included. Chief Complaint Patient presents with Left Foot - Follow-up HISTORY OF PRESENT ILLNESS: Samaria Gilmore is an 48 y.o. @ female. LT Foot/ankle: 12 weeks s/p injury. Pt fell off a ladder several feet high and injured left foot/ankle on 02/28/24.Went to [facility] urgent care on 03/01/24, placed in ocl splint and given crutches. Presents WBAT in regular shoes, still favoring foot. Pain anterior foot. Taking IBU prn. Elevating.Admits swelling. Denies N/T. Does not wake at HS. States she was wearing sandals yesterday and was on her feet for a while, had swelling after. [place]: UC/XR/03/01/24 [place], xrays left ankle and foot [facility] 03/01/24, ibu, ice, tyl, ocl splint, crutches, [...] to increase activity as tolerated. She will callif swelling or pain do not improve. She [...] develop for requiring urgent evaluation. Wolf Alan SHIP BOAT OR BARGE MATE-STAFFING AND SCHEDULING COORDINATOR documented in this encounterChildren's Mercy [id number] History of Present illness Narrative* Wolf Alan NP - 05/15/2024 10:00 AM EDT Images from the original note were not included. Chief Complaint Patient presents with Left Foot - Follow-up HISTORY OF PRESENT ILLNESS: Samaria Gilmore is an 48 y.o. @ female. LT Foot/ankle: 11 weeks s/p injury. Pt fell off a ladder several feet high and injured left foot/ankle on 02/28/24.Went to [facility] urgent care on 03/01/24, placed in ocl splint and given crutches. Presents WBAT in [facility] Denies much pain, improving. No pain meds. Denies N/T, swelling. [place]: UC/XR/03/01/24 [place], xrays left ankle and foot [facility] 03/01/24, ibu, ice, tyl, ocl splint, crutches, [...] develop for requiring urgent evaluation. Wolf Alan SHIP BOAT OR BARGE MATE-STAFFING AND SCHEDULING COORDINATOR documented in this encounterChildren's Mercy [id number] History of Present illness Narrative* Olivia Schmidt MD - 04/24/2024 10:45 AM EDT Saamria Gilmore is a 48 y.o.female. Patient's last menstrual period was 04/24/2024.. She presents decreased libido that she noticed several years ago.She states that her sex drive has decrease significantly. SAW NEUROLOGY FOR FATIGUE SHORT-TERM MEMORY LOSS SEIZURE-LIKE EPISODES AND ALSO TAKES MEDICATION FOR DEPRESSION AND INSOMNIA AFTER FURTHER QUESTIONING MS. BEE REPORTS EPISODE OF PERIMENOPAUSAL BLEEDING THIS PAST MONTH AFTERNO BLEEDING SINCE SEPTEMBER OF 2023 POSITIVE BETA VASOMOTOR SYMPTOMS-- MOST NOTABLY DECREASED LIBIDO AND INSOMNIA Current contraception:oral contraceptives (estrogen/progesterone) OB History 3 Para 2 Term 2 AB 1 Living 2 SAB 1 IAB Ectopic Multiple Live Births 2 MEDICAL HX Past Medical History: Diagnosis Date Depression Epilepsy ([facility]) GERD (gastroesophageal reflux disease) High cholesterol SURGICAL [...] before bedtime. 120 tablet 2 norethindrone-e.estradioL-iron (JUNE FE 08/20, ,) 1 mg-20 mcg (21)/75 [...] MD Debbie HOOD RN documented in this encounterCommunity [facility]09[facility] History of Present illness Narrative* Wolf Alan, THIERRY - 04/17/2024 1:00 PM EDT Images from the original note were not included. Chief Complaint Patient presents with Left Foot - Follow-up HISTORY OF PRESENT ILLNESS: Samaria Gilmore is an 48 y.o. @ female. LT Foot/ankle: here for possible cast 7 weeks s/p injury. Pt fell off a ladder several feet high and injured left foot/ankle on 02/28/24. Went to [facility] urgent care on 03/01/24, placed in ocl splint and given crutches. Presents NWB in CAM boot with knee scooter. Denies much pain, improving. No pain meds. Denies N/T, swelling. [place]: UC/XR/03/01/24 [place], xrays left ankle and foot [facility] 03/01/24, ibu, ice, tyl, ocl splint, crutches, [...] develop for requiring urgent evaluation. Wolf Alan SHIP BOAT OR BARGE MATE-STAFFING AND SCHEDULING COORDINATOR documented in this encounterChildren's Mercy [id number] Miscellaneous Notes* Telephone Encounter - Tiki Mir - 03/29/2024 12:11 PM EDT Patient stated that she is currently applying for benefits. However, she will need a letter statingwhat her diagnosis is. She is asking for this letter to be available in her mychart. Please advise * Telephone Encounter - Octavia Guillermo RN - 03/29/2024 12:11 PM EDT Please advise on what diagnoses to list. * Telephone Encounter - Baron Martel PA-C - 03/29/2024 12:11 PM EDT Diagnoses would include seizure-like activity, nonepileptic seizures, and short- term memory loss. - [facility] * Telephone Encounter - Octavia Guillermo RN - 03/29/2024 12:11 PM EDT Letter created. Patient contacted and informed that [employer] is not currently active. Link has been sent and once active, letter will be sent. Patient requested results of MRI as well. * Telephone Encounter - Baron Martel PA-C - 03/29/2024 12:11 PM EDT Brain MRI does not show any intracranial pathology. - [facility] * Telephone Encounter - Octavia Guillermo RN - 03/29/2024 12:11 PM EDT Patient informed and voiced understanding. documented in this encounterCommunity [facility] Center08-29-2024 Telephone encounter Note* Telephone Encounter - Tiki Adeola - 03/29/2024 12:11 PM EDT Patient stated that she is currently applying for benefits. However, she will need a letter statingwhat her diagnosis is. She is asking for this letter to be available in her [facility] Medicine[facility]. Please advise [facility] Telephone encounter Note* Telephone Encounter - Octavia Guillermo RN - 03/29/2024 12:11 PM EDT Please advise on what diagnoses to list. [facility] Telephone encounter Note* Telephone Encounter - Baron Martel PA-C - 03/29/2024 12:11 PM EDT Diagnoses would include seizure-like activity, nonepileptic seizures, and short- term memory loss. - [facility] Telephone encounter Note* Telephone Encounter - Octavia Guillermo RN - 03/29/2024 12:11 PM EDT Letter created. Patient contacted and informed that [employer] is not currently active. Link has been sent and once active, letter will be sent. Patient requested results of MRI as well. [facility] Telephone encounter Note* Telephone Encounter - Baron Martel PA-C - 03/29/2024 12:11 PM EDT Brain MRI does not show any intracranial pathology. - [facility] Telephone encounter Note* Telephone Encounter - Octavia Guillermo RN - 03/29/2024 12:11 PM EDT Patient informed and voiced understanding. [facility] Miscellaneous Notes* Telephone Encounter - Ina Chavez LPN - 03/20/2024 2:20 PM EDT Pt was in today for a NV for UPT to start BC pills. UPT was negative with no intercourse for 2 weeks.When you get a chance can you send in a script for Pt? Thank you! documented in this encounterCommunity [facility] Medical Center08-20-2024 Telephone encounter Note* Telephone Encounter - Ina Chavez LPN - 03/20/2024 2:20 PM EDT Pt was in today for a NV for UPT to start BC pills. UPT was negative with no intercourse for 2 weeks.When you get a chance can you send in a script for Pt? Thank you! [facility] History of Present illness Narrative* Ina Chavez LPN - 03/20/2024 10:30 AM EDT Pt is here for NV for UPT to start BC pills. LMP-was in September. Pt has not had intercourse for 2 weeks. Pt aware of negative result for UPT. documented in this encounterCommunity Regional Medical Center08-08-2024 History of Present illness Narrative* Baron Martel PA-C - 03/08/2024 8:30 AM EDT [facility] Neurology Office Note 03/07/2024 4:32 PM Patient info: Samaria Gilmore is a 48 y.o. female Account No.: [id number] Acct: : 1975 PCP: BRITTANY MCGINNIS APRN-STAFFING AND SCHEDULING COORDINATOR Chief Complaint: Patient, 47 year old right hand dominant female, presents today for initial Neurological evaluationregarding seizures. Last seen in the office on [...] following with [facility] in the [place], [place] area since the 2nd such seizure event in 2020. 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 female who presents for annual gas fitter exam. Periods are irregular, lasting 7 days. [...] past medical history, past social history, past surgicalhistory and problem list. MEDICAL HX Past Medical History: Diagnosis Date Depression Epilepsy ([facility]) GERD (gastroesophageal reflux disease) High cholesterol SURGICAL [...] Follow up in 1 year for annual gas fitter exam. Follow up as needed. Next pap [...] Franco, APRN-CNP 03/07/24 1119 documented in this encounterKettering Health Main CampusEstrela Digital [facility] [id number] Miscellaneous Notes* Addendum Note - Ina Chavez LPN - 03/07/2024 10:30 AM EDTAddended by: INA CHAVEZ on: 03/07/2024 11:29 AM Modules accepted: Orders documented in this encounterCommunity [facility] Medical Center08-07-2024 Note* Addendum Note - Ina Chavez LPN - 03/07/2024 10:30 AM EDTAddended by: INA CHAVEZ on: 03/07/2024 11:29 AM Modules accepted: Orders [facility] History of Present illness Narrative* Jose Juarez, PhD - 12/28/2023 9:00 [place] [address] Ms. Samaria Gilmore was seen for a neuropsychological evaluation on 12/28/2023. A report describing the results of this evaluation will be posted when completed. documented in this encounterCommunity Regional Medical Center04-18-2024 Miscellaneous Notes* Telephone Encounter - Niya Pimentel RN - 11/17/2023 8:36 AM EDT Call [employer] to see if PA needed for Dr. Meier visit. Per automated system CPT codes 42037 needs PA. Spoke with Margarita and started PA over the phone. She stated that needed to listen to benefits with RN already did. Reference # [id number]. documented in this encounterCommunity Regional Medical Center04-18-2024 Telephone encounter Note* Telephone Encounter - Niya Pimentel RN - 11/17/2023 8:36 AM EDT Call [employer] to see if PA needed for Dr. Meier visit. Per automated system CPT codes 58848 needs PA. Spoke with Margarita and started PA over the phone. She stated that needed to listen to benefits with RN already did. Reference # [id number]. [facility] Evaluation note* Encounter Date Diagnosis Assessment Notes Treatment Notes Treatment Clinical Notes Mar, Sore throat (ICD-10 - J02.9) [...] PT acknowledges understanding and agrees to understanding. [employer] Other 04-01-2012 History general Narrative - Reported* Type Description Date Medical History hypertension Medical History depression Medical History acid reflux Medical History miscarriage 10/2011 Surgical History D&C Hospitalization History childbirth [employer] Other Evaluation note* Diagnosis Onset Date Resolution Status Fracture, talus closed acute Injury of left ankle and foot [facility] Work Phone: Evaluation note* Diagnosis Onset Date Resolution Status Fracture, talus closed [facility] Work Phone: Evaluation note* Diagnosis Closed [...] vaginitis and vulvovaginitis documented in this encounter [facility]* Diagnosis Memory loss- Primary documented in this encounter [facility]* Diagnosis Memory changes- Primary Staring episodes Psychogenic nonepileptic seizure [facility] encounter [facility]* Diagnosis Well woman exam with routine gynecological exam- Primary Routine gynecological examination Encounter for screening mammogram for breast cancer Screening examination for STD (sexually transmitted disease) Standardized adult depression screening tool completed Encounter for counseling regarding contraception Colon cancer screening Special screening for malignant neoplasms, colon documented [facility] this encounter [facility]* Diagnosis Encounter for initial prescription of contraceptive pills- Primary [facility] encounter [facility]* Diagnosis Encounter for initial prescription of contraceptive pills- Primary [facility] encounter [facility]* Diagnosis Decreased libido- Primary DUB (dysfunctional uterine bleeding) Other disorder of menstruation and other abnormal bleeding from female genital tract PMB (postmenopausal bleeding) Postmenopausal bleeding documented in this encounter [facility]* Diagnosis Screening examination for STD (sexually transmitted disease)- Primary documented in this encounter [facility] SystemInstructionsNot on filedocumented in this encounter [facility] SystemInstructionsNot on filedocumented in this encounter [facility] SystemInstructionsNot on filedocumented in this encounter [facility] SystemInstructionsNot on filedocumented in this encounter [facility] SystemInstructionsNot on filedocumented in this encounter [facility] SystemInst[facility]* Attachments The following attachments cannot be sent through Care Everywhere. * Control Options (Chinese) * Calcium and vitamin D for bone health (Chinese) documented in this encounterProMedica Health SystemInstructionsNot on file documented in this encounterProMedica Health SystemInstructionsNot on file documented in this encounterProMedide Health SystemInstructions* Attachments The following attachments cannot be sent through Care Everywhere. * STD Prevention (Chinese) [facility] Summary Purpose Family History No [...] Reason for Visit Fracture, talus clos ed Chief Complaint Admit Date mdd-pink slipped January 06, 2025 11:09 pm mdd-pink slipped January 07, 2025 10:58 am Reason for Visit Admit Date Cluster B personality disorder in adult January 06, 2025 11:09pm Depression January 06, 2025 11:09 pm MDD (major depressive disorder) December 11:09pm Suicide attempt January 06, 2025 11:09 pm Reason for Referral Specialty Diagnoses / Procedures Referred By Isai cho Referred To Contact Radiology Diagnoses Memory changes Procedures MR brain without contrast Baron Martel, BARI [address] [place] [address] Referral ID Status Reason Start Date Expiration Date V isits Requested Visits Authorized [id number] Pending Review 03/08/2024 03/08/2025 1 1 Additional Source Comments INFORMATION SOURCE (unrecogn ized section and content) DATE CREATED AUTHOR 01/25/2018 [facility] DATE CREATED AUTHOR AUTHOR'S ORGANIZ ATION 07/30/2022 [facility] DATE CREATED AUTHOR AUTHOR'S ORGANIZ ATION 06/18/2024 [facility] DATE CREATED AUTHOR AUTHOR'S ORGANIZ ATION 10/14/2024 [facility] DATE CREATED AUTHOR AUTHOR'S ORGANIZ ATION 12/26/2024 [facility] DATE CREATED AUTHOR AUTHOR'S ORGANIZ ATION 01/06/2025 [facility] DATE CREATED AUTHOR AUTHOR'S ORGANIZ ATION 03/04/2025 [facility] REASON FOR VISIT (unrecogniz ed section and content) Reason Comments Follow-up Reason Comments Memory Loss Specialty Diagnoses / Procedures Referred By Contac t Referred To Contact Psychology Diagnoses Anxiety Impulsive Staring episodes Baron Martel, PAEdgarC [address] [place] [address] Amber Meier, PhD [address] [place] [address] Referral ID Status Reason Start Date Expiration Date Visits Requested Visits Authorized [id number] Pending Review Specialty Services Required 3 05/15/2024 1 1 Reason Comments Gynecologic Exam Pt is here for annua l exam. Reason Comments Contraception Pt is here for NV fo r UPT to start BC pills. Reason Onset Date Comments letter requested 03/29/2024 Reason Comments Gynecologic Exam STD SCREENING Care Teams (unrecognized sec tion and content) Team Status: Active Member Role Status Carey Marinelli MD Primary Care Provider Active Team Status: Inactive Member Role Status Carey Marinelli MD Primary Care Provider Active Start: March 01, 2024 End: March 01, 2024 Jackelyn Stone APRN Attending Provider Active Start: March 01, 2024 End: March 01, 2024 Team Status: Active Member Role Status Carey Marinelli MD Primary Care Provider Active Start: March 01, 2024 Jackelyn Stone APRN Attending Provider Active Start: March 01, 2024 Anode Builder Relationship Specialty Start Date End Date Brittnay Mcginnis MD [address] [place] [id number] Referring Physician Family Medicine 03/05/24 Anode Builder Relationship Specialty Start Date End Date Brittany Mcginnis MD [address] [place] [address] Referring Physician Family Medicine 03/05/24 Anode Builder Relationship Specialty Start Date End Date Brittany Mcginnis MD [address] [place] [address] Referring Physician Family Medicine 03/05/24 Anode Builder Relationship Specialty Start Date End Date Brittany Mcginnis MD [address] [place] [address] Referring Physician Family Medicine 03/05/24 Anode Builder Relationship Specialty Start Date End Date Brittany Mcginnis MD [address] [place] [address] Referring Physician Family Medicine 03/05/24 Anode Builder Relationship Specialty Start Date End Date Brittany Mcginnis APRN-CNP [address] [facility], [facility] [place] [address] PCP - General Family Medicine 01/11/23 Anode Builder Relationship Specialty Start Date End Date Brittany Mcginnis APRN-CNP [address] [facility], [facility] [place] [address] PCP - General Family Medicine 01/11/23 Anode Builder Relationship Specialty Start Date End Date Brittany Mcginnis APRN-CNP [address] [facility], [facility] [place] [address] PCP - General Family Medicine 01/11/23 Anode Builder Relationship Specialty Start Date End Date Brittany Mcginnis APRN-CNP [address] [facility], [facility] [place] [address] PCP - General Family Medicine 01/11/23 Anode Builder Relationship Specialty Start Date End Date Brittany Mcginnis S SHIP BOAT OR BARGE MATE-STAFFING AND SCHEDULING COORDINATOR [address] [facility], [place] [address] PCP - General Family Medicine 01/11/23 Anode Builder Relationship Specialty Start Date End Date Brittany Mcginnis SHIP BOAT OR BARGE MATE-STAFFING AND SCHEDULING COORDINATOR [address] [facility], [place] [address] PCP - General Family Medicine 01/11/23 Anode Builder Relationship Specialty Start Date End Date Ras Brittany S SHIP BOAT OR BARGE MATE-STAFFING AND SCHEDULING COORDINATOR [address] [facility], [place] [address] PCP - General Family Medicine 01/11/23 Anode Builder Relationship Specialty Start Date End Date Shani Mcginnisela Edson SHIP BOAT OR BARGE MATE-STAFFING AND SCHEDULING COORDINATOR [address] 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, [place] [address] PCP - General Family Medicine 01/11/23 Team Status: Active Member Role Status Dates Brittany Mcginnis NP-C Primary Care Provider Active Team Status: Inactive Member Role Status Dates Brittany Mcginnis NP-C Primary Care Provider Active Start: January 06, 2025 End: January 09, 2025 Agapito Sheldon MD Admit Provider, Alva pedersen Provider Active Start: January 06, 2025 End: January 09, 2025 Team Status: Active Member Role Status Dates Brittany Mcginnis NP-C Primary Care Provider Active Start: January 07, 2025 Agapito Sheldon MD Admit Provider, Alva pedersen Provider, Other Provider Active Start: January 07, 2025 Goals (unrecognized section and content) Goals may [...] BE BASED ON THE PRIMARY CLINICAL RECORDS. [facility] [employer] [facility]. provides no warranty or guarantee of the accuracy or completeness of information in this document.
--- NOTE | 2025-03-10 17:08 | ECG_ITS ---
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 Measurements Intervals [place] Rate: 98 P: 47 NM: 132 QRS: 58 QRSD: 86 T: 34 QT: 348 QTc: 403 Interpretive Statements 1100 Sinus rhythm 4068 Nonspecific Twave abnormality 9130 borderline ECG Compared to ECG 11/14/2019 22:03:31 Sinus tachycardia no longer present Electronically Signed On 03-12-2025 14:00:08 EDT by ROBIN CHINCHILLA M.D.
[2025-03-10 17:22] LABS: Hematocrit 44.4 % (36.0-48.0); Hemoglobin 15.0 g/dL (12.0-16.0); Immature Granulocytes Abs Auto 0.05 10^3/uL (0.00-0.03); Immature Granulocytes Pct Auto 0.4 % (0.0-0.5); Lymphocytes Absolute Auto 2.1 10^3/uL (1.2-3.8); Mean Corpuscular HGB Conc 33.8 g/dL (29.9-35.2); Mean Corpuscular Hemoglobin 33.8 pg (26.7-34.0); Mean Corpuscular Volume 100.0 fL (81.0-99.0); Platelet Count 315 10^3/uL (150-450); Red Blood Count 4.44 10^6/uL (4.20-5.40); White Blood Count 11.8 10^3/uL (4.0-11.0)
[2025-03-10 17:49] LABS: Cannabinoid Screen Urine NEGATIVE (NEGATIVE); Methamphetamines Screen Urine NEGATIVE (NEGATIVE); Tricyclic Antidepressant Urine NEGATIVE (NEGATIVE)
[2025-03-10 17:50] LABS: ABG PCO2 40.2 mmHg (35.0-45.0); HCO3 ABG 26.7 mmol/L (22.0-26.0); PO2 ABG 349.0 mmHg (80.0-100.0)
[2025-03-10 17:51] LABS: Allen Test POSITIVE (POSITIVE); Liters per Minute 15; O2 Mode NRBM; Oxygen Saturation ABG >100.0 %; Puncture Site LR
[2025-03-10 18:15] LABS: Carboxyhemoglobin 7.6 % (1.5-4.9); Methemoglobin ABG <1.0 % (1.1-1.9)
[2025-03-10 18:17] LABS: Alanine Aminotransferase 27 U/L (14-59); Albumin Globulin Ratio 0.8; Albumin Level 3.4 g/dL (3.4-5.0); Alkaline Phosphatase 97 U/L (46-116); Anion Gap 6.6; Aspartate Amino Transferase 18 U/L (15-37); Blood Urea Nitrogen 12.0 mg/dL (7.0-18.0); Calcium 9.5 mg/dL (8.5-10.1); Carbon Dioxide 28.6 mmol/L (21.0-32.0); Chloride 89 mmol/L (98-107); Estimated GFR (African America >60 (>=60 mL/min/1.73m^2); Estimated GFR (Non-African Ame 54 (>=60 mL/min/1.73m^2); Globulin 4.2 g/dL; Glucose 99 mg/dL (74-106); Potassium 3.2 mmol/L (3.5-5.1); Salicylate 6.7 mg/dL (<=19.9); Total Protein 7.6 g/dL (6.4-8.2)
[2025-03-10 18:18] LABS: Acetaminophen <2.0 ug/mL (10.0-30.0)
[2025-03-10 18:20] LABS: Sodium 121 mmol/L (136-145)
--- NOTE | 2025-03-10 18:43 | ED.PSYCH1 ---
HPI - Psych General Chief Complaint: Psychiatric Symptoms Stated Complaint: OTHER Time Seen by Provider: 03/10/25 17:06 Source: Reports patient Mode of arrival: ambulance Limitations: Reports no limitations History of Present Illness HPI Narrative: The patient have a history of seizure disorder on lamotrigine as a coming to the ER after she attempted suicide by closing the garage door and turning on her vehicle, her boyfriend was able to get out of the garage and called the police, the patient did not pass out at any time she was awake the whole time she did had some headache on presentation and she did mention earlier having some dizziness, but right now she does not have any symptoms except for mild headache The patient have no nausea vomiting or any other complaint. She mentioned that her family stopped talking to her a month ago and that was the trigger for her depression to get worse The patient did not eat or drink for the last 2 days Related Data Home Medications ?Medication ?Instructions ?Recorded ?Confirmed lamotrigine 100 mg tablet 200 mg PO BID 12/19/24 03/10/25 cariprazine 1.5 mg capsule 1.5 mg PO DAILY 03/10/25 03/10/25 (Vraylar) cyanocobalamin (vitamin B-12) 1,000 mcg PO DAILY 03/10/25 03/10/25 1,000 mcg tablet doxepin 25 mg capsule 50 mg PO .QHS 03/10/25 03/10/25 drospirenone (contraceptive) 4 mg 1 tab PO DAILY 03/10/25 03/10/25 (28) tablet (Slynd) duloxetine 60 mg capsule,delayed 60 mg PO DAILY 03/10/25 03/10/25 release Allergies Allergy/AdvReac Type Severity Reaction Status Date / Time No Known Drug Allergies Allergy Verified 03/10/25 16:59 Review of Systems ROS Status of ROS 10 or more systems reviewed and unremarkable except as noted in history and below PFSH PFSH Social History Little interest or pleasure in doing things: more than half the days Feeling down, depressed, or hopeless: several days Exam Narrative Exam Narrative: Nurses notes and vital signs reviewed and patient is not hypoxic. General: Well-appearing and in no apparent distress. Skin: Warm, dry, no pallor noted. No rash. Head: Normocephalic, atraumatic. Neck: Supple, non-tender. Cardiovascular: Regular Rate and Rhythm without murmur, gallop or rub. Respiratory: No accessory muscle use or respiratory distress. Lungs are clear to auscultation, no wheezing, rales or rhonchi Chest Wall: no tenderness Back: No midline thoracic or lumbar vertebral tenderness. No CVA tenderness Musculoskeletal: normal ROM, no calf or popliteal tenderness, no lower extremity edema/swelling GI: Abdomen is soft, non-distended. Normal bowel sounds. No masses appreciated. No tenderness to palpation. No rebound, guarding, or rigidity noted. Neurological: A&O x4. No cranial nerve dysfunction observed. No truncal ataxia. Moves all extremities. Sensation intact. Psychiatric: Cooperative and interactive. Normal mood and affect. Constitutional Vital Signs, click to edit/add: Last Vital Signs Temp 98.1 F 03/10/25 16:59 Pulse 94 H 03/10/25 16:59 Resp 18 03/10/25 16:59 BP 131/83 03/10/25 16:59 Pulse Ox 96 03/10/25 16:59 O2 Del Method Room Air 03/10/25 16:59 Course Vital Signs Vital signs: Vital Signs Temperature 98.1 F 03/10/25 16:59 Pulse Rate 94 H 03/10/25 16:59 Respiratory Rate 18 03/10/25 16:59 Blood Pressure 131/83 03/10/25 16:59 Pulse Oximetry 96 03/10/25 16:59 Oxygen Delivery Method Room Air 03/10/25 16:59 Temperature 98.1 F 03/10/25 16:59 Pulse Rate 94 H 03/10/25 16:59 Respiratory Rate 18 03/10/25 16:59 Blood Pressure 131/83 03/10/25 16:59 Pulse Oximetry 96 03/10/25 16:59 Oxygen Delivery Method Room Air 03/10/25 16:59 MDM - Psych MDM Narrative Medical decision making narrative: The patient EKG in the ER showing sinus rhythm with a heart rate of [address] elevation that is significant for acute coronary syndrome CBC shows no leukocytosis but the patient chemistry showing hyponatremia with a sodium of 121 in addition to low potassium of 3.2 and low chloride Provided with potassium supplement and we will repeat the sodium The patient was also provided with 1 L of fluid mostly 500 cc initially and we will reassess The patient does not have any chest pain at any time and her ABGs shows a CO almost 7 % and she was placed on oxygen earlier until resolution of her symptoms The patient right now does not have any complain except for the fact that she have depression Right now the patient will have a repeat the sodium after hydration as well and will sign out to the care at 7 PM Tylenol aspirin levels are negative and the patient will definitely need an evaluation management of the hyponatremia before she is medically clear for psychiatric evaluation as well Lab Data Labs: Lab Results 03/10/25 03/10/25 03/10/25 Range/Units 17:10 17:16 17:42 WBC 11.8 H (4.0-11.0) 10^3/uL RBC 4.44 (4.20-5.40) 10^6/uL Hgb 15.0 (12.0-16.0) g/dL Hct 44.4 (36.0-48.0) % MCV 100.0 H (81.0-99.0) fL MCH 33.8 (26.7-34.0) pg MCHC 33.8 (29.9-35.2) g/dL RDW 12.7 (11.0-15.0) % Plt Count 315 (150-450) 10^3/uL MPV 10.4 (9.5-13.5) fL Neut % (Auto) 76.4 H (43.0-75.0) % Lymph % (Auto) 18.1 L (20.5-60.0) % [place] % (Auto) 4.5 (1.7-12.0) % Eos % (Auto) 0.3 L (0.9-7.0) % Baso % (Auto) 0.3 (0.2-2.0) % Neut # (Auto) 9.0 H (1.4-6.5) 10^3/uL Lymph # (Auto) 2.1 (1.2-3.8) 10^3/uL [place] # (Auto) 0.5 (0.3-0.8) 10^3/uL Eos # (Auto) 0.0 (0.0-0.7) 10^3/uL Baso # (Auto) 0.0 (0.0-0.1) 10^3/uL Abs Immat Gran (auto) 0.05 H (0.00-0.03) 10^3/uL Imm/Tot Granulo (auto) 0.4 (0.0-0.5) % Puncture Site Lr ABG pH 7.430 (7.350-7.450) ABG pCO2 40.2 (35.0-45.0) mmHg ABG pO2 349.0 H (80.0-100.0) mmHg ABG HCO3 26.7 H (22.0-26.0) mmol/L ABG O2 Saturation >100.0 % ABG Base Excess 2.4 H (-2.0-2.0) mmol/L ABG Methemoglobin <1.0 L (1.1-1.9) % Paul Test Positive (POSITIVE) Carboxyhemoglobin 7.6 H (1.5-4.9) % O2 Liters/Min 15 Sodium (136-145) mmol/L Potassium (3.5-5.1) mmol/L Chloride (98-107) mmol/L Carbon Dioxide (21.0-32.0) mmol/L Anion Gap BUN (7.0-18.0) mg/dL Creatinine (0.55-1.02) mg/dL Est GFR ( Amer) (>=60 mL/min/1.73m^2) Est GFR (Non-Af Amer) (>=60 mL/min/1.73m^2) BUN/Creatinine Ratio Glucose (74-106) mg/dL Calcium (8.5-10.1) mg/dL Total Bilirubin (0.2-1.0) mg/dL AST (15-37) U/L ALT (14-59) U/L Alkaline Phosphatase (46-116) U/L Troponin I High Sens (4.0-51.3) pg/mL Total Protein (6.4-8.2) g/dL Albumin (3.4-5.0) g/dL Globulin g/dL Albumin/Globulin Ratio Serum HCG, Qual Negative (NEGATIVE) Salicylates (<=19.9) mg/dL Urine Opiates Screen Negative (NEGATIVE) Ur Buprenorphine Scrn Negative (NEGATIVE) Ur Oxycodone Screen Negative (NEGATIVE) Urine Methadone Screen Negative (NEGATIVE) Acetaminophen (10.0-30.0) ug/mL Ur Barbiturates Screen Negative (NEGATIVE) U Tricyclic Antidepress Negative (NEGATIVE) Ur Phencyclidine Scrn Negative (NEGATIVE) Ur Amphetamines Screen Negative (NEGATIVE) U Methamphetamines Scrn Negative (NEGATIVE) U Benzodiazepines Scrn Negative (NEGATIVE) Urine Cocaine Screen Negative (NEGATIVE) U Cannabinoids Screen Negative (NEGATIVE) Ethanol Quant mg/dL 03/10/25 Range/Units 17:46 WBC (4.0-11.0) 10^3/uL RBC (4.20-5.40) 10^6/uL Hgb (12.0-16.0) g/dL Hct (36.0-48.0) % MCV (81.0-99.0) fL MCH (26.7-34.0) pg MCHC (29.9-35.2) g/dL RDW (11.0-15.0) % Plt Count (150-450) 10^3/uL MPV (9.5-13.5) fL Neut % (Auto) (43.0-75.0) % Lymph % (Auto) (20.5-60.0) % [place] % (Auto) (1.7-12.0) % Eos % (Auto) (0.9-7.0) % Baso % (Auto) (0.2-2.0) % Neut # (Auto) (1.4-6.5) 10^3/uL Lymph # (Auto) (1.2-3.8) 10^3/uL [place] # (Auto) (0.3-0.8) 10^3/uL Eos # (Auto) (0.0-0.7) 10^3/uL Baso # (Auto) (0.0-0.1) 10^3/uL Abs Immat Gran (auto) (0.00-0.03) 10^3/uL Imm/Tot Granulo (auto) (0.0-0.5) % Puncture Site ABG pH (7.350-7.450) ABG pCO2 (35.0-45.0) mmHg ABG pO2 (80.0-100.0) mmHg ABG HCO3 (22.0-26.0) mmol/L ABG O2 Saturation % ABG Base Excess (-2.0-2.0) mmol/L ABG Methemoglobin (1.1-1.9) % Paul Test (POSITIVE) Carboxyhemoglobin (1.5-4.9) % O2 Liters/Min Sodium 121 L* (136-145) mmol/L Potassium 3.2 L (3.5-5.1) mmol/L Chloride 89 L (98-107) mmol/L Carbon Dioxide 28.6 (21.0-32.0) mmol/L Anion Gap 6.6 BUN 12.0 (7.0-18.0) mg/dL Creatinine 1.09 H (0.55-1.02) mg/dL Est GFR ( Amer) >60 (>=60 mL/min/1.73m^2) Est GFR (Non-Af Amer) 54 L (>=60 mL/min/1.73m^2) BUN/Creatinine Ratio 11.0 Glucose 99 (74-106) mg/dL Calcium 9.5 (8.5-10.1) mg/dL Total Bilirubin 0.4 (0.2-1.0) mg/dL AST 18 (15-37) U/L ALT 27 (14-59) U/L Alkaline Phosphatase 97 (46-116) U/L Troponin I High Sens 4.8 (4.0-51.3) pg/mL Total Protein 7.6 (6.4-8.2) g/dL Albumin 3.4 (3.4-5.0) g/dL Globulin 4.2 g/dL Albumin/Globulin Ratio 0.8 Serum HCG, Qual (NEGATIVE) Salicylates 6.7 (<=19.9) mg/dL Urine Opiates Screen (NEGATIVE) Ur Buprenorphine Scrn (NEGATIVE) Ur Oxycodone Screen (NEGATIVE) Urine Methadone Screen (NEGATIVE) Acetaminophen <2.0 L (10.0-30.0) ug/mL Ur Barbiturates Screen (NEGATIVE) U Tricyclic Antidepress (NEGATIVE) Ur Phencyclidine Scrn (NEGATIVE) Ur Amphetamines Screen (NEGATIVE) U Methamphetamines Scrn (NEGATIVE) U Benzodiazepines Scrn (NEGATIVE) Urine Cocaine Screen (NEGATIVE) U Cannabinoids Screen (NEGATIVE) Ethanol Quant <3 mg/dL Discharge Plan Discharge Patient Disposition: Still a Patient
--- NOTE | 2025-03-10 18:54 | PC.NURSE ---
1840 - pt speaking with Kiera with [facility] LINE. meal tray given
[2025-03-10 19:05] LABS: Anion Gap 9.6; Blood Urea Nitrogen 12.0 mg/dL (7.0-18.0); Calcium 9.7 mg/dL (8.5-10.1); Carbon Dioxide 30.9 mmol/L (21.0-32.0); Chloride 93 mmol/L (98-107); Estimated GFR (African America >60 (>=60 mL/min/1.73m^2); Estimated GFR (Non-African Ame 55 (>=60 mL/min/1.73m^2); Glucose 97 mg/dL (74-106); Potassium 3.5 mmol/L (3.5-5.1); Sodium 130 mmol/L (136-145)
[2025-03-10 19:10] LABS: Magnesium 2.2 mg/dL (1.8-2.4)
[2025-03-10] MEDS: 0.9 % SODIUM CHLORIDE 1,000 ML 500 ML IV (19:16)
[2025-03-10] MEDS: POTASSIUM BICARBONATE/CIT 25 MEQ TABLET EFF 50 MEQ PO (19:17)
[2025-03-11] VITALS: PULSE 87
[2025-03-11 01:00] VITALS: PULSE 75
== END 2025-03-11 02:17 | disposition short-term general hospital (02) ==
PROVIDERS: Emergency Medicine; Emergency Provider Student in an Organized Health Care Education/Training Program; PCP Nurse Practitioner Family
DX: R51.9 Headache, unspecified (principal); F32.A Depression, unspecified; R79.89 Other specified abnormal findings of blood chemistry
CPT/HCPCS: 36415; 36600; 80048; 80053; 80179; 80307; 80320; 80329; 82375; 82805; 83050; 83735; 84484; 84703; 85025; 93005; 96360; 96361; 99285